=== PATIENT | female | born 1935 | race Caucasian/White ===

== ENCOUNTER 2016-03-28 15:24 | Inpatient (IN) | payer OTHER ==
[~2016-03-28] VITALS: Ht 172.7 cm; Wt 97.6 kg
[~2016-03-28 15:24] MED LIST: ADVIN25/60 INH; AMLO-114 PO; ASPI81TA28 PO; BENZ100C7 PO; DTRSR4 PO; DXY100 PO; FERR1TAB13 PO; FOLI800T PO; HYDR-4715 PO; INSDGI SQ; INSU100I2 SQ; IPRA1AER2 INH; LEVO175T3 PO; LSX40 PO; MAGN400T6 PO; METO50TA16 PO; MULT1CAP16 PO; NTRGSL/4 UT; OXGN; POLY335019 PO; PRLSR20 PO; QUET1TAB32 PO; SENN-61 PO; SIMV20TA2 PO; TEMA15CA4 PO; TIOTCAP INH; WARF5TAB90 PO
[2016-03-28] MEDS ORDERED: WARF2.5T8 PO (15:49)
[2016-03-28] MEDS ORDERED: LEVO-17 PO (15:49)
[2016-03-28] MEDS ORDERED: WARF5TAB7 PO (15:49)
[2016-03-28] MEDS ORDERED: OXYC-106 PO (15:49)
[2016-03-28] MEDS ORDERED: GLC/500 PO (15:49)
[2016-03-28] MEDS ORDERED: GLIM4TAB2 PO (15:49)
[2016-03-28] MEDS ORDERED: SUCR1TAB29 PO (15:49)
[2016-03-28] MEDS ORDERED: FURO-85 PO (15:49)
[2016-03-28] MEDS ORDERED: CLX20 PO (15:49)
[2016-03-28] MEDS ORDERED: [UNRECOGNIZED DRUG - CODE] (15:49)
[2016-03-28] MEDS ORDERED: METOPROLOL TARTRATE 50 MG TAB PO STA (16:10)
[2016-03-28 16:25] LABS: BASO % 0.4 %; BASO ABS # 0.03 K/uL (0-0.2); COMPLETE YES; EOS % 0.6 %; HEMATOCRIT 33.9 % (37-47); IG% 0.4 %; LYMPH % 11.4 %; LYMPH ABS # 0.88 K/uL (1.2-3.4); MEAN CELL VOLUME 87.1 fL (80-100); MEAN PLATELET VOLUME 10.6 fL (7.4-10.4); MONO % 10.4 %; NEUT % 76.8 %; PLATELET COUNT 242 K/uL (130-400); RED BLOOD COUNT 3.89 M/uL (4.2-5.4)
--- NOTE | 2016-03-28 16:32 | DIAGNOSTIC IMAGING REPORT ---
SINGLE VIEW CHEST CLINICAL HISTORY: Generalized abdominal pain. FINDINGS: An AP, portable, upright chest radiograph is compared to study dated 12/21/2015. The examination is degraded by portable technique and patient rotation. The patient is status post midline sternotomy and cardiac valve surgery. The heart is enlarged and there is atherosclerotic calcification of the thoracic aorta. The pulmonary vasculature is congested. No large pleural effusion is identified. There is bibasilar atelectasis. No pneumothorax is seen. The skeletal structures are osteopenic. The bony thorax is grossly intact. IMPRESSION: Cardiomegaly with mild pulmonary vascular congestion. Electronically signed by: John Paul Peres M.D. 03/28/2016 4:30 PM Dictated Date/Time: 03/28/2016 4:29 PM
[2016-03-28 16:34] LABS: BUN/CREATININE RATIO 25.5 (10-20); CALCIUM 8.6 mg/dl (8.5-10.1); CREATININE 2.1 mg/dl (0.60-1.20); POTASSIUM 5.1 mmol/L (3.5-5.1)
[2016-03-28 16:55] LABS: ALB/GLOB RATIO 0.9 (0.9-2)
[2016-03-28 17:01] LABS: URINE APPEARANCE CLEAR (CLEAR); URINE BILIRUBIN NEG (NEG); URINE COLOR YELLOW; URINE NITRITE NEG (NEG); URINE SPECIFIC GRAVITY 1.018 (1.000-1.030); UROBILINOGEN NEG (NEG); ZZURINE CULT IF INDIC CATH YES
[2016-03-28 17:08] LABS: MANUAL MICROSCOPIC REQUIRED? NO; REVIEW REQ? NO
[2016-03-28 17:12] LABS: INR 1.4 (0.9-1.1); PROTHROMBIN TIME (PATIENT) 15.6 SECONDS (9.0-12.0)
[2016-03-28] MEDS ORDERED: LABETALOL HCL IV 5 MG/ML 20ML IV STA (17:16)
--- NOTE | 2016-03-28 17:25 | DIAGNOSTIC IMAGING REPORT ---
ABDOMEN AND PELVIS CT WITHOUT CONTRAST CT DOSE: 1288.69 mGy.cm HISTORY: Generalized abdominal pain. TECHNIQUE: Multiaxial CT images of the abdomen and pelvis were performed without contrast. COMPARISON STUDY: Renal ultrasound 10/30/2015. FINDINGS: The heart is enlarged. There are poststernotomy changes. Small to moderate right pleural effusion with a small amount of compressive atelectasis within the right lower lobe. No pneumoperitoneum. No pneumatosis. Moderate to severe body wall edema. There are few punctate calcified granulomas within the liver and spleen. The unenhanced adrenal glands and pancreas are unremarkable. Mild perinephric edema. There are few punctate bilateral renal calculi. No hydronephrosis. Gallbladder wall thickening/edema remains unchanged. No retroperitoneal lymphadenopathy. Small amount of ascites. The bladder is not well-distended which may account for the apparent bladder wall thickening. There is gas within the uterine cavity and vagina. No CT evidence for a fistula. Suboptimal evaluation for bowel pathology due to the lack of intravenous and oral contrast. Multiple colonic diverticula. No definite bowel wall thickening or obstruction. A small portion appendix may be identified on image 275. This appears to be normal in caliber. IMPRESSION: 1. No definite bowel wall thickening or obstruction. 2. Small to moderate right pleural effusion. 3. Moderate to severe body wall edema with a small amount of ascites. 4. Gallbladder wall thickening/edema, unchanged. This is likely due to the patient's edematous state. 5. Gas within the uterine cavity and vagina. However, no CT evidence for a fistula. 6. Bilateral nephrolithiasis. No hydronephrosis. Electronically signed by: Manav Alvarez M.D. 03/28/2016 5:23 PM Dictated Date/Time: 03/28/2016 5:14 PM
--- NOTE | 2016-03-28 18:29 | EMERGENCY ROOM VISIT NOTE ---
History Report prepared by Erica: Mesha Oliva Under the Supervision of: Dr. John Paul Han M.D. First contact with patient: 16:05 Chief Complaint: SHORTNESS OF BREATH Stated Complaint: SOB Nursing Triage Summary: Pt reports feeling sick for 3 weeks. Daughter called EMS for increasing SOB. Pt has been weak, poor appetite, and SOB. History of COPD and on 3L O2 at home. Pt also has ulcer on left lower leg History of Present Illness The patient is an 80 year old female arriving by ambulance who presents to the Emergency Room with complaints of gradually worsening shortness of breath over the past 6 weeks. Currently, she is feeling generally unwell, and she rates her discomfort as a 5/10. She was given a DuoNeb as well as an albuterol neb en route to the ED as EMS reported wheezing upon their arrival. The patient states that her abdomen has appeared to have become distended and her legs have become more swollen, despite decreased PO intake secondary to loss of appetite. Her family also notes that she has ulcers on her legs that have become more red, and have been seeping. They were also concerned that she may have a urinary infection secondary to dysuria with a foul odor, as well as an abnormal rash around the area of her groin. Patient was prescribed Levaquin for a possible UTI by her PCP, but she has not yet started that medication. The patient states that she has felt chilled, but she denies having fevers, cough, chest pain, nausea, vomiting, or diarrhea. She takes Coumadin regularly for her history of atrial fibrillation. Source of History: patient, family Onset: over the past 6 weeks Position: chest Symptom Intensity: 5/10 Quality: other (shortness of breath) Timing: worsening Associated Symptoms: + abdominal pain (distended), + chills, + rash (groin) , + urinary symptoms, No chest pain, No diarrhea, No fevers, No nausea, No vomiting Note: Patient has ulcers on her legs with increased redness and seeping. Review of Systems See HPI for pertinent positives & negatives. A total of 10 systems reviewed and were otherwise negative. Past Medical & Surgical Medical Problems: (1) Atrial fibrillation (2) CAD (coronary artery disease) (3) Cellulitis of left lower extremity (4) CHF (congestive heart failure) (5) COPD (chronic obstructive pulmonary disease) (6) Depression (7) DM type 2 (diabetes mellitus, type 2) (8) GI bleed (9) HTN (hypertension) (10) Hypothyroidism (11) NSTEMI, initial episode of care Surgical Problems: (1) H/O aortic valve replacement (2) Hx of CABG (3) S/P tonsillectomy Family History Heart disease Stroke Social History Smoking Status: Former Smoker Drug Use: none Marital Status: single Housing Status: lives alone Occupation Status: disabled Current/Historical Medications Scheduled Aspirin (Aspirin Ec), 81 MG PO DAILY Citalopram (Citalopram Hydrobromide), 20 MG PO DAILY Ferrous Sulfate (Kp Ferrous Sulfate), 325 MG PO TIDM Folic Acid (Folic Acid), 1 TAB PO DAILY Furosemide (Lasix), 20 MG PO DAILY Glimepiride (Glimepiride), 4 MG PO QAM Levofloxacin (Levaquin), 250 MG PO DAILY Levothyroxine Sodium (Levothyroxine Sodium), 1 TAB PO DAILY Magnesium Oxide (Mag-Ox), 400 MG PO BID Metformin Hcl (Glucophage), 1,000 MG PO BID Metoprolol Tartrate (Lopressor) (Lopressor), 25 MG PO BID Multiple Vitamins W/ Minerals (Multi Complete), 1 CAP PO DAILY Omeprazole (Prilosec), 20 MG PO DAILY Oxygen (Oxygen), 3 LITER NA CONTINOUS Quetiapine Fumarate (Seroquel), 50 MG PO HS Senna (Senokot), 8.6 MG PO BID Sucralfate (Carafate), 1 GM PO ACHS Tolterodine Tartrate (Detrol LA), 4 MG PO DAILY Warfarin Sod (Jantoven), 2.5 MG PO 2XWK Warfarin Sod (Jantoven), 5 MG PO 5XWK Scheduled PRN Ipratropium-Albuterol (Combivent Respimat), 1 PUFFS INH QID PRN for Wheezing Oxycodone/Acetaminophen 10MG/325MG (Percocet 10MG/325MG), 1 TAB PO Q6 PRN for Pain Miscellaneous Medications Nitroglycerin (Nitroglycerin Lingual), 400 MCG Allergies Coded Allergies: Morphine (Verified Adverse Reaction, Unknown, HALLUCINATIONS, 03/28/16) Physical Exam Vital Signs Date Time Temp Pulse Resp B/P Pulse Ox O2 Delivery O2 Flow Rate FiO2 03/28/16 17:14 90 20 159/115 98 Nasal Cannula 3.0 03/28/16 15:43 96 03/28/16 15:38 100 Nasal Cannula 3.0 03/28/16 15:30 Nasal Cannula 3.0 03/28/16 15:30 36.6 96 20 175/102 100 Nasal Cannula 3.0 Physical Exam GENERAL: Patient is in no acute distress. HEENT: No acute trauma, normocephalic atraumatic, mucous membranes dry, no nasal congestion, no scleral icterus. NECK: No stridor, no adenopathy, no meningismus, trachea is midline. LUNGS: Clear to auscultation bilaterally, no wheeze, no rhonchi, breath sounds equal. HEART: Mildly tachycardic and irregular. No murmur. ABDOMEN: Soft, nontender, bowel sounds positive, no hernias, no peritonitis. Yeast like rash present in the groin. EXTREMITIES: Moderate pedal edema with some superficial ulcers, more so on the left leg. Mild surrounding erythema. NEUROLOGIC: Oriented x 3, no acute motor or sensory deficits, no focal weakness. SKIN: No rash, no jaundice, no diaphoresis. Medical Decision & Procedures ER Provider Diagnostic Interpretation: X-ray results as stated below per interpretation by me and the radiologist: CT results as stated below per my review and radiologist interpretation: SINGLE VIEW CHEST CLINICAL HISTORY: Generalized abdominal pain. FINDINGS: An AP, portable, upright chest radiograph is compared to study dated 12/21/2015. The examination is degraded by portable technique and patient rotation. The patient is status post midline sternotomy and cardiac valve surgery. The heart is enlarged and there is atherosclerotic calcification of the thoracic aorta. The pulmonary vasculature is congested. No large pleural effusion is identified. There is bibasilar atelectasis. No pneumothorax is seen. The skeletal structures are osteopenic. The bony thorax is grossly intact. IMPRESSION: Cardiomegaly with mild pulmonary vascular congestion. Electronically signed by: John Paul Peres M.D. 03/28/2016 4:30 PM Dictated Date/Time: 03/28/2016 4:29 PM ABDOMEN AND PELVIS CT WITHOUT CONTRAST CT DOSE: 1288.69 mGy.cm HISTORY: Generalized abdominal pain. TECHNIQUE: Multiaxial CT images of the abdomen and pelvis were performed without contrast. COMPARISON STUDY: Renal ultrasound 10/30/2015. FINDINGS: The heart is enlarged. There are poststernotomy changes. Small to moderate right pleural effusion with a small amount of compressive atelectasis within the right lower lobe. No pneumoperitoneum. No pneumatosis. Moderate to severe body wall edema. There are few punctate calcified granulomas within the liver and spleen. The unenhanced adrenal glands and pancreas are unremarkable. Mild perinephric edema. There are few punctate bilateral renal calculi. No hydronephrosis. Gallbladder wall thickening/edema remains unchanged. No retroperitoneal lymphadenopathy. Small amount of ascites. The bladder is not well-distended which may account for the apparent bladder wall thickening. There is gas within the uterine cavity and vagina. No CT evidence for a fistula. Suboptimal evaluation for bowel pathology due to the lack of intravenous and oral contrast. Multiple colonic diverticula. No definite bowel wall thickening or obstruction. A small portion appendix may be identified on image 275. This appears to be normal in caliber. IMPRESSION: 1. No definite bowel wall thickening or obstruction. 2. Small to moderate right pleural effusion. 3. Moderate to severe body wall edema with a small amount of ascites. 4. Gallbladder wall thickening/edema, unchanged. This is likely due to the patient's edematous state. 5. Gas within the uterine cavity and vagina. However, no CT evidence for a fistula. 6. Bilateral nephrolithiasis. No hydronephrosis. Electronically signed by: Manav Alvarez M.D. 03/28/2016 5:23 PM Dictated Date/Time: 03/28/2016 5:14 PM Laboratory Results Test 03/28/16 15:16 03/28/16 16:40 Total Bilirubin 0.9 mg/dl (0.2-1) Aspartate Amino Transf (AST/SGOT) 71 U/L (15-37) Alanine Aminotransferase (ALT/SGPT) 58 U/L (12-78) Alkaline Phosphatase 68 U/L (45-117) Total Protein 6.7 gm/dl (6.4-8.2) Albumin 3.1 gm/dl (3.4-5.0) Globulin 3.6 gm/dl (2.5-4.0) Albumin/Globulin Ratio 0.9 (0.9-2) Lipase 211 U/L (73-393) Urine Color YELLOW Urine Appearance CLEAR (CLEAR) Urine pH 6.0 (4.5-7.5) Urine Specific Pilger 1.018 (1.000-1.030) Urine Protein 2+ (NEG) Urine Glucose (UA) NEG (NEG) Urine Ketones NEG (NEG) Urine Occult Blood TRACE (NEG) Urine Nitrite NEG (NEG) Urine Bilirubin NEG (NEG) Urine Urobilinogen NEG (NEG) Urine Leukocyte Esterase SMALL (NEG) Urine WBC (Auto) 10-30 /hpf (0-5) Urine RBC (Auto) 0-4 /hpf (0-4) Urine Hyaline Casts (Auto) 1-5 /lpf (0-5) Urine Epithelial Cells (Auto) 10-20 /lpf (0-5) Urine Bacteria (Auto) NEG (NEG) Laboratory results reviewed by me. Medications Administered Medications (Trade) Dose Ordered Sig/Keny Route Start Time Stop Time Status Last Admin Dose Admin Metoprolol Tartrate (Lopressor Tab) 25 mg NOW STAT PO 03/28/16 16:10 03/28/16 16:15 DC 03/28/16 16:22 25 MG Labetalol HCl (Normodyne IV) 20 mg NOW STAT IV 03/28/16 17:16 03/28/16 17:17 DC 03/28/16 17:19 20 MG ECG Indication: SOB/dyspnea Rate (beats per minute): 104 Rhythm: atrial fibrillation Findings: RBBB (incomplete), no acute ischemic change, other (Non-specific T wave change) ED Course 1605: The patient was evaluated in room C1. A complete history and physical exam was performed. 1610: Lopressor tab 25 mg PO was ordered. 1716: Labetalol HCl 20 mg IV was ordered. 1750: upon reevaluation, the patient appeared to be resting more comfortably. I updated her and her family on the results of her radiology reports and lab tests. The hospitalist will be contacted. 1800: After discussion with Dr. Pulido, the patient will continue to be evaluated by the [facility] [place] hospitalist for further management. The patient and her family verbalized their understanding and agreement with this treatment plan. Medical Decision The patient is an 80 year old female who presents to the ED with complaints of gradually worsening shortness of breath over the past 6 weeks. Differential diagnoses considered include exacerbation of COPD, pneumonia, CHF, bronchitis, anemia, UTI, sepsis, bowel obstruction, and cellulitis. There is no leukocytosis. The patient is anemic but this appears baseline looking back at previous testing. There is evidence for some renal insufficiency, this is about baseline for the patient. No acute electrolyte abnormality requiring correction. Lactic acid level is slightly elevated, this could be consistent with infection or dehydration. There was no hepatitis or pancreatitis. Urinalysis does not show infection or significant hematuria. Abdominal and pelvis CT shows no bowel obstruction, no acute surgical process by CT scan. EKG shows A. fib, no acute ischemia. Cardiac enzyme testing does show an elevation to the troponin, this is consistent with cardiac injury/ strain. Chest x-ray shows no pneumonia or CHF, there is no free air. INR is subtherapeutic for someone using Coumadin. Blood cultures are pending. The patient received IV saline, her lungs sounded fairly clear after receiving the nebulizers prior to arrival, no additional bronchodilator medication was given in the ER. The patient was given her normal dose of a.m. oral metoprolol. As her blood pressure was still high, she was given a dose of IV labetalol. The patient presents with worsening shortness of breath for weeks. She seems somewhat dehydrated by exam and history. I don't find evidence for pneumonia. She complained of lower abdominal pain, no peritonitis by exam, no acute surgical process by CT scan. Urine does not show infection. She did not appear to have any abdominal wall cellulitis, a groin yeast infection was seen. She does have some pedal edema with some slight erythema, I do not think she has an active cellulitis. With the elevated troponin, a cardiac cause for her presentation was considered. Admission/observation is warranted. I spoke to the patient and case management. The on-call hospitalist was consulted. Consults Time Called: 1750 Consulting Physician: Dr. Pulido - [facility] [place] Returned Call: 1800 Discussed the patient's case. She will continue to be evaluated by the [facility] [place] hospitalist for further management. Impression Primary Impression: Shortness of breath Additional Impression: Elevated troponin Scribe Attestation The scribe's documentation has been prepared under my direction and personally reviewed by me in its entirety. I confirm that the note above accurately reflects all work, treatment, procedures, and medical decision making performed by me. Departure Information Dispostion Being Evaluated By Hospitalist ([facility] [place]) Referrals Yasemin Sanabria M.D. (PCP) Problem Qualifiers
[2016-03-28] MEDS ORDERED: ZOLPIDEM TARTRATE 5 MG TAB PO PRN (18:30)
[2016-03-28] MEDS ORDERED: ACETAMINOPHEN 325 MG TAB PO PRN ×2 (18:30→18:45)
[2016-03-28] MEDS ORDERED: NITROGLYCERIN 0.4 MG SL PER TAB CHARGE SL PRN (18:30)
[2016-03-28] MEDS ORDERED: IPRATROPIUM BROMIDE/ALBUTEROL respimat INH INH PRN (18:30)
[2016-03-28] MEDS ORDERED: DEXTROSE 50% 50 ML SYR IV PRN (18:45)
[2016-03-28] MEDS ORDERED: GLUCAGON FOR INJ 1 MG VIAL SQ PRN (18:45)
[2016-03-28] MEDS ORDERED: GLUCOSE 40% GEL 15 GM TUBE PO PRN (18:45)
[2016-03-28] MEDS ORDERED: METOPROLOL TARTRATE 1 MG/ML VIAL IV PRN (18:45)
[2016-03-28] MEDS ORDERED: GLUCOSE 10 TABS/TUBE PO PRN (18:45)
[2016-03-28] MEDS ORDERED: LEVALBUTEROL/IPRATROPIUM NEB INH PRN (18:45)
[2016-03-28] MEDS ORDERED: ONDANSETRON INJ 2 MG/ML 2 ML VIAL IV PRN (18:45)
[2016-03-28] MEDS ORDERED: VANCOMYCIN INJ 2,100 MG in SODIUM CHLORIDE 0.9% 500ML 500 ML IV ONE (19:00)
[2016-03-28] MEDS ORDERED: VANCOMYCIN CONSULT ACTIVE PRN (19:00)
[2016-03-28] MEDS ORDERED: PIPERACILL/TAZOBAC CONSULT ACTIVE PRN (19:00)
[2016-03-28 19:56] LABS: CKMB/CK RATIO 5.8 (0-3.0)
--- NOTE | 2016-03-28 20:38 | Pharmacy Progress Note ---
Pharmacy Antibiotic Consult Date of Service: Mar 28, 2016. Pharmacy Dosing Scope Pharmacy is consulted to initiate vancomycin IV dosing therapy, order appropriate labs and adjust drug dose/frequency. Subjective The patient is a 80 year old female admitted on 03/28/2016 with cellulitis Objective Height (Feet): 5 Height (Inches): 8.00 Weight (Kilograms): 105.000 Lab Results (24hrs): Laboratory Tests Test 03/28/16 15:16 BUN/Creatinine Ratio 25.5 Blood Urea Nitrogen 54 mg/dl Creatinine 2.10 mg/dl White Blood Count 7.70 K/uL Red Blood Count 3.89 M/uL Hemoglobin 10.5 g/dL Hematocrit 33.9 % Mean Corpuscular Volume 87.1 fL Mean Corpuscular Hemoglobin 27.0 pg Mean Corpuscular Hemoglobin Concent 31.0 g/dl Platelet Count 242 K/uL Mean Platelet Volume 10.6 fL Neutrophils (%) (Auto) 76.8 % Lymphocytes (%) (Auto) 11.4 % Monocytes (%) (Auto) 10.4 % Eosinophils (%) (Auto) 0.6 % Basophils (%) (Auto) 0.4 % Neutrophils # (Auto) 5.91 K/uL Lymphocytes # (Auto) 0.88 K/uL Monocytes # (Auto) 0.80 K/uL Eosinophils # (Auto) 0.05 K/uL Basophils # (Auto) 0.03 K/uL Assessment & Plan Loading dose: vancomycin 2100 mg (20 mg/kg) IV X 1 dose then: RANDOM LEVEL (baseline creatinine between 1.8-2.0 mg/dL and currently creatinine is at 2.1 mg/dL --> at this point it is recommended to give a 20 mg/ kg loading dose and check levels) Goal peak level estimate: between 35 - 40 mcg/mL. Goal trough level estimate: between 15 - 20 mcg/mL (unknown organism). Random level has been ordered for: . Pharmacy will continue to follow and will adjust dose/frequency as necessary. Thank you
[2016-03-28] MEDS ORDERED: METOPROLOL TARTRATE 50 MG TAB PO SCH (21:00)
[2016-03-28 21:06] VITALS: BP 136/94; PULSE 83; TEMP 36.5; BMI 34.4; BMI 35.2
--- NOTE | 2016-03-28 21:08 | History and Physical ---
History & Physical Date & Time of Service: Mar 28, 2016 at 20:41 Chief Complaint: SOB Primary Care Physician: Ezra Arevalo D.O. History of Present Illness Source: patient, family The patient is a 80-year-old female brought by ambulance emergency department with worsening shortness of breath over the past 6 weeks and in particular over the past few days. She was reported by EMS to be wheezing upon their arrival, and was given a nebulizer treatment en route. Her legs become more swollen during this past interval as well , and the family notes weeping, redness and ulcerations on her legs. Family notes that the patient's urine has become more odorous, and they're concerned about possibility of urinary tract infection. The patient reports that she does have dysuria, but notes that she has a rash in her groin area and feels that the irritation is due to skin rash. She does take Coumadin regularly for atrial fibrillation Past Medical/Surgical History Medical Problems: (1) Atrial fibrillation Status: Chronic (2) CAD (coronary artery disease) Status: Chronic (3) CHF (congestive heart failure) Status: Chronic (4) COPD (chronic obstructive pulmonary disease) Status: Chronic (5) Depression Status: Chronic (6) DM type 2 (diabetes mellitus, type 2) Status: Chronic (7) GI bleed Status: Resolved (8) HTN (hypertension) Status: Chronic (9) Hypothyroidism Status: Chronic Surgical Problems: (1) H/O aortic valve replacement Status: Chronic (2) Hx of CABG Status: Chronic (3) S/P tonsillectomy Status: Chronic Family History Heart disease Stroke Social History Smoking Status: Former Smoker Smokeless Tobacco Use: No Alcohol Use: none Drug Use: none Marital Status: single Housing status: lives with family Occupational Status: disabled Multi-Drug Resistant Organisms History of MDRO: No Allergies Coded Allergies: Morphine (Verified Adverse Reaction, Unknown, HALLUCINATIONS, 03/28/16) Home Medications Scheduled Aspirin (Aspirin Ec), 81 MG PO DAILY Citalopram (Citalopram Hydrobromide), 20 MG PO DAILY Ferrous Sulfate (Kp Ferrous Sulfate), 325 MG PO TIDM Folic Acid (Folic Acid), 1 TAB PO DAILY Furosemide (Lasix), 20 MG PO DAILY Glimepiride (Glimepiride), 4 MG PO QAM Levofloxacin (Levaquin), 250 MG PO DAILY Levothyroxine Sodium (Levothyroxine Sodium), 1 TAB PO DAILY Magnesium Oxide (Mag-Ox), 400 MG PO BID Metformin Hcl (Glucophage), 1,000 MG PO BID Metoprolol Tartrate (Lopressor) (Lopressor), 25 MG PO BID Multiple Vitamins W/ Minerals (Multi Complete), 1 CAP PO DAILY Omeprazole (Prilosec), 20 MG PO DAILY Oxygen (Oxygen), 3 LITER NA CONTINOUS Quetiapine Fumarate (Seroquel), 50 MG PO HS Senna (Senokot), 8.6 MG PO BID Sucralfate (Carafate), 1 GM PO ACHS Tolterodine Tartrate (Detrol LA), 4 MG PO DAILY Warfarin Sod (Jantoven), 2.5 MG PO 2XWK Warfarin Sod (Jantoven), 5 MG PO 5XWK Scheduled PRN Ipratropium-Albuterol (Combivent Respimat), 1 PUFFS INH QID PRN for Wheezing Oxycodone/Acetaminophen 10MG/325MG (Percocet 10MG/325MG), 1 TAB PO Q6 PRN for Pain Miscellaneous Medications Nitroglycerin (Nitroglycerin Lingual), 400 MCG Review of Systems The patient denies vision change, hearing change, sore throat, fevers, chills, sweats, nausea, vomiting, abdominal pain, pelvic pain, blood in urine or stool, urinary frequency or urgency, headache, memory loss, abnormal bruising or bleeding, imbalance, focal weakness, numbness or tingling in arms or legs, night sweats, or allergy symptoms. The review of systems is otherwise negative other than for that already noted above, and at least 10 systems have been reviewed. Physical Exam Vital Signs Date Time Temp Pulse Resp B/P Pulse Ox O2 Delivery O2 Flow Rate FiO2 03/28/16 19:39 78 20 95 Nasal Cannula 3.0 03/28/16 17:14 90 20 159/115 98 Nasal Cannula 3.0 03/28/16 15:43 96 03/28/16 15:38 100 Nasal Cannula 3.0 03/28/16 15:30 Nasal Cannula 3.0 03/28/16 15:30 36.6 96 20 175/102 100 Nasal Cannula 3.0 The patient is awake, well-developed and adequately nourished, alert and oriented 3, normocephalic and atraumatic, lying in bed and in no acute distress. HEENT--PERRL, EOMI, mucous membranes moist, and oropharynx normal. Neck--supple, no JVD or bruits, thyroid normal, trachea midline, no adenopathy. Heart--normal S1 and S2, no extra beats, no murmurs, rubs or gallops. Lungs--crackles at bases to one third up bilaterally, no respiratory distress, no accessory muscle use. Abdomen--normal bowel sounds and soft, nontender and nondistended, no hernias or masses, no organomegaly. Extremities--no cyanosis, clubbing. There is bilaterally 1-2+ pitting Edema. There are good distal pulses b/l. Dermatologic--bilateral lower extremities with edema and small vacuoles. Left lower extremity with round surface abrasion about 3 cm in diameter with erythema and induration extending and all directions. Neurologic--cranial nerves II through XII grossly intact, motor and sensory examination normal. Psychiatric--normal affect. Diagnostics Laboratory Results Results Past 24 Hours Test 03/28/16 15:16 03/28/16 16:40 03/28/16 16:50 03/28/16 19:20 Range/Units White Blood Count 7.70 4.8-10.8 K/uL Red Blood Count 3.89 4.2-5.4 M/uL Hemoglobin 10.5 12.0-16.0 g/dL Hematocrit 33.9 37-47 % Mean Corpuscular Volume 87.1 80-100 fL Mean Corpuscular Hemoglobin 27.0 25-34 pg Mean Corpuscular Hemoglobin Concent 31.0 32-36 g/dl Platelet Count 242 130-400 K/uL Mean Platelet Volume 10.6 7.4-10.4 fL Neutrophils (%) (Auto) 76.8 % Lymphocytes (%) (Auto) 11.4 % Monocytes (%) (Auto) 10.4 % Eosinophils (%) (Auto) 0.6 % Basophils (%) (Auto) 0.4 % Neutrophils # (Auto) 5.91 1.4-6.5 K/uL Lymphocytes # (Auto) 0.88 1.2-3.4 K/uL Monocytes # (Auto) 0.80 0.11-0.59 K/uL Eosinophils # (Auto) 0.05 0-0.5 K/uL Basophils # (Auto) 0.03 0-0.2 K/uL RDW Standard Deviation 58.5 36.4-46.3 fL RDW Coefficient of Variation 18.5 11.5-14.5 % Immature Granulocyte % (Auto) 0.4 % Immature Granulocyte # (Auto) 0.03 0.00-0.02 K/uL Sodium Level 141 136-145 mmol/L Potassium Level 5.1 3.5-5.1 mmol/L Chloride Level 104 98-107 mmol/L Carbon Dioxide Level 24 21-32 mmol/L Anion Gap 13.0 3-11 mmol/L Blood Urea Nitrogen 54 7-18 mg/dl Creatinine 2.10 0.60-1.20 mg/dl Est Creatinine Clear Calc Drug Dose 27.1 ml/min Estimated GFR () 25.1 Estimated GFR (Non- 21.7 BUN/Creatinine Ratio 25.5 10-20 Random Glucose 94 70-99 mg/dl Calcium Level 8.6 8.5-10.1 mg/dl Total Bilirubin 0.9 0.2-1 mg/dl Aspartate Amino Transf (AST/SGOT) 71 15-37 U/L Alanine Aminotransferase (ALT/SGPT) 58 12-78 U/L Alkaline Phosphatase 68 45-117 U/L Troponin I 3.040 3.130 0-0.045 ng/ml Total Protein 6.7 6.4-8.2 gm/dl Albumin 3.1 3.4-5.0 gm/dl Globulin 3.6 2.5-4.0 gm/dl Albumin/Globulin Ratio 0.9 0.9-2 Lipase 211 73-393 U/L Urine Color YELLOW Urine Appearance CLEAR CLEAR Urine pH 6.0 4.5-7.5 Urine Specific [place] 1.018 1.000-1.030 Urine Protein 2+ NEG Urine Glucose (UA) NEG NEG Urine Ketones NEG NEG Urine Occult Blood TRACE NEG Urine Nitrite NEG NEG Urine Bilirubin NEG NEG Urine Urobilinogen NEG NEG Urine Leukocyte Esterase SMALL NEG Urine WBC (Auto) 10-30 0-5 /hpf Urine RBC (Auto) 0-4 0-4 /hpf Urine Hyaline Casts (Auto) 1-5 0-5 /lpf Urine Epithelial Cells (Auto) 10-20 0-5 /lpf Urine Bacteria (Auto) NEG NEG Prothrombin Time 15.6 9.0-12.0 SECONDS Prothromb Time International Ratio 1.4 0.9-1.1 Activated Partial Thromboplast Time 24.9 21.0-31.0 SECONDS Partial Thromboplastin Ratio 1.0 Lactic Acid Level 2.2 1.7 0.4-2.0 mmol/L Total Creatine Kinase 118 26-192 U/L Creatine Kinase MB 6.9 0.5-3.6 ng/ml Creatine Kinase MB Ratio 5.8 0-3.0 Microbiology Results 03/28/16 Blood Culture, Received Pending 03/28/16 Blood Culture, Received Pending 03/28/16 Urine Culture, Received Pending Diagnostic Radiology Patient Name: COLLIN AREVALO Unit Number: [id number] Dictated: 03/28/161628 Transcribed: 03/28/161628 EV Printed Date/Time: [~ rep prt dt]/[~ rep prt tm] [~ rep ct labl] - [~ rep ct ivnm] [facility] [place] [place] [address] Dictated: 03/28/161628 Transcribed: 03/28/161628 EV Printed Date/Time: [~ rep prt dt]/[~ rep prt tm] [~ rep ct labl] - [~ rep ct ivnm] [~ rep ct add3]] SINGLE VIEW CHEST CLINICAL HISTORY: Generalized abdominal pain. FINDINGS: An AP, portable, upright chest radiograph is compared to study dated 12/21/2015. The examination is degraded by portable technique and patient rotation. The patient is status post midline sternotomy and cardiac valve surgery. The heart is enlarged and there is atherosclerotic calcification of the thoracic aorta. The pulmonary vasculature is congested. No large pleural effusion is identified. There is bibasilar atelectasis. No pneumothorax is seen. The skeletal structures are osteopenic. The bony thorax is grossly intact. IMPRESSION: Cardiomegaly with mild pulmonary vascular congestion. Electronically signed by: John Paul Peres M.D. 03/28/2016 4:30 PM Dictated Date/Time: 03/28/2016 4:29 PM The status of this report is Signed. Draft = Not yet reviewed or approved by Radiologist. Signed = Reviewed and approved by Radiologist. <AttendingPhy></AttendingPhy> <FamilyPhy>Ezra Arevalo D.O.</FamilyPhy> < PrimaryPhy>Ezra Arevalo D.O.</PrimaryPhy> <UnitNumber>[id number]</ UnitNumber> <VisitNumber>[id number]</VisitNumber> <PatientName>COLLIN AREVALO</PatientName> <DateOfBirth>1935</DateOfBirth> <Location>[facility]</ Location> <ServiceDate>03/28/16</ServiceDate> <MNE>ESINDI</MNE> <OrderingPhy> John Paul Han M.D.</OrderingPhy> <OrderingPhyMNE>f rep ord dr thomas</ OrderingPhyMNE> <DictatingPhyMNE>f rep dict dr thomas</DictatingPhyMNE> <CCListMNE> f rep ct mne</CCListMNE> <AdmittingPhyMNE>f pt admit dr thomas</AdmittingPhyMNE> < AttendingPhyMNE>f pt attend dr thomas</AttendingPhyMNE> <ConsultingPhyMNE>f pt consult dr thomas</ConsultingPhyMNE> <FamilyPhyMNE>f pt fam dr thomas</FamilyPhyMNE> <OtherPhyMNE>f pt other dr thomas</OtherPhyMNE> < PrimaryPhyMNE>f pt prim care dr thomas</PrimaryPhyMNE> <ReferringPhyMNE>f pt referring dr thomas</ReferringPhyMNE> Patient Name: COLLIN AREVALO Unit Number: [id number] Dictated: 03/28/161713 Transcribed: 03/28/161713 PA Printed Date/Time: [~ rep prt dt]/[~ rep prt tm] [~ rep ct labl] - [~ rep ct ivnm] [facility] [place] [place] [address] Dictated: 03/28/161713 Transcribed: 03/28/161713 PAJ Printed Date/Time: [~ rep prt dt]/[~ rep prt tm] [~ rep ct labl] - [~ rep ct ivnm] [~ rep ct add3]] ABDOMEN AND PELVIS CT WITHOUT CONTRAST CT DOSE: 1288.69 mGy.cm HISTORY: Generalized abdominal pain. TECHNIQUE: Multiaxial CT images of the abdomen and pelvis were performed without contrast. COMPARISON STUDY: Renal ultrasound 10/30/2015. FINDINGS: The heart is enlarged. There are poststernotomy changes. Small to moderate right pleural effusion with a small amount of compressive atelectasis within the right lower lobe. No pneumoperitoneum. No pneumatosis. Moderate to severe body wall edema. There are few punctate calcified granulomas within the liver and spleen. The unenhanced adrenal glands and pancreas are unremarkable. Mild perinephric edema. There are few punctate bilateral renal calculi. No hydronephrosis. Gallbladder wall thickening/edema remains unchanged. No retroperitoneal lymphadenopathy. Small amount of ascites. The bladder is not well-distended which may account for the apparent bladder wall thickening. There is gas within the uterine cavity and vagina. No CT evidence for a fistula. Suboptimal evaluation for bowel pathology due to the lack of intravenous and oral contrast. Multiple colonic diverticula. No definite bowel wall thickening or obstruction. A small portion appendix may be identified on image 275. This appears to be normal in caliber. IMPRESSION: 1. No definite bowel wall thickening or obstruction. 2. Small to moderate right pleural effusion. 3. Moderate to severe body wall edema with a small amount of ascites. 4. Gallbladder wall thickening/edema, unchanged. This is likely due to the patient's edematous state. 5. Gas within the uterine cavity and vagina. However, no CT evidence for a fistula. 6. Bilateral nephrolithiasis. No hydronephrosis. Electronically signed by: Manav Alvarez M.D. 03/28/2016 5:23 PM Dictated Date/Time: 03/28/2016 5:14 PM The status of this report is Signed. Draft = Not yet reviewed or approved by Radiologist. Signed = Reviewed and approved by Radiologist. <AttendingPhy></AttendingPhy> <FamilyPhy>Ezra Arevalo D.OHola</FamilyPhy> < PrimaryPhy>Ezra Arevalo D.O.</PrimaryPhy> <UnitNumber>[id number]</ UnitNumber> <VisitNumber>[id number]</VisitNumber> <PatientName>COLLIN AREVALO</PatientName> <DateOfBirth>1935</DateOfBirth> <Location>[facility]</ Location> <ServiceDate>03/28/16</ServiceDate> <MNE>ESINDI</MNE> <OrderingPhy> John Paul Han M.D.</OrderingPhy> <OrderingPhyMNE>f rep ord dr thomas</ OrderingPhyMNE> <DictatingPhyMNE>f rep dict dr thomas</DictatingPhyMNE> <CCListMNE> f rep ct martha</CCListMNE> <AdmittingPhyMNE>f pt admit dr thomas</AdmittingPhyMNE> < AttendingPhyMNE>f pt attend dr thomas</AttendingPhyMNE> <ConsultingPhyMNE>f pt consult dr thomas</ConsultingPhyMNE> <FamilyPhyMNE>f pt fam dr thomas</FamilyPhyMNE> <OtherPhyMNE>f pt other dr thomas</OtherPhyMNE> < PrimaryPhyMNE>f pt prim care dr thomas</PrimaryPhyMNE> <ReferringPhyMNE>f pt referring dr thomas</ReferringPhyMNE> EKG EKG shows age fibrillation with RVR at a rate of 104 bpm, with incomplete right bundle branch block, and no acute ST-T changes. Impression Assessment and Plan NSTEMI, with elevated troponin of 3.04/CAD/atrial fibrillation/hypertension/CHF/ status post CABG--the patient will be admitted to the telemetry unit, for serial cardiac enzymes, cardiac rhythm monitoring, and a 2-D echocardiogram with Dopplers. Continue aspirin 81 mg by mouth daily furosemide 20 mg by mouth daily mag oxide 400 mg by mouth twice a day, metoprolol tartrate 25 mg by mouth twice a day, and we'll increase warfarin to 4 mg by mouth daily. We'll follow serial CBC with differential, basic metabolic panel, magnesium and PT/INR. We' ll consult cardiology. Diabetes mellitus --continue glimepiride 4 mg by mouth every morning, and hold metformin 1000 mg by mouth twice a day. Place on Accu-Cheks before meals and at bedtime with NovoLog coverage. Hypothyroidism--continue levothyroxine sodium at 175 g by mouth daily. GERD--change omeprazole 20 mg by mouth daily to pantoprazole 40 mg by mouth daily, and continue Carafate 1 g by mouth before meals and at bedtime. Anxiety/agitation--continue citalopram 20 mg by mouth daily and Seroquel 50 mg by mouth at bedtime. Bladder spasm--continue Detrol LA 4 mg by mouth daily. Level of Care Telemetry Advanced Directives Existing Advance Directive: No Existing Living Will: No Existing Power of Rat Exterminator: No Resuscitation Status FULL RESUSCITATION VTE Prophylaxis VTE Risk Assessment Done? Y/N: Yes Risk Level: Moderate Given or contraindicated: Warfarin (Coumadin)
[2016-03-28] MEDS ORDERED: WARFARIN SOD 4 MG TAB PO ONE (21:30)
[2016-03-28] MEDS ORDERED: PIPERACILL/TAZOBAC IV 4.5 GM in DEXTROSE 5% 100ML IV ONE (21:45)
[2016-03-28] MEDS: SUCRALFATE 1 GM TAB PO SCH (21:57)
[2016-03-28] MEDS: MAGNESIUM OXIDE 400 MG TAB PO SCH (21:57)
[2016-03-28] MEDS: SENNA 8.6 MG TAB PO SCH (21:57)
[2016-03-28] MEDS: METOPROLOL TARTRATE 50 MG TAB PO SCH (21:58)
[2016-03-28] MEDS: INSULIN ASPART 100 UNITS/ML 3 ML PEN SC SCH (21:59)
[2016-03-28] MEDS: QUETIAPINE FUMARATE 25 MG TAB PO SCH (21:59)
[2016-03-28] MEDS ORDERED: PIPERACILL/TAZOBAC IV 3.375 GM in DEXTROSE 5% 100ML 100 ML IV SCH (22:00)
[2016-03-28] MEDS ORDERED: ALBUMIN 25% 50 ML with FUROSEMIDE INJ 40 MG IV ONE ×2 (22:00)
[2016-03-29] VITALS (12 sets, daily range): BP systolic 112–149; BP diastolic 71–91; PULSE 56–79; TEMP 36.3–36.5; O2SAT 93–100; Ht 172.7 cm; Wt 97.6 kg
[2016-03-29] MEDS: PIPERACILL/TAZOBAC IV 4.5 GM in DEXTROSE 5% 100ML IV SCH ×3 (03:02→20:21)
[2016-03-29] MEDS: OXYCODONE/ACETAMINOPHEN 10/325MG TAB PO PRN ×2 (03:03→18:09)
[2016-03-29 03:36] LABS: CKMB/CK RATIO 5.9 (0-3.0)
[2016-03-29] MEDS: LEVOTHYROXINE 175 MCG TAB PO SCH (05:23)
[2016-03-29] MEDS ORDERED: GLIMEPIRIDE 2 MG TAB PO SCH (07:30)
[2016-03-29 07:32] LABS: BASO % 0.2 %; BASO ABS # 0.01 K/uL (0-0.2); EOS % 3.2 %; HEMATOCRIT 28.4 % (37-47); LYMPH % 14.3 %; MEAN CELL VOLUME 89.3 fL (80-100); MEAN CORPUSCULAR HGB CONC 30.3 g/dl (32-36); MEAN PLATELET VOLUME 9.8 fL (7.4-10.4); MONO % 12.7 %; NEUT % 69.6 %; PLATELET COUNT 168 K/uL (130-400); RED BLOOD COUNT 3.18 M/uL (4.2-5.4); WHITE BLOOD COUNT 5.58 K/uL (4.8-10.8)
[2016-03-29] MEDS: SUCRALFATE 1 GM TAB PO SCH ×4 (07:37→20:32)
[2016-03-29] MEDS: FERROUS SULFATE 325 MG TAB PO SCH ×3 (07:38→18:05)
[2016-03-29] MEDS: LACTOBACILLUS ACIDOPHILUS (FLORANEX) TAB PO SCH ×3 (07:38→18:05)
[2016-03-29 07:41] LABS: INR 1.3 (0.9-1.1); PROTHROMBIN TIME (PATIENT) 14.6 SECONDS (9.0-12.0)
--- NOTE | 2016-03-29 08:06 | Clinical Documentation Query ---
Dr. YA JONES, [facility]. : CLINICAL DOCUMENTATION QUERIES QUERY 1 OF 4 Patient is an 80 year old female admitted with NSTEMI. H&P notes history of CHF, not otherwise specified. Echocardiogram from 12/15/15 demonstrated moderately reduced left ventricular systolic function, with an estimated LVEF of 35-40%. There was moderate global hypokinesis of the left ventricle. She is being monitored on telemetry, and maintained on oral Lasix and Lopressor. In your clinical opinion is this patient being managed for: ( x ) Chronic systolic congestive heart failure ( ) Other explanation of clinical findings (Please Explain) ( ) Unable to determine (Please Define) ( ) Need to Discuss ( ) Not Agree The medical record reflects the following clinical findings, treatment, and risk factors. Clinical Indicators: As above Treatment: She is being monitored on telemetry, and maintained on oral Lasix and Lopressor. Risk Factors: CAD, NSTEMI, DM, HTN QUERY 2 OF 4 Provider documentation notes that patient utilizes supplemental oxygen continuously via nasal cannula. Historical EMR documentation includes a diagnosis of chronic hypoxic respiratory failure. Consider documentation as below as clinically appropriate. Thank you. In your clinical opinion is this patient being managed for: ( x ) Chronic hypoxic respiratory failure ( ) Other explanation of clinical findings (Please Explain) ( ) Unable to determine (Please Define) ( ) Need to Discuss ( ) Not Agree The medical record reflects the following clinical findings, treatment, and risk factors. Clinical Indicators: As above Treatment: Ongoing oxygen supplementation Risk Factors: COPD, smoking history QUERY 3 OF 4 Admission BUN, creatinine, and estimated GFR were 54 mg/dl, 2.10 mg/dl, and 22 ml/min. Estimated GFR range from 02/12/15 to present of 15 to 30 ml/min. Please clarify as clinically appropriate. Thank you. In your clinical opinion is this patient being managed for: ( x ) Chronic kidney disease, stage 4 ( ) Other explanation of clinical findings (Please Explain) ( ) Unable to determine (Please Define) ( ) Need to Discuss ( ) Not Agree The medical record reflects the following clinical findings, treatment, and risk factors. Clinical Indicators: As above Treatment: Serial chemistries, avoidance of nephrotoxins. Risk Factors: Age, afib, CAD, CHF, DM, HTN, medications, smoking history QUERY 4 OF 4 H&P documentation includes: "Her legs become more swollen during this past interval as well , and the family notes weeping, redness and ulcerations on her legs". WOCN consulted and patient is being treated with IV Zosyn and Lasix with albumin. No associated clinical diagnosis was suggested as the reason for these measures. Please clarify and document as clinically appropriate. Thank you. In your clinical opinion is this patient being managed for: ( x ) Cellulitis of left lower limb ( ) Other explanation of clinical findings (Please Explain) ( ) Unable to determine (Please Define) ( ) Need to Discuss ( ) Not Agree The medical record reflects the following clinical findings, treatment, and risk factors. Clinical Indicators: As above Treatment: WOCN consulted and patient is being treated with IV Zosyn and Lasix with albumin. Risk Factors: Age, CHF, DM Please clarify and document your clinical opinion in the progress notes and discharge summary. Terms such as "probable", "suspected", "likely", "questionable", "possible", or "still to be ruled out" are acceptable. IF IN AGREEMENT, YOU MUST DOCUMENT ABOVE DIAGNOSTIC STATEMENT IN DAILY PROGRESS NOTES AND DISCHARGE SUMMARY. This document is not part of the patient's record. Thank You, Drew Arevalo, RN [phone]
[2016-03-29] MEDS: INSULIN ASPART 100 UNITS/ML 3 ML PEN SC SCH ×4 (08:07→20:11)
[2016-03-29 08:18] LABS: BUN/CREATININE RATIO 28.5 (10-20); CALCIUM 8.2 mg/dl (8.5-10.1); CREATININE 1.9 mg/dl (0.60-1.20); MAGNESIUM 2.6 mg/dl (1.8-2.4); POTASSIUM 4.3 mmol/L (3.5-5.1)
[2016-03-29 08:30] LABS: ANISOCYTOSIS PRESENT; COMPLETE YES
[2016-03-29] MEDS: METOPROLOL TARTRATE 50 MG TAB PO SCH ×2 (09:00→20:33)
[2016-03-29] MEDS: PANTOprazole SOD 40 MG TAB PO SCH (09:36)
[2016-03-29] MEDS: SENNA 8.6 MG TAB PO SCH ×2 (09:36→20:32)
[2016-03-29] MEDS: MAGNESIUM OXIDE 400 MG TAB PO SCH ×2 (09:37→20:33)
[2016-03-29] MEDS: CEROVITE ADV FORMULA TAB PO SCH (09:37)
[2016-03-29] MEDS: TOLTERODINE TARTRATE LA 4 MG CAPCR PO SCH (09:37)
[2016-03-29] MEDS: FoLIC ACID TAB 400 MCG TAB PO SCH (09:37)
[2016-03-29] MEDS: ASPIRIN 81 MG ECTAB PO SCH (09:37)
[2016-03-29] MEDS: CITALOPRAM 20 MG TAB PO SCH (09:37)
[2016-03-29] MEDS: ALBUMIN 25% 50 ML with FUROSEMIDE INJ 40 MG IV SCH ×4 (09:53→22:20)
[2016-03-29 11:37] LABS: CKMB/CK RATIO 5.4 (0-3.0)
[2016-03-29 12:00] LABS: ARTERIAL BLD GAS O2 SATURATION 98.4 % (90-95); ARTERIAL BLOOD GAS BASE EXCESS 0.7 mEq/L (-9-1.8); ARTERIAL BLOOD GAS HCO3 27 mmol/L (19-24); ARTERIAL BLOOD GAS PO2 132 mm/Hg (80-95); ARTERIAL BLOOD GAS pH 7.33 (7.35-7.45)
[2016-03-29 12:01] LABS: ALLEN TEST POS (POS); O2 ADMINISTRATION 3L
[2016-03-29] MEDS: VANCOMYCIN INJ 1,600 MG in SODIUM CHLORIDE 0.9% 500ML 500 ML IV SCH (13:26)
[2016-03-29] MEDS ORDERED: WARFARIN SOD 4 MG TAB PO SCH (16:00)
--- NOTE | 2016-03-29 16:07 | CARDIOLOGY CONSULTATION ---
DATE OF CONSULTATION: 03/29/2016 REFERRING PHYSICIAN: Bossman Pulido MD ATTENDING PHYSICIAN: Bossman Pulido MD PRIMARY PHYSICIAN: Ezra Arevalo MD CONSULTATION: Tawanda Santoro MD History is obtained minimally from the patient. She provides few answers to my questions. She was also very somnolent. She does arouse to being shaken and verbal stimuli. She states she is very sleepy. She states she did not sleep last night. She does answer correctly to place and name and year. The history is also obtained from available records on the [facility] chart. HISTORY OF PRESENT ILLNESS: This is an 80-year-old white female. History of CABG surgery and bioprosthetic aortic valve replacement surgery. She states it was performed at [facility]. She did not name the year that was performed. Also, a history of coronary artery stents. History of chronic heart failure. Most recent echocardiogram showed normal LV systolic function and grade 3 diastolic dysfunction. Thus, the heart failure would be a chronic diastolic heart failure. She also has a history of chronic respiratory insufficiency and COPD. She is on supplemental nasal cannula oxygen chronically. She is on 3 liters per minute nasal cannula oxygen. History of admissions to [facility] for acute on chronic respiratory failure. Respiratory acidosis has been noted. Admissions for CABG exacerbations on 08/17/2015, 10/28/2015, and 12/15/2015. Also, admission for respiratory insufficiency in February 2015. Discharge diagnosis was also COPD exacerbation. The patient has a history of chronic atrial fibrillation. Treated with anticoagulation. In the past, anticoagulation was held because of anemia. She also has a history of type 2 diabetes mellitus and chronic kidney disease. History of worsening of renal function, on aggressive diuretic regimen. The patient presented to the Emergency Department last evening by ambulance. Her daughter called emergency medical services because of worsening dyspnea on exertion, weakness, and decreased appetite. The patient reported a 6-week history of worsening dyspnea. Emergency medical services documented wheezing on her exam at the patient's home. She was given DuoNeb and albuterol nebulizer treatments. In addition to the above complaints, the patient also had complained of worsening peripheral edema as well as leg discomfort for the past few weeks. The patient denies to me that she has any shortness of breath today. She denies to me any chest pain or other anginal type pains. No complaints of lightheadedness or syncope. No complaints of palpitations. She denies any GI or urinary complaints. She denies any bleeding complaints. She denies any cerebrovascular complaints. In addition to the increased swelling of her legs, it had been noted by her family that she had increased erythema as well as ulcerations of her legs over the past few weeks. PAST MEDICAL HISTORY: 1. Status post CABG surgery, status post coronary artery stents, status post bioprosthetic aortic valve replacement. Details unknown to me at this time. This is based on available records. 2. Chronic atrial fibrillation since at least 2008. 3. History of GI bleeding. 4. Chronic diastolic heart failure. 5. Chronic anemia. 6. Hyperthyroidism. 7. Hypertension. 8. Type 2 diabetes mellitus, insulin dependent. 9. Dyslipidemia. 10. Severe COPD. 11. Chronic kidney disease. PAST SURGICAL HISTORY: As above. FAMILY HISTORY: Apparently, there is a family history of heart disease. Details unavailable. SOCIAL HISTORY: The patient lives with one of her daughters. Former cigarette smoker. She is a . REVIEW OF SYSTEMS: As above. No other review of systems obtainable from the patient. CURRENT MEDICATIONS: Warfarin 4 mg daily, vancomycin 1600 mg IV daily, furosemide 40 mg IV b.i.d., aspirin 81 mg daily, citalopram 20 mg daily, Detrol-LA 4 mg daily, multivitamin 1 daily, folic acid 800 mcg daily, pantoprazole 40 mg daily, lactobacillus acidophilus 4 tablets t.i.d., ferrous sulfate 325 mg t.i.d., glimepiride 4 mg daily, levothyroxine 175 mcg daily, piperacillin/tazobactam 4.5 grams IV q. 8 hours, magnesium oxide 400 mg b.i.d., Seroquel 50 mg at bedtime, senna 8.6 mg b.i.d., sucralfate 1 gram a.c. and at bedtime, NovoLog sliding scale insulin, metoprolol tartrate 50 mg b.i.d., and several p.r.n. medications. The patient received intravenous labetalol last evening for hypertension. Her blood pressure on arrival into the Emergence Department last evening was 175/102. In the Emergency Department, blood pressure later was recorded at 159/115. Pulse rate on admission was 96 beats per minute. Oral temperature was 36.6. PHYSICAL EXAMINATION: GENERAL: The patient is lying in her bed. She is somnolent. She is arousable. She quickly falls back asleep. She denies any significant complaints. VITAL SIGNS: Most recent vital signs with oral temperature 36.3, pulse 75, blood pressure 122/77, and pulse oximetry on 3 liters per minute nasal cannula oxygen 100%. HEAD: Normal. FACE: Ecchymoses present. NECK: No jugular venous distension. Carotids 2/2 bilaterally. Normal upstroke. No bruits heard. MOUTH: Dry mucous membranes. LUNGS: Decreased breath sounds at bases. Bibasilar rales. HEART: PMI not palpable. No lifts or heaves. Distant heart sounds. Irregularly irregular. No murmur, S3, or rub heard. ABDOMEN: Obese. Soft. Nontender. No palpable mass or organomegaly. No bruits. Normal bowel sounds. EXTREMITIES: 2+ pretibial edema bilaterally. Saphenous vein harvest scar in left leg. Erythema and medial ulceration, left lower leg. Increased warmth. Mild anterior pretibial erythema on the right. PULSES: Radial pulses palpable. Dorsalis pedis and posterior tibial pulses not palpable. NEUROLOGIC: The patient is somnolent. She is arousable. She is oriented to year, place (with prompting), and name. DATA: An abdominal CT scan was performed last evening because of complaints of abdominal discomfort. No bowel wall thickening or obstruction. Ypnqy-[id number] right pleural effusion. Ifbqnupq-eo-gashps body wall edema with small amount of ascites. Gallbladder wall thickening and edema. Bilateral nephrolithiasis. No hydronephrosis. Chest x-ray reviewed by me. Increased heart size. Pulmonary vascular congestion. Sternotomy wires. Small bilateral pleural effusions. Bibasilar atelectasis. Electrocardiogram in the ED and reviewed by me showed atrial fibrillation with ventricular rate at 104 beats per minute. Incomplete right bundle-branch block. Poor R-wave progression, nonspecific ST abnormalities. Compared to 12/17/2015 electrocardiogram, right bundle-branch block now present. Poor R-wave progression in V1-V3 present. This could reflect change in lead placement. Repeat electrocardiogram this morning and reviewed by me with normal R-wave progression at V1-V3, likely reflecting proper lead placement. Atrial fibrillation at a rate of 65 beats per minute. Nonspecific ST and T wave abnormalities. Incomplete right bundle-branch block. LABORATORY DATA: Labs this morning with sodium 143, potassium 4.3, chloride 107, carbon dioxide 26, BUN 54, creatinine 1.90, and random glucose 140. Magnesium 2.6. CK totals have been 118, 93, and 79. CK-MB 6.9, 5.5, and 4.3. CK-MB ratios 5.8, 5.9, and 5.4. Troponin I's have been 3.040, 3.130, 2.680, and 1.970. Albumin last evening 3.1. AST 71, ALT 58, and total bilirubin 0.9. BUN and creatinine last evening were 54 and 2.10. Urinalysis last evening showed leukocyte esterase, white blood cells, no bacteria, and specific gravity 1.018. CBC today with WBC of 5.58, hemoglobin 8.6, hematocrit 28.4, and platelet count 168. Her hemoglobin level on December 24 was 8.8. Her creatinine on December 24 was 1.80. Arterial blood gas performed today with pH 7.33, pCO2 of 52, pO2 of 132, and oxygen saturation 98.4%. This was on 3 liters per minute nasal cannula oxygen. ASSESSMENT: 1. Coronary artery disease. History of coronary artery stents and coronary artery bypass grafting surgery. Details are unavailable to me at this time. No anginal type symptoms. No diagnostic ischemic ST or T-wave abnormalities on electrocardiogram. 2. Elevated troponin I. Suspect secondary to demand ischemia. She had an elevated blood pressure and elevated ventricular rate on arrival to the Emergency Department last evening. 3. I do not suspect an acute coronary syndrome secondary to an acute intracoronary process, such as an ulcerated plaque. 4. Chronic atrial fibrillation. Ventricular response is elevated last evening. Controlled today. 5. History of chronic diastolic heart failure. Echocardiogram on 12/15/2015 revealed moderate global hypokinesis of the left ventricle. LV ejection fraction interpreted to be 35%-40% by the search engine optimization consultant at the time. Bioprosthetic aortic valve. No significant aortic regurgitation. No aortic stenosis. Kzgkbill-ek-wcywkp mitral regurgitation. Mild tricuspid regurgitation. There is not felt to be any pulmonary hypertension. Grade 3 (restrictive pattern) diastolic dysfunction consistent with markedly increased left atrial pressure. 6. Cellulitis of both lower legs. Left worse than right. 7. Decreased mental status. This may be secondary to chronic CO2 retention. Also, may be secondary to sleep deprivation. The patient did have a metabolic acidosis with elevated pCO2 on blood gas today. 8. History of hypertension. Most recent blood pressures are good. She was hypertensive on arrival last evening. 9. Generalized fluid overload noted on abdominal and pelvic CT scan performed last evening. She has significant peripheral edema. 10. Chronic kidney disease. RECOMMENDATIONS: 1. Continue metoprolol. 2. Consider placing the patient on intravenous heparin . Hold warfarin in the event that she requires any invasive procedures. Also, her INR is subtherapeutic today at 1.3. 3. The patient does not appear to be having acute coronary syndrome. There is no indication for an urgent or emergent cardiac catheterization. In general, would not perform a cardiac catheterization procedure in her unless she had evidence of life threatening myocardial ischemia or injury. She would be at increased risk for an invasive cardiac procedure. Increased risk of contrast dye nephropathy. Increased pulmonary risk secondary to her chronic pulmonary disease and chronic respiratory insufficiency. Also, she has evidence of infection. I would not want to deploy a stent in the event that she had any systemic infectious process ongoing. Blood cultures are pending at this time. 4. Watch for over diuresis. Monitor renal function closely. 5. Repeat echocardiogram. Reassess right heart function and pressures. Reassess left ventricular function. Assess central venous pressure by exam of the inferior vena cava. 6. Monitor hemoglobin. Her hemoglobin decreased from admission to today. No symptoms of bleeding. She does have a history of GI bleeding. Addendum: As her hemoglobin decreased today compared to yesterday, would not place on intravenous heparin at this time. If her hemoglobin is stable on repeat exam, could then start intravenous heparin. If she is having any GI bleeding at this time, heparin could exacerbate the bleeding. She did have complaints of abdominal discomfort last evening. Would check stools for occult blood. Thus, at this time, will stop warfarin. Recommend holding off on starting intravenous heparin until active GI bleeding can be relatively excluded. Also, would want to document that her hemoglobin is stable. Thank you for asking us to see this patient in cardiology consultation. I will be away until 04/05/2016. Please contact one of my [facility] colleagues in the interim for any questions or problems. CAMPBELL
--- NOTE | 2016-03-29 19:02 | Progress Note ---
Subjective Date of Service: Mar 29, 2016. Subjective Pt evaluation today including: conversation w/ patient, physical exam, chart review, lab review, review of studies Problem List Medical Problems: (1) CHF (congestive heart failure) Status: Acute (2) COPD exacerbation Status: Acute (3) COPD exacerbation Status: Acute (4) Elevated troponin Status: Acute (5) Elevated troponin Status: Acute (6) Elevated troponin Status: Acute (7) Shortness of breath Status: Acute (8) Shortness of breath Status: Acute Review of Systems Constitutional: No chills, No fever Eyes: No worsening of vision ENT: No hearing loss Respiratory: + shortness of breath, No cough Cardiac: No chest pain, No orthopnea Abdomen: No nausea, No pain, No vomiting Musculoskeletal: + calf pain Female : No dysuria Neurologic: No memory loss, No paralysis, No weakness Psychiatric: No depression symptoms Heme: No abnormal bleeding/bruising Endo: No fatigue Skin: No rash Medications Current Inpatient Medications Medications (Trade) Dose Ordered Sig/Keny Route Start Time Stop Time Status Last Admin Dose Admin Lactobacillus Acidophilus (Floranex Tab) 4 tab TIDM PO 03/29/16 07:30 04/28/16 07:59 03/29/16 18:05 4 TAB Acetaminophen (Tylenol Tab) 650 mg Q4H PRN PO 03/28/16 18:30 04/27/16 18:29 Zolpidem Tartrate (Ambien Tab) 5 mg HSZ PRN PO 03/28/16 18:30 04/27/16 18:29 Nitroglycerin (Nitrostat Tab) 0.4 mg UD PRN SL 03/28/16 18:30 04/27/16 18:29 Aspirin (Ecotrin Tab) 81 mg DAILY PO 03/29/16 09:00 04/28/16 08:59 03/29/16 09:37 81 MG Citalopram Hydrobromide (celeXA TAB) 20 mg DAILY PO 03/29/16 09:00 04/28/16 08:59 03/29/16 09:37 20 MG Albuterol/ Ipratropium (Combivent Respimat Inh) 1 puffs QID PRN INH 03/28/16 18:30 04/27/16 18:29 Levothyroxine Sodium (Synthroid Tab) 175 mcg DAILYBB PO 03/29/16 06:00 04/28/16 06:59 03/29/16 05:23 175 MCG Magnesium Oxide (Mag-Ox Tab) 400 mg BID PO 03/28/16 21:00 04/27/16 20:59 03/29/16 09:37 400 MG Oxycodone/ Acetaminophen (Percocet 10-325MG Tab) 1 tab Q6 PRN PO 03/28/16 18:30 04/11/16 18:29 03/29/16 18:09 1 TAB Quetiapine Fumarate (seroQUEL TAB) 50 mg HS PO 03/28/16 21:00 04/27/16 20:59 03/28/16 21:59 50 MG Senna (Senokot Tab) 8.6 mg BID PO 03/28/16 21:00 04/27/16 20:59 03/29/16 09:36 8.6 MG Sucralfate (Carafate Tab) 1 gm ACHS PO 03/28/16 21:00 04/27/16 20:59 03/29/16 18:04 1 GM Tolterodine Tartrate (Detrol LA Cap) 4 mg DAILY PO 03/29/16 09:00 04/28/16 08:59 03/29/16 09:37 4 MG Multivitamins/ Minerals (Multivitamin W/ Minerals Tab) 1 tab DAILY PO 03/29/16 09:00 04/28/16 08:59 03/29/16 09:37 1 TAB Ferrous Sulfate (Feosol Tab) 325 mg TIDM PO 03/29/16 07:30 04/28/16 07:59 03/29/16 18:05 325 MG Folic Acid (Folvite Tab) 800 mcg QAM PO 03/29/16 09:00 04/28/16 08:59 03/29/16 09:37 800 MCG Glimepiride (Amaryl Tab) 4 mg QDB PO 03/29/16 07:30 04/28/16 07:59 03/29/16 07:39 4 MG Pantoprazole Sodium 40 mg 40 mg QAM PO 03/29/16 09:00 04/28/16 08:59 03/29/16 09:36 40 MG Furosemide/ Albumin Human (Lasix Inj/ Albumin 25%) 54 ml @ 54 mls/hr Q12H IV 03/29/16 10:00 04/28/16 09:59 03/29/16 09:53 54 MLS/HR Ondansetron HCl (Zofran Inj) 4 mg Q6H PRN IV 03/28/16 18:45 04/27/16 18:44 Insulin Aspart (novoLOG ASPART) SLIDING SCALE If C... ACHS SC 03/28/16 21:00 04/27/16 20:59 03/29/16 08:07 3 UNITS Glucose (Glucose 40% Gel) UD PRN PO 03/28/16 18:45 04/27/16 18:44 03/28/16 22:13 15 GM Glucose (Glucose Chew Tab) 1 tabs UD PRN PO 03/28/16 18:45 04/27/16 18:44 Dextrose (Dextrose 50% 50ML Syringe) 50 ml UD PRN IV 03/28/16 18:45 04/27/16 18:44 Glucagon (Glucagon Inj) 1 mg UD PRN SQ 03/28/16 18:45 04/27/16 18:44 Metoprolol Tartrate (Lopressor Tab) 50 mg BID PO 03/28/16 21:00 04/27/16 20:59 03/28/16 21:58 50 MG Metoprolol Tartrate (Lopressor Iv) 5 mg Q4 PRN IV 03/28/16 18:45 04/27/16 18:44 Ipratropium Buckner (Atrovent 0.02% 0.5MG/2.5ML Neb) 0.5 mg Q2H PRN INH 03/28/16 19:00 04/27/16 18:59 Levalbuterol (Xopenex 1.25MG/ 0.5ML Neb) 1.25 mg Q2H PRN INH 03/28/16 19:00 04/27/16 18:59 Vancomycin HCl (Consult) 1 ea UD PRN N/A 03/28/16 19:00 04/27/16 18:59 Piperacillin Sod/ Tazobactam Sod 1 ea 1 ea UD PRN N/A 03/28/16 19:00 04/27/16 18:59 Piperacillin Sod/ Tazobactam Sod 4.5 gm/Dextrose 120 ml @ 30 mls/hr Q8H IV 03/29/16 04:00 04/08/16 03:59 03/29/16 12:37 30 MLS/HR Vancomycin HCl/ Sodium Chloride (Vancomycin Inj/ Nss 500ml) 532 ml @ 200 mls/hr DAILY@1200 IV 03/29/16 12:00 04/08/16 11:59 03/29/16 13:26 200 MLS/HR Objective Vital Signs Date Time Temp Pulse Resp B/P Pulse Ox O2 Delivery O2 Flow Rate FiO2 03/29/16 16:06 36.3 68 16 149/91 98 Nasal Cannula 3.0 03/29/16 16:00 Nasal Cannula 3.0 03/29/16 12:00 100 Nasal Cannula 3.0 03/29/16 11:32 36.3 75 20 122/77 100 3.0 03/29/16 10:20 60 131/78 03/29/16 10:17 56 126/73 03/29/16 09:38 58 03/29/16 08:00 96 Nasal Cannula 3.0 03/29/16 07:28 36.4 66 20 112/77 93 Room Air 03/29/16 04:00 36.5 78 18 118/76 95 Nasal Cannula 3.0 03/29/16 04:00 Nasal Cannula 3.0 03/29/16 00:01 95 Nasal Cannula 3.0 03/29/16 00:00 36.5 79 20 116/71 95 Nasal Cannula 3.0 03/28/16 21:06 36.5 83 20 136/94 Nasal Cannula 3.0 03/28/16 20:50 82 20 158/102 95 Nasal Cannula 3.0 03/28/16 19:39 78 20 95 Nasal Cannula 3.0 Physical Exam General Appearance: no apparent distress Eyes: normal inspection, PERRL ENT: normal ENT inspection, hearing grossly normal Neck: supple Respiratory/Chest: chest non-tender, lungs clear, normal breath sounds, no respiratory distress, no accessory muscle use Cardiovascular: regular rate, rhythm, no edema, no gallop, no JVD, no murmur Abdomen: normal bowel sounds, non tender, soft, no organomegaly Extremities: + inflammation (10X15 CM ulcer in left lower ext) Neurologic/Psychiatric: director product development II-XII nml as tested, no motor/sensory deficits, alert, normal mood/affect, oriented x 3 Skin: normal color, no rash Laboratory Results Last 24 Hours Test 03/28/16 19:20 03/28/16 21:47 03/28/16 22:10 03/28/16 22:30 Lactic Acid Level 1.7 mmol/L Total Creatine Kinase 118 U/L Creatine Kinase MB 6.9 ng/ml Creatine Kinase MB Ratio 5.8 Troponin I 3.130 ng/ml Bedside Glucose 49 mg/dl 65 mg/dl 82 mg/dl Test 03/29/16 01:43 03/29/16 02:50 03/29/16 06:53 03/29/16 07:00 Bedside Glucose 179 mg/dl 156 mg/dl Total Creatine Kinase 93 U/L Creatine Kinase MB 5.5 ng/ml Creatine Kinase MB Ratio 5.9 Troponin I 2.680 ng/ml White Blood Count 5.58 K/uL Red Blood Count 3.18 M/uL Hemoglobin 8.6 g/dL Hematocrit 28.4 % Mean Corpuscular Volume 89.3 fL Mean Corpuscular Hemoglobin 27.0 pg Mean Corpuscular Hemoglobin Concent 30.3 g/dl Platelet Count 168 K/uL Mean Platelet Volume 9.8 fL Neutrophils (%) (Auto) 69.6 % Lymphocytes (%) (Auto) 14.3 % Monocytes (%) (Auto) 12.7 % Eosinophils (%) (Auto) 3.2 % Basophils (%) (Auto) 0.2 % Neutrophils # (Auto) 3.88 K/uL Lymphocytes # (Auto) 0.80 K/uL Monocytes # (Auto) 0.71 K/uL Eosinophils # (Auto) 0.18 K/uL Basophils # (Auto) 0.01 K/uL RDW Standard Deviation 59.3 fL RDW Coefficient of Variation 18.6 % Immature Granulocyte % (Auto) 0.0 % Immature Granulocyte # (Auto) 0.00 K/uL Anisocytosis PRESENT Prothrombin Time 14.6 SECONDS Prothromb Time International Ratio 1.3 Activated Partial Thromboplast Time 26.4 SECONDS Partial Thromboplastin Ratio 1.0 Sodium Level 143 mmol/L Potassium Level 4.3 mmol/L Chloride Level 107 mmol/L Carbon Dioxide Level 26 mmol/L Anion Gap 10.0 mmol/L Blood Urea Nitrogen 54 mg/dl Creatinine 1.90 mg/dl Est Creatinine Clear Calc Drug Dose 29.7 ml/min Estimated GFR () 28.4 Estimated GFR (Non- 24.5 BUN/Creatinine Ratio 28.5 Random Glucose 140 mg/dl Calcium Level 8.2 mg/dl Magnesium Level 2.6 mg/dl Random Vancomycin Level 17.6 mcg/ml Test 03/29/16 09:35 03/29/16 10:50 03/29/16 11:02 03/29/16 11:50 Bedside Glucose 148 mg/dl 127 mg/dl Total Creatine Kinase 79 U/L Creatine Kinase MB 4.3 ng/ml Creatine Kinase MB Ratio 5.4 Troponin I 1.970 ng/ml Arterial Blood pH 7.33 Arterial Blood Partial Pressure CO2 52 mmHg Arterial Blood Partial Pressure O2 132 mm/Hg Arterial Blood HCO3 27 mmol/L Arterial Blood Oxygen Saturation 98.4 % Arterial Blood Base Excess 0.7 mEq/L Arterial Blood Gas Delivery 3L Timbo Test POS Assessment and Plan The patient is a 80-year-old female brought by ambulance emergency department with worsening shortness of breath and redness and ulcerations on her legs. Family notes that the also has the possibility of urinary tract infection. Assessment/plan: Elevated troponin of 3.04/CAD/status post CABG--the patient will be admitted to the telemetry unit, for serial cardiac enzymes 2-D echocardiogram. Continue aspirin / furosemide / metoprolol tartrate 25 mg by mouth twice a day will start heparin drip consult cardiology. appreciated, demand ischemia Acute on chronic systolic CHF, switch lasix to IV 20mg BID chronic respiratory failure Left lower Ext cellulitis/ulcer wound care consult wound Cx continue vanco/zosyn Atrial fibrillation / hypertension start heparin/continue metoprolol CKD stage 4, currently creatinine is at base line Diabetes mellitus --hold 4 mg by mouth every morning, and hold metformin 1000 mg by mouth twice a day. Place on Accu-Cheks before meals and at bedtime with NovoLog coverage. check [id number] Hypothyroidism--continue levothyroxine sodium at 175 g by mouth daily. Check TSH GERD--change omeprazole 20 mg by mouth daily to pantoprazole 40 mg by mouth daily, and continue Carafate 1 g by mouth before meals and at bedtime. Anxiety/agitation--continue citalopram 20 mg by mouth daily and Seroquel 50 mg by mouth at bedtime. Bladder spasm--continue Detrol LA 4 mg by mouth daily. Gallbladder wall thickening/edema, unchanged. This is likely due to the patient's edematous state. Gas within the uterine cavity and vagina. However, no CT evidence for a fistula. will continue to monitor with serial abdominal exam Bilateral nephrolithiasis. No hydronephrosis
--- NOTE | 2016-03-29 19:46 | ECHOCARDIOGRAM REPORT ---
*NOTICE TO RECEIVING REPUBLICAN AGENCY This information is strictly Confidential and protected under [place] law. [place] law prohibits you from making any further disclosure of this information unless further disclosure is expressly permitted by the written consent of the person to whom it pertains or is authorized by law. A general authorization for the release of medical or other information is not sufficient for this purpose. Hospital accepts no responsibility if the information is made available to any other person, INCLUDING THE PATIENT. Interpretation Summary * Name: COLLIN AREVALO Study Date: 03/29/2016 03:43 PM BP: 122/77 mmHg * Patient Location: [facility] HR: 75 * : 1935 (M/d/yyyy) Gender: Female Height: 68 in * Age: 80 yrs Ethnicity: [place] Weight: 228 lb * Performed By: Alexia Monroe RDCS * * Reason For Study: ISCHEMIC CARDIOMYOPATHY * BSA: 2.2 m2 * History: ISCHEMIC CARDIOMYOPATHY * Moderate left and mild right ventricular systolic dysfunction. * Mild concentric left ventricular hypertrophy. * Moderate biatrial dilatation. * Properly functioning bioprosthetic aortic valve. * Mild pulmonic regurgitation. * Moderate to severe mitral regurgitation. * Miold to moderate tricuspid reguurgitation. * Mildly elevated estimated right ventricular systolic pressure. * Elevated central venous pressure. * On visual comparison with echo of 12/15/2015 there is no significant change in the LV systolic function and wall motion. Procedure Details * A complete two-dimensional transthoracic echocardiogram was performed (2D, M-mode, Doppler and color flow Doppler). Left Ventricle * The left ventricle is normal in size. * There is mild concentric left ventricular hypertrophy. * Ejection Fraction = 35-40%. * Left ventricular systolic function is moderately reduced. * There is moderate global hypokinesis of the left ventricle. Right Ventricle * The right ventricle is mildly dilated. * The right ventricular systolic function is mild to moderately reduced. Atria * The left atrium is moderately dilated. * The right atrium is moderately dilated. Mitral Valve * The mitral valve leaflets appear thickened, but open well. * There is moderate to severe mitral annular calcification. * There is no mitral valve stenosis. * There is moderate to severe mitral regurgitation. Tricuspid Valve * The tricuspid valve is not well visualized, but is grossly normal. * There is mild to moderate tricuspid regurgitation. * Right ventricular systolic pressure is elevated at 30-40mmHg. Aortic Valve * The aortic valve opens well. * No aortic regurgitation is present. * There is a bioprosthetic aortic valve. * The gradient is normal for this prosthetic aortic valve. Pulmonic Valve * The pulmonic valve is not well seen, but is grossly normal. * Mild pulmonic valvular regurgitation. Great Vessels * The aortic root is normal size. Pericardium/Pleural * There is no pericardial effusion. Great Vessels * The inferior vena cava is mildly dilated. MMode 2D Measurements and Calculations IVSd 1.4 cm IVSs 1.6 cm LVIDd 3.8 cm LVIDs 3.2 cm LVPWd 1.4 cm LVPWs 1.4 cm IVS/LVPW 1.0 FS 15.7 % EDV(Teich) 62.6 ml ESV(Teich) 41.5 ml EF(Teich) 33.7 % EDV(cubed) 55.6 ml ESV(cubed) 33.4 ml EF(cubed) 40.0 % % IVS thick 12.5 % % LVPW thick -0.34 % LV mass(C)d 189.3 grams LV mass(C)dI 87.6 grams/m\S\2 LV mass(C)s 164.6 grams LV mass(C)sI 76.2 grams/m\S\2 SV(Teich) 21.1 ml SI(Teich) 9.8 ml/m\S\2 SV(cubed) 22.3 ml SI(cubed) 10.3 ml/m\S\2 Ao root diam 3.0 cm Ao root area 7.1 cm\S\2 LA dimension 4.6 cm LA/Ao 1.5 LVAd ap4 35.0 cm\S\2 LVLd ap4 8.9 cm EDV(MOD-sp4) 114.2 ml EDV(sp4-el) 116.7 ml LVAs ap4 25.9 cm\S\2 LVLs ap4 7.8 cm ESV(MOD-sp4) 69.0 ml ESV(sp4-el) 72.7 ml EF(MOD-sp4) 39.6 % EF(sp4-el) 37.7 % LVAd ap2 41.2 cm\S\2 LVLd ap2 9.7 cm EDV(MOD-sp2) 143.8 ml EDV(sp2-el) 149.1 ml LVAs ap2 30.1 cm\S\2 LVLs ap2 8.5 cm ESV(MOD-sp2) 89.1 ml ESV(sp2-el) 90.6 ml EF(MOD-sp2) 38.0 % EF(sp2-el) 39.3 % LVLd %diff 8.0 % EDV(MOD-bp) 133.7 ml LVLs %diff 8.0 % ESV(MOD-bp) 81.5 ml EF(MOD-bp) 39.1 % SV(MOD-sp4) 45.2 ml SI(MOD-sp4) 20.9 ml/m\S\2 SV(MOD-sp2) 54.7 ml SI(MOD-sp2) 25.3 ml/m\S\2 SV(MOD-bp) 52.2 ml SI(MOD-bp) 24.2 ml/m\S\2 SV(sp4-el) 44.0 ml SI(sp4-el) 20.4 ml/m\S\2 SV(sp2-el) 58.6 ml SI(sp2-el) 27.1 ml/m\S\2 Doppler Measurements and Calculations MV E max estrellita 137.6 cm/sec MV dec time 0.27 sec Ao V2 max 198.0 cm/sec Ao max PG 15.7 mmHg Ao max PG (full) 13.6 mmHg LV V1 max PG 2.1 mmHg LV V1 max 72.8 cm/sec MR max estrellita 513.3 cm/sec MR max PG 105.4 mmHg TR max estrellita 248.2 cm/sec
[2016-03-29] MEDS: HEPARIN 25,000 UNIT/500ML D5W 500 ML IV PRN (20:27)
[2016-03-29] MEDS: QUETIAPINE FUMARATE 25 MG TAB PO SCH (20:33)
[2016-03-30] VITALS (7 sets, daily range): BP systolic 109–139; BP diastolic 73–86; PULSE 59–99; TEMP 36.3–36.8; O2SAT 91–100
[2016-03-30] MEDS: PIPERACILL/TAZOBAC IV 4.5 GM in DEXTROSE 5% 100ML IV SCH (04:07)
[2016-03-30] MEDS: SUCRALFATE 1 GM TAB PO SCH ×4 (05:53→20:28)
[2016-03-30] MEDS: LEVOTHYROXINE 175 MCG TAB PO SCH (05:53)
[2016-03-30] MEDS: INSULIN ASPART 100 UNITS/ML 3 ML PEN SC SCH ×4 (07:00→20:25)
[2016-03-30 07:41] LABS: BASO % 0.3 %; BASO ABS # 0.02 K/uL (0-0.2); COMPLETE YES; EOS % 5.5 %; HEMATOCRIT 29.9 % (37-47); IG% 0.2 %; LYMPH % 17.8 %; LYMPH ABS # 1.13 K/uL (1.2-3.4); MEAN CELL VOLUME 89.5 fL (80-100); MEAN CORPUSCULAR HEMOGLOBIN 26.9 pg (25-34); MEAN CORPUSCULAR HGB CONC 30.1 g/dl (32-36); MEAN PLATELET VOLUME 9.8 fL (7.4-10.4); MONO % 10.2 %; PLATELET COUNT 156 K/uL (130-400); RED BLOOD COUNT 3.34 M/uL (4.2-5.4); WHITE BLOOD COUNT 6.36 K/uL (4.8-10.8)
[2016-03-30] MEDS: LACTOBACILLUS ACIDOPHILUS (FLORANEX) TAB PO SCH ×3 (07:54→16:56)
[2016-03-30] MEDS: CITALOPRAM 20 MG TAB PO SCH (07:55)
[2016-03-30] MEDS: FERROUS SULFATE 325 MG TAB PO SCH ×3 (07:55→16:55)
[2016-03-30] MEDS: ASPIRIN 81 MG ECTAB PO SCH (07:55)
[2016-03-30] MEDS: CEROVITE ADV FORMULA TAB PO SCH (07:55)
[2016-03-30] MEDS: PANTOprazole SOD 40 MG TAB PO SCH (07:56)
[2016-03-30] MEDS: TOLTERODINE TARTRATE LA 4 MG CAPCR PO SCH (07:57)
[2016-03-30] MEDS: FoLIC ACID TAB 400 MCG TAB PO SCH (07:57)
[2016-03-30] MEDS: MAGNESIUM OXIDE 400 MG TAB PO SCH ×2 (07:57→20:28)
[2016-03-30] MEDS: SENNA 8.6 MG TAB PO SCH ×2 (07:58→20:26)
[2016-03-30] MEDS: METOPROLOL TARTRATE 50 MG TAB PO SCH ×2 (07:58→20:27)
[2016-03-30 08:00] LABS: INR 1.3 (0.9-1.1); PARTIAL THROMBOPLASTIN RATIO 4.2; PROTHROMBIN TIME (PATIENT) 14.5 SECONDS (9.0-12.0)
[2016-03-30 08:25] LABS: BUN/CREATININE RATIO 22.3 (10-20); CALCIUM 8.1 mg/dl (8.5-10.1); MAGNESIUM 2.3 mg/dl (1.8-2.4); POTASSIUM 3.9 mmol/L (3.5-5.1)
[2016-03-30 08:34] LABS: CHOLESTEROL/HDL RATIO 4.1; PHOSPHORUS 3.3 mg/dl (2.5-4.9); THYROID STIMULATING HORMONE 68.2 uIu/ml (0.300-4.500)
[2016-03-30 08:57] LABS: ESTIMATED AVERAGE GLUCOSE 126 mg/dl; HA1C FLAG Normal (Normal)
[2016-03-30] MEDS: HEPARIN 25,000 UNIT/500ML D5W 500 ML IV PRN (09:23)
[2016-03-30] MEDS: ALBUMIN 25% 50 ML with FUROSEMIDE INJ 40 MG IV SCH ×4 (10:04→21:35)
[2016-03-30] MEDS: VANCOMYCIN INJ 1,600 MG in SODIUM CHLORIDE 0.9% 500ML 500 ML IV SCH (11:43)
--- NOTE | 2016-03-30 13:54 | Cardiology Follow-Up ---
Subjective Subjective Date of Service: Mar 30, 2016. Pt evaluation today including: conversation w/ patient, conversation w/ family , physical exam, chart review, lab review, conversation w/ [employer] consultant Additional Details: "i've felt better" No chest pain overnight. Breathing slightly improved. Negative almost 2 Kg from yesterday Echo Reviewed: Not significantly changed from prior - EF 35-40%, mod to severe MR, mild RV dysfunction with elevated CVP. No events on telemetry Problem List Medical Problems: (1) CHF (congestive heart failure) Status: Acute (2) COPD exacerbation Status: Acute (3) COPD exacerbation Status: Acute (4) Elevated troponin Status: Acute (5) Elevated troponin Status: Acute (6) Elevated troponin Status: Acute (7) Shortness of breath Status: Acute (8) Shortness of breath Status: Acute Review of Systems Constitutional: No chills, No fever Eyes: No worsening of vision ENT: No hearing loss Respiratory: + shortness of breath, No cough Cardiac: No chest pain, No orthopnea Abdomen: No nausea, No pain, No vomiting Musculoskeletal: + calf pain Female : No dysuria Neurologic: No memory loss, No paralysis, No weakness Psychiatric: No depression symptoms Heme: No abnormal bleeding/bruising Endo: No fatigue Skin: No rash Objective Vital Signs Last Vital Signs Documentation Date Time Temp Pulse Resp B/P Pulse Ox O2 Delivery O2 Flow Rate FiO2 03/30/16 12:00 Nasal Cannula 3.0 03/30/16 11:55 36.8 83 18 133/80 91 Physical Exam: General Appearance: no apparent distress ENT: hearing grossly normal Neck: supple Respiratory/Chest: chest non-tender, lungs clear, + decreased breath sounds, + pertinent finding (coarse breath sounds bilaterally) Cardiovascular: + irregularly irregular, + pertinent finding (JVD difficult to asses. 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 Elevated troponin -- peaked, LV function unchanged, thought secondary to demand ischemia 2. H/o CAD with prior stents -- chest pain free 3. Acute on chronic combined systolic/diastolic heart failure -- well perfused, improving congestion with diuresis 4. Chronic atrial fibrillation - well rate controlled, on heparin drip 5. Chronic kidney disease -- stable SCr 6. Cellulits - on broad spectrum antibiotics. Low suspicion troponin elevation due to true ACS. Remains chest pain free, hemodynamically stable with unchanged LV function - No plans for cardiac catheterization or intervention. Continue ASA. Can resume coumadin - Agree with continued IV diuresis today - Continue beta-madelaine Will continue to follow. Contact with questions. Medications: Current Inpatient Medications Medications (Trade) Dose Ordered Sig/[place] Route Start Time Stop Time Status Last Admin Dose Admin Lactobacillus Acidophilus (Floranex Tab) 4 tab TIDM PO 03/29/16 07:30 04/28/16 07:59 03/30/16 10:03 4 TAB Acetaminophen (Tylenol Tab) 650 mg Q4H PRN PO 03/28/16 18:30 04/27/16 18:29 Zolpidem Tartrate (Ambien Tab) 5 mg HSZ PRN PO 03/28/16 18:30 04/27/16 18:29 Nitroglycerin (Nitrostat Tab) 0.4 mg UD PRN SL 03/28/16 18:30 04/27/16 18:29 Aspirin (Ecotrin Tab) 81 mg DAILY PO 03/29/16 09:00 04/28/16 08:59 03/30/16 07:55 81 MG Citalopram Hydrobromide (celeXA TAB) 20 mg DAILY PO 03/29/16 09:00 04/28/16 08:59 03/30/16 07:55 20 MG Albuterol/ Ipratropium (Combivent Respimat Inh) 1 puffs QID PRN INH 03/28/16 18:30 04/27/16 18:29 Levothyroxine Sodium (Synthroid Tab) 175 mcg DAILYBB PO 03/29/16 06:00 04/28/16 06:59 03/30/16 05:53 175 MCG Magnesium Oxide (Mag-Ox Tab) 400 mg BID PO 03/28/16 21:00 04/27/16 20:59 03/30/16 07:57 400 MG Oxycodone/ Acetaminophen (Percocet 10-325MG Tab) 1 tab Q6 PRN PO 03/28/16 18:30 04/11/16 18:29 03/29/16 18:09 1 TAB Quetiapine Fumarate (seroQUEL TAB) 50 mg HS PO 03/28/16 21:00 04/27/16 20:59 03/29/16 20:33 50 MG Senna (Senokot Tab) 8.6 mg BID PO 03/28/16 21:00 04/27/16 20:59 03/30/16 07:58 8.6 MG Sucralfate (Carafate Tab) 1 gm ACHS PO 03/28/16 21:00 04/27/16 20:59 03/30/16 10:03 1 GM Tolterodine Tartrate (Detrol LA Cap) 4 mg DAILY PO 03/29/16 09:00 04/28/16 08:59 03/30/16 07:57 4 MG Multivitamins/ Minerals (Multivitamin W/ Minerals Tab) 1 tab DAILY PO 03/29/16 09:00 04/28/16 08:59 03/30/16 07:55 1 TAB Ferrous Sulfate (Feosol Tab) 325 mg TIDM PO 03/29/16 07:30 04/28/16 07:59 03/30/16 10:03 325 MG Folic Acid (Folvite Tab) 800 mcg QAM PO 03/29/16 09:00 04/28/16 08:59 03/30/16 07:57 800 MCG Pantoprazole Sodium 40 mg 40 mg QAM PO 03/29/16 09:00 04/28/16 08:59 03/30/16 07:56 40 MG Furosemide/ Albumin Human (Lasix Inj/ Albumin 25%) 54 ml @ 54 mls/hr Q12H IV 03/29/16 10:00 04/28/16 09:59 03/30/16 10:04 54 MLS/HR Ondansetron HCl (Zofran Inj) 4 mg Q6H PRN IV 03/28/16 18:45 04/27/16 18:44 Insulin Aspart (novoLOG ASPART) SLIDING SCALE If C... ACHS SC 03/28/16 21:00 04/27/16 20:59 03/30/16 12:10 4 UNITS Glucose (Glucose 40% Gel) UD PRN PO 03/28/16 18:45 04/27/16 18:44 03/28/16 22:13 15 GM Glucose (Glucose Chew Tab) 1 tabs UD PRN PO 03/28/16 18:45 04/27/16 18:44 03/30/16 06:20 1 TABS Dextrose (Dextrose 50% 50ML Syringe) 50 ml UD PRN IV 03/28/16 18:45 04/27/16 18:44 Glucagon (Glucagon Inj) 1 mg UD PRN SQ 03/28/16 18:45 04/27/16 18:44 Metoprolol Tartrate (Lopressor Tab) 50 mg BID PO 03/28/16 21:00 04/27/16 20:59 03/30/16 07:58 50 MG Metoprolol Tartrate (Lopressor Iv) 5 mg Q4 PRN IV 03/28/16 18:45 04/27/16 18:44 Ipratropium [place] (Atrovent 0.02% 0.5MG/2.5ML Neb) 0.5 mg Q2H PRN INH 03/28/16 19:00 04/27/16 18:59 Levalbuterol (Xopenex 1.25MG/ 0.5ML Neb) 1.25 mg Q2H PRN INH 03/28/16 19:00 04/27/16 18:59 Vancomycin HCl 1 ea 1 ea UD PRN N/A 03/28/16 19:00 04/27/16 18:59 Vancomycin HCl 1600 mg/Sodium Chloride 532 ml @ 200 mls/hr DAILY@1200 IV 03/29/16 12:00 04/08/16 11:59 03/30/16 11:43 200 MLS/HR Heparin Sodium/ Dextrose 500 ml @ 26 mls/hr [id number] PRN IV 03/29/16 19:45 04/28/16 19:44 03/30/16 09:23 29 MLS/HR Ceftriaxone Sodium/Dextrose (Rocephin Inj/D5 50ml) 70 ml @ 140 mls/hr Q24H IV 03/30/16 14:00 04/08/16 03:59 Lab Results: 03/30/16 07:23 Red Blood Count 3.34, Mean Corpuscular Volume 89.5, Mean Corpuscular Hemoglobin 26.9, Mean Corpuscular Hemoglobin Concent 30.1, Mean Platelet Volume 9.8, Neutrophils (%) (Auto) 66.0, Lymphocytes (%) (Auto) 17.8, Monocytes (%) (Auto) 10.2, Eosinophils (%) (Auto) 5.5, Basophils (%) (Auto) 0.3, Neutrophils # (Auto ) 4.20, Lymphocytes # (Auto) 1.13, Monocytes # (Auto) 0.65, Eosinophils # (Auto ) 0.35, Basophils # (Auto) 0.02 03/30/16 07:23 Test 03/30/16 07:23 03/30/16 11:20 White Blood Count 6.36 K/uL (4.8-10.8) Red Blood Count 3.34 M/uL (4.2-5.4) Hemoglobin 9.0 g/dL (12.0-16.0) Hematocrit 29.9 % (37-47) Mean Corpuscular Volume 89.5 fL (80-100) Mean Corpuscular Hemoglobin 26.9 pg (25-34) Mean Corpuscular Hemoglobin Concent 30.1 g/dl (32-36) Platelet Count 156 K/uL (130-400) Mean Platelet Volume 9.8 fL (7.4-10.4) Neutrophils (%) (Auto) 66.0 % Lymphocytes (%) (Auto) 17.8 % Monocytes (%) (Auto) 10.2 % Eosinophils (%) (Auto) 5.5 % Basophils (%) (Auto) 0.3 % Neutrophils # (Auto) 4.20 K/uL (1.4-6.5) Lymphocytes # (Auto) 1.13 K/uL (1.2-3.4) Monocytes # (Auto) 0.65 K/uL (0.11-0.59) Eosinophils # (Auto) 0.35 K/uL (0-0.5) Basophils # (Auto) 0.02 K/uL (0-0.2) RDW Standard Deviation 59.2 fL (36.4-46.3) RDW Coefficient of Variation 18.5 % (11.5-14.5) Immature Granulocyte % (Auto) 0.2 % Immature Granulocyte # (Auto) 0.01 K/uL (0.00-0.02) Prothrombin Time 14.5 SECONDS (9.0-12.0) Prothromb Time International Ratio 1.3 (0.9-1.1) Activated Partial Thromboplast Time 108.5 SECONDS (21.0-31.0) Partial Thromboplastin Ratio 4.2 Anion Gap 11.0 mmol/L (3-11) Est Creatinine Clear Calc Drug Dose 28.0 ml/min Estimated GFR () 26.7 Estimated GFR (Non- 23.0 BUN/Creatinine Ratio 22.3 (10-20) Estimated Average Glucose 126 mg/dl Hemoglobin A1c 6.0 % (4.5-5.6) Calcium Level 8.1 mg/dl (8.5-10.1) Phosphorus Level 3.3 mg/dl (2.5-4.9) Magnesium Level 2.3 mg/dl (1.8-2.4) Total Bilirubin 0.6 mg/dl (0.2-1) Aspartate Amino Transf (AST/SGOT) 37 U/L (15-37) Alanine Aminotransferase (ALT/SGPT) 48 U/L (12-78) Alkaline Phosphatase 49 U/L (45-117) Total Protein 5.7 gm/dl (6.4-8.2) Albumin 2.8 gm/dl (3.4-5.0) Globulin 2.9 gm/dl (2.5-4.0) Albumin/Globulin Ratio 1.0 (0.9-2) Triglycerides Level 75 mg/dl (0-150) Cholesterol Level 116 mg/dl (0-200) HDL Cholesterol 28 mg/dl LDL Cholesterol, Calculated 73 mg/dl VLDL Cholesterol, Calculated 15 mg/dl Cholesterol/HDL Ratio 4.1 Thyroid Stimulating Hormone (TSH) 68.200 uIu/ml (0.300-4.500) Bedside Glucose 156 mg/dl (70-90)
[2016-03-30] MEDS: CEFTRIAXONE SOD INJ 2000 MG in DEXTROSE 5% 50ML IV SCH (14:27)
--- NOTE | 2016-03-30 16:12 | Progress Note ---
Subjective Date of Service: Mar 30, 2016. Subjective Pt evaluation today including: conversation w/ patient, physical exam, chart review, lab review, review of studies Problem List Medical Problems: (1) CHF (congestive heart failure) Status: Acute (2) COPD exacerbation Status: Acute (3) COPD exacerbation Status: Acute (4) Elevated troponin Status: Acute (5) Elevated troponin Status: Acute (6) Elevated troponin Status: Acute (7) Shortness of breath Status: Acute (8) Shortness of breath Status: Acute Review of Systems Constitutional: No chills, No fever Eyes: No worsening of vision ENT: No hearing loss Respiratory: + shortness of breath, No cough, No wheezing Cardiac: No PND, No chest pain, No orthopnea Abdomen: No diarrhea, No nausea, No pain, No vomiting Musculoskeletal: No joint pain Female : No dysuria, No hematuria Neurologic: No memory loss, No numbness/tingling, No paralysis, No weakness Psychiatric: No depression symptoms Heme: No abnormal bleeding/bruising Endo: + fatigue Skin: No rash Medications Current Inpatient Medications Medications (Trade) Dose Ordered Sig/[place] Route Start Time Stop Time Status Last Admin Dose Admin Lactobacillus Acidophilus (Floranex Tab) 4 tab TIDM PO 03/29/16 07:30 04/28/16 07:59 03/30/16 10:03 4 TAB Acetaminophen (Tylenol Tab) 650 mg Q4H PRN PO 03/28/16 18:30 04/27/16 18:29 Zolpidem Tartrate (Ambien Tab) 5 mg HSZ PRN PO 03/28/16 18:30 04/27/16 18:29 Nitroglycerin (Nitrostat Tab) 0.4 mg UD PRN SL 03/28/16 18:30 04/27/16 18:29 Aspirin (Ecotrin Tab) 81 mg DAILY PO 03/29/16 09:00 04/28/16 08:59 03/30/16 07:55 81 MG Citalopram Hydrobromide (celeXA TAB) 20 mg DAILY PO 03/29/16 09:00 04/28/16 08:59 03/30/16 07:55 20 MG Albuterol/ Ipratropium (Combivent Respimat Inh) 1 puffs QID PRN INH 03/28/16 18:30 04/27/16 18:29 Levothyroxine Sodium (Synthroid Tab) 175 mcg DAILYBB PO 03/29/16 06:00 04/28/16 06:59 03/30/16 05:53 175 MCG Magnesium Oxide (Mag-Ox Tab) 400 mg BID PO 03/28/16 21:00 04/27/16 20:59 03/30/16 07:57 400 MG Oxycodone/ Acetaminophen (Percocet 10-325MG Tab) 1 tab Q6 PRN PO 03/28/16 18:30 04/11/16 18:29 03/29/16 18:09 1 TAB Quetiapine Fumarate (seroQUEL TAB) 50 mg HS PO 03/28/16 21:00 04/27/16 20:59 03/29/16 20:33 50 MG Senna (Senokot Tab) 8.6 mg BID PO 03/28/16 21:00 04/27/16 20:59 03/30/16 07:58 8.6 MG Sucralfate (Carafate Tab) 1 gm ACHS PO 03/28/16 21:00 04/27/16 20:59 03/30/16 10:03 1 GM Tolterodine Tartrate (Detrol LA Cap) 4 mg DAILY PO 03/29/16 09:00 04/28/16 08:59 03/30/16 07:57 4 MG Multivitamins/ Minerals (Multivitamin W/ Minerals Tab) 1 tab DAILY PO 03/29/16 09:00 04/28/16 08:59 03/30/16 07:55 1 TAB Ferrous Sulfate (Feosol Tab) 325 mg TIDM PO 03/29/16 07:30 04/28/16 07:59 03/30/16 10:03 325 MG Folic Acid (Folvite Tab) 800 mcg QAM PO 03/29/16 09:00 04/28/16 08:59 03/30/16 07:57 800 MCG Pantoprazole Sodium 40 mg 40 mg QAM PO 03/29/16 09:00 04/28/16 08:59 03/30/16 07:56 40 MG Furosemide/ Albumin Human (Lasix Inj/ Albumin 25%) 54 ml @ 54 mls/hr Q12H IV 03/29/16 10:00 04/28/16 09:59 03/30/16 10:04 54 MLS/HR Ondansetron HCl (Zofran Inj) 4 mg Q6H PRN IV 03/28/16 18:45 04/27/16 18:44 Insulin Aspart (novoLOG ASPART) SLIDING SCALE If C... ACHS SC 03/28/16 21:00 04/27/16 20:59 03/30/16 12:10 4 UNITS Glucose (Glucose 40% Gel) UD PRN PO 03/28/16 18:45 04/27/16 18:44 03/28/16 22:13 15 GM Glucose (Glucose Chew Tab) 1 tabs UD PRN PO 03/28/16 18:45 04/27/16 18:44 03/30/16 06:20 1 TABS Dextrose (Dextrose 50% 50ML Syringe) 50 ml UD PRN IV 03/28/16 18:45 04/27/16 18:44 Glucagon (Glucagon Inj) 1 mg UD PRN SQ 03/28/16 18:45 04/27/16 18:44 Metoprolol Tartrate (Lopressor Tab) 50 mg BID PO 03/28/16 21:00 04/27/16 20:59 03/30/16 07:58 50 MG Metoprolol Tartrate (Lopressor Iv) 5 mg Q4 PRN IV 03/28/16 18:45 04/27/16 18:44 Ipratropium [place] (Atrovent 0.02% 0.5MG/2.5ML Neb) 0.5 mg Q2H PRN INH 03/28/16 19:00 04/27/16 18:59 Levalbuterol (Xopenex 1.25MG/ 0.5ML Neb) 1.25 mg Q2H PRN INH 03/28/16 19:00 04/27/16 18:59 Vancomycin HCl 1 ea 1 ea UD PRN N/A 03/28/16 19:00 04/27/16 18:59 Vancomycin HCl 1600 mg/Sodium Chloride 532 ml @ 200 mls/hr DAILY@1200 IV 03/29/16 12:00 04/08/16 11:59 03/30/16 11:43 200 MLS/HR Heparin Sodium/ Dextrose 500 ml @ 26 mls/hr [id number] PRN IV 03/29/16 19:45 04/28/16 19:44 1/18/17 09:23 29 MLS/HR Ceftriaxone Sodium/Dextrose (Rocephin Inj/D5 50ml) 70 ml @ 140 mls/hr Q24H IV 03/30/16 14:00 04/08/16 03:59 03/30/16 14:27 140 MLS/HR Objective Vital Signs Date Time Temp Pulse Resp B/P Pulse Ox O2 Delivery O2 Flow Rate FiO2 03/30/16 15:31 36.6 65 16 136/83 100 Nasal Cannula 3.0 03/30/16 12:00 Nasal Cannula 3.0 03/30/16 11:55 36.8 83 18 133/80 91 3.0 03/30/16 08:00 Nasal Cannula 3.0 03/30/16 07:57 36.7 67 18 109/76 91 Room Air 03/30/16 04:02 Nasal Cannula 3.0 03/30/16 03:58 36.6 62 18 112/73 96 Nasal Cannula 3.0 03/30/16 00:00 36.3 59 20 114/75 98 Nasal Cannula 3.0 03/30/16 00:00 Nasal Cannula 3.0 03/29/16 20:52 36.3 68 18 142/80 100 Nasal Cannula 3.0 03/29/16 20:00 Nasal Cannula 3.0 Physical Exam General Appearance: no apparent distress Eyes: normal inspection, PERRL, EOMI ENT: normal ENT inspection, hearing grossly normal Neck: supple Respiratory/Chest: chest non-tender, no respiratory distress, no accessory muscle use, + decreased breath sounds, + rales Cardiovascular: regular rate, rhythm, no edema, no gallop, no JVD, no murmur Abdomen: normal bowel sounds, non tender, soft, no organomegaly, no pulsatile mass Extremities: normal range of motion, non-tender, normal inspection, no pedal edema, + inflammation 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, no motor/sensory deficits, alert, normal mood/affect, oriented x 3 Skin: normal color, warm/dry, no rash Laboratory Results Last 24 Hours Test 03/30/16 06:11 03/30/16 06:39 03/30/16 07:23 03/30/16 11:20 Bedside Glucose 66 mg/dl 71 mg/dl 156 mg/dl White Blood Count 6.36 K/uL Red Blood Count 3.34 M/uL Hemoglobin 9.0 g/dL Hematocrit 29.9 % Mean Corpuscular Volume 89.5 fL Mean Corpuscular Hemoglobin 26.9 pg Mean Corpuscular Hemoglobin Concent 30.1 g/dl Platelet Count 156 K/uL Mean Platelet Volume 9.8 fL Neutrophils (%) (Auto) 66.0 % Lymphocytes (%) (Auto) 17.8 % Monocytes (%) (Auto) 10.2 % Eosinophils (%) (Auto) 5.5 % Basophils (%) (Auto) 0.3 % Neutrophils # (Auto) 4.20 K/uL Lymphocytes # (Auto) 1.13 K/uL Monocytes # (Auto) 0.65 K/uL Eosinophils # (Auto) 0.35 K/uL Basophils # (Auto) 0.02 K/uL RDW Standard Deviation 59.2 fL RDW Coefficient of Variation 18.5 % Immature Granulocyte % (Auto) 0.2 % Immature Granulocyte # (Auto) 0.01 K/uL Prothrombin Time 14.5 SECONDS Prothromb Time International Ratio 1.3 Activated Partial Thromboplast Time 108.5 SECONDS Partial Thromboplastin Ratio 4.2 Sodium Level 144 mmol/L Potassium Level 3.9 mmol/L Chloride Level 105 mmol/L Carbon Dioxide Level 28 mmol/L Anion Gap 11.0 mmol/L Blood Urea Nitrogen 45 mg/dl Creatinine 2.00 mg/dl Est Creatinine Clear Calc Drug Dose 28.0 ml/min Estimated GFR () 26.7 Estimated GFR (Non- 23.0 BUN/Creatinine Ratio 22.3 Random Glucose 89 mg/dl Estimated Average Glucose 126 mg/dl Hemoglobin A1c 6.0 % Calcium Level 8.1 mg/dl Phosphorus Level 3.3 mg/dl Magnesium Level 2.3 mg/dl Total Bilirubin 0.6 mg/dl Aspartate Amino Transf (AST/SGOT) 37 U/L Alanine Aminotransferase (ALT/SGPT) 48 U/L Alkaline Phosphatase 49 U/L Total Protein 5.7 gm/dl Albumin 2.8 gm/dl Globulin 2.9 gm/dl Albumin/Globulin Ratio 1.0 Triglycerides Level 75 mg/dl Cholesterol Level 116 mg/dl HDL Cholesterol 28 mg/dl LDL Cholesterol, Calculated 73 mg/dl VLDL Cholesterol, Calculated 15 mg/dl Cholesterol/HDL Ratio 4.1 Thyroid Stimulating Hormone (TSH) 68.200 uIu/ml Assessment and Plan The patient is a 80-year-old female brought by ambulance emergency department with worsening shortness of breath and redness and ulcerations on her legs. Family notes that the also has the possibility of urinary tract infection. Assessment/plan: Elevated troponin of 3.04/CAD/status post CABG--the patient will be admitted to the telemetry unit, for serial cardiac enzymes 2-D echocardiogram. results: * Moderate left and mild right ventricular systolic dysfunction. EF 40% * Mild concentric left ventricular hypertrophy. * Moderate biatrial dilatation. * Properly functioning bioprosthetic aortic valve. * Mild pulmonic regurgitation. * Moderate to severe mitral regurgitation. * [place] to moderate tricuspid reguurgitation. * Mildly elevated estimated right ventricular systolic pressure. * Elevated central venous pressure. * On visual comparison with echo of 12/15/2015 there is no significant change in the LV systolic function and wall motion. Continue aspirin / furosemide 40mg IV BID / metoprolol tartrate 25 mg by mouth twice a day will start heparin drip consult cardiology. appreciated, demand ischemia monitor renal function Acute on chronic systolic CHF, switch lasix to IV 20mg BID chronic respiratory failure Left lower Ext cellulitis/ulcer wound care consult wound Cx, growing GPC continue vanco switch zosyn to Ceftriaxone UTI present on admission growing GPC Atrial fibrillation / hypertension continue heparin/continue metoprolol CKD stage 4, currently creatinine is at base line Diabetes mellitus --hold 4 mg by mouth every morning, and hold metformin 1000 mg by mouth twice a day. Place on Accu-Cheks before meals and at bedtime with NovoLog coverage. check [id number] Hypothyroidism--continue levothyroxine sodium at 175 g by mouth daily. Check TSH GERD--change omeprazole 20 mg by mouth daily to pantoprazole 40 mg by mouth daily, and continue Carafate 1 g by mouth before meals and at bedtime. Anxiety/agitation--continue citalopram 20 mg by mouth daily and Seroquel 50 mg by mouth at bedtime. Bladder spasm--continue Detrol LA 4 mg by mouth daily. Gallbladder wall thickening/edema, unchanged. This is likely due to the patient's edematous state. Gas within the uterine cavity and vagina. However, no CT evidence for a fistula. will continue to monitor with serial abdominal exam Bilateral nephrolithiasis. No hydronephrosis
[2016-03-30 17:28] LABS: PARTIAL THROMBOPLASTIN RATIO 2.8
[2016-03-30] MEDS: QUETIAPINE FUMARATE 25 MG TAB PO SCH (20:26)
[2016-03-31] VITALS (11 sets, daily range): BP systolic 120–150; BP diastolic 69–93; PULSE 64–84; TEMP 36.4–37; O2SAT 92–100
[2016-03-31 01:10] LABS: PARTIAL THROMBOPLASTIN RATIO 3.2
[2016-03-31] MEDS: HEPARIN 25,000 UNIT/500ML D5W 500 ML IV PRN ×2 (02:15→15:13)
[2016-03-31] MEDS: LEVOTHYROXINE 175 MCG TAB PO SCH (05:39)
[2016-03-31 07:53] LABS: BASO % 0.5 %; BASO ABS # 0.03 K/uL (0-0.2); COMPLETE YES; EOS % 3.4 %; HEMATOCRIT 29.9 % (37-47); IG% 0.2 %; LYMPH % 16.9 %; LYMPH ABS # 1.04 K/uL (1.2-3.4); MEAN CELL VOLUME 87.7 fL (80-100); MEAN CORPUSCULAR HGB CONC 30.8 g/dl (32-36); MEAN PLATELET VOLUME 10.3 fL (7.4-10.4); MONO % 11.7 %; NEUT % 67.3 %; PLATELET COUNT 167 K/uL (130-400); RED BLOOD COUNT 3.41 M/uL (4.2-5.4); WHITE BLOOD COUNT 6.15 K/uL (4.8-10.8)
[2016-03-31] MEDS: FoLIC ACID TAB 400 MCG TAB PO SCH (08:00)
[2016-03-31] MEDS: PANTOprazole SOD 40 MG TAB PO SCH (08:00)
[2016-03-31] MEDS: MAGNESIUM OXIDE 400 MG TAB PO SCH ×2 (08:01→20:31)
[2016-03-31] MEDS: CITALOPRAM 20 MG TAB PO SCH (08:01)
[2016-03-31] MEDS: ASPIRIN 81 MG ECTAB PO SCH (08:01)
[2016-03-31] MEDS: SENNA 8.6 MG TAB PO SCH ×2 (08:01→20:30)
[2016-03-31] MEDS: SUCRALFATE 1 GM TAB PO SCH ×4 (08:01→20:29)
[2016-03-31] MEDS: TOLTERODINE TARTRATE LA 4 MG CAPCR PO SCH (08:01)
[2016-03-31] MEDS: METOPROLOL TARTRATE 50 MG TAB PO SCH ×2 (08:02→20:32)
[2016-03-31] MEDS: LACTOBACILLUS ACIDOPHILUS (FLORANEX) TAB PO SCH ×3 (08:02→16:31)
[2016-03-31] MEDS: FERROUS SULFATE 325 MG TAB PO SCH ×3 (08:02→16:32)
[2016-03-31] MEDS: CEROVITE ADV FORMULA TAB PO SCH (08:03)
[2016-03-31 08:04] LABS: INR 1.2 (0.9-1.1); PARTIAL THROMBOPLASTIN RATIO 2.5; PROTHROMBIN TIME (PATIENT) 13.1 SECONDS (9.0-12.0)
[2016-03-31] MEDS: INSULIN ASPART 100 UNITS/ML 3 ML PEN SC SCH ×4 (08:11→20:35)
[2016-03-31 08:18] LABS: BUN/CREATININE RATIO 19.6 (10-20); CALCIUM 8.5 mg/dl (8.5-10.1); CREATININE 1.9 mg/dl (0.60-1.20); POTASSIUM 3.4 mmol/L (3.5-5.1)
[2016-03-31] MEDS: ALBUMIN 25% 50 ML with FUROSEMIDE INJ 40 MG IV SCH ×4 (10:14→22:59)
[2016-03-31] MEDS ORDERED: VANCOMYCIN TROUGH ONE (11:30)
--- NOTE | 2016-03-31 14:20 | Pharmacy Progress Note ---
Pharmacy Antibiotic Prog Note Date of Service: Mar 31, 2016. Subjective: The patient is currently receiving Vancomycin 1600mg IV q24h. The patient is currently on day #4 of IV therapy. Objective: Height (Feet): 5 Height (Inches): 8.00 Weight (Kilograms): 102.400 Levels: Item Value Date Time Random Vancomycin Level 17.6 mcg/ml 03/29/16 0700 Vancomycin Level Trough 23.2 mcg/ml 03/31/16 1157 Lab Results (24hrs): Laboratory Tests Test 03/31/16 06:50 BUN/Creatinine Ratio 19.6 Blood Urea Nitrogen 37 mg/dl Creatinine 1.90 mg/dl White Blood Count 6.15 K/uL Red Blood Count 3.41 M/uL Hemoglobin 9.2 g/dL Hematocrit 29.9 % Mean Corpuscular Volume 87.7 fL Mean Corpuscular Hemoglobin 27.0 pg Mean Corpuscular Hemoglobin Concent 30.8 g/dl Platelet Count 167 K/uL Mean Platelet Volume 10.3 fL Neutrophils (%) (Auto) 67.3 % Lymphocytes (%) (Auto) 16.9 % Monocytes (%) (Auto) 11.7 % Eosinophils (%) (Auto) 3.4 % Basophils (%) (Auto) 0.5 % Neutrophils # (Auto) 4.14 K/uL Lymphocytes # (Auto) 1.04 K/uL Monocytes # (Auto) 0.72 K/uL Eosinophils # (Auto) 0.21 K/uL Basophils # (Auto) 0.03 K/uL Micro Results: Item Value Date Time Urine Culture - Preliminary Resulted 03/28/16 1640 Urine,Catheterized Gram Positive Cocci Blood Culture - Preliminary Resulted 03/28/16 1645 Blood NO GROWTH TO DATE. Blood Culture - Preliminary Resulted 03/28/16 1650 Blood NO GROWTH TO DATE. Gram Stain - Final Complete 03/29/16 1340 Skin Leg Lower Left RUN DATE: 03/31/16 [facility] LAB PAGE 1 RUN TIME: 1001 Specimen Inquiry PATIENT: COLLIN AREVALO LOC: [facility] U # : [id number] AGE/SX: 80/F ROOM: 42 REG : 03/28/[address]: Maia Martinez : 1935 BED: 2 DIS : STATUS: ADM IN TLOC: SPEC #: [id number] ALEXIS: 03/29/16 STATUS: COMP REQ #: [id number] RECD: 03/29/[address]: Maia Martinez MD SOURCE: SKIN ENTR: 03/29/16 [facility] DR: Ezra Arevalo D.Stephanie SPDESC: LEG Bossman Diop M.D., Alexander W., MD ORDERED: PHILL CRUZ/CARMEL COMMENTS: Has Specimen Been Obtained/Collected? Y Procedure Result Verified Site GRAM STAIN Final 03/30/16-813 RESULT MANY WBCs SEEN FEW EPITHELIAL CELLS MANY GRAM POSITIVE COCCI SURFACE WOUND CULTURE Final 03/31/16-100 Organism 1 STAPHYLOCOCCUS AUREUS QUANITY MANY SENS SENSITIVITY TO FOLLOW 1. STAPHYLOCOCCUS AUREUS Target Route Dose RX AB Cost M.I.C. IQ ------ ----- ------ -- ------ -------- - ------ TRIMET/SULFA S <=0.5/ 9.5 * OXACILLIN S 0.5 VANCOMYCIN S 2 ERYTHROMYCIN S <=0.5 TETRACYCLINE S <=4 CLINDAMYCIN S <=0.5 DAPTOMYCIN S <=0.5 S = SENSITIVE I = INTERMEDIATE R = RESISTANT Recent Pertinent Medications: Item Value Date Time Vancomycin HCl 542 ml @ 205 mls/hr 03/28/16 1900 2100 mg/Sodium NOW ONCE/IV 03/28/162008 Chloride Vancomycin HCl 532 ml @ 200 mls/hr 03/29/16 1200 1600 mg/Sodium DAILY@1200/IV 03/30/16 1143 Chloride Vancomycin HCl 528 ml @ 200 mls/hr 03/31/16 1600 1400 mg/Sodium DAILY@1600/IV Chloride Item Value Date Time Piperacillin Sod/ 120 ml @ 200 mls/hr 03/28/16 2145 Tazobactam Sod NOW ONCE/IV 03/28/16 2213 4.5 gm/Dextrose Piperacillin Sod/ 120 ml @ 30 mls/hr 03/29/16 0400 Tazobactam Sod Q8H/IV 03/30/16 0407 4.5 gm/Dextrose Item Value Date Time Ceftriaxone 70 ml @ 140 mls/hr 03/30/16 1400 Sodium 2000 mg/ Q24H/IV 03/30/16 1427 Dextrose Assessment & Plan: Vancomycin * 80 yo female admitted with sob, gpc in urine & staph aureus in leg ulcerations * goal trough level: ~15mcg/mL * trough drawn: 23.2mcg/mL --> Supratherapeutic * change to: Vancomycin 1400mg IV q24h (~13.5mg/kg) * trough level ordered for: 04/03/16 1600 Pharmacy will continue to follow and will adjust dose/frequency as necessary. Thank you
[2016-03-31] MEDS: CEFTRIAXONE SOD INJ 2000 MG in DEXTROSE 5% 50ML IV SCH (14:44)
[2016-03-31] MEDS ORDERED: VANCOMYCIN INJ 1,400 MG in SODIUM CHLORIDE 0.9% 500ML 500 ML IV SCH (16:00)
--- NOTE | 2016-03-31 17:31 | Cardiology Follow-Up ---
Subjective Subjective Date of Service: Mar 31, 2016. Pt evaluation today including: conversation w/ patient, physical exam, chart review, lab review, review of studies, review of inpatient medication list Additional Details: No chest pain overnight. Shortness of breath minimally improved. Still fatigued Pain in lower extremities Problem List Medical Problems: (1) CHF (congestive heart failure) Status: Acute (2) COPD exacerbation Status: Acute (3) COPD exacerbation Status: Acute (4) Elevated troponin Status: Acute (5) Elevated troponin Status: Acute (6) Elevated troponin Status: Acute (7) Shortness of breath Status: Acute (8) Shortness of breath Status: Acute Review of Systems Constitutional: No chills, No fever Eyes: No worsening of vision ENT: No hearing loss Respiratory: + shortness of breath, No cough, No wheezing Cardiac: No PND, No chest pain, No orthopnea Abdomen: No diarrhea, No nausea, No pain, No vomiting Musculoskeletal: No joint pain Female : No dysuria, No hematuria Neurologic: No memory loss, No numbness/tingling, No paralysis, No weakness Psychiatric: No depression symptoms Heme: No abnormal bleeding/bruising Endo: + fatigue Skin: No rash Objective Vital Signs Last Vital Signs Documentation Date Time Temp Pulse Resp B/P Pulse Ox O2 Delivery O2 Flow Rate FiO2 03/31/16 15:42 37.0 69 18 150/93 94 03/31/16 12:00 Nasal Cannula 3.0 Physical Exam: General Appearance: no apparent distress ENT: hearing grossly normal Neck: supple Respiratory/Chest: chest non-tender, no respiratory distress, no accessory muscle use, + decreased breath sounds, + rales (few crackles at bases bilaterally) Cardiovascular: regular rate, rhythm, no gallop, no JVD, no murmur, + pertinent finding (1+ LE edema. LE warm. Dressing over LE wound) Abdomen: normal bowel sounds, non tender, soft Extremities: + inflammation, + swelling Neurologic/Psychiatric: alert, normal mood/affect Skin: normal color, warm/dry Lymphatic: no adenopathy Assessment and Plan 1. Elevated troponin -- peaked, LV function unchanged, thought secondary to demand ischemia 2. H/o CAD with prior stents -- chest pain free 3. Acute on chronic combined systolic/diastolic heart failure -- well perfused, mild residual congestion 4. Chronic atrial fibrillation - well rate controlled, on heparin drip 5. Chronic kidney disease -- stable SCr 6. Cellulits/UTI - on broad spectrum antibiotics. Well perfused, mild persistent congestion - Agree with continued BID IV diuresis - Continue metoprolol/ASA/heparin drip. Coumadin can be restarted when medically appropriate. Will continue to follow. Contact with questions. Medications: Current Inpatient Medications Medications (Trade) Dose Ordered Sig/[place] Route Start Time Stop Time Status Last Admin Dose Admin Lactobacillus Acidophilus (Floranex Tab) 4 tab TIDM PO 03/29/16 07:30 04/28/16 07:59 03/31/16 11:52 4 TAB Acetaminophen (Tylenol Tab) 650 mg Q4H PRN PO 03/28/16 18:30 04/27/16 18:29 Zolpidem Tartrate (Ambien Tab) 5 mg HSZ PRN PO 03/28/16 18:30 04/27/16 18:29 Nitroglycerin (Nitrostat Tab) 0.4 mg UD PRN SL 03/28/16 18:30 04/27/16 18:29 Aspirin (Ecotrin Tab) 81 mg DAILY PO 03/29/16 09:00 04/28/16 08:59 03/31/16 08:01 81 MG Citalopram Hydrobromide (celeXA TAB) 20 mg DAILY PO 03/29/16 09:00 04/28/16 08:59 03/31/16 08:01 20 MG Albuterol/ Ipratropium (Combivent Respimat Inh) 1 puffs QID PRN INH 03/28/16 18:30 04/27/16 18:29 Levothyroxine Sodium (Synthroid Tab) 175 mcg DAILYBB PO 03/29/16 06:00 04/28/16 06:59 03/31/16 05:39 175 MCG Magnesium Oxide (Mag-Ox Tab) 400 mg BID PO 03/28/16 21:00 04/27/16 20:59 03/31/16 08:01 400 MG Oxycodone/ Acetaminophen (Percocet 10-325MG Tab) 1 tab Q6 PRN PO 03/28/16 18:30 04/11/16 18:29 03/29/16 18:09 1 TAB Quetiapine Fumarate (seroQUEL TAB) 50 mg HS PO 03/28/16 21:00 04/27/16 20:59 03/30/16 20:26 50 MG Senna (Senokot Tab) 8.6 mg BID PO 03/28/16 21:00 04/27/16 20:59 03/31/16 08:01 8.6 MG Sucralfate (Carafate Tab) 1 gm ACHS PO 03/28/16 21:00 04/27/16 20:59 03/31/16 10:14 1 GM Tolterodine Tartrate (Detrol LA Cap) 4 mg DAILY PO 03/29/16 09:00 04/28/16 08:59 03/31/16 08:01 4 MG Multivitamins/ Minerals (Multivitamin W/ Minerals Tab) 1 tab DAILY PO 03/29/16 09:00 04/28/16 08:59 03/31/16 08:03 1 TAB Ferrous Sulfate (Feosol Tab) 325 mg TIDM PO 03/29/16 07:30 04/28/16 07:59 03/31/16 11:52 325 MG Folic Acid (Folvite Tab) 800 mcg QAM PO 03/29/16 09:00 04/28/16 08:59 03/31/16 08:00 800 MCG Pantoprazole Sodium 40 mg 40 mg QAM PO 03/29/16 09:00 04/28/16 08:59 03/31/16 08:00 40 MG Furosemide/ Albumin Human (Lasix Inj/ Albumin 25%) 54 ml @ 54 mls/hr Q12H IV 03/29/16 10:00 04/28/16 09:59 03/31/16 10:14 54 MLS/HR Ondansetron HCl (Zofran Inj) 4 mg Q6H PRN IV 03/28/16 18:45 04/27/16 18:44 Insulin Aspart (novoLOG ASPART) SLIDING SCALE If C... ACHS SC 03/28/16 21:00 04/27/16 20:59 03/31/16 11:56 5 UNITS Glucose (Glucose 40% Gel) UD PRN PO 03/28/16 18:45 04/27/16 18:44 03/28/16 22:13 15 GM Glucose (Glucose Chew Tab) 1 tabs UD PRN PO 03/28/16 18:45 04/27/16 18:44 03/30/16 06:20 1 TABS Dextrose (Dextrose 50% 50ML Syringe) 50 ml UD PRN IV 03/28/16 18:45 04/27/16 18:44 Glucagon (Glucagon Inj) 1 mg UD PRN SQ 03/28/16 18:45 04/27/16 18:44 Metoprolol Tartrate (Lopressor Tab) 50 mg BID PO 03/28/16 21:00 04/27/16 20:59 03/31/16 08:02 50 MG Metoprolol Tartrate (Lopressor Iv) 5 mg Q4 PRN IV 03/28/16 18:45 04/27/16 18:44 Ipratropium [place] (Atrovent 0.02% 0.5MG/2.5ML Neb) 0.5 mg Q2H PRN INH 03/28/16 19:00 04/27/16 18:59 Levalbuterol (Xopenex 1.25MG/ 0.5ML Neb) 1.25 mg Q2H PRN INH 03/28/16 19:00 04/27/16 18:59 Vancomycin HCl 1 ea 1 ea UD PRN N/A 03/28/16 19:00 04/27/16 18:59 Heparin Sodium/ Dextrose 500 ml @ 21 mls/hr [id number] PRN IV 03/29/16 19:45 04/28/16 19:44 03/31/16 15:13 21 MLS/HR Ceftriaxone Sodium 2000 mg/ Dextrose 70 ml @ 140 mls/hr Q24H IV 03/30/16 14:00 04/08/16 03:59 03/31/16 14:44 140 MLS/HR Vancomycin HCl/ Sodium Chloride (Vancomycin Inj/ Nss 500ml) 528 ml @ 200 mls/hr DAILY@1600 IV 03/31/16 16:00 04/08/16 15:59 Lab Results: 03/31/16 06:50 Red Blood Count 3.41, Mean Corpuscular Volume 87.7, Mean Corpuscular Hemoglobin 27.0, Mean Corpuscular Hemoglobin Concent 30.8, Mean Platelet Volume 10.3, Neutrophils (%) (Auto) 67.3, Lymphocytes (%) (Auto) 16.9, Monocytes (%) (Auto) 11.7, Eosinophils (%) (Auto) 3.4, Basophils (%) (Auto) 0.5, Neutrophils # (Auto ) 4.14, Lymphocytes # (Auto) 1.04, Monocytes # (Auto) 0.72, Eosinophils # (Auto ) 0.21, Basophils # (Auto) 0.03 03/31/16 06:50 Test 03/31/16 06:50 03/31/16 11:57 03/31/16 16:18 White Blood Count 6.15 K/uL (4.8-10.8) Red Blood Count 3.41 M/uL (4.2-5.4) Hemoglobin 9.2 g/dL (12.0-16.0) Hematocrit 29.9 % (37-47) Mean Corpuscular Volume 87.7 fL (80-100) Mean Corpuscular Hemoglobin 27.0 pg (25-34) Mean Corpuscular Hemoglobin Concent 30.8 g/dl (32-36) Platelet Count 167 K/uL (130-400) Mean Platelet Volume 10.3 fL (7.4-10.4) Neutrophils (%) (Auto) 67.3 % Lymphocytes (%) (Auto) 16.9 % Monocytes (%) (Auto) 11.7 % Eosinophils (%) (Auto) 3.4 % Basophils (%) (Auto) 0.5 % Neutrophils # (Auto) 4.14 K/uL (1.4-6.5) Lymphocytes # (Auto) 1.04 K/uL (1.2-3.4) Monocytes # (Auto) 0.72 K/uL (0.11-0.59) Eosinophils # (Auto) 0.21 K/uL (0-0.5) Basophils # (Auto) 0.03 K/uL (0-0.2) RDW Standard Deviation 59.3 fL (36.4-46.3) RDW Coefficient of Variation 18.7 % (11.5-14.5) Immature Granulocyte % (Auto) 0.2 % Immature Granulocyte # (Auto) 0.01 K/uL (0.00-0.02) Prothrombin Time 13.1 SECONDS (9.0-12.0) Prothromb Time International Ratio 1.2 (0.9-1.1) Activated Partial Thromboplast Time 65.7 SECONDS (21.0-31.0) Partial Thromboplastin Ratio 2.5 Anion Gap 8.0 mmol/L (3-11) Est Creatinine Clear Calc Drug Dose 29.6 ml/min Estimated GFR () 28.4 Estimated GFR (Non- 24.5 BUN/Creatinine Ratio 19.6 (10-20) Calcium Level 8.5 mg/dl (8.5-10.1) Magnesium Level 2.0 mg/dl (1.8-2.4) Vancomycin Level Trough 23.2 mcg/ml (SEE COMMENT) Bedside Glucose 115 mg/dl (70-90)
--- NOTE | 2016-03-31 18:06 | Progress Note ---
Subjective Date of Service: Mar 31, 2016. Subjective Pt evaluation today including: conversation w/ patient, physical exam, chart review, lab review, review of studies Problem List Medical Problems: (1) CHF (congestive heart failure) Status: Acute (2) COPD exacerbation Status: Acute (3) COPD exacerbation Status: Acute (4) Elevated troponin Status: Acute (5) Elevated troponin Status: Acute (6) Elevated troponin Status: Acute (7) Shortness of breath Status: Acute (8) Shortness of breath Status: Acute Review of Systems Constitutional: No chills, No fatigue, No fever, No problem reported, No see HPI, No sweats, No weakness, No weight loss Eyes: No diplopia, No discharge, No eye pain, No problem reported, No redness, No see HPI, No worsening of vision ENT: No dental problems, No hearing loss, No nasal symptoms, No problem reported, No see HPI, No sore throat, No tinnitus, No trouble swallowing, No unusual epistaxis Respiratory: No cough, No dyspnea at rest, No dyspnea on exertion, No hemoptysis, No problem reported, No see HPI, No shortness of breath, No sputum, No wheezing Cardiac: No PND, No chest pain, No claudication, No edema, No orthopnea, No palpitations, No problem reported, No see HPI Abdomen: No GI bleeding, No constipation, No diarrhea, No nausea, No pain, No problem reported, No see HPI, No vomiting Musculoskeletal: + joint pain, + muscle pain Female : + incontinence, No abnormal vaginal bleeding, No dysuria, No hematuria, No problem reported, No see HPI, No urinary frequency, No vaginal discharge Neurologic: No balance problems, No memory loss, No numbness/tingling, No paralysis, No problem reported, No see HPI, No vertigo, No weakness Psychiatric: No anhedonism, No anxiety, No depression symptoms, No insomnia, No problem reported, No see HPI, No substance abuse Endo: + fatigue, No excessive thirst, No excessive urination, No problem reported, No see HPI Skin: No bleeding, No color change, No itch, No new/changing skin lesions, No problem reported, No rash, No see HPI Medications Current Inpatient Medications Medications (Trade) Dose Ordered Sig/[place] Route Start Time Stop Time Status Last Admin Dose Admin Lactobacillus Acidophilus (Floranex Tab) 4 tab TIDM PO 03/29/16 07:30 04/28/16 07:59 03/31/16 11:52 4 TAB Acetaminophen (Tylenol Tab) 650 mg Q4H PRN PO 03/28/16 18:30 04/27/16 18:29 Zolpidem Tartrate (Ambien Tab) 5 mg HSZ PRN PO 03/28/16 18:30 04/27/16 18:29 Nitroglycerin (Nitrostat Tab) 0.4 mg UD PRN SL 03/28/16 18:30 04/27/16 18:29 Aspirin (Ecotrin Tab) 81 mg DAILY PO 03/29/16 09:00 04/28/16 08:59 03/31/16 08:01 81 MG Citalopram Hydrobromide (celeXA TAB) 20 mg DAILY PO 03/29/16 09:00 04/28/16 08:59 03/31/16 08:01 20 MG Albuterol/ Ipratropium (Combivent Respimat Inh) 1 puffs QID PRN INH 03/28/16 18:30 04/27/16 18:29 Levothyroxine Sodium (Synthroid Tab) 175 mcg DAILYBB PO 03/29/16 06:00 04/28/16 06:59 03/31/16 05:39 175 MCG Magnesium Oxide (Mag-Ox Tab) 400 mg BID PO 03/28/16 21:00 04/27/16 20:59 03/31/16 08:01 400 MG Oxycodone/ Acetaminophen (Percocet 10-325MG Tab) 1 tab Q6 PRN PO 03/28/16 18:30 04/11/16 18:29 03/29/16 18:09 1 TAB Quetiapine Fumarate (seroQUEL TAB) 50 mg HS PO 03/28/16 21:00 04/27/16 20:59 03/30/16 20:26 50 MG Senna (Senokot Tab) 8.6 mg BID PO 03/28/16 21:00 04/27/16 20:59 03/31/16 08:01 8.6 MG Sucralfate (Carafate Tab) 1 gm ACHS PO 03/28/16 21:00 04/27/16 20:59 03/31/16 10:14 1 GM Tolterodine Tartrate (Detrol LA Cap) 4 mg DAILY PO 03/29/16 09:00 04/28/16 08:59 03/31/16 08:01 4 MG Multivitamins/ Minerals (Multivitamin W/ Minerals Tab) 1 tab DAILY PO 03/29/16 09:00 04/28/16 08:59 03/31/16 08:03 1 TAB Ferrous Sulfate (Feosol Tab) 325 mg TIDM PO 03/29/16 07:30 04/28/16 07:59 03/31/16 11:52 325 MG Folic Acid (Folvite Tab) 800 mcg QAM PO 03/29/16 09:00 04/28/16 08:59 03/31/16 08:00 800 MCG Pantoprazole Sodium 40 mg 40 mg QAM PO 03/29/16 09:00 04/28/16 08:59 03/31/16 08:00 40 MG Furosemide/ Albumin Human (Lasix Inj/ Albumin 25%) 54 ml @ 54 mls/hr Q12H IV 03/29/16 10:00 04/28/16 09:59 03/31/16 10:14 54 MLS/HR Ondansetron HCl (Zofran Inj) 4 mg Q6H PRN IV 03/28/16 18:45 04/27/16 18:44 Insulin Aspart (novoLOG ASPART) SLIDING SCALE If C... ACHS SC 03/28/16 21:00 04/27/16 20:59 03/31/16 11:56 5 UNITS Glucose (Glucose 40% Gel) UD PRN PO 03/28/16 18:45 04/27/16 18:44 03/28/16 22:13 15 GM Glucose (Glucose Chew Tab) 1 tabs UD PRN PO 03/28/16 18:45 04/27/16 18:44 03/30/16 06:20 1 TABS Dextrose (Dextrose 50% 50ML Syringe) 50 ml UD PRN IV 03/28/16 18:45 04/27/16 18:44 Glucagon (Glucagon Inj) 1 mg UD PRN SQ 03/28/16 18:45 04/27/16 18:44 Metoprolol Tartrate (Lopressor Tab) 50 mg BID PO 03/28/16 21:00 04/27/16 20:59 03/31/16 08:02 50 MG Metoprolol Tartrate (Lopressor Iv) 5 mg Q4 PRN IV 03/28/16 18:45 04/27/16 18:44 Ipratropium [place] (Atrovent 0.02% 0.5MG/2.5ML Neb) 0.5 mg Q2H PRN INH 03/28/16 19:00 04/27/16 18:59 Levalbuterol (Xopenex 1.25MG/ 0.5ML Neb) 1.25 mg Q2H PRN INH 03/28/16 19:00 04/27/16 18:59 Vancomycin HCl 1 ea 1 ea UD PRN N/A 03/28/16 19:00 04/27/16 18:59 Heparin Sodium/ Dextrose 500 ml @ 21 mls/hr [id number] PRN IV 03/29/16 19:45 04/28/16 19:44 03/31/16 15:13 21 MLS/HR Ceftriaxone Sodium 2000 mg/ Dextrose 70 ml @ 140 mls/hr Q24H IV 03/30/16 14:00 04/08/16 03:59 03/31/16 14:44 140 MLS/HR Vancomycin HCl/ Sodium Chloride (Vancomycin Inj/ Nss 500ml) 528 ml @ 200 mls/hr DAILY@1600 IV 03/31/16 16:00 04/08/16 15:59 Objective Vital Signs Date Time Temp Pulse Resp B/P Pulse Ox O2 Delivery O2 Flow Rate FiO2 03/31/16 16:00 Nasal Cannula 3.0 03/31/16 15:42 37.0 69 18 150/93 94 03/31/16 12:00 92 Nasal Cannula 3.0 03/31/16 10:42 36.9 84 18 141/87 99 4.0 03/31/16 08:00 92 Nasal Cannula 3.0 03/31/16 07:47 36.4 79 24 129/75 100 Nasal Cannula 3.5 03/31/16 04:00 92 Nasal Cannula 3.0 03/31/16 03:27 36.5 76 18 120/69 98 Nasal Cannula 3.0 03/31/16 00:00 36.6 80 22 140/89 96 Nasal Cannula 3.0 03/30/16 23:59 92 Nasal Cannula 3.0 03/30/16 20:00 36.8 99 20 139/86 92 Nasal Cannula 3.0 03/30/16 20:00 92 Nasal Cannula 3.0 Physical Exam General Appearance: no apparent distress Eyes: normal inspection, PERRL, EOMI ENT: normal ENT inspection, hearing grossly normal Neck: supple, no adenopathy, thyroid normal Respiratory/Chest: chest non-tender, lungs clear, normal breath sounds, no respiratory distress, no accessory muscle use Cardiovascular: regular rate, rhythm, no edema, no gallop, no JVD, no murmur Abdomen: normal bowel sounds, non tender, soft, no organomegaly, no pulsatile mass Extremities: normal range of motion, non-tender, normal inspection, no pedal edema Neurologic/Psychiatric: online merchandising manager II-XII nml as tested, no motor/sensory deficits, alert, normal mood/affect, oriented x 3 Skin: normal color, + pertinent finding (left chin of tibia ulcer 4X 5 CM) Laboratory Results Last 24 Hours Test 03/30/16 20:12 03/31/16 00:33 03/31/16 06:15 03/31/16 06:50 Bedside Glucose 94 mg/dl 78 mg/dl Activated Partial Thromboplast Time 81.9 SECONDS 65.7 SECONDS Partial Thromboplastin Ratio 3.2 2.5 White Blood Count 6.15 K/uL Red Blood Count 3.41 M/uL Hemoglobin 9.2 g/dL Hematocrit 29.9 % Mean Corpuscular Volume 87.7 fL Mean Corpuscular Hemoglobin 27.0 pg Mean Corpuscular Hemoglobin Concent 30.8 g/dl Platelet Count 167 K/uL Mean Platelet Volume 10.3 fL Neutrophils (%) (Auto) 67.3 % Lymphocytes (%) (Auto) 16.9 % Monocytes (%) (Auto) 11.7 % Eosinophils (%) (Auto) 3.4 % Basophils (%) (Auto) 0.5 % Neutrophils # (Auto) 4.14 K/uL Lymphocytes # (Auto) 1.04 K/uL Monocytes # (Auto) 0.72 K/uL Eosinophils # (Auto) 0.21 K/uL Basophils # (Auto) 0.03 K/uL RDW Standard Deviation 59.3 fL RDW Coefficient of Variation 18.7 % Immature Granulocyte % (Auto) 0.2 % Immature Granulocyte # (Auto) 0.01 K/uL Prothrombin Time 13.1 SECONDS Prothromb Time International Ratio 1.2 Sodium Level 138 mmol/L Potassium Level 3.4 mmol/L Chloride Level 100 mmol/L Carbon Dioxide Level 30 mmol/L Anion Gap 8.0 mmol/L Blood Urea Nitrogen 37 mg/dl Creatinine 1.90 mg/dl Est Creatinine Clear Calc Drug Dose 29.6 ml/min Estimated GFR () 28.4 Estimated GFR (Non- 24.5 BUN/Creatinine Ratio 19.6 Random Glucose 75 mg/dl Calcium Level 8.5 mg/dl Magnesium Level 2.0 mg/dl Test 03/31/16 11:21 03/31/16 11:57 03/31/16 16:18 Bedside Glucose 117 mg/dl 115 mg/dl Vancomycin Level Trough 23.2 mcg/ml Assessment and Plan The patient is a 80-year-old female brought by ambulance emergency department with worsening shortness of breath and redness and ulcerations on her legs. Family notes that the also has the possibility of urinary tract infection. Assessment/plan: Elevated troponin of 3.04/CAD/status post CABG--the patient will be admitted to the telemetry unit, for serial cardiac enzymes 2-D echocardiogram. results: * Moderate left and mild right ventricular systolic dysfunction. EF 40% * Mild concentric left ventricular hypertrophy. * Moderate biatrial dilatation. * Properly functioning bioprosthetic aortic valve. * Mild pulmonic regurgitation. * Moderate to severe mitral regurgitation. * Miold to moderate tricuspid reguurgitation. * Mildly elevated estimated right ventricular systolic pressure. * Elevated central venous pressure. * On visual comparison with echo of 12/15/2015 there is no significant change in the LV systolic function and wall motion. Continue aspirin / furosemide 20mg IV BID / metoprolol tartrate 25 mg by mouth twice a day will start heparin drip consult cardiology. appreciated, demand ischemia monitor renal function Acute on chronic systolic CHF, switch lasix to IV 20mg BID chronic respiratory failure stable Left lower Ext cellulitis/ulcer wound care consult wound Cx, growing Staph MSSA switch Abx to Nafcillin UTI present on admission growing Enterococcus S: Ampicillin Atrial fibrillation / hypertension continue heparin/continue metoprolol CKD stage 4, currently creatinine is at base line Diabetes mellitus --hold 4 mg by mouth every morning, and hold metformin 1000 mg by mouth twice a day. Place on Accu-Cheks before meals and at bedtime with NovoLog coverage. check [id number] Hypothyroidism--continue levothyroxine sodium at 175 g by mouth daily. Check TSH GERD--change omeprazole 20 mg by mouth daily to pantoprazole 40 mg by mouth daily, and continue Carafate 1 g by mouth before meals and at bedtime. Anxiety/agitation--continue citalopram 20 mg by mouth daily and Seroquel 50 mg by mouth at bedtime. Bladder spasm--continue Detrol LA 4 mg by mouth daily. Gallbladder wall thickening/edema, unchanged. This is likely due to the patient's edematous state. Gas within the uterine cavity and vagina. However, no CT evidence for a fistula. will continue to monitor with serial abdominal exam Bilateral nephrolithiasis. No hydronephrosis
[2016-03-31] MEDS: NAFCILLIN SOD IV 2 GM in DEXTROSE 5% ADD-VANTAGE 100ML 100 ML IV SCH (19:13)
[2016-03-31] MEDS: FUROSEMIDE INJ 20 MG in SYRINGE 0 ML IV SCH (20:29)
[2016-03-31] MEDS: QUETIAPINE FUMARATE 25 MG TAB PO SCH (20:31)
[2016-04-01] VITALS (7 sets, daily range): BP systolic 139–158; BP diastolic 81–98; PULSE 65–96; TEMP 36.3–37.1; O2SAT 97–100
[2016-04-01] MEDS: NAFCILLIN SOD IV 2 GM in DEXTROSE 5% ADD-VANTAGE 100ML 100 ML IV SCH ×4 (01:35→17:26)
[2016-04-01] MEDS: LEVOTHYROXINE 175 MCG TAB PO SCH (05:54)
[2016-04-01] MEDS: SUCRALFATE 1 GM TAB PO SCH ×4 (06:31→20:20)
[2016-04-01 07:43] LABS: HEMATOCRIT 29.4 % (37-47); MEAN CELL VOLUME 88.8 fL (80-100); MEAN CORPUSCULAR HEMOGLOBIN 26.9 pg (25-34); MEAN CORPUSCULAR HGB CONC 30.3 g/dl (32-36); MEAN PLATELET VOLUME 9.9 fL (7.4-10.4); PLATELET COUNT 158 K/uL (130-400); RED BLOOD COUNT 3.31 M/uL (4.2-5.4); WHITE BLOOD COUNT 5.19 K/uL (4.8-10.8)
[2016-04-01] MEDS: LACTOBACILLUS ACIDOPHILUS (FLORANEX) TAB PO SCH ×3 (07:47→16:34)
[2016-04-01] MEDS: FERROUS SULFATE 325 MG TAB PO SCH ×3 (07:47→16:34)
[2016-04-01] MEDS: PANTOprazole SOD 40 MG TAB PO SCH (07:48)
[2016-04-01] MEDS: FUROSEMIDE INJ 20 MG in SYRINGE 0 ML IV SCH ×2 (07:48→16:35)
[2016-04-01] MEDS: METOPROLOL TARTRATE 50 MG TAB PO SCH ×2 (07:48→20:22)
[2016-04-01] MEDS: TOLTERODINE TARTRATE LA 4 MG CAPCR PO SCH (07:48)
[2016-04-01] MEDS: MAGNESIUM OXIDE 400 MG TAB PO SCH ×2 (07:48→20:21)
[2016-04-01] MEDS: CITALOPRAM 20 MG TAB PO SCH (07:48)
[2016-04-01] MEDS: ASPIRIN 81 MG ECTAB PO SCH (07:48)
[2016-04-01] MEDS: CEROVITE ADV FORMULA TAB PO SCH (07:48)
[2016-04-01] MEDS: FoLIC ACID TAB 400 MCG TAB PO SCH (07:48)
[2016-04-01] MEDS: SENNA 8.6 MG TAB PO SCH ×2 (07:49→20:22)
[2016-04-01 07:58] LABS: INR 1.2 (0.9-1.1); PARTIAL THROMBOPLASTIN RATIO 2.5; PROTHROMBIN TIME (PATIENT) 12.5 SECONDS (9.0-12.0)
[2016-04-01] MEDS: INSULIN ASPART 100 UNITS/ML 3 ML PEN SC SCH ×4 (07:58→20:33)
[2016-04-01 08:13] LABS: BUN/CREATININE RATIO 21.6 (10-20); CREATININE 1.8 mg/dl (0.60-1.20); POTASSIUM 3.6 mmol/L (3.5-5.1)
[2016-04-01 08:14] LABS: CALCIUM 8.6 mg/dl (8.5-10.1)
--- NOTE | 2016-04-01 09:26 | Cardiology Follow-Up ---
Subjective Subjective Date of Service: Apr 01, 2016. Additional Details: Concerned about mild cough. No chest pain, palpitations. Shortness of breath improving. No other new complaints. Tele reviewed - persistent afib, well rate controlled Problem List Medical Problems: (1) CHF (congestive heart failure) Status: Acute (2) COPD exacerbation Status: Acute (3) COPD exacerbation Status: Acute (4) Elevated troponin Status: Acute (5) Elevated troponin Status: Acute (6) Elevated troponin Status: Acute (7) Shortness of breath Status: Acute (8) Shortness of breath Status: Acute Review of Systems Constitutional: No chills, No fever Eyes: No worsening of vision ENT: No hearing loss Respiratory: + cough, + sputum Cardiac: + edema, No chest pain Abdomen: No pain Female : + incontinence Heme: No abnormal bleeding/bruising Endo: + fatigue Skin: + rash Objective Vital Signs Last Vital Signs Documentation Date Time Temp Pulse Resp B/P Pulse Ox O2 Delivery O2 Flow Rate FiO2 04/01/16 07:36 36.3 96 18 158/98 98 Nasal Cannula 3.0 Physical Exam: General Appearance: no apparent distress ENT: hearing grossly normal Respiratory/Chest: no respiratory distress, + rales (few scant crackles at base ), + wheezing (few upper respiratory tract wheezes) Cardiovascular: no JVD, + irregularly irregular, + pertinent finding (trace-1+ LE (L>R) edema improving) Abdomen: non tender, soft Extremities: normal inspection, no pedal edema Neurologic/Psychiatric: alert, normal mood/affect Skin: normal color, + pertinent finding (left chin of tibia ulcer dressing in place, no surrounding erythema/induration) Lymphatic: no adenopathy Assessment and Plan 1. Elevated troponin -- peaked, LV function unchanged, thought secondary to demand ischemia 2. H/o CAD with prior stents -- chest pain free 3. Acute on chronic combined systolic/diastolic heart failure -- well perfused, diuresing well, renal function stable. 4. Chronic atrial fibrillation - well rate controlled, on heparin drip 5. Chronic kidney disease -- stable SCr 6. Cellulits/UTI - on appropriate antibiotics. Diuresing well on diuretics --> appears to be reaching euvolemia. - Consider transitioning to PO diuretics today - Continue metoprolol/ASA/heparin drip. Coumadin can be restarted when medically appropriate. Will plan to see again on monday if still here. Contact cardiology if questions over-weekend. Medications: Current Inpatient Medications Medications (Trade) Dose Ordered Sig/[place] Route Start Time Stop Time Status Last Admin Dose Admin Lactobacillus Acidophilus (Floranex Tab) 4 tab TIDM PO 03/29/16 07:30 04/28/16 07:59 04/01/16 07:47 4 TAB Acetaminophen (Tylenol Tab) 650 mg Q4H PRN PO 03/28/16 18:30 04/27/16 18:29 Zolpidem Tartrate (Ambien Tab) 5 mg HSZ PRN PO 03/28/16 18:30 04/27/16 18:29 Nitroglycerin (Nitrostat Tab) 0.4 mg UD PRN SL 03/28/16 18:30 04/27/16 18:29 Aspirin (Ecotrin Tab) 81 mg DAILY PO 03/29/16 09:00 04/28/16 08:59 04/01/16 07:48 81 MG Citalopram Hydrobromide (celeXA TAB) 20 mg DAILY PO 03/29/16 09:00 04/28/16 08:59 04/01/16 07:48 20 MG Albuterol/ Ipratropium (Combivent Respimat Inh) 1 puffs QID PRN INH 03/28/16 18:30 04/27/16 18:29 Levothyroxine Sodium (Synthroid Tab) 175 mcg DAILYBB PO 03/29/16 06:00 04/28/16 06:59 04/01/16 05:54 175 MCG Magnesium Oxide (Mag-Ox Tab) 400 mg BID PO 03/28/16 21:00 04/27/16 20:59 04/01/16 07:48 400 MG Oxycodone/ Acetaminophen (Percocet 10-325MG Tab) 1 tab Q6 PRN PO 03/28/16 18:30 04/11/16 18:29 03/29/16 18:09 1 TAB Quetiapine Fumarate (seroQUEL TAB) 50 mg HS PO 03/28/16 21:00 04/27/16 20:59 03/31/16 20:31 50 MG Senna (Senokot Tab) 8.6 mg BID PO 03/28/16 21:00 04/27/16 20:59 04/01/16 07:49 8.6 MG Sucralfate (Carafate Tab) 1 gm ACHS PO 03/28/16 21:00 04/27/16 20:59 04/01/16 06:31 1 GM Tolterodine Tartrate (Detrol LA Cap) 4 mg DAILY PO 03/29/16 09:00 04/28/16 08:59 04/01/16 07:48 4 MG Multivitamins/ Minerals (Multivitamin W/ Minerals Tab) 1 tab DAILY PO 03/29/16 09:00 04/28/16 08:59 04/01/16 07:48 1 TAB Ferrous Sulfate (Feosol Tab) 325 mg TIDM PO 03/29/16 07:30 04/28/16 07:59 04/01/16 07:47 325 MG Folic Acid (Folvite Tab) 800 mcg QAM PO 03/29/16 09:00 04/28/16 08:59 04/01/16 07:48 800 MCG Pantoprazole Sodium 40 mg 40 mg QAM PO 03/29/16 09:00 04/28/16 08:59 04/01/16 07:48 40 MG Furosemide/ Albumin Human (Lasix Inj/ Albumin 25%) 54 ml @ 54 mls/hr Q12H IV 03/29/16 10:00 04/28/16 09:59 03/31/16 22:59 54 MLS/HR Ondansetron HCl (Zofran Inj) 4 mg Q6H PRN IV 03/28/16 18:45 04/27/16 18:44 Insulin Aspart (novoLOG ASPART) SLIDING SCALE If C... ACHS SC 03/28/16 21:00 04/27/16 20:59 04/01/16 07:58 6 UNITS Glucose (Glucose 40% Gel) UD PRN PO 03/28/16 18:45 04/27/16 18:44 03/28/16 22:13 15 GM Glucose (Glucose Chew Tab) 1 tabs UD PRN PO 03/28/16 18:45 04/27/16 18:44 03/30/16 06:20 1 TABS Dextrose (Dextrose 50% 50ML Syringe) 50 ml UD PRN IV 03/28/16 18:45 04/27/16 18:44 Glucagon (Glucagon Inj) 1 mg UD PRN SQ 03/28/16 18:45 04/27/16 18:44 Metoprolol Tartrate (Lopressor Tab) 50 mg BID PO 03/28/16 21:00 04/27/16 20:59 04/01/16 07:48 50 MG Metoprolol Tartrate (Lopressor Iv) 5 mg Q4 PRN IV 03/28/16 18:45 04/27/16 18:44 Ipratropium [place] (Atrovent 0.02% 0.5MG/2.5ML Neb) 0.5 mg Q2H PRN INH 03/28/16 19:00 04/27/16 18:59 Levalbuterol 1.25 mg 1.25 mg Q2H PRN INH 03/28/16 19:00 04/27/16 18:59 Heparin Sodium/ Dextrose 500 ml @ 21 mls/hr [id number] PRN IV 03/29/16 19:45 04/28/16 19:44 03/31/16 15:13 21 MLS/HR Furosemide 20 mg/ Syringe 2 ml @ 4 mls/min BID17 IV 03/31/16 21:00 04/30/16 20:59 04/01/16 07:48 4 MLS/MIN Nafcillin Sodium/ Dextrose (Unipen Iv/ Dextrose Add-[place] 100ML) 100 ml @ 100 mls/hr Q6H IV 03/31/16 18:00 04/10/16 17:59 04/01/16 05:54 100 MLS/HR Lab Results: 04/01/16 06:58 04/01/16 06:58 Test 03/31/16 11:57 04/01/16 06:51 04/01/16 06:58 Vancomycin Level Trough 23.2 mcg/ml (SEE COMMENT) Bedside Glucose 115 mg/dl (70-90) Red Blood Count 3.31 M/uL (4.2-5.4) Mean Corpuscular Volume 88.8 fL (80-100) Mean Corpuscular Hemoglobin 26.9 pg (25-34) Mean Corpuscular Hemoglobin Concent 30.3 g/dl (32-36) RDW Standard Deviation 59.9 fL (36.4-46.3) RDW Coefficient of Variation 18.7 % (11.5-14.5) Mean Platelet Volume 9.9 fL (7.4-10.4) Prothrombin Time 12.5 SECONDS (9.0-12.0) Prothromb Time International Ratio 1.2 (0.9-1.1) Activated Partial Thromboplast Time 64.9 SECONDS (21.0-31.0) Partial Thromboplastin Ratio 2.5 Anion Gap 9.0 mmol/L (3-11) Est Creatinine Clear Calc Drug Dose 30.9 ml/min Estimated GFR () 30.3 Estimated GFR (Non- 26.1 BUN/Creatinine Ratio 21.6 (10-20) Calcium Level 8.6 mg/dl (8.5-10.1)
[2016-04-01] MEDS: ALBUMIN 25% 50 ML with FUROSEMIDE INJ 40 MG IV SCH ×2 (10:37)
[2016-04-01] MEDS ORDERED: SODIUM CHLORIDE 0.65% NA SOLN 45 ML (OCEAN) ONE (11:01)
--- NOTE | 2016-04-01 18:51 | Progress Note ---
Subjective Date of Service: Apr 01, 2016. Subjective Pt evaluation today including: conversation w/ patient, physical exam, chart review, lab review Problem List Medical Problems: (1) CHF (congestive heart failure) Status: Acute (2) COPD exacerbation Status: Acute (3) COPD exacerbation Status: Acute (4) Elevated troponin Status: Acute (5) Elevated troponin Status: Acute (6) Elevated troponin Status: Acute (7) Shortness of breath Status: Acute (8) Shortness of breath Status: Acute Review of Systems Constitutional: No chills, No fatigue, No fever, No problem reported, No see HPI, No sweats, No weakness, No weight loss Eyes: No diplopia, No discharge, No eye pain, No problem reported, No redness, No see HPI, No worsening of vision ENT: No dental problems, No hearing loss, No nasal symptoms, No problem reported, No see HPI, No sore throat, No tinnitus, No trouble swallowing, No unusual epistaxis Respiratory: No cough, No dyspnea at rest, No dyspnea on exertion, No hemoptysis, No problem reported, No see HPI, No shortness of breath, No sputum, No wheezing Cardiac: No PND, No chest pain, No claudication, No edema, No orthopnea, No palpitations, No problem reported, No see HPI Abdomen: No GI bleeding, No constipation, No diarrhea, No nausea, No pain, No problem reported, No see HPI, No vomiting Musculoskeletal: + joint pain Female : No abnormal vaginal bleeding, No dysuria, No hematuria, No incontinence, No problem reported, No see HPI, No urinary frequency, No vaginal discharge Neurologic: No balance problems, No memory loss, No numbness/tingling, No paralysis, No problem reported, No see HPI, No vertigo, No weakness Psychiatric: No anhedonism, No anxiety, No depression symptoms, No insomnia, No problem reported, No see HPI, No substance abuse Endo: + fatigue Skin: No bleeding, No color change, No itch, No new/changing skin lesions, No problem reported, No rash, No see HPI Medications Current Inpatient Medications Medications (Trade) Dose Ordered Sig/[place] Route Start Time Stop Time Status Last Admin Dose Admin Lactobacillus Acidophilus (Floranex Tab) 4 tab TIDM PO 03/29/16 07:30 04/28/16 07:59 04/01/16 16:34 4 TAB Acetaminophen (Tylenol Tab) 650 mg Q4H PRN PO 03/28/16 18:30 04/27/16 18:29 Zolpidem Tartrate (Ambien Tab) 5 mg HSZ PRN PO 03/28/16 18:30 04/27/16 18:29 Nitroglycerin (Nitrostat Tab) 0.4 mg UD PRN SL 03/28/16 18:30 04/27/16 18:29 Aspirin (Ecotrin Tab) 81 mg DAILY PO 03/29/16 09:00 04/28/16 08:59 04/01/16 07:48 81 MG Citalopram Hydrobromide (celeXA TAB) 20 mg DAILY PO 03/29/16 09:00 04/28/16 08:59 04/01/16 07:48 20 MG Albuterol/ Ipratropium (Combivent Respimat Inh) 1 puffs QID PRN INH 03/28/16 18:30 04/27/16 18:29 Levothyroxine Sodium (Synthroid Tab) 175 mcg DAILYBB PO 03/29/16 06:00 04/28/16 06:59 04/01/16 05:54 175 MCG Magnesium Oxide (Mag-Ox Tab) 400 mg BID PO 03/28/16 21:00 04/27/16 20:59 04/01/16 07:48 400 MG Oxycodone/ Acetaminophen (Percocet 10-325MG Tab) 1 tab Q6 PRN PO 03/28/16 18:30 04/11/16 18:29 03/29/16 18:09 1 TAB Quetiapine Fumarate (seroQUEL TAB) 50 mg HS PO 03/28/16 21:00 04/27/16 20:59 03/31/16 20:31 50 MG Senna (Senokot Tab) 8.6 mg BID PO 03/28/16 21:00 04/27/16 20:59 04/01/16 07:49 8.6 MG Sucralfate (Carafate Tab) 1 gm ACHS PO 03/28/16 21:00 04/27/16 20:59 04/01/16 16:36 1 GM Tolterodine Tartrate (Detrol LA Cap) 4 mg DAILY PO 03/29/16 09:00 04/28/16 08:59 04/01/16 07:48 4 MG Multivitamins/ Minerals (Multivitamin W/ Minerals Tab) 1 tab DAILY PO 03/29/16 09:00 04/28/16 08:59 04/01/16 07:48 1 TAB Ferrous Sulfate (Feosol Tab) 325 mg TIDM PO 03/29/16 07:30 04/28/16 07:59 04/01/16 16:34 325 MG Folic Acid (Folvite Tab) 800 mcg QAM PO 03/29/16 09:00 04/28/16 08:59 04/01/16 07:48 800 MCG Pantoprazole Sodium 40 mg 40 mg QAM PO 03/29/16 09:00 04/28/16 08:59 04/01/16 07:48 40 MG Furosemide/ Albumin Human (Lasix Inj/ Albumin 25%) 54 ml @ 54 mls/hr Q12H IV 03/29/16 10:00 04/28/16 09:59 04/01/16 10:37 54 MLS/HR Ondansetron HCl (Zofran Inj) 4 mg Q6H PRN IV 03/28/16 18:45 04/27/16 18:44 Insulin Aspart (novoLOG ASPART) SLIDING SCALE If C... ACHS SC 03/28/16 21:00 04/27/16 20:59 04/01/16 17:27 6 UNITS Glucose (Glucose 40% Gel) UD PRN PO 03/28/16 18:45 04/27/16 18:44 03/28/16 22:13 15 GM Glucose (Glucose Chew Tab) 1 tabs UD PRN PO 03/28/16 18:45 04/27/16 18:44 03/30/16 06:20 1 TABS Dextrose (Dextrose 50% 50ML Syringe) 50 ml UD PRN IV 03/28/16 18:45 04/27/16 18:44 Glucagon (Glucagon Inj) 1 mg UD PRN SQ 03/28/16 18:45 04/27/16 18:44 Metoprolol Tartrate (Lopressor Tab) 50 mg BID PO 03/28/16 21:00 04/27/16 20:59 04/01/16 07:48 50 MG Metoprolol Tartrate (Lopressor Iv) 5 mg Q4 PRN IV 03/28/16 18:45 04/27/16 18:44 Ipratropium [place] (Atrovent 0.02% 0.5MG/2.5ML Neb) 0.5 mg Q2H PRN INH 03/28/16 19:00 04/27/16 18:59 Levalbuterol 1.25 mg 1.25 mg Q2H PRN INH 03/28/16 19:00 04/27/16 18:59 Heparin Sodium/ Dextrose 500 ml @ 21 mls/hr [id number] PRN IV 03/29/16 19:45 04/28/16 19:44 03/31/16 15:13 21 MLS/HR Furosemide 20 mg/ Syringe 2 ml @ 4 mls/min BID17 IV 03/31/16 21:00 04/30/16 20:59 04/01/16 16:35 4 MLS/MIN Nafcillin Sodium/ Dextrose (Unipen Iv/ Dextrose Add-[place] 100ML) 100 ml @ 100 mls/hr Q6H IV 03/31/16 18:00 04/10/16 17:59 04/01/16 17:26 100 MLS/HR Objective Vital Signs Date Time Temp Pulse Resp B/P Pulse Ox O2 Delivery O2 Flow Rate FiO2 04/01/16 15:35 36.4 73 20 139/89 100 Nasal Cannula 3.0 04/01/16 12:00 Nasal Cannula 3.0 04/01/16 11:04 36.7 65 18 145/84 100 Nasal Cannula 3.0 04/01/16 08:00 Nasal Cannula 3.0 04/01/16 07:36 36.3 96 18 158/98 98 Nasal Cannula 3.0 04/01/16 04:00 100 Nasal Cannula 3.0 04/01/16 03:55 36.7 74 20 146/81 97 Nasal Cannula 3.0 03/31/16 23:59 Nasal Cannula 3.0 03/31/16 23:57 36.8 78 18 147/91 100 Nasal Cannula 3.0 03/31/16 20:00 100 Nasal Cannula 3.0 03/31/16 19:50 36.5 64 18 146/87 100 Physical Exam General Appearance: no apparent distress, + obese Eyes: normal inspection, PERRL, EOMI ENT: normal ENT inspection, hearing grossly normal Neck: supple Respiratory/Chest: chest non-tender, lungs clear, normal breath sounds, no respiratory distress, no accessory muscle use Cardiovascular: regular rate, rhythm, no edema, no gallop, no JVD, no murmur Abdomen: non tender, soft, no organomegaly, no pulsatile mass Extremities: normal range of motion, non-tender, normal inspection, + pertinent finding (left lower Ext wound wrapped) 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, no motor/sensory deficits, alert, normal mood/affect, oriented x 3 Skin: normal color, warm/dry, no rash Laboratory Results Last 24 Hours Test 03/31/16 20:33 04/01/16 06:51 04/01/16 06:58 04/01/16 11:45 Bedside Glucose 200 mg/dl 115 mg/dl 166 mg/dl White Blood Count 5.19 K/uL Red Blood Count 3.31 M/uL Hemoglobin 8.9 g/dL Hematocrit 29.4 % Mean Corpuscular Volume 88.8 fL Mean Corpuscular Hemoglobin 26.9 pg Mean Corpuscular Hemoglobin Concent 30.3 g/dl RDW Standard Deviation 59.9 fL RDW Coefficient of Variation 18.7 % Platelet Count 158 K/uL Mean Platelet Volume 9.9 fL Prothrombin Time 12.5 SECONDS Prothromb Time International Ratio 1.2 Activated Partial Thromboplast Time 64.9 SECONDS Partial Thromboplastin Ratio 2.5 Sodium Level 139 mmol/L Potassium Level 3.6 mmol/L Chloride Level 99 mmol/L Carbon Dioxide Level 31 mmol/L Anion Gap 9.0 mmol/L Blood Urea Nitrogen 39 mg/dl Creatinine 1.80 mg/dl Est Creatinine Clear Calc Drug Dose 30.9 ml/min Estimated GFR () 30.3 Estimated GFR (Non- 26.1 BUN/Creatinine Ratio 21.6 Random Glucose 102 mg/dl Calcium Level 8.6 mg/dl Test 04/01/16 16:11 Bedside Glucose 134 mg/dl Assessment and Plan The patient is a 80-year-old female brought by ambulance emergency department with worsening shortness of breath and redness and ulcerations on her legs. Family notes that the also has the possibility of urinary tract infection. Assessment/plan: Elevated troponin of 3.04/CAD/status post CABG--the patient will be admitted to the telemetry unit, for serial cardiac enzymes 2-D echocardiogram. results: * Moderate left and mild right ventricular systolic dysfunction. EF 40% * Mild concentric left ventricular hypertrophy. * Moderate biatrial dilatation. * Properly functioning bioprosthetic aortic valve. * Mild pulmonic regurgitation. * Moderate to severe mitral regurgitation. * Mild to moderate tricuspid reguurgitation. * Mildly elevated estimated right ventricular systolic pressure. * Elevated central venous pressure. * On visual comparison with echo of 12/15/2015 there is no significant change in the LV systolic function and wall motion. Continue aspirin / furosemide 20mg IV BID / metoprolol tartrate 25 mg by mouth twice a day heparin drip for Afib, with her moderate to severe MR, I wonder if I stil can use Eliquis consult cardiology. appreciated, demand ischemia monitor renal function Acute on chronic systolic CHF, switch lasix to IV 20mg BID, will give an extra dose now, (I/O -8850) chronic respiratory failure stable Left lower Ext cellulitis/ulcer wound care consult wound Cx, growing Staph MSSA switch Abx to Nafcillin UTI present on admission growing Enterococcus S: Ampicillin Atrial fibrillation / hypertension continue heparin/continue metoprolol CKD stage 4, currently creatinine is at base line Diabetes mellitus --hold 4 mg by mouth every morning, and hold metformin 1000 mg by mouth twice a day. Place on Accu-Cheks before meals and at bedtime with NovoLog coverage. check [id number] Hypothyroidism--continue levothyroxine sodium at 175 g by mouth daily. Check TSH GERD--change omeprazole 20 mg by mouth daily to pantoprazole 40 mg by mouth daily, and continue Carafate 1 g by mouth before meals and at bedtime. Anxiety/agitation--continue citalopram 20 mg by mouth daily and Seroquel 50 mg by mouth at bedtime. Bladder spasm--continue Detrol LA 4 mg by mouth daily. Gallbladder wall thickening/edema, unchanged. This is likely due to the patient's edematous state. Gas within the uterine cavity and vagina. However, no CT evidence for a fistula. will continue to monitor with serial abdominal exam Bilateral nephrolithiasis. No hydronephrosis initiate PT/OT
[2016-04-01] MEDS ORDERED: FUROSEMIDE INJ 20 MG in SYRINGE 0 ML IV ONE (19:15)
[2016-04-01 19:25] LABS: BASO % 0.3 %; BASO ABS # 0.02 K/uL (0-0.2); COMPLETE YES; EOS % 2.8 %; HEMATOCRIT 30.4 % (37-47); IG% 0.3 %; LYMPH % 14.2 %; LYMPH ABS # 0.85 K/uL (1.2-3.4); MEAN CELL VOLUME 88.9 fL (80-100); MEAN CORPUSCULAR HEMOGLOBIN 27.2 pg (25-34); MEAN CORPUSCULAR HGB CONC 30.6 g/dl (32-36); MEAN PLATELET VOLUME 10.1 fL (7.4-10.4); MONO % 8.7 %; NEUT % 73.7 %; PLATELET COUNT 157 K/uL (130-400); RED BLOOD COUNT 3.42 M/uL (4.2-5.4); WHITE BLOOD COUNT 5.97 K/uL (4.8-10.8)
[2016-04-01] MEDS: QUETIAPINE FUMARATE 25 MG TAB PO SCH (20:21)
[2016-04-02] VITALS (9 sets, daily range): BP systolic 127–165; BP diastolic 69–105; PULSE 56–84; TEMP 35.5–36.9; O2SAT 93–99
[2016-04-02] MEDS: ALBUMIN 25% 50 ML with FUROSEMIDE INJ 40 MG IV SCH ×6 (01:45→12:04)
[2016-04-02] MEDS: NAFCILLIN SOD IV 2 GM in DEXTROSE 5% ADD-VANTAGE 100ML 100 ML IV SCH ×4 (02:03→17:18)
[2016-04-02] MEDS: OXYCODONE/ACETAMINOPHEN 10/325MG TAB PO PRN (02:57)
[2016-04-02] MEDS: LEVOTHYROXINE 175 MCG TAB PO SCH (06:38)
[2016-04-02 06:53] LABS: INR 1.2 (0.9-1.1); PARTIAL THROMBOPLASTIN RATIO 2.2; PROTHROMBIN TIME (PATIENT) 12.7 SECONDS (9.0-12.0)
[2016-04-02 07:08] LABS: BUN/CREATININE RATIO 21.7 (10-20); CALCIUM 8.6 mg/dl (8.5-10.1); CREATININE 1.7 mg/dl (0.60-1.20); POTASSIUM 3.7 mmol/L (3.5-5.1)
[2016-04-02] MEDS: TOLTERODINE TARTRATE LA 4 MG CAPCR PO SCH (07:43)
[2016-04-02] MEDS: PANTOprazole SOD 40 MG TAB PO SCH (07:44)
[2016-04-02] MEDS: FoLIC ACID TAB 400 MCG TAB PO SCH (07:44)
[2016-04-02] MEDS: ASPIRIN 81 MG ECTAB PO SCH (07:44)
[2016-04-02] MEDS: FERROUS SULFATE 325 MG TAB PO SCH ×3 (07:44→16:21)
[2016-04-02] MEDS: CEROVITE ADV FORMULA TAB PO SCH (07:44)
[2016-04-02] MEDS: METOPROLOL TARTRATE 50 MG TAB PO SCH ×2 (07:44→21:14)
[2016-04-02] MEDS: CITALOPRAM 20 MG TAB PO SCH (07:44)
[2016-04-02] MEDS: MAGNESIUM OXIDE 400 MG TAB PO SCH ×2 (07:45→21:13)
[2016-04-02] MEDS: SENNA 8.6 MG TAB PO SCH ×2 (07:45→21:13)
[2016-04-02] MEDS: SUCRALFATE 1 GM TAB PO SCH ×4 (07:46→21:13)
[2016-04-02] MEDS: LACTOBACILLUS ACIDOPHILUS (FLORANEX) TAB PO SCH ×3 (07:46→16:21)
[2016-04-02] MEDS: INSULIN ASPART 100 UNITS/ML 3 ML PEN SC SCH ×4 (07:52→21:00)
[2016-04-02] MEDS: FUROSEMIDE INJ 20 MG in SYRINGE 0 ML IV SCH ×2 (10:31→16:21)
[2016-04-02] MEDS: IPRATROPIUM BROMIDE NEB SOLN 0.02% 2.5 ML VIAL INH PRN (14:55)
[2016-04-02] MEDS: LEVALBUTEROL 1.25MG/0.5ML NEB INH PRN (14:55)
[2016-04-02] MEDS: HEPARIN 25,000 UNIT/500ML D5W 500 ML IV PRN (16:23)
[2016-04-02] MEDS ORDERED: VALSARTAN/HCTZ 80/12.5 MG TAB PO STA (16:51)
--- NOTE | 2016-04-02 16:56 | Progress Note ---
Subjective Date of Service: Apr 02, 2016. Subjective Pt evaluation today including: conversation w/ patient, physical exam, chart review, lab review, conversation w/ sap pp consultant (ok to start eliquis for Afib as per Dr. Degroot) Problem List Medical Problems: (1) CHF (congestive heart failure) Status: Acute (2) COPD exacerbation Status: Acute (3) COPD exacerbation Status: Acute (4) Elevated troponin Status: Acute (5) Elevated troponin Status: Acute (6) Elevated troponin Status: Acute (7) Shortness of breath Status: Acute (8) Shortness of breath Status: Acute Review of Systems Constitutional: No chills, No fatigue, No fever, No problem reported, No see HPI, No sweats, No weakness, No weight loss Eyes: No diplopia, No discharge, No eye pain, No problem reported, No redness, No see HPI, No worsening of vision ENT: No dental problems, No hearing loss, No nasal symptoms, No problem reported, No see HPI, No sore throat, No tinnitus, No trouble swallowing, No unusual epistaxis Respiratory: + shortness of breath, No cough, No dyspnea at rest, No dyspnea on exertion, No hemoptysis, No problem reported, No see HPI, No sputum, No wheezing Cardiac: No PND, No chest pain, No claudication, No edema, No orthopnea, No palpitations, No problem reported, No see HPI Abdomen: No GI bleeding, No constipation, No diarrhea, No nausea, No pain, No problem reported, No see HPI, No vomiting Musculoskeletal: No calf pain, No joint pain, No muscle pain, No problem reported, No see HPI, No swelling Female : No abnormal vaginal bleeding, No dysuria, No hematuria, No incontinence, No problem reported, No see HPI, No urinary frequency, No vaginal discharge Neurologic: No balance problems, No memory loss, No numbness/tingling, No paralysis, No problem reported, No see HPI, No vertigo, No weakness Psychiatric: No anhedonism, No anxiety, No depression symptoms, No insomnia, No problem reported, No see HPI, No substance abuse Heme: No abnormal bleeding/bruising, No clotting problems, No night sweats, No problem reported, No see HPI, No swollen lymph nodes Endo: + fatigue Medications Current Inpatient Medications Medications (Trade) Dose Ordered Sig/[place] Route Start Time Stop Time Status Last Admin Dose Admin Lactobacillus Acidophilus (Floranex Tab) 4 tab TIDM PO 03/29/16 07:30 04/28/16 07:59 04/02/16 16:21 4 TAB Acetaminophen (Tylenol Tab) 650 mg Q4H PRN PO 03/28/16 18:30 04/27/16 18:29 Zolpidem Tartrate (Ambien Tab) 5 mg HSZ PRN PO 03/28/16 18:30 04/27/16 18:29 Nitroglycerin (Nitrostat Tab) 0.4 mg UD PRN SL 03/28/16 18:30 04/27/16 18:29 Aspirin (Ecotrin Tab) 81 mg DAILY PO 03/29/16 09:00 04/28/16 08:59 04/02/16 07:44 81 MG Citalopram Hydrobromide (celeXA TAB) 20 mg DAILY PO 03/29/16 09:00 04/28/16 08:59 04/02/16 07:44 20 MG Albuterol/ Ipratropium (Combivent Respimat Inh) 1 puffs QID PRN INH 03/28/16 18:30 04/27/16 18:29 Levothyroxine Sodium (Synthroid Tab) 175 mcg DAILYBB PO 03/29/16 06:00 04/28/16 06:59 04/02/16 06:38 175 MCG Magnesium Oxide (Mag-Ox Tab) 400 mg BID PO 03/28/16 21:00 04/27/16 20:59 04/02/16 07:45 400 MG Oxycodone/ Acetaminophen (Percocet 10-325MG Tab) 1 tab Q6 PRN PO 03/28/16 18:30 04/11/16 18:29 04/02/16 02:57 1 TAB Quetiapine Fumarate (seroQUEL TAB) 50 mg HS PO 03/28/16 21:00 04/27/16 20:59 04/01/16 20:21 50 MG Senna (Senokot Tab) 8.6 mg BID PO 03/28/16 21:00 04/27/16 20:59 04/02/16 07:45 8.6 MG Sucralfate (Carafate Tab) 1 gm ACHS PO 03/28/16 21:00 04/27/16 20:59 04/02/16 16:20 1 GM Tolterodine Tartrate (Detrol LA Cap) 4 mg DAILY PO 03/29/16 09:00 04/28/16 08:59 04/02/16 07:43 4 MG Multivitamins/ Minerals (Multivitamin W/ Minerals Tab) 1 tab DAILY PO 03/29/16 09:00 04/28/16 08:59 04/02/16 07:44 1 TAB Ferrous Sulfate (Feosol Tab) 325 mg TIDM PO 03/29/16 07:30 04/28/16 07:59 04/02/16 16:21 325 MG Folic Acid (Folvite Tab) 800 mcg QAM PO 03/29/16 09:00 04/28/16 08:59 04/02/16 07:44 800 MCG Pantoprazole Sodium 40 mg 40 mg QAM PO 03/29/16 09:00 04/28/16 08:59 04/02/16 07:44 40 MG Furosemide/ Albumin Human (Lasix Inj/ Albumin 25%) 54 ml @ 54 mls/hr Q12H IV 03/29/16 10:00 04/28/16 09:59 04/02/16 12:04 54 MLS/HR Ondansetron HCl (Zofran Inj) 4 mg Q6H PRN IV 03/28/16 18:45 04/27/16 18:44 Insulin Aspart (novoLOG ASPART) SLIDING SCALE If C... ACHS SC 03/28/16 21:00 04/27/16 20:59 04/02/16 12:22 4 UNITS Glucose (Glucose 40% Gel) UD PRN PO 03/28/16 18:45 04/27/16 18:44 03/28/16 22:13 15 GM Glucose (Glucose Chew Tab) 1 tabs UD PRN PO 03/28/16 18:45 04/27/16 18:44 03/30/16 06:20 1 TABS Dextrose (Dextrose 50% 50ML Syringe) 50 ml UD PRN IV 03/28/16 18:45 04/27/16 18:44 Glucagon (Glucagon Inj) 1 mg UD PRN SQ 03/28/16 18:45 04/27/16 18:44 Metoprolol Tartrate (Lopressor Tab) 50 mg BID PO 03/28/16 21:00 04/27/16 20:59 04/02/16 07:44 50 MG Ipratropium [place] (Atrovent 0.02% 0.5MG/2.5ML Neb) 0.5 mg Q2H PRN INH 03/28/16 19:00 04/27/16 18:59 04/02/16 14:55 0.5 MG Levalbuterol 1.25 mg 1.25 mg Q2H PRN INH 03/28/16 19:00 04/27/16 18:59 04/02/16 14:55 1.25 MG Furosemide 20 mg/ Syringe 2 ml @ 4 mls/min BID17 IV 03/31/16 21:00 04/30/16 20:59 04/02/16 16:21 4 MLS/MIN Nafcillin Sodium/ Dextrose (Unipen Iv/ Dextrose Add-[place] 100ML) 100 ml @ 100 mls/hr Q6H IV 03/31/16 18:00 04/10/16 17:59 04/02/16 12:22 100 MLS/HR Objective Vital Signs Date Time Temp Pulse Resp B/P Pulse Ox O2 Delivery O2 Flow Rate FiO2 04/02/16 15:45 36.9 80 16 151/91 95 Nasal Cannula 2.0 04/02/16 14:55 68 22 93 Nasal Cannula 3.0 04/02/16 12:28 36.5 67 20 154/87 99 04/02/16 11:56 36.4 79 16 127/69 97 3.0 04/02/16 07:29 36.9 84 18 147/89 98 04/02/16 04:19 35.5 82 18 155/105 97 155/105 04/02/16 04:00 Nasal Cannula 3.0 04/02/16 00:36 36.4 79 18 155/100 95 3.0 140/89 04/02/16 00:00 Nasal Cannula 3.0 04/01/16 20:00 Nasal Cannula 3.0 04/01/16 19:31 37.1 82 18 149/83 99 Nasal Cannula 2.0 Physical Exam General Appearance: no apparent distress, + obese Eyes: normal inspection, PERRL, EOMI ENT: normal ENT inspection, hearing grossly normal, TMs normal Neck: supple Respiratory/Chest: chest non-tender, lungs clear, normal breath sounds, no respiratory distress Cardiovascular: regular rate, rhythm, no edema, no gallop, no JVD, no murmur Abdomen: normal bowel sounds, non tender, soft, no organomegaly Extremities: normal range of motion, non-tender, no pedal edema Neurologic/Psychiatric: dispute resolution analyst II-XII nml as tested, no motor/sensory deficits, alert, normal mood/affect Skin: normal color, warm/dry, + pertinent finding (left lower Ext has a wound 5X10 CM in the chin of fibula) Laboratory Results Last 24 Hours Test 04/01/16 19:14 04/01/16 20:25 04/02/16 06:06 04/02/16 06:52 White Blood Count 5.97 K/uL Red Blood Count 3.42 M/uL Hemoglobin 9.3 g/dL Hematocrit 30.4 % Mean Corpuscular Volume 88.9 fL Mean Corpuscular Hemoglobin 27.2 pg Mean Corpuscular Hemoglobin Concent 30.6 g/dl Platelet Count 157 K/uL Mean Platelet Volume 10.1 fL Neutrophils (%) (Auto) 73.7 % Lymphocytes (%) (Auto) 14.2 % Monocytes (%) (Auto) 8.7 % Eosinophils (%) (Auto) 2.8 % Basophils (%) (Auto) 0.3 % Neutrophils # (Auto) 4.39 K/uL Lymphocytes # (Auto) 0.85 K/uL Monocytes # (Auto) 0.52 K/uL Eosinophils # (Auto) 0.17 K/uL Basophils # (Auto) 0.02 K/uL RDW Standard Deviation 60.0 fL RDW Coefficient of Variation 18.5 % Immature Granulocyte % (Auto) 0.3 % Immature Granulocyte # (Auto) 0.02 K/uL Bedside Glucose 140 mg/dl 144 mg/dl Prothrombin Time 12.7 SECONDS Prothromb Time International Ratio 1.2 Activated Partial Thromboplast Time 57.2 SECONDS Partial Thromboplastin Ratio 2.2 Sodium Level 138 mmol/L Potassium Level 3.7 mmol/L Chloride Level 94 mmol/L Carbon Dioxide Level 35 mmol/L Anion Gap 9.0 mmol/L Blood Urea Nitrogen 37 mg/dl Creatinine 1.70 mg/dl Est Creatinine Clear Calc Drug Dose 32.2 ml/min Estimated GFR () 32.4 Estimated GFR (Non- 28.0 BUN/Creatinine Ratio 21.7 Random Glucose 140 mg/dl Calcium Level 8.6 mg/dl Test 04/02/16 11:16 04/02/16 15:59 Bedside Glucose 159 mg/dl 186 mg/dl Assessment and Plan The patient is a 80-year-old female brought by ambulance emergency department with worsening shortness of breath and redness and ulcerations on her legs. Family notes that the also has the possibility of urinary tract infection. Assessment/plan: Elevated troponin of 3.04/CAD/status post CABG--the patient will be admitted to the telemetry unit, for serial cardiac enzymes 2-D echocardiogram. results: * Moderate left and mild right ventricular systolic dysfunction. EF 40% * Mild concentric left ventricular hypertrophy. * Moderate biatrial dilatation. * Properly functioning bioprosthetic aortic valve. * Mild pulmonic regurgitation. * Moderate to severe mitral regurgitation. * Mild to moderate tricuspid reguurgitation. * Mildly elevated estimated right ventricular systolic pressure. * Elevated central venous pressure. * On visual comparison with echo of 12/15/2015 there is no significant change in the LV systolic function and wall motion. Continue aspirin / furosemide 20mg IV BID / metoprolol tartrate 25 mg by mouth twice a day heparin drip for Afib, with her moderate to severe MR, I wonder if I stil can use Eliquis consult cardiology. appreciated, demand ischemia monitor renal function Acute on chronic systolic CHF, switch lasix to IV 20mg BID, can be switched upon discharge to 40mg po BID chronic respiratory failure stable Left lower Ext cellulitis/ulcer wound care consult wound Cx, growing Staph MSSA switch Abx to Nafcillin, can be switched on discharge to amoxacillin UTI present on admission growing Enterococcus S: Ampicillin Atrial fibrillation / hypertension DC heparin/continue metoprolol start eliquis, renally adjusted CKD stage 4, currently creatinine is at base line Diabetes mellitus --hold 4 mg by mouth every morning, and hold metformin 1000 mg by mouth twice a day. Place on Accu-Cheks before meals and at bedtime with NovoLog coverage. check hgbA1C Hypothyroidism--continue levothyroxine sodium at 175 g by mouth daily. Check TSH GERD--change omeprazole 20 mg by mouth daily to pantoprazole 40 mg by mouth daily, and continue Carafate 1 g by mouth before meals and at bedtime. Anxiety/agitation--continue citalopram 20 mg by mouth daily and Seroquel 50 mg by mouth at bedtime. Bladder spasm--continue Detrol LA 4 mg by mouth daily. Gallbladder wall thickening/edema, unchanged. This is likely due to the patient's edematous state. Gas within the uterine cavity and vagina. However, no CT evidence for a fistula. will continue to monitor with serial abdominal exam Bilateral nephrolithiasis. No hydronephrosis initiate PT/OT, recommended SNF
[2016-04-02] MEDS ORDERED: NURSING VERBAL MED ORDER ONE (17:00)
[2016-04-02] MEDS ORDERED: HYDROCHLOROTHIAZIDE 25 MG TAB PO ONE (17:30)
[2016-04-02] MEDS ORDERED: VALSARTAN 80 MG TAB PO ONE (17:30)
[2016-04-02] MEDS: QUETIAPINE FUMARATE 25 MG TAB PO SCH (21:13)
[2016-04-02] MEDS: FUROSEMIDE INJ 40 MG in SYRINGE 0 ML IV SCH (21:14)
[2016-04-02] MEDS: APIXABAN 2.5 MG TAB PO SCH (21:14)
[2016-04-03 04:18] VITALS: BP 149/91; PULSE 79; TEMP 36.4; O2SAT 100
[2016-04-03] MEDS: NAFCILLIN SOD IV 2 GM in DEXTROSE 5% ADD-VANTAGE 100ML 100 ML IV SCH ×2 (05:32→12:00)
[2016-04-03] MEDS: LEVOTHYROXINE 175 MCG TAB PO SCH (05:33)
[2016-04-03] MEDS: LEVALBUTEROL 1.25MG/0.5ML NEB INH PRN (06:13)
[2016-04-03] MEDS: IPRATROPIUM BROMIDE NEB SOLN 0.02% 2.5 ML VIAL INH PRN (06:13)
[2016-04-03 06:14] VITALS: PULSE 79; O2SAT 93
[2016-04-03 06:33] LABS: BASO % 0.5 %; BASO ABS # 0.03 K/uL (0-0.2); COMPLETE YES; EOS % 4.3 %; HEMATOCRIT 30.2 % (37-47); IG% 0.2 %; LYMPH ABS # 1.06 K/uL (1.2-3.4); MEAN CORPUSCULAR HEMOGLOBIN 26.5 pg (25-34); MEAN CORPUSCULAR HGB CONC 30.5 g/dl (32-36); MEAN PLATELET VOLUME 9.9 fL (7.4-10.4); MONO % 12.5 %; NEUT % 65.5 %; PLATELET COUNT 166 K/uL (130-400); RED BLOOD COUNT 3.47 M/uL (4.2-5.4); WHITE BLOOD COUNT 6.23 K/uL (4.8-10.8)
[2016-04-03 06:50] LABS: INR 1.2 (0.9-1.1); PARTIAL THROMBOPLASTIN RATIO 1.1; PROTHROMBIN TIME (PATIENT) 12.6 SECONDS (9.0-12.0)
[2016-04-03 07:05] LABS: BUN/CREATININE RATIO 24.8 (10-20); CALCIUM 8.9 mg/dl (8.5-10.1); CREATININE 1.6 mg/dl (0.60-1.20); MAGNESIUM 2.2 mg/dl (1.8-2.4); POTASSIUM 3.4 mmol/L (3.5-5.1)
[2016-04-03 08:04] VITALS: BP 148/78; PULSE 87; TEMP 36.3; O2SAT 94
[2016-04-03] MEDS ORDERED: HYDROCHLOROTHIAZIDE 25 MG TAB PO SCH (09:00)
[2016-04-03] MEDS ORDERED: VALSARTAN 80 MG TAB PO SCH (09:00)
[2016-04-03] MEDS: FUROSEMIDE INJ 40 MG in SYRINGE 0 ML IV SCH (09:21)
[2016-04-03] MEDS: TOLTERODINE TARTRATE LA 4 MG CAPCR PO SCH (09:21)
[2016-04-03] MEDS: FoLIC ACID TAB 400 MCG TAB PO SCH (09:21)
[2016-04-03] MEDS: METOPROLOL TARTRATE 50 MG TAB PO SCH (09:22)
[2016-04-03] MEDS: PANTOprazole SOD 40 MG TAB PO SCH (09:22)
[2016-04-03] MEDS: SUCRALFATE 1 GM TAB PO SCH ×2 (09:22→12:54)
[2016-04-03] MEDS: SENNA 8.6 MG TAB PO SCH (09:23)
[2016-04-03] MEDS: MAGNESIUM OXIDE 400 MG TAB PO SCH (09:23)
[2016-04-03] MEDS: CEROVITE ADV FORMULA TAB PO SCH (09:23)
[2016-04-03] MEDS: APIXABAN 2.5 MG TAB PO SCH (09:23)
[2016-04-03] MEDS: LACTOBACILLUS ACIDOPHILUS (FLORANEX) TAB PO SCH ×2 (09:25→12:54)
[2016-04-03] MEDS: CITALOPRAM 20 MG TAB PO SCH (09:25)
[2016-04-03] MEDS: ASPIRIN 81 MG ECTAB PO SCH (09:25)
[2016-04-03] MEDS: FERROUS SULFATE 325 MG TAB PO SCH ×2 (09:25→12:54)
[2016-04-03] MEDS: INSULIN ASPART 100 UNITS/ML 3 ML PEN SC SCH ×2 (09:27→12:58)
[2016-04-03] MEDS ORDERED: DVN80125 PO (11:23)
[2016-04-03] MEDS ORDERED: AMOX500T PO (11:23)
[2016-04-03] MEDS ORDERED: METO50TA17 PO (11:23)
[2016-04-03] MEDS ORDERED: GLIP10TA9 PO (11:23)
[2016-04-03] MEDS ORDERED: ELQ25 PO (11:23)
[2016-04-03] MEDS ORDERED: LCTX PO (11:23)
[2016-04-03] MEDS ORDERED: OXYC-106 PO (11:23)
[2016-04-03] MEDS ORDERED: VALS160T58 PO (11:23)
[2016-04-03] MEDS ORDERED: DEXT40GE2 PO (11:23)
[2016-04-03] MEDS ORDERED: DEXT4CHW64 PO (11:23)
[2016-04-03] MEDS ORDERED: FURO40TA3 PO (11:23)
--- NOTE | 2016-04-03 11:24 | Discharge Instructions ---
Discharge Instructions Admission Admission Date: Mar 28, 2016 at 18:22 Admission Diagnosis: Cellulitis Of Left Lower Extremity. Discharge Care Plan - Problem: Medical Problems: (1) Elevated troponin (2) Shortness of breath Care Plan - Goal(s): Decrease discomfort Care Plan - Instructions: Recommended Home Diet: 1800 Sami Wt Reduction, AHA Phase I (2gmNa/LoCho) VTE Core Measure Inpt VTE Proph given/why not?: Warfarin (Coumadin) Laboratory Results Test Results: Hemoglobin A1c Test 03/30/16 07:23 Range/Units Estimated Average Glucose 126 mg/dl Hemoglobin A1c 6.0 H 4.5-5.6 % Lipid Panel Test 03/30/16 07:23 Range/Units Triglycerides Level 75 0-150 mg/dl Cholesterol Level 116 0-200 mg/dl HDL Cholesterol 28 mg/dl Cholesterol/HDL Ratio 4.1 LDL Cholesterol, Calculated 73 mg/dl Praful [place] Recommendations: Call your doctor if: * Temperature above 101 degrees * Pain not relieved by pain medicine ordered * There is increased drainage or redness from any incision * You have any unanswered questions or concerns. Your Doctors Instructions noted above were prepared by provider Maia Vora.
--- NOTE | 2016-04-03 11:42 | Discharge Summary ---
Discharge Summary Admission Date: Mar 28, 2016 at 18:22 Discharge Date: Apr 03, 2016 Discharge Disposition: Rehab Problems/Secondary Diagnoses: Elevated troponin of 3.04/CAD/status post CABG Acute on chronic systolic CHF, switch lasix to IV 20mg BID, can be switched upon discharge to 40mg po BID chronic respiratory failure stable Left lower Ext cellulitis/ulcer UTI present on admission Atrial fibrillation / hypertension CKD stage 4, currently creatinine is at base line Diabetes mellitus Hypothyroidism GERD Anxiety/agitation Bladder spasm Gallbladder wall thickening/edema, unchanged. Gas within the uterine cavity and vagina. However, no CT evidence for a fistula. will continue to monitor with serial abdominal exam Bilateral nephrolithiasis. No hydronephrosis Medication Reconciliation New Medications: Amoxicillin & Pot Clavulanate (Augmentin 500MG) 1 Tab Tab 1 TAB PO BID for 7 Days, #14 TAB Furosemide (Lasix) 40 Mg Tab 1 TAB PO BID for 30 Days, #60 TAB 3 Refills Glipizide (Glucotrol) 10 Mg Tab 1 TAB PO 15 minutes before br for 30 Days, #30 TAB 1 Refill Valsartan/Hctz (Diovan Hct) 1 Tab Tab 1 TAB PO DAILY for 30 Days, #30 TAB 5 Refills Valsartan/Hctz (Diovan Hct 160MG/12.5MG) 1 Tab Tab 1 TAB PO DAILY for 30 Days, #30 TAB 5 Refills Apixaban (Eliquis) 2.5 Mg Tab 2.5 MG PO BID for 30 Days, #60 TAB 1 Refill Dextrose (Diabetic Use) (Glutose 15) 40 % Gel 0 GM PO UD PRN for HYPOGLYCEMIA PROTOCOL for 30 Days, #3 Glucose-Vitamin C (Dex4) 1 Chw Chw 1 TABS PO UD PRN for HYPOGLYCEMIA PROTOCOL for 30 Days, #30 Lactobacillus Acidophilus (Floranex) 1 Tab Tab 4 TAB PO TIDM for 14 Days, #180 TAB Metoprolol Tartrate (Metoprolol Tartrate) 50 Mg Tab 50 MG PO BID for 30 Days, #60 TAB 1 Refill Continued Medications: Aspirin (Aspirin Ec) 81 Mg Tab 81 MG PO DAILY Citalopram (Citalopram Hydrobromide) 20 Mg Tab 20 MG PO DAILY Ferrous Sulfate (Kp Ferrous Sulfate) 325 Mg Tab 325 MG PO TIDM, 3 Refills Folic Acid (Folic Acid) 800 Mcg Tab 1 TAB PO DAILY Ipratropium-Albuterol (Combivent Respimat) 1 Aer Aer 1 PUFFS INH QID PRN for Wheezing, INH Levothyroxine Sodium (Levothyroxine Sodium) 175 Mcg Tab 1 TAB PO DAILY for 30 Days, #30 TAB 5 Refills Magnesium Oxide (Mag-Ox) 400 Mg Tab 400 MG PO BID, TAB Multiple Vitamins W/ Minerals (Multi Complete) 1 Cap Cap 1 CAP PO DAILY Omeprazole (Prilosec) 20 Mg Capcr 20 MG PO DAILY, CAP Oxycodone/Acetaminophen 10MG/325MG (Percocet 10MG/325MG) Tab 1 TAB PO Q6 PRN for Pain for 30 Days, #12 TAB (This prescription has been renewed) Oxygen (Oxygen) Gas 3 LITER NA CONTINOUS Quetiapine Fumarate (Seroquel) 50 Mg Tab 50 MG PO HS, TAB Senna (Senokot) 8.6 Mg Tab 8.6 MG PO BID Sucralfate (Carafate) 1 Gm Tab 1 GM PO ACHS, TAB Tolterodine Tartrate (Detrol LA) 4 Mg Capcr 4 MG PO DAILY, 1 Refill Discontinued Medications: Furosemide (Lasix) 20 Mg Tab 20 MG PO DAILY, TAB Glimepiride (Glimepiride) 4 Mg Tab 4 MG PO QAM for 90 Days, #90 TAB 3 Refills Levofloxacin (Levaquin) 250 Mg Tab 250 MG PO DAILY for 10 Days, #10 TAB Metformin Hcl (Glucophage) 500 Mg Tab 1000 MG PO BID, TAB Metoprolol Tartrate (Lopressor) (Lopressor) 50 Mg Tab 25 MG PO BID, TAB Nitroglycerin (Nitroglycerin Lingual) 400 Mcg/[place] Aer 400 MCG Warfarin Sod ([place]antoven) 2.5 Mg Tab 2.5 MG PO 2XWK, TAB takes on monday and Warfarin Sod (Jantoven) 5 Mg Tab 5 MG PO 5XWK, TAB takes on monday, monday, monday, monday and monday Referrals At Discharge Follow up Referrals: Cda Teacher Referral - Within 1-2 Weeks with Miki Masterson D.O. Discharge Exam Review of Systems: Constitutional: No chills, No fatigue, No fever, No problem reported, No sweats, No weakness, No weight loss Eyes: No diplopia, No discharge, No eye pain, No problem reported, No redness, No worsening of vision ENT: No dental problems, No hearing loss, No nasal symptoms, No problem reported, No sore throat, No tinnitus, No trouble swallowing, No unusual epistaxis Respiratory: No cough, No dyspnea at rest, No dyspnea on exertion, No hemoptysis, No problem reported, No shortness of breath, No sputum, No wheezing Cardiovascular: No PND, No chest pain, No claudication, No edema, No orthopnea, No palpitations, No problem reported Abdomen: No GI bleeding, No constipation, No diarrhea, No nausea, No pain, No problem reported, No vomiting Musculoskeletal: No calf pain, No joint pain, No muscle pain, No problem reported, No swelling Genitourinary - Female: No dysmenorrhea, No dysuria, No hematuria, No menorrhagia, No metrorrhagia, No , No problem reported, No rash, No urinary frequency, No urinary incontinence, No urinary retention, No urinary urgency, No vaginal bleeding, No vaginal discharge, No vaginal itching, No vulvodynia Neurologic: No balance problems, No memory loss, No numbness/tingling, No paralysis, No problem reported, No vertigo, No weakness Psychiatric: No anhedonism, No anxiety, No depression symptoms, No insomnia , No problem reported, No substance abuse Endocrine: No excessive thirst, No excessive urination, No fatigue, No problem reported Hematologic / Lymphatic: No abnormal bleeding/bruising, No clotting problems , No night sweats, No problem reported, No swollen lymph nodes Integumentary: No bleeding, No color change, No itch, No new/changing skin lesions, No problem reported, No rash Physical Exam: General Appearance: no apparent distress Eyes: normal inspection, PERRL, EOMI ENT: normal ENT inspection, hearing grossly normal Neck: supple Respiratory/Chest: chest non-tender, lungs clear, normal breath sounds, no respiratory distress, no accessory muscle use Cardiovascular: regular rate, rhythm, no edema, no gallop, no JVD, no murmur Abdomen / GI: normal bowel sounds, non tender, soft Extremities: normal inspection, no calf tenderness Neurologic/Psychiatric: pattern storage clerk II-XII nml as tested, no motor/sensory deficits , alert, normal mood/affect, normal reflexes, oriented x 3 Skin: normal color, warm/dry, no rash Hospital Course The patient is a 80-year-old female brought by ambulance emergency department with worsening shortness of breath and redness and ulcerations on her legs. Family notes that the also has the possibility of urinary tract infection. she was admitted to telemetry and found to have following problems Acute on chronic systolic CHF with Elevated troponin of 3.04/CAD/status post CABG obtained serial cardiac enzymes, consult cardiology. appreciated, appeared to be demand ischemia 2-D echocardiogram. results: * Moderate left and mild right ventricular systolic dysfunction. EF 40% * Mild concentric left ventricular hypertrophy. * Moderate biatrial dilatation. * Properly functioning bioprosthetic aortic valve. * Mild pulmonic regurgitation. * Moderate to severe mitral regurgitation. * Mild to moderate tricuspid reguurgitation. * Mildly elevated estimated right ventricular systolic pressure. * Elevated central venous pressure. * On visual comparison with echo of 12/15/2015 there is no significant change in the LV systolic function and wall motion. Continue aspirin / furosemide 60mg IV BID / plus albumen/ metoprolol tartrate 25 mg by mouth twice a day upon discharge lasix was switched to 40mg po BID, also HCTZ/Losartan 160mg were added to her regimen, she will see Dr. Masterson as an out patient for labs check heparin drip started for Afib, switched to eliquis upon discharge Eliquis chronic respiratory failure was stable, continued her on her 3 L of O2 also found to have Left lower Ext cellulitis/ulcer wound care consult obtained wound Cx, growing Staph MSSA switch Abx to Nafcillin, switched on discharge to Augmentin UTI present on admission growing Enterococcus S: Ampicillin, continue on Augmentin upon discharge also given lactinex for DVT prophylaxis Atrial fibrillation / hypertension DC heparin/continue metoprolol started eliquis, renally adjusted CKD stage 4, currently creatinine is at base line Diabetes mellitus -- stopped her glimepiride 4 mg by mouth every morning, and hold metformin 1000 mg by mouth twice a day (due to elevated renal function). started her on glipizide 10mg po daily hgbA1C was only 6 needs more frequent blood sugar check as her regimen was changed Hypothyroidism--continue levothyroxine sodium at 175 g by mouth daily. TSH GERD--changed omeprazole 20 mg by mouth daily to pantoprazole 40 mg by mouth daily, and continue Carafate 1 g by mouth before meals and at bedtime. Anxiety/agitation--continued citalopram 20 mg by mouth daily and Seroquel 50 mg by mouth at bedtime. Bladder spasm--continued Detrol LA 4 mg by mouth daily. Gallbladder wall thickening/edema, unchanged. This is likely due to the patient's edematous state. Gas within the uterine cavity and vagina. However, no CT evidence for a fistula. will continue to monitor with serial abdominal exam Bilateral nephrolithiasis. No hydronephrosis initiate PT/OT, recommended SNF, she was found to be stable for discharge today Total Time Spent: Greater than 30 minutes This includes examination of the patient, discharge planning, medication reconciliation, and communication with other providers. Discharge Instructions Please refer to the electronic Patient Visit Report (Discharge Instructions) for additional information. Follow-Up needs wound care consult JORGE CELLULITIS. FOUND LARGE ULCERATION WITH NON-VIABLE SKIN COVERING WOUND BED , EASILY REMOVED WITH SALINE WIPE. COVERED WITH AQUACEL AG AND OPTIFOAM. TO BE CHANGED QOD AND PRN needs labs check in 2 weeks , BMP Additional Copies To Miki Masterson D.O.
[2016-04-03 11:49] VITALS: BP 138/84; PULSE 78; TEMP 36.8; O2SAT 95
[2016-04-03 13:00] VITALS: BP 138/84; PULSE 78; TEMP 36.8; O2SAT 95
[2016-04-03] MEDS ORDERED: VANCOMYCIN TROUGH SCH (15:30)
[2016-04-22] MEDS ORDERED: PRD20 PO ×2 (10:38→14:20)
== END 2016-04-03 15:48 | DRG 280 ==
LOC: ENRESERVDT → ENRESERVTM → EDBD 15:24 → C.EDC 15:27 → C.2T 18:22
PROVIDERS: ADMIT Hospitalist; ATTEND Internal Medicine
DX: I21.4 Non-ST elevation (NSTEMI) myocardial infarction (principal); I50.43 Acute on chronic combined systolic (congestive) and diastolic (congestive) heart failure; E87.2 Acidosis; J96.11 Chronic respiratory failure with hypoxia; L03.115 Cellulitis of right lower limb; L03.116 Cellulitis of left lower limb; N18.4 Chronic kidney disease, stage 4 (severe); N39.0 Urinary tract infection, site not specified; R18.8 Other ascites; D64.9 Anemia, unspecified; I24.8 Other forms of acute ischemic heart disease; E03.9 Hypothyroidism, unspecified; E11.9 Type 2 diabetes mellitus without complications; E78.5 Hyperlipidemia, unspecified; F41.9 Anxiety disorder, unspecified; I12.9 Hypertensive chronic kidney disease with stage 1 through stage 4 chronic kidney disease, or unspecified chronic kidney disease; I25.10 Atherosclerotic heart disease of native coronary artery without angina pectoris; I48.2 Chronic atrial fibrillation; J44.9 Chronic obstructive pulmonary disease, unspecified; K21.9 Gastro-esophageal reflux disease without esophagitis; K57.30 Diverticulosis of large intestine without perforation or abscess without bleeding; N20.0 Calculus of kidney; Z79.01 Long term (current) use of anticoagulants; Z87.891 Personal history of nicotine dependence; Z95.1 Presence of aortocoronary bypass graft

== ENCOUNTER 2016-04-16 16:24 | Inpatient (IN) | payer OTHER ==
[~2016-04-16] VITALS: Ht 172.7 cm; Wt 90.2 kg
[~2016-04-16 16:24] MED LIST changes: -ADVIN25/60 INH; -AMLO-114 PO; -BENZ100C7 PO; +CLX20 PO; +DEXT40GE2 PO; +DEXT4CHW64 PO; +DVN80125 PO; -DXY100 PO; +ELQ25 PO; +FURO40TA3 PO; +GLIP10TA9 PO; -HYDR-4715 PO; -INSDGI SQ; -INSU100I2 SQ; +LCTX PO; -LSX40 PO; -METO50TA16 PO; +METO50TA17 PO; -NTRGSL/4 UT; +OXYC-106 PO; -POLY335019 PO; -SIMV20TA2 PO; +SUCR1TAB29 PO; -TEMA15CA4 PO; -TIOTCAP INH; +VALS160T58 PO; -WARF5TAB90 PO
--- NOTE | 2016-04-16 16:49 | EMERGENCY ROOM VISIT NOTE ---
History Report prepared by Erica: Eleazar Leigh Under the Supervision of: Dr. Josse Ferguson D.O. First contact with patient: 16:31 Stated Complaint: COUGH, SOB, LOW SUGAR History of Present Illness The patient is an 80 year old female from [facility] who presents to the Emergency Room with complaints of recurrent hypoxia all day. The patient had several episodes of hypoglycemia today, which was corrected with apple juice. She has had a cough and shortness of breath, as per records from [facility]. The patient complains of shortness of breath and leg pain. She denies chest pain. The patient had a DuoNeb treatment in the ambulance en route to the ED. The patient has not been eating or drinking well. She was started on Augmentin today. There is a pending chest X-ray report. Source of History: patient, transfer records, EMS Onset: all day Position: other (respiratory) Quality: other (hypoxic) Timing: other (recurrent) Associated Symptoms: + SOB, + cough, No chest pain Review of Systems See HPI for pertinent positives & negatives. A total of 10 systems reviewed and were otherwise negative. Past Medical & Surgical Medical Problems: (1) BARBARA (acute kidney injury) (2) Atrial fibrillation (3) CAD (coronary artery disease) (4) Cellulitis of left lower extremity (5) CHF (congestive heart failure) (6) ckd (7) CKD (chronic kidney disease) stage 3, GFR 30-59 ml/min (8) COPD (chronic obstructive pulmonary disease) (9) Depression (10) DM type 2 (diabetes mellitus, type 2) (11) GI bleed (12) HTN (hypertension) (13) Hypothyroidism (14) NSTEMI, initial episode of care Surgical Problems: (1) H/O aortic valve replacement (2) Hx of CABG (3) S/P tonsillectomy Family History Heart disease Stroke Social History Smoking Status: Former Smoker Drug Use: none Marital Status: single Housing Status: lives alone Occupation Status: disabled Current/Historical Medications Scheduled Amoxicillin & Pot Clavulanate (Augmentin 875-125 mg), 1 TAB PO BID Apixaban (Eliquis), 2.5 MG PO BID Aspirin (Aspirin Ec), 81 MG PO DAILY Citalopram (Citalopram Hydrobromide), 20 MG PO DAILY Docusate Sodium (Docusate Sodium), 100 MG PO BID Ferrous Gluconate (Ferrous Gluconate), 324 MG PO TIDM Folic Acid (Folic Acid), 1 TAB PO DAILY Furosemide (Lasix), 40 MG PO DAILY Glipizide (Glucotrol), 2 TAB PO QAM Hydrochlorothiazide (Hydrochlorothiazide), 12.5 MG PO QAM Ipratropium-Albuterol (Duoneb), 1 TREATMENT INH Q4H Levothyroxine Sodium (Levothyroxine Sodium), 1 TAB PO DAILY Losartan Potassium (Cozaar), 100 MG PO DAILY Magnesium Oxide (Mag-Ox), 400 MG PO BID Metoprolol Tartrate (Metoprolol Tartrate), 50 MG PO BID Pantoprazole (Protonix), 40 MG PO DAILY Polyethylene Glycol 3350 (Miralax), 17 GM PO DAILY Quetiapine Fumarate (Seroquel), 50 MG PO HS Senna (Senokot), 8.6 MG PO NOON Scheduled PRN Insulin Aspart (Novolog Flexpen), 1 DOSE SQ TIDM PRN for SLIDING SCALE Oxycodone/Acetaminophen 5MG/325MG (Percocet 5MG/325MG), 1 TABLET PO Q6H PRN for Pain Allergies Coded Allergies: Morphine (Verified Adverse Reaction, Unknown, HALLUCINATIONS, 04/16/16) Physical Exam Vital Signs Date Time Temp Pulse Resp B/P Pulse Ox O2 Delivery O2 Flow Rate FiO2 04/16/16 20:00 106 96 50 04/16/16 18:41 102 28 119/93 98 Nasal Cannula 2.0 04/16/16 17:02 93 Nasal Cannula 4.0 04/16/16 16:58 37.1 94 23 157/106 87 Room Air 04/16/16 16:43 91 Physical Exam GENERAL: Patient goes between episodes of listlessness and anxiety. EYES: The conjunctivae are clear. The pupils are round and reactive. EARS, NOSE, MOUTH AND THROAT: The nose is without any evidence of any deformity. Mucous membranes are dry tongue is midline NECK: The neck is nontender and supple. RESPIRATORY: Lung sounds are diminished throughout, scattered rhonchi with wheezing in both upper lung kim. Significant conversational dyspnea noted. CARDIOVASCULAR: Tachycardic with a regular rhythm and no definite murmurs. GASTROINTESTINAL: The abdomen is soft. Bowel sounds are present in all quadrants. Abdomen is nontender PELVIS: The Pelvis is stable. No tenderness to palpation is noted. MUSCULOSKELETAL/EXTREMITIES: There is no evidence of gross deformity full range of motion is noted in the hips and shoulders SKIN: There is no obvious evidence of any rash. There are no petechiae, pallor or cyanosis noted. Pedal edema bilaterally. NEUROLOGIC: Patient is oriented to person and place but not time. Medical Decision & Procedures ER Provider Diagnostic Interpretation: X-ray results as stated below per interpretation by me and the radiologist. CHEST ONE VIEW PORTABLE CLINICAL HISTORY: Sepsis dyspnea COMPARISON STUDY: 03/28/2016 FINDINGS: Mild congestive failure. Mild cardiomegaly. Prior median sternotomy. IMPRESSION: Mild congestive heart failure Electronically signed by: Lito Fajardo M.D. 04/16/2016 4:54 PM Dictated Date/Time: 04/16/2016 4:54 PM Laboratory Results 04/16/16 17:31 Red Blood Count 3.11, Mean Corpuscular Volume 88.7, Mean Corpuscular Hemoglobin 27.3, Mean Corpuscular Hemoglobin Concent 30.8, Mean Platelet Volume 10.1, Neutrophils (%) (Auto) 74.4, Lymphocytes (%) (Auto) 13.4, Monocytes (%) (Auto) 10.2, Eosinophils (%) (Auto) 0.9, Basophils (%) (Auto) 0.9, Neutrophils # (Auto ) 3.99, Lymphocytes # (Auto) 0.72, Monocytes # (Auto) 0.55, Eosinophils # (Auto ) 0.05, Basophils # (Auto) 0.05 04/16/16 17:31 Test 04/16/16 17:31 04/16/16 17:53 04/16/16 17:55 White Blood Count 5.37 K/uL (4.8-10.8) Red Blood Count 3.11 M/uL (4.2-5.4) Hemoglobin 8.5 g/dL (12.0-16.0) Hematocrit 27.6 % (37-47) Mean Corpuscular Volume 88.7 fL (80-100) Mean Corpuscular Hemoglobin 27.3 pg (25-34) Mean Corpuscular Hemoglobin Concent 30.8 g/dl (32-36) Platelet Count 286 K/uL (130-400) Mean Platelet Volume 10.1 fL (7.4-10.4) Neutrophils (%) (Auto) 74.4 % Lymphocytes (%) (Auto) 13.4 % Monocytes (%) (Auto) 10.2 % Eosinophils (%) (Auto) 0.9 % Basophils (%) (Auto) 0.9 % Neutrophils # (Auto) 3.99 K/uL (1.4-6.5) Lymphocytes # (Auto) 0.72 K/uL (1.2-3.4) Monocytes # (Auto) 0.55 K/uL (0.11-0.59) Eosinophils # (Auto) 0.05 K/uL (0-0.5) Basophils # (Auto) 0.05 K/uL (0-0.2) RDW Standard Deviation 59.4 fL (36.4-46.3) RDW Coefficient of Variation 18.6 % (11.5-14.5) Immature Granulocyte % (Auto) 0.2 % Immature Granulocyte # (Auto) 0.01 K/uL (0.00-0.02) Polychromasia 1+ Ovalocytes 1+ Erythrocyte Sedimentation Rate 35 mm/hr (0-21) Prothrombin Time 17.9 SECONDS (9.0-12.0) Prothromb Time International Ratio 1.6 (0.9-1.1) Activated Partial Thromboplast Time 27.5 SECONDS (21.0-31.0) Partial Thromboplastin Ratio 1.1 Venous Blood pH 7.39 (7.36-7.41) Venous Blood Partial Pressure CO2 56 mmHg (38.0-50.0) Venous Blood Partial Pressure O2 24 mmHg Venous Blood HCO3 33 mmol/L Venous Blood Oxygen Saturation < 60.0 % Venous Blood Base Excess 7.3 mmol/L Anion Gap 12.0 mmol/L (3-11) Est Creatinine Clear Calc Drug Dose 22.5 ml/min Estimated GFR () 21.4 Estimated GFR (Non- 18.4 BUN/Creatinine Ratio 29.2 (10-20) Calcium Level 8.5 mg/dl (8.5-10.1) Phosphorus Level 4.7 mg/dl (2.5-4.9) Magnesium Level 2.7 mg/dl (1.8-2.4) Total Bilirubin 1.3 mg/dl (0.2-1) Aspartate Amino Transf (AST/SGOT) 20 U/L (15-37) Alanine Aminotransferase (ALT/SGPT) 19 U/L (12-78) Alkaline Phosphatase 66 U/L (45-117) Ammonia 22.0 umol/L (11-32) Total Creatine Kinase 35 U/L (26-192) Creatine Kinase MB 0.9 ng/ml (0.5-3.6) Creatine Kinase MB Ratio 2.6 (0-3.0) Troponin I 0.465 ng/ml (0-0.045) C-Reactive Protein 8.21 mg/dl (0-0.29) Pro-B-Type Natriuretic Peptide > 92233 pg/ml (0-1800) Total Protein 7.3 gm/dl (6.4-8.2) Albumin 3.1 gm/dl (3.4-5.0) Globulin 4.2 gm/dl (2.5-4.0) Albumin/Globulin Ratio 0.7 (0.9-2) Lipase 130 U/L (73-393) Bedside Lactic Acid Venous 3.19 mmol/L (0.90-1.70) Urine Color YELLOW Urine Appearance CLEAR (CLEAR) Urine pH 8.0 (4.5-7.5) Urine Specific Reading 1.009 (1.000-1.030) Urine Protein 2+ (NEG) Urine Glucose (UA) NEG (NEG) Urine Ketones NEG (NEG) Urine Occult Blood NEG (NEG) Urine Nitrite NEG (NEG) Urine Bilirubin NEG (NEG) Urine Urobilinogen NEG (NEG) Urine Leukocyte Esterase NEG (NEG) Urine WBC (Auto) 0 /hpf (0-5) Urine RBC (Auto) 0-4 /hpf (0-4) Urine Hyaline Casts (Auto) 1-5 /lpf (0-5) Urine Epithelial Cells (Auto) 5-10 /lpf (0-5) Urine Bacteria (Auto) NEG (NEG) Laboratory results per my review. Medications Administered Medications (Trade) Dose Ordered Sig/Keny Route Start Time Stop Time Status Last Admin Dose Admin Levofloxacin 750 mg 750 mg NOW STAT IV 04/16/16 18:30 04/16/16 18:31 DC 04/16/16 18:39 750 MG Sodium Chloride (Nss 1000ml) 1,000 ml @ 999 mls/hr Q1H1M STAT IV 04/16/16 18:30 04/16/16 19:30 DC 04/16/16 18:39 999 MLS/HR Lorazepam (Ativan Inj) 0.5 mg NOW STAT IV 04/16/16 19:48 04/16/16 19:49 DC 04/16/16 19:48 0.5 MG ECG Indication: SOB/dyspnea Rate (beats per minute): 108 Rhythm: atrial fibrillation Findings: other (no PVC, no acute ST segment changes) Comparison ECG Date: 2016 Change: no significant change ED Course 163: The patient was evaluated in room A4b. A complete history and physical examination were performed. 1829: NSS 1,000 ml @ 999 mls/hr IV, Levofloxacin 750 mg IV. 1939: [facility] The patient will be evaluated. 1947: Ativan 0.5 mg IV. Medical Decision Etiologies such as infections, reactive airway disease, pneumonia, pneumothorax , COPD, CHF, cardiac ischemia, pulmonary embolism, musculoskeletal, gastrointestinal, as well as others were entertained. Nursing notes reviewed. Prehospital documentation was reviewed. The patient's senior care documentation was also reviewed. The patient is an 80-year-old female who sent to the emergency department for possible pneumonia. The patient was noted to have a fever last evening. She had a chest x-ray today but the report was still pending. She was started on an antibiotic by the senior care physician. She started having worsening alteration in her mental status and was found have hypoglycemia. She was sent to the emergency department for an evaluation. The patient was found to be in significant respiratory distress. She was treated with IV antibiotics. She was also given IV fluids because her creatinine was elevated compared to baseline and so was her pointing care lactic acid. She may also have some degree of pulmonary edema as well with an abnormal troponin and an elevated BNP. The patient was also placed on BiPAP. The patient had a repeat x-ray which showed possibility of increased interstitial fullness. I discussed the patient's laboratory and radiographic studies with the on-call [facility] group. They've agreed to evaluate the patient in the emergency department for further management and disposition. Consults Time Called: 1929 Consulting Physician: [facility] Returned Call: 1939 1939: Discussed the case with Dr. Johnson [place] Hospitalist. The patient will be evaluated. Impression Primary Impression: Respiratory failure Additional Impressions: Hypoxia PNA (pneumonia) BARBARA (acute kidney injury) Pulmonary edema Elevated troponin Critical Care I have personally spent greater than 45 minutes of critical care time in the direct management of this patient. This includes bedside care, interpretation of diagnostic studies, and testing, discussion with consultants, patient, and family members, and other required patient management activities. This 45 minutes is in excess of all separately billable procedures. Scribe Attestation The scribe's documentation has been prepared under my direction and personally reviewed by me in its entirety. I confirm that the note above accurately reflects all work, treatment, procedures, and medical decision making performed by me. Departure Information Dispostion Being Evaluated By Hospitalist Referrals Ezra Arevalo D.O. (PCP) Problem Qualifiers
--- NOTE | 2016-04-16 16:56 | DIAGNOSTIC IMAGING REPORT ---
CHEST ONE VIEW PORTABLE CLINICAL HISTORY: Sepsis dyspnea COMPARISON STUDY: 03/28/2016 FINDINGS: Mild congestive failure. Mild cardiomegaly. Prior median sternotomy. IMPRESSION: Mild congestive heart failure Electronically signed by: Lito Fajardo M.D. 04/16/2016 4:54 PM Dictated Date/Time: 04/16/2016 4:54 PM
[2016-04-16] MEDS ORDERED: LOSA1TAB38 PO (18:00)
[2016-04-16] MEDS ORDERED: GLIP5TAB3 PO (18:00)
[2016-04-16] MEDS ORDERED: CLC100 PO (18:00)
[2016-04-16] MEDS ORDERED: IPRASOL4 INH (18:00)
[2016-04-16] MEDS ORDERED: NVLGI/PEN SQ (18:00)
[2016-04-16] MEDS ORDERED: FRRG PO (18:00)
[2016-04-16] MEDS ORDERED: PANT40TA PO (18:00)
[2016-04-16] MEDS ORDERED: POLY335019 PO (18:00)
[2016-04-16] MEDS ORDERED: HYDR25TA5 PO (18:00)
[2016-04-16] MEDS ORDERED: FRS/40 PO (18:00)
[2016-04-16] MEDS ORDERED: AMOX875T PO (18:00)
[2016-04-16] MEDS ORDERED: OXYC-57 PO (18:00)
[2016-04-16 18:02] LABS: VEN BLOOD GAS BASE EXCESS 7.3 mmol/L; VENOUS BLOOD GAS PCO2 56 mmHg (38.0-50.0); VENOUS BLOOD GAS PO2 24 mmHg
[2016-04-16 18:03] LABS: BASO % 0.9 %; BASO ABS # 0.05 K/uL (0-0.2); EOS % 0.9 %; HEMATOCRIT 27.6 % (37-47); IG% 0.2 %; LYMPH % 13.4 %; LYMPH ABS # 0.72 K/uL (1.2-3.4); MEAN CELL VOLUME 88.7 fL (80-100); MEAN CORPUSCULAR HEMOGLOBIN 27.3 pg (25-34); MEAN CORPUSCULAR HGB CONC 30.8 g/dl (32-36); MEAN PLATELET VOLUME 10.1 fL (7.4-10.4); MONO % 10.2 %; NEUT % 74.4 %; PLATELET COUNT 286 K/uL (130-400); RED BLOOD COUNT 3.11 M/uL (4.2-5.4); WHITE BLOOD COUNT 5.37 K/uL (4.8-10.8)
[2016-04-16 18:05] LABS: URINE APPEARANCE CLEAR (CLEAR); URINE BILIRUBIN NEG (NEG); URINE COLOR YELLOW; URINE NITRITE NEG (NEG); URINE SPECIFIC GRAVITY 1.009 (1.000-1.030); UROBILINOGEN NEG (NEG); ZZURINE CULT IF INDIC CATH NO
[2016-04-16 18:05] LABS: VEN BLD GAS O2 SATURATION < 60.0 %
[2016-04-16 18:10] LABS: MANUAL MICROSCOPIC REQUIRED? NO; REVIEW REQ? NO
[2016-04-16 18:11] LABS: SULFASALICYLIC ACID POS (NEG)
[2016-04-16 18:18] LABS: INR 1.6 (0.9-1.1); PARTIAL THROMBOPLASTIN RATIO 1.1; PROTHROMBIN TIME (PATIENT) 17.9 SECONDS (9.0-12.0)
[2016-04-16 18:23] LABS: ALT/SGPT 19 U/L (12-78); BLOOD UREA NITROGEN 70 mg/dl (7-18); BUN/CREATININE RATIO 29.2 (10-20); C-REACTIVE PROTEIN 8.21 mg/dl (0-0.29); CALCIUM 8.5 mg/dl (8.5-10.1); CARBON DIOXIDE 29 mmol/L (21-32); CHLORIDE 94 mmol/L (98-107); GLUCOSE 195 mg/dl (70-99); MAGNESIUM 2.7 mg/dl (1.8-2.4); POTASSIUM 4.2 mmol/L (3.5-5.1); SODIUM 135 mmol/L (136-145)
[2016-04-16 18:25] LABS: COMPLETE YES; OVALOCYTES 1+; POLYCHROMASIA 1+
[2016-04-16] MEDS ORDERED: LEVAQUIN 750MG / 150ML D5W IV STA (18:30)
[2016-04-16] MEDS ORDERED: SODIUM CHLORIDE 0.9% 1000ML 1,000 ML IV STA (18:30)
[2016-04-16 18:31] LABS: ALB/GLOB RATIO 0.7 (0.9-2); ALKALINE PHOSPHATASE 66 U/L (45-117); AST/SGOT 20 U/L (15-37); CKMB/CK RATIO 2.6 (0-3.0); PHOSPHORUS 4.7 mg/dl (2.5-4.9)
[2016-04-16] MEDS ORDERED: LORAZEPAM 2 MG/ML 1 ML VIAL IV STA (19:48)
[2016-04-16 20:00] VITALS: PULSE 106; O2SAT 96
--- NOTE | 2016-04-16 20:05 | DIAGNOSTIC IMAGING REPORT ---
CHEST ONE VIEW PORTABLE CLINICAL HISTORY: SOB dyspnea COMPARISON STUDY: 04/16/2016 FINDINGS: Mild cardia megaly. Prior median sternotomy. Developing interstitial edema. Diaphragms smooth. IMPRESSION: Developing interstitial edema Electronically signed by: Lito Fajardo M.D. 04/16/2016 8:03 PM Dictated Date/Time: 04/16/2016 8:03 PM
--- NOTE | 2016-04-16 20:08 | History and Physical ---
History & Physical Date & Time of Service: Apr 16, 2016 at 19:55 Chief Complaint: Cough, Sob, Low Sugar Primary Care Physician: Santiago Wall History of Present Illness Source: patient, hospital records, EMS 80 y/o F with a complex medical history including CHF, COPD, AF, CAD. Recent admission 03/29 for UTI, cellulitis, hypoxia and elevated troponins 2/2 demand ischemia. Pt presents with persistent SOB and was hypoxic on arrival to the ER. At rest and with supplemental 02 she is able to maintain an adequate 02 sat however she desaturates when she becomes agitated. She had a reported fever of 100.1 at her NH. There were no reports of CP, productive cough, N/V, diarrhea or dysuria. Initially she was unable to contribute to the HPI and was continuously yelling for help. She improved markedly with Bipap however and was able to converse at the time of admission. She denies CP or a productive cough - denies N/V/D, dysuria. She was not aware she had had a fever. She is completing a course of Augmentin currently. Initial labs are notable for ARF and an elevated troponin. Initial CXR is consistent with vascular congestion - no distinct infiltrate is seen. Her UA is negative. Recent wound cultures obtained form a LLE ulcer were + for MSSA Recent urine culture grew Enterococcus sensitive to Ampicillin Past Medical/Surgical History Medical Problems: (1) Atrial fibrillation Status: Chronic (2) CAD (coronary artery disease) Status: Chronic (3) CHF (congestive heart failure) - recent echo with EF 40% and diastolic dysfunction Status: Chronic (4) COPD (chronic obstructive pulmonary disease) Status: Chronic (5) Depression Status: Chronic (6) DM type 2 (diabetes mellitus, type 2) Status: Chronic (7) GI bleed Status: Resolved (8) HTN (hypertension) Status: Chronic (9) Hypothyroidism Status: Chronic Surgical Problems: (1) H/O aortic valve replacement Status: Chronic (2) Hx of CABG Status: Chronic (3) S/P tonsillectomy Status: Chronic Family History Heart disease Stroke Social History Smoking Status: Never Smoker Drug Use: none Marital Status: single Housing status: snf Occupational Status: disabled Multi-Drug Resistant Organisms History of MDRO: No Allergies Coded Allergies: Morphine (Verified Adverse Reaction, Unknown, HALLUCINATIONS, 2/4/17) Home Medications Scheduled Amoxicillin & Pot Clavulanate (Augmentin 875-125 mg), 1 TAB PO BID Apixaban (Eliquis), 2.5 MG PO BID Aspirin (Aspirin Ec), 81 MG PO DAILY Citalopram (Citalopram Hydrobromide), 20 MG PO DAILY Docusate Sodium (Docusate Sodium), 100 MG PO BID Ferrous Gluconate (Ferrous Gluconate), 324 MG PO TIDM Folic Acid (Folic Acid), 1 TAB PO DAILY Furosemide (Lasix), 40 MG PO DAILY Glipizide (Glucotrol), 2 TAB PO QAM Hydrochlorothiazide (Hydrochlorothiazide), 12.5 MG PO QAM Ipratropium-Albuterol (Duoneb), 1 TREATMENT INH Q4H Levothyroxine Sodium (Levothyroxine Sodium), 1 TAB PO DAILY Losartan Potassium (Cozaar), 100 MG PO DAILY Magnesium Oxide (Mag-Ox), 400 MG PO BID Metoprolol Tartrate (Metoprolol Tartrate), 50 MG PO BID Pantoprazole (Protonix), 40 MG PO DAILY Polyethylene Glycol 3350 (Miralax), 17 GM PO DAILY Quetiapine Fumarate (Seroquel), 50 MG PO HS Senna (Senokot), 8.6 MG PO NOON Scheduled PRN Insulin Aspart (Novolog Flexpen), 1 DOSE SQ TIDM PRN for SLIDING SCALE Oxycodone/Acetaminophen 5MG/325MG (Percocet 5MG/325MG), 1 TABLET PO Q6H PRN for Pain Review of Systems Constitutional: + fever, No chills, No sweats Eyes: No eye pain, No worsening of vision ENT: No hearing loss, No nasal symptoms, No unusual epistaxis Respiratory: + dyspnea at rest, + dyspnea on exertion, + shortness of breath, + wheezing, No cough, No sputum Cardiovascular: No PND, No chest pain, No orthopnea Abdomen: No nausea, No pain, No vomiting Musculoskeletal: No joint pain, No muscle pain Genitourinary - Female: No dysuria, No urinary frequency, No urinary urgency Neurologic: No memory loss, No paralysis Psychiatric: No depression symptoms Endocrine: + fatigue Hematologic / Lymphatic: No abnormal bleeding/bruising Integumentary: + problem reported (Ulcer on LLE), No rash Allergic / Immunologic: No environmental allergies Physical Exam Vital Signs Date Time Temp Pulse Resp B/P Pulse Ox O2 Delivery O2 Flow Rate FiO2 04/16/16 18:41 102 28 119/93 98 Nasal Cannula 2.0 04/16/16 17:02 93 Nasal Cannula 4.0 04/16/16 16:58 37.1 94 23 157/106 87 Room Air 04/16/16 16:43 91 General Appearance: + pertinent finding (Obese elderly female - initially distressed - improved after Bipap placed) Head: normocephalic, atraumatic Eyes: normal inspection, PERRL ENT: normal ENT inspection, hearing grossly normal, pharynx normal Neck: supple, + pertinent finding (Exam limited due to habitus) Respiratory/Chest: chest non-tender, + pertinent finding (Wheezing without crackles in all lung kim) Cardiovascular: + irregularly irregular Abdomen/GI: normal bowel sounds, non tender, soft Back: normal inspection, no CVA tenderness Extremities/Musculoskelatal: normal inspection, no calf tenderness, normal range of motion, + pedal edema Neurologic/Psych: double end tenoner setter II-XII nml as tested, no motor/sensory deficits, + pertinent finding (Oriented x 2 - cooperative - no focal defecits appreciated) Skin: normal color, warm/dry, no rash Diagnostics Laboratory Results Results Past 24 Hours Test 04/16/16 17:31 04/16/16 17:53 04/16/16 17:55 Range/Units White Blood Count 5.37 4.8-10.8 K/uL Red Blood Count 3.11 4.2-5.4 M/uL Hemoglobin 8.5 12.0-16.0 g/dL Hematocrit 27.6 37-47 % Mean Corpuscular Volume 88.7 80-100 fL Mean Corpuscular Hemoglobin 27.3 25-34 pg Mean Corpuscular Hemoglobin Concent 30.8 32-36 g/dl Platelet Count 286 130-400 K/uL Mean Platelet Volume 10.1 7.4-10.4 fL Neutrophils (%) (Auto) 74.4 % Lymphocytes (%) (Auto) 13.4 % Monocytes (%) (Auto) 10.2 % Eosinophils (%) (Auto) 0.9 % Basophils (%) (Auto) 0.9 % Neutrophils # (Auto) 3.99 1.4-6.5 K/uL Lymphocytes # (Auto) 0.72 1.2-3.4 K/uL Monocytes # (Auto) 0.55 0.11-0.59 K/uL Eosinophils # (Auto) 0.05 0-0.5 K/uL Basophils # (Auto) 0.05 0-0.2 K/uL RDW Standard Deviation 59.4 36.4-46.3 fL RDW Coefficient of Variation 18.6 11.5-14.5 % Immature Granulocyte % (Auto) 0.2 % Immature Granulocyte # (Auto) 0.01 0.00-0.02 K/uL Polychromasia 1+ Ovalocytes 1+ Erythrocyte Sedimentation Rate 35 0-21 mm/hr Prothrombin Time 17.9 9.0-12.0 SECONDS Prothromb Time International Ratio 1.6 0.9-1.1 Activated Partial Thromboplast Time 27.5 21.0-31.0 SECONDS Partial Thromboplastin Ratio 1.1 Venous Blood pH 7.39 7.36-7.41 Venous Blood Partial Pressure CO2 56 38.0-50.0 mmHg Venous Blood Partial Pressure O2 24 mmHg Venous Blood HCO3 33 mmol/L Venous Blood Oxygen Saturation < 60.0 % Venous Blood Base Excess 7.3 mmol/L Sodium Level 135 136-145 mmol/L Potassium Level 4.2 3.5-5.1 mmol/L Chloride Level 94 98-107 mmol/L Carbon Dioxide Level 29 21-32 mmol/L Anion Gap 12.0 3-11 mmol/L Blood Urea Nitrogen 70 7-18 mg/dl Creatinine 2.40 0.60-1.20 mg/dl Est Creatinine Clear Calc Drug Dose 22.5 ml/min Estimated GFR () 21.4 Estimated GFR (Non- 18.4 BUN/Creatinine Ratio 29.2 10-20 Random Glucose 195 70-99 mg/dl Calcium Level 8.5 8.5-10.1 mg/dl Phosphorus Level 4.7 2.5-4.9 mg/dl Magnesium Level 2.7 1.8-2.4 mg/dl Total Bilirubin 1.3 0.2-1 mg/dl Aspartate Amino Transf (AST/SGOT) 20 15-37 U/L Alanine Aminotransferase (ALT/SGPT) 19 12-78 U/L Alkaline Phosphatase 66 45-117 U/L Ammonia 22.0 11-32 umol/L Total Creatine Kinase 35 26-192 U/L Creatine Kinase MB 0.9 0.5-3.6 ng/ml Creatine Kinase MB Ratio 2.6 0-3.0 Troponin I 0.465 0-0.045 ng/ml C-Reactive Protein 8.21 0-0.29 mg/dl Pro-B-Type Natriuretic Peptide > 05598 0-1800 pg/ml Total Protein 7.3 6.4-8.2 gm/dl Albumin 3.1 3.4-5.0 gm/dl Globulin 4.2 2.5-4.0 gm/dl Albumin/Globulin Ratio 0.7 0.9-2 Lipase 130 73-393 U/L Bedside Lactic Acid Venous 3.19 0.90-1.70 mmol/L Urine Color YELLOW Urine Appearance CLEAR CLEAR Urine pH 8.0 4.5-7.5 Urine Specific [place] 1.009 1.000-1.030 Urine Protein 2+ NEG Urine Glucose (UA) NEG NEG Urine Ketones NEG NEG Urine Occult Blood NEG NEG Urine Nitrite NEG NEG Urine Bilirubin NEG NEG Urine Urobilinogen NEG NEG Urine Leukocyte Esterase NEG NEG Urine WBC (Auto) 0 0-5 /hpf Urine RBC (Auto) 0-4 0-4 /hpf Urine Hyaline Casts (Auto) 1-5 0-5 /lpf Urine Epithelial Cells (Auto) 5-10 0-5 /lpf Urine Bacteria (Auto) NEG NEG Microbiology Results 04/16/16 Blood Culture, Received Pending 04/16/16 Blood Culture, Received Pending Diagnostic Radiology CXR: CHF EKG AF - RVR - no significant morphological change is noted - she may have a rate related RBBB Impression Assessment and Plan 80 y/o F with a complex medical history including CHF, COPD, AF, CAD. Recent admission 03/29 for UTI, cellulitis, hypoxia and elevated troponins 2/2 demand ischemia. Pt presents with persistent SOB and was hypoxic on arrival to the ER. At rest and with supplemental 02 she is able to maintain an adequate sat however she desaturates when she becomes agitated. She had a reported fever of 100.1 at her NH. There were no reports of CP, productive cough, N/V, diarrhea or dysuria. Initially she was unable to contribute to the HPI and was continuously yelling for help. She improved markedly with Bipap however and was able to converse at the time of admission. She denies CP or a productive cough - denies N/V/D, dysuria. She was not aware she had had a fever. Initial labs are notable for ARF and an elevated troponin. Initial CXR is consistent with vascular congestion - no distinct infiltrate is seen. Her UA is negative. 1) Hypoxia - may be multifactorial due to CHF and COPD as she is exhibiting wheezing and a CXR shows vascular congestion. A fever was reported at her NH although we do not have evidence of respiratory infection as a contributing factor. Her BP is normal and her renal function is acutely impaired and we are unable to assess her volume clinically do to her weight. Currently the pt is comfortable on Bipap and will be treated for a COPD exacerbation. We will send her for a noncontrast CT to assist in management and evaluate for occult infection. She will be monitored on telemetry and Lasix can be provided as needed. 2) ARF - again her volume status is unclear so that this may be due to either CHF or dehydration. A CT is pending to help direct management. She was initially provided with IVF on arrival to the ER which did not seem to worsen her hypoxia. We will hold further fluids or Lasix pending additional test results. 3) Elevated troponin, CAD - Pt had similarly elevated troponins during a recent admission which was deemed due to demand ischemia. She does not have significant EKG changes to indicate that this is an acute NSTEMI. She is fully anticoagulated with Eliquis and receives ASA and a B madelaine. She is presumably statin-intolerant although this should be confirmed with her primary MD. We will monitor on telemetry and trend her troponins. Consider an echo to evaluate for WMAs if there is an upward trend. She has not c/o any CP. We will apply Nitrodur if her pressure tolerates. 4) AF - Initial tachycardia may be compensatory - rate is normalizing - cont B madelaine, Eliquis 5) Regarding her fever - we have not confirmed a temp in house - her UA is negative and a CXR does not show PNM - blood cultures were obtained, CT chest is pending and she will continue her current course of Augmentin pending further results. 6) DM - placed on SS 7) Hypothyroid - cont Synthroid Full code - Apixaban Total time for this admit including chart review, review of labs, meds, EKG, CXR - discussion with ER MD and pt - 48 min Level of Care Telemetry Resuscitation Status FULL RESUSCITATION VTE Prophylaxis Risk Level: Moderate Given or contraindicated: Other Anticoagulation
[2016-04-16] MEDS ORDERED: MAGNESIUM HYDROXIDE SUSP 30 ML UDC PO PRN (21:15)
[2016-04-16] MEDS ORDERED: ACETAMINOPHEN 325 MG TAB PO PRN (21:15)
[2016-04-16] MEDS ORDERED: ONDANSETRON INJ 2 MG/ML 2 ML VIAL IV PRN (21:15)
[2016-04-16] MEDS ORDERED: MoRPHine SULFATE 2 MG/ML CARP IV PRN (21:15)
[2016-04-16] MEDS ORDERED: ALBUTEROL 0.083% NEBU SOLN 3 ML VIAL INH PRN (21:45)
--- NOTE | 2016-04-16 22:10 | DIAGNOSTIC IMAGING REPORT ---
CHEST CT WITHOUT CONTRAST CT DOSE: 1129.10 mGy.cm HISTORY: Chest pain dyspnea TECHNIQUE: Multiaxial CT images of the chest were performed without contrast. COMPARISON: 02/10/2015 FINDINGS: Moderate cardiomegaly. Prior median sternotomy. Small right effusion. Interstitial changes throughout both hemithoraces suggesting component of interstitial edema. There are no focal infiltrative or focal consolidative changes. Atelectatic change thoracic aorta. Several benign-appearing calcified nodes of the mediastinal and hilar regions. These appears to be secondary to chronic granulomatous change. Calcification the coronary arterial vasculature is present. IMPRESSION: 1. Moderate cardiomegaly status post median sternotomy. 2. Interstitial prominence throughout both hemithoraces most likely consistent with a component of interstitial edematous change, less likely interstitial infiltrative change. 3. Interval small right effusion. 4. Incidental note is made of mild left renal perinephric infiltrative change with mild wall thickening of the visualized components of the colon. Electronically signed by: Lito Fajardo M.D. 04/16/2016 10:09 PM Dictated Date/Time: 04/16/2016 10:05 PM
[2016-04-16 22:15] VITALS: BP 132/107; PULSE 96; TEMP 36.9; O2SAT 96; Ht 172.7 cm; Wt 90.2 kg
[2016-04-16 22:43] LABS: INFLUENZA A PCR Neg for Influ A (NEG); INFLUENZA B PCR Neg for Influ B (NEG)
[2016-04-16 22:55] VITALS: PULSE 89; O2SAT 100
[2016-04-16 23:08] VITALS: BP 152/94; PULSE 117
[2016-04-16] MEDS: METHYLPREDNISOLONE IV 40 MG in SYRINGE 0 ML IV SCH (23:09)
[2016-04-16] MEDS ORDERED: DEXTROSE 50% 50 ML SYR IV PRN (23:15)
[2016-04-16] MEDS ORDERED: GLUCAGON FOR INJ 1 MG VIAL SQ PRN (23:15)
[2016-04-16] MEDS ORDERED: GLUCOSE 10 TABS/TUBE PO PRN (23:15)
[2016-04-16] MEDS ORDERED: GLUCOSE 40% GEL 15 GM TUBE PO PRN (23:15)
[2016-04-16] MEDS ORDERED: NITROGLYCERIN 0.4 MG/HR PATCH TD ONE (23:30)
[2016-04-16 23:33] VITALS: BP 152/114; PULSE 106; TEMP 37.3; O2SAT 94
[2016-04-17] VITALS (13 sets, daily range): BP systolic 130–158; BP diastolic 81–139; PULSE 68–117; TEMP 36.6–37.2; O2SAT 94–100
[2016-04-17] MEDS: ALBUT/IPRATROP 3MG/0.5MG NEB 3 ML VIAL INH SCH ×4 (02:00→18:38)
[2016-04-17] MEDS: LEVOTHYROXINE 175 MCG TAB PO SCH ×2 (05:35→06:00)
[2016-04-17] MEDS: METHYLPREDNISOLONE IV 40 MG in SYRINGE 0 ML IV SCH ×3 (05:35→21:25)
[2016-04-17 05:54] LABS: HEMATOCRIT 31.7 % (37-47); MEAN CELL VOLUME 89.3 fL (80-100); MEAN CORPUSCULAR HEMOGLOBIN 26.8 pg (25-34); MEAN PLATELET VOLUME 10.3 fL (7.4-10.4); PLATELET COUNT 307 K/uL (130-400); RED BLOOD COUNT 3.55 M/uL (4.2-5.4); WHITE BLOOD COUNT 5.27 K/uL (4.8-10.8)
[2016-04-17] MEDS ORDERED: NURSING VERBAL MED ORDER ONE (06:00)
[2016-04-17] MEDS ORDERED: FUROSEMIDE 40 MG/4 ML VIAL IV STA ×2 (06:02→11:36)
[2016-04-17 06:29] LABS: BUN/CREATININE RATIO 28.2 (10-20); CREATININE 2.5 mg/dl (0.60-1.20); MAGNESIUM 2.9 mg/dl (1.8-2.4); POTASSIUM 4.5 mmol/L (3.5-5.1)
[2016-04-17] MEDS: INSULIN ASPART 100 UNITS/ML 3 ML PEN SC SCH ×5 (07:00→21:28)
[2016-04-17] MEDS ORDERED: FUROSEMIDE 40 MG TAB PO SCH (09:00)
[2016-04-17] MEDS: CITALOPRAM 20 MG TAB PO SCH (09:11)
[2016-04-17] MEDS: METOPROLOL TARTRATE 50 MG TAB PO SCH ×2 (09:11→21:25)
[2016-04-17] MEDS: FoLIC ACID TAB 400 MCG TAB PO SCH (09:11)
[2016-04-17] MEDS: APIXABAN 2.5 MG TAB PO SCH ×2 (09:12→21:25)
[2016-04-17] MEDS: MAGNESIUM OXIDE 400 MG TAB PO SCH ×2 (09:12→21:00)
[2016-04-17] MEDS: SENNA 8.6 MG TAB PO SCH (09:12)
[2016-04-17] MEDS: AMOXICILLIN/CLAVULANATE TAB 500 MG TAB PO SCH ×2 (09:12→17:53)
[2016-04-17] MEDS: PANTOprazole SOD 40 MG TAB PO SCH (09:12)
[2016-04-17] MEDS: POLYETHYLENE (MIRALAX) 17 GM PACK PO SCH (09:13)
[2016-04-17] MEDS: ASPIRIN 81 MG ECTAB PO SCH (09:13)
[2016-04-17] MEDS: HYDROCHLOROTHIAZIDE 25 MG TAB PO SCH (09:13)
[2016-04-17] MEDS: DOCUSATE SODIUM 100 MG CAP PO SCH ×2 (09:13→21:25)
[2016-04-17] MEDS ORDERED: HydrALAZINE HCL 20 MG/ML VIAL IV. PRN (11:45)
--- NOTE | 2016-04-17 12:03 | Hospitalist Progress Note ---
Hospitalist Progress Note Date of Service Apr 17, 2016. Subjective Pt evaluation today including: conversation w/ patient, physical exam, chart review, lab review, review of studies, review of inpatient medication list Patient had conitued SOB States she is SOB however improved from hospital admission Denies chest pain Constitutional: No fever, No weakness, No weight loss Eyes: No worsening of vision ENT: No hearing loss, No sore throat Respiratory: + cough, + dyspnea on exertion, + shortness of breath Cardiovascular: No chest pain, No claudication Abdomen: No pain, No vomiting Musculoskeletal: No joint pain Female : No dysuria Neurologic: No memory loss Psychiatric: No depression symptoms Medications Current Inpatient Medications Medications (Trade) Dose Ordered Sig/[place] Route Start Time Stop Time Status Last Admin Dose Admin Apixaban (Eliquis Tab) 2.5 mg BID PO 04/17/16 09:00 05/17/16 08:59 04/17/16 09:12 2.5 MG Aspirin (Ecotrin Tab) 81 mg DAILY PO 04/17/16 09:00 05/17/16 08:59 04/17/16 09:13 81 MG Citalopram Hydrobromide (celeXA TAB) 20 mg DAILY PO 04/17/16 09:00 05/17/16 08:59 04/17/16 09:11 20 MG Docusate Sodium (coLACE CAP) 100 mg BID PO 04/17/16 09:00 05/17/16 08:59 04/17/16 09:13 100 MG Furosemide (Lasix Tab) 40 mg DAILY PO 04/17/16 09:00 05/17/16 08:59 04/17/16 09:12 40 MG Hydrochlorothiazide (Hydrochlorothiazide Tab) 12.5 mg QAM PO 04/17/16 09:00 05/17/16 08:59 04/17/16 09:13 12.5 MG Levothyroxine Sodium (Synthroid Tab) 175 mcg DAILYBB PO 04/17/16 06:00 05/17/16 05:59 Magnesium Oxide (Mag-Ox Tab) 400 mg BID PO 04/17/16 09:00 05/17/16 08:59 04/17/16 09:12 400 MG Metoprolol Tartrate (Lopressor Tab) 50 mg BID PO 04/17/16 09:00 05/17/16 08:59 04/17/16 09:11 50 MG Oxycodone/ Acetaminophen (Percocet 5-325mg Tab) 1 tab Q6H PRN PO 04/16/16 21:15 04/30/16 21:14 Pantoprazole Sodium (Protonix Tab) 40 mg DAILY PO 04/17/16 09:00 05/17/16 08:59 04/17/16 09:12 40 MG Quetiapine Fumarate (seroQUEL TAB) 50 mg HS PO 04/17/16 21:00 05/17/16 20:59 Senna (Senokot Tab) 8.6 mg DAILY PO 04/17/16 09:00 05/17/16 08:59 04/17/16 09:12 8.6 MG Folic Acid (Folvite Tab) 800 mcg DAILY PO 04/17/16 09:00 05/17/16 08:59 04/17/16 09:11 800 MCG Polyethylene (Miralax Powder Packet) 17 gm DAILY PO 04/17/16 09:00 05/17/16 08:59 04/17/16 09:13 17 GM Amoxicillin/ Clavulanate Potassium (Augmentin Tab) 500 mg BIDM PO 04/17/16 07:30 04/27/16 07:59 04/17/16 09:12 500 MG Insulin Aspart (novoLOG ASPART) SLIDING SCALE G... ACHS SC 04/17/16 00:00 05/17/16 00:00 Acetaminophen (Tylenol Tab) 650 mg Q4H PRN PO 04/16/16 21:15 05/16/16 21:14 Magnesium Hydroxide (Milk Of Magnesia Susp) 30 ml Q12H PRN PO 04/16/16 21:15 05/16/16 21:14 Ondansetron HCl (Zofran Inj) 4 mg Q6H PRN IV 04/16/16 21:15 05/16/16 21:14 Morphine Sulfate (MoRPHine SULFATE INJ) 2 mg Q30M PRN IV 04/16/16 21:15 04/30/16 21:14 04/16/16 23:10 2 MG Albuterol/ Ipratropium (Duoneb) 3 ml Q6R INH 04/17/16 03:00 05/17/16 02:59 04/17/16 07:03 3 ML Albuterol Sulfate 2.5 mg 2.5 mg Q4H PRN INH 04/16/16 21:45 05/16/16 21:44 Methylprednisolone Sodium Succinate/ Syringe (Solu-Medrol IV/ Syringe) 0.64 ml @ 1.5 mls/min Q6H IV 04/16/16 23:00 05/16/16 22:59 04/17/16 05:35 1.5 MLS/MIN Glucose (Glucose 40% Gel) 15-30 GRAMS 15 GRAMS... UD PRN PO 04/16/16 23:15 05/16/16 23:14 Glucose (Glucose Chew Tab) 4-8 Tablets 4 Tabl... UD PRN PO 04/16/16 23:15 05/16/16 23:14 Dextrose (Dextrose 50% 50ML Syringe) 25-50ML OF 50% DW IV FOR... UD PRN IV 04/16/16 23:15 05/16/16 23:14 Glucagon (Glucagon Inj) 1 mg UD PRN SQ 04/16/16 23:15 05/16/16 23:14 Miscellaneous (Remove Nitro-Dur Patch) 1 ea TODAY@1100 N/A 04/17/16 11:00 05/17/16 10:59 Objective Vital Signs Date Time Temp Pulse Resp B/P Pulse Ox O2 Delivery O2 Flow Rate FiO2 04/17/16 07:53 36.6 117 28 143/113 98 3.0 04/17/16 07:03 97 24 98 Nasal Cannula 2.0 04/17/16 04:00 98 Nasal Cannula 2.0 04/17/16 03:56 36.8 105 24 157/91 98 Nasal Cannula 2.0 04/17/16 02:01 102 20 100 Nasal Cannula 3.0 04/17/16 00:06 99 30 158/139 96 BiPAP 30 04/16/16 23:33 37.3 106 20 152/114 94 BiPAP 04/16/16 23:08 117 152/94 04/16/16 22:55 89 100 30 04/16/16 22:15 36.9 96 28 132/107 96 BiPAP 30 04/16/16 20:59 103 04/16/16 20:46 108 20 141/107 97 BiPAP 04/16/16 20:00 106 96 50 04/16/16 18:41 102 28 119/93 98 Nasal Cannula 2.0 04/16/16 17:02 93 Nasal Cannula 4.0 04/16/16 16:58 37.1 94 23 157/106 87 Room Air 04/16/16 16:43 91 Physical Exam General Appearance: WD/WN, no apparent distress Eyes: normal inspection ENT: normal ENT inspection Neck: supple Respiratory/Chest: chest non-tender, + crackles, + rhonchi Cardiovascular: regular rate, rhythm, no edema Abdomen: normal bowel sounds, non tender Extremities: normal range of motion, non-tender, normal inspection Neurologic/Psychiatric: cutter machine II-XII nml as tested, no motor/sensory deficits, alert, oriented x 3 Laboratory Results Last 24 Hours Test 04/16/16 17:31 04/16/16 17:53 04/16/16 17:55 04/16/16 20:52 White Blood Count 5.37 K/uL Red Blood Count 3.11 M/uL Hemoglobin 8.5 g/dL Hematocrit 27.6 % Mean Corpuscular Volume 88.7 fL Mean Corpuscular Hemoglobin 27.3 pg Mean Corpuscular Hemoglobin Concent 30.8 g/dl Platelet Count 286 K/uL Mean Platelet Volume 10.1 fL Neutrophils (%) (Auto) 74.4 % Lymphocytes (%) (Auto) 13.4 % Monocytes (%) (Auto) 10.2 % Eosinophils (%) (Auto) 0.9 % Basophils (%) (Auto) 0.9 % Neutrophils # (Auto) 3.99 K/uL Lymphocytes # (Auto) 0.72 K/uL Monocytes # (Auto) 0.55 K/uL Eosinophils # (Auto) 0.05 K/uL Basophils # (Auto) 0.05 K/uL RDW Standard Deviation 59.4 fL RDW Coefficient of Variation 18.6 % Immature Granulocyte % (Auto) 0.2 % Immature Granulocyte # (Auto) 0.01 K/uL Polychromasia 1+ Ovalocytes 1+ Erythrocyte Sedimentation Rate 35 mm/hr Prothrombin Time 17.9 SECONDS Prothromb Time International Ratio 1.6 Activated Partial Thromboplast Time 27.5 SECONDS Partial Thromboplastin Ratio 1.1 Venous Blood pH 7.39 Venous Blood Partial Pressure CO2 56 mmHg Venous Blood Partial Pressure O2 24 mmHg Venous Blood HCO3 33 mmol/L Venous Blood Oxygen Saturation < 60.0 % Venous Blood Base Excess 7.3 mmol/L Sodium Level 135 mmol/L Potassium Level 4.2 mmol/L Chloride Level 94 mmol/L Carbon Dioxide Level 29 mmol/L Anion Gap 12.0 mmol/L Blood Urea Nitrogen 70 mg/dl Creatinine 2.40 mg/dl Est Creatinine Clear Calc Drug Dose 22.5 ml/min Estimated GFR () 21.4 Estimated GFR (Non- 18.4 BUN/Creatinine Ratio 29.2 Random Glucose 195 mg/dl Calcium Level 8.5 mg/dl Phosphorus Level 4.7 mg/dl Magnesium Level 2.7 mg/dl Total Bilirubin 1.3 mg/dl Aspartate Amino Transf (AST/SGOT) 20 U/L Alanine Aminotransferase (ALT/SGPT) 19 U/L Alkaline Phosphatase 66 U/L Ammonia 22.0 umol/L Total Creatine Kinase 35 U/L Creatine Kinase MB 0.9 ng/ml Creatine Kinase MB Ratio 2.6 Troponin I 0.465 ng/ml C-Reactive Protein 8.21 mg/dl Pro-B-Type Natriuretic Peptide > 85162 pg/ml Total Protein 7.3 gm/dl Albumin 3.1 gm/dl Globulin 4.2 gm/dl Albumin/Globulin Ratio 0.7 Lipase 130 U/L Bedside Lactic Acid Venous 3.19 mmol/L Urine Color YELLOW Urine Appearance CLEAR Urine pH 8.0 Urine Specific [place] 1.009 Urine Protein 2+ Urine Glucose (UA) NEG Urine Ketones NEG Urine Occult Blood NEG Urine Nitrite NEG Urine Bilirubin NEG Urine Urobilinogen NEG Urine Leukocyte Esterase NEG Urine WBC (Auto) 0 /hpf Urine RBC (Auto) 0-4 /hpf Urine Hyaline Casts (Auto) 1-5 /lpf Urine Epithelial Cells (Auto) 5-10 /lpf Urine Bacteria (Auto) NEG Influenza Type A (RT-PCR) Neg for Influ A Influenza Type B (RT-PCR) Neg for Influ B Test 04/16/16 22:45 04/17/16 00:01 04/17/16 05:10 04/17/16 06:40 Troponin I 0.561 ng/ml 0.543 ng/ml Bedside Glucose 145 mg/dl 125 mg/dl White Blood Count 5.27 K/uL Red Blood Count 3.55 M/uL Hemoglobin 9.5 g/dL Hematocrit 31.7 % Mean Corpuscular Volume 89.3 fL Mean Corpuscular Hemoglobin 26.8 pg Mean Corpuscular Hemoglobin Concent 30.0 g/dl RDW Standard Deviation 60.1 fL RDW Coefficient of Variation 18.5 % Platelet Count 307 K/uL Mean Platelet Volume 10.3 fL Sodium Level 136 mmol/L Potassium Level 4.5 mmol/L Chloride Level 94 mmol/L Carbon Dioxide Level 29 mmol/L Anion Gap 13.0 mmol/L Blood Urea Nitrogen 71 mg/dl Creatinine 2.50 mg/dl Est Creatinine Clear Calc Drug Dose 22.2 ml/min Estimated GFR () 20.4 Estimated GFR (Non- 17.6 BUN/Creatinine Ratio 28.2 Random Glucose 112 mg/dl Calcium Level 9.0 mg/dl Magnesium Level 2.9 mg/dl Test 04/17/16 11:00 Bedside Glucose 185 mg/dl Assessment and Plan 80 y/o F with a complex medical history including CHF, COPD, AF, CAD. Recent admission 03/29 for UTI, cellulitis, hypoxia and elevated troponins 2/2 demand ischemia. presents with persistent SOB and was hypoxic on arrival to the ER. She improved markedly with Bipap however and was able to converse at the time of admission. She denies CP or a productive cough - denies N/V/D, dysuria. She was not aware she had had a fever. Initial labs are notable for ARF and an elevated troponin. Initial CXR is consistent with vascular congestion consistent with CHF Hypoxic Respiratory Failure - suspect 2/2 to volume overload vs COPD exacerbation - bipap prn - appreciate pulmonary input - CT thorax reviewed Acute Diastolic CHF - give dose of IV lasix now - hold po lasix COPD - continue nebulizer - con IV steroids q6 hours - appreciate pulmonary input HTN - poorly controlled - contin HCTZ - add hydralazine IV prn BARBARA on CKD - baseline 1.6-2.0 - suspect pre-renal from volume overload - diuresis with IV - check BMP in am Chronically Elevated troponin with hx of CAD - cont ASA, B madelaine -presumably statin-intolerant although this should be confirmed with her primary MD. Atrial Fibrillation -cont metoprolol and eliquis DM - SSI - accuchecks Hypothyroid - cont Synthroid PPx- eliquis Full Code
[2016-04-17] MEDS ORDERED: FUROSEMIDE INJ 40 MG in SYRINGE 0 ML IV ONE (12:30)
[2016-04-17 13:12] LABS: ARTERIAL BLD GAS O2 SATURATION 91.4 % (90-95); ARTERIAL BLOOD GAS BASE EXCESS 5.7 mEq/L (-9-1.8); ARTERIAL BLOOD GAS HCO3 31 mmol/L (19-24); ARTERIAL BLOOD GAS PO2 71 mm/Hg (80-95); ARTERIAL BLOOD GAS pH 7.44 (7.35-7.45)
[2016-04-17 13:13] LABS: ALLEN TEST POS (POS); O2 ADMINISTRATION 3L
--- NOTE | 2016-04-17 14:09 | Pulmonary Consultation ---
History General Date of Service: Apr 17, 2016. Stated Complaint: Copd Exacerbation, Hypoxia HPI The patient is a 80 year old female who presents to [facility] with complaints of Copd Exacerbation, Hypoxia. The patient's primary care provider is Santiago Wall. 80 y/o female with PmHx: CHF (EF=30%),COPD (FEV1: unknown), AF, CAD admitted for through the ED for SOB with hypoxemia. She was recently admitted from 03/28 - for acute on chronic systolic HF, left lower extremity cellulitis (MSSA) , urinary tract infection, atrial fibrillation and CKD stage IV. Patient now shes been continued shortness of breath with dyspnea on minimal exertion over the last 2-3 weeks. She denies: Chest pain, pleurisy, productive cough, fever or chills. Troponin-I: 0.543 BUN/Cr: 71/2.50 Blood gases: VB.04/16/16: 7.39/56--conversion to ABG7.43/46 AB.04/17/16 7.44/46/71/31 (3Lnc) A-a gradient: 57 2.1 7.33/52/132/27 (3Lnc) 3.10 7.34/44/84/24 unknown O2 4.10 7.26/52/79/23 3Lnc Cardiac Echo (03/29/16) LV: EF=35-40%, global hypokinesis RV: Systolic function moderately reduced LA: Moderately dilated RA: Moderately dilated MR: sever mitral regurgitation TV: mild-moderate regurgitation [id number] CXR 04/16/16-1654 Left elevated hemidiaphragm, bilateral cephalization fluid in the minor fissure and parabronchial cuffing CT Thorax 04/16/[address] angiogram 02/10/2015 Lingula 14mm nodule Vascular congestion with crazy paving suggesting volume overload Right-sided pleural effusion possibly loculated with associated atelectasis Historian: patient, EMS Review of Systems Constitutional: reports: malaise, weakness Eyes: reports: no symptoms ENT: reports: no symptoms Cardiovascular: reports: chest tightness Respiratory: reports: SALAZAR, orthopnea, shortness of breath Gastrointestinal: reports: no symptoms Genitourinary - Female: reports: no symptoms Musculoskeletal: reports: no symptoms Integumentary: reports: no symptoms Neurologic: reports: no symptoms Psychiatric: reports: no symptoms Endocrine: no symptoms Hematologic / Lymphatic: no symptoms Allergic / Immunologic: no symptoms Past Medical History Past Medical History: (1) Atrial fibrillation (2) CAD (3) CHF (4) COPD (chronic obstructive pulmonary disease) (5) Depression (6) DM type 2 (diabetes mellitus, type 2) (7) GI bleed (8) HTN (hypertension) (9) Hypothyroidism (10) Gout (11) GERD (12) Bladder spasm Past Surgical History: (1) Aortic valve replacement (2) CABG (3) tonsillectomy (4) PTCA-stent (5) Colonoscopy (6) EGD Family History Heart disease Stroke Social History Hx Tobacco Use In Past Year?: No Smoking Status: Former Smoker Marital status: single Housing status: long term Occupational Status: disabled History of MDRO History of MDRO: No Allergies Coded Allergies: Morphine (Verified Adverse Reaction, Unknown, HALLUCINATIONS, 04/16/16) Current Medications Reported Home Medications Medications Dose Route/Sig Max Daily Dose Days Date Category Dose Instructions Percocet 5MG/325MG (Oxycodone/Acetaminophen) Tab 1 Tablet PO Q6H PRN 04/16/16 Reported PAIN Augmentin 875-125 mg (Amoxicillin & Pot Clavulanate) 1 Tab Tab 1 Tab PO BID 8 04/16/16 Reported Miralax (Polyethylene Glycol 3350) 1 Pow Pow 17 Gm PO DAILY 04/16/16 Reported Protonix (Pantoprazole Sodium) 40 Mg Tab 40 Mg PO DAILY 04/16/16 Reported Cozaar (Losartan Potassium) 100 Mg Tab 100 Mg PO DAILY 04/16/16 Reported TAKE ALONG WITH THE HCTZ TO EQUAL LOSARTAN/HCTZ WHICH IS AN AUTOSUB FOR DIOVAN. Duoneb (Ipratropium-Albuterol) 3 Ml Nebu 1 Treatment INH Q4H 04/16/16 Reported Novolog Flexpen (Insulin Aspart) 100 Units/Ml Inj 1 Dose SQ TIDM PRN 04/16/16 Reported Hydrochlorothiazide 25 Mg Tab 12.5 Mg PO QAM 04/16/16 Reported Glucotrol (Glipizide) 5 Mg Tab 2 Tab PO QAM 04/16/16 Reported Lasix (Furosemide) 40 Mg Tab 40 Mg PO DAILY 04/16/16 Reported Ferrous Gluconate 324 Mg Tab 324 Mg PO TIDM 04/16/16 Reported Docusate Sodium 100 Mg Cap 100 Mg PO BID 04/16/16 Reported Metoprolol Tartrate 50 Mg Tab 50 Mg PO BID 30 04/03/16 Rx Eliquis (Apixaban) 2.5 Mg Tab 2.5 Mg PO BID 30 04/03/16 Rx Citalopram Hydrobromide (Citalopram) 20 Mg Tab 20 Mg PO DAILY 03/28/16 Reported Seroquel (Quetiapine Fumarate) 50 Mg Tab 50 Mg PO HS 12/15/15 Reported Senokot (Senna) 8.6 Mg Tab 8.6 Mg PO NOON 11/24/15 Reported Mag-Ox (Magnesium Oxide) 400 Mg Tab 400 Mg PO BID 11/24/15 Reported Levothyroxine Sodium 175 Mcg Tab 1 Tab PO DAILY 30 11/24/15 Reported Folic Acid 800 Mcg Tab 1 Tab PO DAILY 11/24/15 Reported Aspirin Ec (Aspirin) 81 Mg Tab 81 Mg PO DAILY 11/24/15 Reported Physical Physical Exam Vital Signs: Date Time Temp Pulse Resp B/P Pulse Ox O2 Delivery O2 Flow Rate FiO2 04/17/16 13:49 140/94 04/17/16 11:39 36.6 97 24 153/116 100 3.0 155/114 04/17/16 07:53 36.6 117 28 143/113 98 3.0 04/17/16 07:03 97 24 98 Nasal Cannula 2.0 04/17/16 04:00 98 Nasal Cannula 2.0 04/17/16 03:56 36.8 105 24 157/91 98 Nasal Cannula 2.0 04/17/16 02:01 102 20 100 Nasal Cannula 3.0 04/17/16 00:06 99 30 158/139 96 BiPAP 30 04/16/16 23:33 37.3 106 20 152/114 94 BiPAP 04/16/16 23:08 117 152/94 04/16/16 22:55 89 100 30 04/16/16 22:15 36.9 96 28 132/107 96 BiPAP 30 04/16/16 20:59 103 04/16/16 20:46 108 20 141/107 97 BiPAP 04/16/16 20:00 106 96 50 04/16/16 18:41 102 28 119/93 98 Nasal Cannula 2.0 04/16/16 17:02 93 Nasal Cannula 4.0 04/16/16 16:58 37.1 94 23 157/106 87 Room Air 04/16/16 16:43 91 General Appearance: moderate distress Head: NORMOCEPHALIC, ATRAUMATIC Eyes: PERRLA, NO DISCHARGE, EOMI, SCLERAE NORMAL ENT: NORMAL EAR EXAM, NORMAL NASAL EXAM, NORMAL MOUTH EXAM, NORMAL THROAT EXAM , NORMAL DENTAL EXAM Neck: NORMAL RANGE OF MOTION, TRACHEA MIDLINE, NO STRIDOR Respiratory: other (crackles bilaterally greatest at the bases) Cardiovasular: REGULAR RATE/RHYTHM, JVD Abdomen: NON TENDER, NORMAL BOWEL SOUNDS, NO REBOUND, NO MASSES, NO GUARDING Genitourinary - Female: EXTERNAL GENITALIA NORMAL Back: NORMAL INSPECTION, NO MIDLINE TENDERNESS, NO CVA TENDERNESS, NO PARAVERTEBRAL TTP Upper Extremities: NO EDEMA, NO DEFORMITY, NORMAL ROM Lower Extremities: NO EDEMA, NO DEFORMITY, NORMAL ROM, other (should note dependent pitting edema around the rectal region) Pulses: carotid (R) (2+), carotid (L) (2+), dorsalis pedis (R) (1+), dorsalis pedis (L) (1+) Neuro: ALERT, ORIENTED x 3, NORMAL MOTOR EXAM, NORMAL SENSATION Reflexes: biceps (R) (2+), bicpes (L) (2+), patellar (L) Babinski Testing: right (downgoing), left (downgoing) Psychiatric: NORMAL AFFECT, NO SUICIDAL IDEATION Diagnostics Labs Results Past 24 Hours Test 04/16/16 17:31 04/16/16 17:53 04/16/16 17:55 04/16/16 20:52 Range/Units White Blood Count 5.37 4.8-10.8 K/uL Red Blood Count 3.11 4.2-5.4 M/uL Hemoglobin 8.5 12.0-16.0 g/dL Hematocrit 27.6 37-47 % Mean Corpuscular Volume 88.7 80-100 fL Mean Corpuscular Hemoglobin 27.3 25-34 pg Mean Corpuscular Hemoglobin Concent 30.8 32-36 g/dl Platelet Count 286 130-400 K/uL Mean Platelet Volume 10.1 7.4-10.4 fL Neutrophils (%) (Auto) 74.4 % Lymphocytes (%) (Auto) 13.4 % Monocytes (%) (Auto) 10.2 % Eosinophils (%) (Auto) 0.9 % Basophils (%) (Auto) 0.9 % Neutrophils # (Auto) 3.99 1.4-6.5 K/uL Lymphocytes # (Auto) 0.72 1.2-3.4 K/uL Monocytes # (Auto) 0.55 0.11-0.59 K/uL Eosinophils # (Auto) 0.05 0-0.5 K/uL Basophils # (Auto) 0.05 0-0.2 K/uL RDW Standard Deviation 59.4 36.4-46.3 fL RDW Coefficient of Variation 18.6 11.5-14.5 % Immature Granulocyte % (Auto) 0.2 % Immature Granulocyte # (Auto) 0.01 0.00-0.02 K/uL Polychromasia 1+ Ovalocytes 1+ Erythrocyte Sedimentation Rate 35 0-21 mm/hr Prothrombin Time 17.9 9.0-12.0 SECONDS Prothromb Time International Ratio 1.6 0.9-1.1 Activated Partial Thromboplast Time 27.5 21.0-31.0 SECONDS Partial Thromboplastin Ratio 1.1 Venous Blood pH 7.39 7.36-7.41 Venous Blood Partial Pressure CO2 56 38.0-50.0 mmHg Venous Blood Partial Pressure O2 24 mmHg Venous Blood HCO3 33 mmol/L Venous Blood Oxygen Saturation < 60.0 % Venous Blood Base Excess 7.3 mmol/L Sodium Level 135 136-145 mmol/L Potassium Level 4.2 3.5-5.1 mmol/L Chloride Level 94 98-107 mmol/L Carbon Dioxide Level 29 21-32 mmol/L Anion Gap 12.0 3-11 mmol/L Blood Urea Nitrogen 70 7-18 mg/dl Creatinine 2.40 0.60-1.20 mg/dl Est Creatinine Clear Calc Drug Dose 22.5 ml/min Estimated GFR () 21.4 Estimated GFR (Non- 18.4 BUN/Creatinine Ratio 29.2 10-20 Random Glucose 195 70-99 mg/dl Calcium Level 8.5 8.5-10.1 mg/dl Phosphorus Level 4.7 2.5-4.9 mg/dl Magnesium Level 2.7 1.8-2.4 mg/dl Total Bilirubin 1.3 0.2-1 mg/dl Aspartate Amino Transf (AST/SGOT) 20 15-37 U/L Alanine Aminotransferase (ALT/SGPT) 19 12-78 U/L Alkaline Phosphatase 66 45-117 U/L Ammonia 22.0 11-32 umol/L Total Creatine Kinase 35 26-192 U/L Creatine Kinase MB 0.9 0.5-3.6 ng/ml Creatine Kinase MB Ratio 2.6 0-3.0 Troponin I 0.465 0-0.045 ng/ml C-Reactive Protein 8.21 0-0.29 mg/dl Pro-B-Type Natriuretic Peptide > 43988 0-1800 pg/ml Total Protein 7.3 6.4-8.2 gm/dl Albumin 3.1 3.4-5.0 gm/dl Globulin 4.2 2.5-4.0 gm/dl Albumin/Globulin Ratio 0.7 0.9-2 Lipase 130 73-393 U/L Bedside Lactic Acid Venous 3.19 0.90-1.70 mmol/L Urine Color YELLOW Urine Appearance CLEAR CLEAR Urine pH 8.0 4.5-7.5 Urine Specific [place] 1.009 1.000-1.030 Urine Protein 2+ NEG Urine Glucose (UA) NEG NEG Urine Ketones NEG NEG Urine Occult Blood NEG NEG Urine Nitrite NEG NEG Urine Bilirubin NEG NEG Urine Urobilinogen NEG NEG Urine Leukocyte Esterase NEG NEG Urine WBC (Auto) 0 0-5 /hpf Urine RBC (Auto) 0-4 0-4 /hpf Urine Hyaline Casts (Auto) 1-5 0-5 /lpf Urine Epithelial Cells (Auto) 5-10 0-5 /lpf Urine Bacteria (Auto) NEG NEG Influenza Type A (RT-PCR) Neg for Influ A NEG Influenza Type B (RT-PCR) Neg for Influ B NEG Test 04/16/16 22:45 04/17/16 00:01 04/17/16 05:10 04/17/16 06:40 Range/Units Troponin I 0.561 0.543 0-0.045 ng/ml Bedside Glucose 145 125 70-90 mg/dl White Blood Count 5.27 4.8-10.8 K/uL Red Blood Count 3.55 4.2-5.4 M/uL Hemoglobin 9.5 12.0-16.0 g/dL Hematocrit 31.7 37-47 % Mean Corpuscular Volume 89.3 80-100 fL Mean Corpuscular Hemoglobin 26.8 25-34 pg Mean Corpuscular Hemoglobin Concent 30.0 32-36 g/dl RDW Standard Deviation 60.1 36.4-46.3 fL RDW Coefficient of Variation 18.5 11.5-14.5 % Platelet Count 307 130-400 K/uL Mean Platelet Volume 10.3 7.4-10.4 fL Sodium Level 136 136-145 mmol/L Potassium Level 4.5 3.5-5.1 mmol/L Chloride Level 94 98-107 mmol/L Carbon Dioxide Level 29 21-32 mmol/L Anion Gap 13.0 3-11 mmol/L Blood Urea Nitrogen 71 7-18 mg/dl Creatinine 2.50 0.60-1.20 mg/dl Est Creatinine Clear Calc Drug Dose 22.2 ml/min Estimated GFR () 20.4 Estimated GFR (Non- 17.6 BUN/Creatinine Ratio 28.2 10-20 Random Glucose 112 70-99 mg/dl Calcium Level 9.0 8.5-10.1 mg/dl Magnesium Level 2.9 1.8-2.4 mg/dl Test 04/17/16 11:00 04/17/16 13:02 Range/Units Bedside Glucose 185 70-90 mg/dl Arterial Blood pH 7.44 7.35-7.45 Arterial Blood Partial Pressure CO2 46 35-46 mmHg Arterial Blood Partial Pressure O2 71 80-95 mm/Hg Arterial Blood HCO3 31 19-24 mmol/L Arterial Blood Oxygen Saturation 91.4 90-95 % Arterial Blood Base Excess 5.7 -9-1.8 mEq/L Arterial Blood Gas Delivery 3L Timbo Test POS POS Microbiology Results 04/16/16 Blood Culture, Received Pending 04/16/16 Blood Culture, Received Pending 04/17/16 MRSA DNA Surveillance Screen - Final, Complete Specimen Negative for MRSA by DNA Probe Diagnostic Radiology CXR 04/16/16-1654 Left elevated hemidiaphragm, bilateral cephalization fluid in the minor fissure and parabronchial cuffing CT Thorax 04/16/[address] angiogram 02/10/2015 Lingula 14mm nodule Vascular congestion with crazy paving suggesting volume overload Right-sided pleural effusion possibly loculated with associated atelectasis EKG EKG to 06/30/16: Atrial fibrillation with RVR rate of 108, incomplete right bundle branch block Impression Assessment and Plan 80-year-old female here for acute on chronic respiratory insufficiency: Hypoxia: Hypoxia secondary to heart failure at this time. Ultrasound evaluation of the thorax shows bilateral pleural effusions left greater than right with B- lines throughout the hemithoraces even at the apices highly suggestive of pulmonary fluid. At this time the patient will be a difficult diuresis as she has severe kidney dysfunction but diuresis would be the most appropriate action at this time. Probably be very beneficial to start BiPAP for afterload reduction but the patient has notable fear of the CPAP/BiPAP device and we'll not initiate, refuses at this time. We can start the patient on high flow oxygen system is not optimal as we do not understand patient's underlying COPD which could increase the VQ mismatching will continue to have to monitor. I will also decrease the steroid dose as the higher doses will most likely initiate volume retention exacerbate current condition. Would be beneficial to obtain the patient's previous pulmonary function test for evaluation.
[2016-04-17] MEDS: QUETIAPINE FUMARATE 25 MG TAB PO SCH (21:25)
[2016-04-18] VITALS (14 sets, daily range): BP systolic 97–145; BP diastolic 52–88; PULSE 61–84; TEMP 35.9–36.8; O2SAT 93–97
[2016-04-18] MEDS: ALBUT/IPRATROP 3MG/0.5MG NEB 3 ML VIAL INH SCH ×4 (02:11→19:53)
[2016-04-18] MEDS: LEVOTHYROXINE 175 MCG TAB PO SCH (05:41)
[2016-04-18] MEDS: INSULIN ASPART 100 UNITS/ML 3 ML PEN SC SCH ×4 (07:00→20:42)
[2016-04-18] MEDS: METHYLPREDNISOLONE IV 40 MG in SYRINGE 0 ML IV SCH (07:37)
[2016-04-18] MEDS: FoLIC ACID TAB 400 MCG TAB PO SCH (07:38)
[2016-04-18] MEDS: ASPIRIN 81 MG ECTAB PO SCH (07:38)
[2016-04-18] MEDS: SENNA 8.6 MG TAB PO SCH (07:38)
[2016-04-18] MEDS: HYDROCHLOROTHIAZIDE 25 MG TAB PO SCH (07:38)
[2016-04-18] MEDS: DOCUSATE SODIUM 100 MG CAP PO SCH ×2 (07:38→20:37)
[2016-04-18] MEDS: CITALOPRAM 20 MG TAB PO SCH (07:38)
[2016-04-18] MEDS: AMOXICILLIN/CLAVULANATE TAB 500 MG TAB PO SCH ×2 (07:39→16:44)
[2016-04-18] MEDS: MAGNESIUM OXIDE 400 MG TAB PO SCH ×2 (07:39→20:39)
[2016-04-18] MEDS: METOPROLOL TARTRATE 50 MG TAB PO SCH ×2 (07:40→20:39)
[2016-04-18] MEDS: APIXABAN 2.5 MG TAB PO SCH ×2 (07:40→20:38)
[2016-04-18] MEDS: POLYETHYLENE (MIRALAX) 17 GM PACK PO SCH (07:40)
[2016-04-18] MEDS: PANTOprazole SOD 40 MG TAB PO SCH (07:40)
[2016-04-18] MEDS: GUAIFENESIN 600 MG TABCR PO SCH ×2 (08:16→20:39)
[2016-04-18] MEDS: BENZONATATE 100MG CAP PO SCH ×3 (08:16→20:41)
--- NOTE | 2016-04-18 09:05 | PROGRESS NOTE ---
DATE: 04/18/2016 The patient is comfortable this morning. She denies any shortness of breath or chest pain. Has been sleeping most of the shift according to the nurses' notes. She does state that she is hungry again this morning. Rhythm has been stable with atrial fibrillation. She is arousable, but drifts off to sleep rather readily. PHYSICAL EXAMINATION: VITAL SIGNS: Stable. Blood pressure 127/79, oxygen saturation 95% on 2 liters. I\T\O is 1500 mL out. Weight 102.4 kilograms, that is up from 100.1 kilograms on the 4th. HEENT: Eye exam is unremarkable. Nose exam normal. Posterior pharynx normal. There is no evidence of thrush. There is no neck vein distention or HJR. HEART: Irregular rhythm. Grade 2/6 systolic murmur heard at the apex radiating into the left axilla. LUNGS: Reveal decreased breath sounds bilaterally, otherwise are clear. ABDOMEN: Soft, nontender. EXTREMITIES: She has no cyanosis, clubbing or edema. CT scan shows a small right pleural effusion with interstitial edema perinephric infiltrate of the left kidney and mild wall thickening of the components of the colon. LABORATORY DATA: White count yesterday was 5.27, hematocrit 31.7%, platelet count 307,000. Blood gas yesterday revealed pH 7.44, pCO2 of 46, pO2 of 71 on 3 liters. Saturation looks good. PRP is unremarkable with a CO2 of 29, BUN 71, creatinine 2.5. Urinalysis revealed no significant inflammatory cells. Influenza A and B PCR negative. Blood cultures are negative. IMPRESSION: 1. Chronic obstructive lung disease exacerbation. 2. Chronic atrial fibrillation with mitral regurgitation. 3. Cardiomyopathy. 4. Congestive heart failure. 5. Chronic kidney disease stage IV. RECOMMENDATIONS: 1. At this point, I continue with the present medications. I think the methylprednisolone could be decreased to 20 mg IV q. 8 hours and eventually she can be transferred over to prednisone with a taper over about a week to 10 days. 2. Increase activity. Attempt to get the patient out of bed as much as possible. 3. Continue on the DuoNeb 4 times a day and then q. 4 hours p.r.n. 4. At this point, I discontinued the morphine, may be causing some of her drowsiness today. If she would not improve, I suggest checking a blood gas to ensure she has not developed significant hypercapnia. I think the Seroquel probably could be decreased slightly as well. Overall, she is stable from pulmonary standpoint.
--- NOTE | 2016-04-18 09:58 | Clinical Documentation Query ---
CLINICAL DOCUMENTATION QUERY Dr. MURRAY, In your clinical opinion is this patient being managed for: (X ) Metabolic encephalopathy ( ) Other explanation of clinical findings (Please Explain) ( ) Unable to determine (Please Define) ( ) Need to Discuss ( ) Not Agree The medical record reflects the following clinical findings, treatment, and risk factors. Clinical Indicators: 80 yo female presented with hypoxia and hypoglycemic episodes at [facility]. O2 sat 87% on RA, Cr 2.4 up from baseline of 1.6-2.0, BNP > 04011. Pt arrived listless to ER and not fully oriented at time of admission to tele unit. Pt's orientation status has returned to her baseline of A/O x 4. Treatment:O2 support/BIPAP, IV solumedrol, IV lasix, tele monitoring, pulmonary consult, hypoglycemia was treated at rehab center. Risk Factors: acute CHF, acute respiratory failure, acute renal failure Please clarify and document your clinical opinion in the progress notes and discharge summary. Terms such as "probable", "suspected", "likely", "questionable", "possible", or "still to be ruled out" are acceptable. IF IN AGREEMENT, YOU MUST DOCUMENT ABOVE DIAGNOSTIC STATEMENT IN DAILY PROGRESS NOTES AND DISCHARGE SUMMARY. This document is not part of the patient's record. Thank You, Linette Degroot, PETER [phone]
--- NOTE | 2016-04-18 10:50 | Progress Note ---
Subjective Date of Service: Apr 18, 2016. Subjective Pt evaluation today including: conversation w/ patient, physical exam, chart review, lab review, review of studies, review of inpatient medication list Problem List Medical Problems: (1) CHF (congestive heart failure) Status: Acute (2) COPD exacerbation Status: Acute (3) COPD exacerbation Status: Acute (4) Elevated troponin Status: Acute (5) Elevated troponin Status: Acute (6) Elevated troponin Status: Acute (7) Elevated troponin Status: Acute (8) Hypoxia Status: Acute (9) PNA (pneumonia) Status: Acute (10) Pulmonary edema Status: Acute (11) Respiratory failure Status: Acute (12) Shortness of breath Status: Acute (13) Shortness of breath Status: Acute Review of Systems Constitutional: No chills, No fever Respiratory: + cough, + shortness of breath, + wheezing, No dyspnea on exertion , No sputum Cardiac: No chest pain, No orthopnea Abdomen: No constipation, No diarrhea, No nausea, No pain, No vomiting Musculoskeletal: No joint pain, No muscle pain Female : No dysuria, No urinary frequency Objective Vital Signs Date Time Temp Pulse Resp B/P Pulse Ox O2 Delivery O2 Flow Rate FiO2 04/18/16 08:00 36.6 75 20 125/63 94 Nasal Cannula 2.0 04/18/16 08:00 93 Nasal Cannula 2.0 04/18/16 07:02 61 16 93 Nasal Cannula 2.0 04/18/16 04:00 95 Nasal Cannula 2.0 04/18/16 04:00 36.4 65 18 127/79 95 Nasal Cannula 2.0 04/18/16 02:11 62 16 95 Nasal Cannula 2.0 04/18/16 01:19 36.6 63 124/66 96 Nasal Cannula 2.0 04/18/16 00:00 35.9 63 18 97/52 96 Nasal Cannula 2.0 04/18/16 00:00 96 Nasal Cannula 2.0 04/17/16 20:00 94 Nasal Cannula 3.0 04/17/16 19:48 37.2 71 20 130/81 94 Nasal Cannula 3.0 04/17/16 18:38 68 14 94 Nasal Cannula 3.0 04/17/16 16:00 Nasal Cannula 2.0 04/17/16 15:22 36.9 89 20 150/97 94 Nasal Cannula 3.0 04/17/16 14:05 83 20 96 Nasal Cannula 3.0 04/17/16 13:49 140/94 04/17/16 12:00 Nasal Cannula 2.0 04/17/16 11:39 36.6 97 24 153/116 100 3.0 155/114 Physical Exam General Appearance: WD/WN, + mild distress Neck: supple, no adenopathy Respiratory/Chest: + decreased breath sounds, + wheezing Cardiovascular: no gallop, no JVD Abdomen: non tender, soft Neurologic/Psychiatric: alert, oriented x 3 Laboratory Results Last 24 Hours Test 04/17/16 11:00 04/17/16 13:02 04/17/16 16:25 04/17/16 21:02 Bedside Glucose 185 mg/dl 180 mg/dl 167 mg/dl Arterial Blood pH 7.44 Arterial Blood Partial Pressure CO2 46 mmHg Arterial Blood Partial Pressure O2 71 mm/Hg Arterial Blood HCO3 31 mmol/L Arterial Blood Oxygen Saturation 91.4 % Arterial Blood Base Excess 5.7 mEq/L Arterial Blood Gas Delivery 3L Timbo Test POS Test 04/18/16 06:36 Bedside Glucose 168 mg/dl Assessment and Plan 80 y/o F with a complex medical history including CHF, COPD, AF, CAD. Recent admission 03/29 for UTI, cellulitis, hypoxia and elevated troponins 2/2 demand ischemia. presents with persistent SOB and was hypoxic on arrival to the ER. She improved markedly with BiPaP however and was able to converse at the time of admission. She denies CP or a productive cough - denies N/V/D, dysuria. She was not aware she had had a fever. Initial labs are notable for ARF and an elevated troponin. Initial CXR is consistent with vascular congestion consistent with CHF Acute on chronic hypoxic Respiratory Failure - suspect 2/2 to volume overload vs COPD exacerbation - bipap prn - appreciate pulmonary input, cont to wean steroids - CT thorax reviewed - Cont mucinex and tessalon perles for cough Acute Diastolic CHF - given 1 dose of IV lasix - hold po lasix COPD - continue nebulizer - con IV steroids q8 hours - appreciate pulmonary input HTN - poorly controlled - contin HCTZ - add hydralazine IV prn BARBARA on CKD - baseline 1.6-2.0 - suspect pre-renal from volume overload - diuresis with IV - check BMP in am Chronically Elevated troponin with hx of CAD - cont ASA, B madelaine -presumably statin-intolerant although this should be confirmed with her primary MD. Atrial Fibrillation -cont metoprolol and eliquis DM - SSI - accuchecks Hypothyroid - cont Synthroid PPx- eliquis Full Code
[2016-04-18] MEDS: METHYLPREDNISOLONE IV 20 MG in SYRINGE 0 ML IV SCH ×2 (12:43→20:37)
[2016-04-18] MEDS: OXYCODONE/ACETAMINOPHEN 5-325 TAB PO PRN (12:45)
[2016-04-18] MEDS: QUETIAPINE FUMARATE 25 MG TAB PO SCH (20:40)
[2016-04-19] VITALS (15 sets, daily range): BP systolic 111–136; BP diastolic 68–82; PULSE 65–83; TEMP 36.3–37; O2SAT 91–99
[2016-04-19] MEDS: ALBUT/IPRATROP 3MG/0.5MG NEB 3 ML VIAL INH SCH ×4 (01:44→20:32)
[2016-04-19] MEDS: LEVOTHYROXINE 175 MCG TAB PO SCH (05:58)
[2016-04-19] MEDS: GUAIFENESIN 600 MG TABCR PO SCH ×2 (07:38→20:33)
[2016-04-19] MEDS: METOPROLOL TARTRATE 50 MG TAB PO SCH ×2 (07:39→20:32)
[2016-04-19] MEDS: APIXABAN 2.5 MG TAB PO SCH ×2 (07:39→20:32)
[2016-04-19] MEDS: FoLIC ACID TAB 400 MCG TAB PO SCH (07:39)
[2016-04-19] MEDS: SENNA 8.6 MG TAB PO SCH (07:39)
[2016-04-19] MEDS: ASPIRIN 81 MG ECTAB PO SCH (07:39)
[2016-04-19] MEDS: MAGNESIUM OXIDE 400 MG TAB PO SCH ×2 (07:39→20:32)
[2016-04-19] MEDS: CITALOPRAM 20 MG TAB PO SCH (07:39)
[2016-04-19] MEDS: HYDROCHLOROTHIAZIDE 25 MG TAB PO SCH (07:39)
[2016-04-19] MEDS: DOCUSATE SODIUM 100 MG CAP PO SCH ×2 (07:39→20:31)
[2016-04-19] MEDS: PANTOprazole SOD 40 MG TAB PO SCH (07:40)
[2016-04-19] MEDS: BENZONATATE 100MG CAP PO SCH ×3 (07:40→20:33)
[2016-04-19] MEDS: METHYLPREDNISOLONE IV 20 MG in SYRINGE 0 ML IV SCH (07:40)
[2016-04-19] MEDS: POLYETHYLENE (MIRALAX) 17 GM PACK PO SCH (07:40)
[2016-04-19] MEDS: AMOXICILLIN/CLAVULANATE TAB 500 MG TAB PO SCH ×2 (07:40→17:51)
[2016-04-19] MEDS: INSULIN ASPART 100 UNITS/ML 3 ML PEN SC SCH ×4 (07:42→20:37)
--- NOTE | 2016-04-19 10:20 | PROGRESS NOTE ---
DATE: 04/19/2016 HISTORY OF PRESENT ILLNESS: The patient is comfortable this morning sitting up in bed. She states she feels better than she did when she was first admitted to the hospital. She denies cough or significant sputum production. She slept fairly well. Rhythm remains in atrial fibrillation. MEDICATIONS: Noted. PHYSICAL EXAMINATION: VITAL SIGNS: Blood pressure is 132/72, respiratory rate 18, oxygen saturation is 98% on 2 liters. I\T\O is 915 in and 600 out. Weight stable 102 kilograms. GENERAL: According to nurses' note, she had a fairly good night last night, resting in bed, difficulty with eating with coughing, was able to drink liquids without difficulty. Goel is in place. HEENT AND NECK: Unremarkable. No neck vein distention or HJR. No adenopathy is noted. Expansion of the thorax is good with deep inspiration. HEART: Irregular rhythm, 2/6 systolic murmur heard at the apex in the left axilla. LUNGS: Reveal decreased breath sounds bilaterally, otherwise are clear. ABDOMEN: Soft, nontender. EXTREMITIES: She has no cyanosis, clubbing or edema. LABORATORY DATA: Sugars have been in a 192 range to 249 range. Blood cultures are negative from the 4th. IMPRESSION: 1. Chronic obstructive pulmonary disease with exacerbation. 2. Congestive heart failure. 3. Chronic atrial fibrillation with severe mitral regurgitation. 4. Cardiomyopathy. RECOMMENDATIONS: 1. Continue with her present medications and follow her PRP carefully. 2. At this point, I think the methylprednisolone could be stopped. She could be placed on 20 mg of prednisone with a taper over about a week to 10 days. I would continue on her inhalers including the DuoNeb 4 times a day and q. 4 hours p.r.n. and that can be changed to Combivent Respimat 1 puff 4 times a day and she can use albuterol as needed as well. Overall, she is stable.
--- NOTE | 2016-04-19 10:50 | Pharmacy Progress Note ---
Glycemic Control: Initial Note Date of Service Apr 19, 2016. Scope Glycemic Pharmacist to provide recommendations to improve glycemic control (all ICU patients are screened for hyperglycemia and treatment recommendations are provided per protocol). Pt identified with hyperglycemia (BSG above 180) while admitted [place] [facility] Subjective The patient is a 80 year old female admitted on Apr 16, 2016 at 21:20 for acute on chronic respiratory failure likely secondary to COPD exacerbation + fluid overload. Patient's past medical history is significant for type 2 diabetes mellitus. Objective Height (Feet): 5 Height (Inches): 8.00 Weight (Kilograms): 102.000 Accuchecks BSG (last 24hrs): Test 04/18/16 11:34 04/18/16 16:08 04/18/16 20:20 04/19/16 06:39 Bedside Glucose 210 mg/dl (70-90) 192 mg/dl (70-90) 259 mg/dl (70-90) 249 mg/dl (70-90) Recent Pertinent Medications Outpatient Anti-diabetic Regimen: * Glipizide 10mg PO daily * Novolog TID w/ meals * A1c = 6% 03/30/16 The patient is currently receiving: * Basal Insulin: none * Correctional Insulin: Novolog Correction per scale ACHS Goal Range: Low 120 mg/dL - High 160 mg/dL Correction Factor: 40 mg/dL/unit * Prandial Insulin: none * Oral Agents: none currently Risk Factors for Insulin Resistance: * Steroids: Solu-Medrol 20mg IV TID * Infection: receiving Augmentin for COPD exac * Diet: ordered T2DM / AHA diet Assessment & Plan ASSESSMENT: 04/19/16 * Relatively well controlled type 2 diabetic managed with Novolog and glipizide prior to admission * Glipizide currently on hold, Novolog correction factor ordered * Pharmacy has followed this patient on prior admissions * BSGs trended into the mid-200's over the last 24 hrs, likely due to lack of basal and prandial insulin w/ continued steroid administration * Fasting BSG 249 this AM - would recommend adding Lantus insulin in BID dose to allow for easier titration as steroids tapered * Novolog CF dose should be increased and carb ratio added while on current steroid dose RECOMMEND: * Holding glipizide * Adding Lantus 10 units SQ BID * Changing correction factor 18 mg/dl/unit * Adding carb ratio 1 unit per 6 grams CHO consumed * Continuing goal range Low 120 mg/dL - High 160 mg/dL Pharmacy will continue to provide recommendations in EMR while patient admitted to 1E/2E. Physicians may request pharmacy to continue to follow patient when transferred out of the ICU and/or consult pharmacy to write glycemic control orders * Please note that the plan above was derived based on current level of insulin resistance and hospital stress. These recommendations are appropriate for inpatient admission only. Plan of care upon discharge will need to be reassessed to avoid potential outpatient hypo/hyperglycemia. Thank you.
--- NOTE | 2016-04-19 11:44 | Progress Note ---
Subjective Date of Service: Apr 19, 2016. Subjective Pt evaluation today including: conversation w/ patient, physical exam, chart review, lab review, review of studies, review of inpatient medication list Problem List Medical Problems: (1) CHF (congestive heart failure) Status: Acute (2) COPD exacerbation Status: Acute (3) COPD exacerbation Status: Acute (4) Elevated troponin Status: Acute (5) Elevated troponin Status: Acute (6) Elevated troponin Status: Acute (7) Elevated troponin Status: Acute (8) Hypoxia Status: Acute (9) PNA (pneumonia) Status: Acute (10) Pulmonary edema Status: Acute (11) Respiratory failure Status: Acute (12) Shortness of breath Status: Acute (13) Shortness of breath Status: Acute Review of Systems Constitutional: No chills, No fever Respiratory: No cough, No dyspnea on exertion, No shortness of breath, No sputum, No wheezing Cardiac: No chest pain, No orthopnea Abdomen: No constipation, No diarrhea, No nausea, No pain, No vomiting Musculoskeletal: No joint pain, No muscle pain Female : No dysuria, No urinary frequency Neurologic: No numbness/tingling, No weakness Objective Vital Signs Date Time Temp Pulse Resp B/P Pulse Ox O2 Delivery O2 Flow Rate FiO2 04/19/16 11:15 36.6 66 18 132/68 91 Nasal Cannula 2.0 04/19/16 10:17 Nasal Cannula 2.0 04/19/16 08:00 Nasal Cannula 2.0 04/19/16 07:35 36.6 70 18 132/72 98 04/19/16 07:12 67 16 98 Nasal Cannula 2.0 04/19/16 04:21 36.5 66 18 121/76 96 Nasal Cannula 2.0 04/19/16 04:00 96 Nasal Cannula 2.0 04/19/16 01:44 74 16 97 Nasal Cannula 2.0 04/19/16 00:34 36.4 65 19 125/82 99 Nasal Cannula 2.0 04/19/16 00:01 99 Nasal Cannula 2.0 04/18/16 20:04 36.6 71 20 144/88 96 2.0 04/18/16 20:00 96 Nasal Cannula 2.0 04/18/16 19:53 70 16 97 Nasal Cannula 2.0 04/18/16 16:00 93 Nasal Cannula 2.0 04/18/16 15:55 36.4 84 18 135/77 96 2.0 04/18/16 14:08 70 16 97 Nasal Cannula 2.0 04/18/16 12:12 93 Nasal Cannula 2.0 04/18/16 12:00 36.8 69 18 122/73 95 Nasal Cannula 3.0 Physical Exam General Appearance: WD/WN, no apparent distress Neck: supple, no adenopathy Respiratory/Chest: lungs clear, normal breath sounds Cardiovascular: no edema, no gallop Abdomen: non tender, soft Neurologic/Psychiatric: alert, normal mood/affect Laboratory Results Last 24 Hours Test 04/18/16 11:34 04/18/16 16:08 04/18/16 20:20 04/19/16 06:39 Bedside Glucose 210 mg/dl 192 mg/dl 259 mg/dl 249 mg/dl Test 04/19/16 11:09 Bedside Glucose 196 mg/dl Assessment and Plan 80 y/o F with a complex medical history including CHF, COPD, AF, CAD. Recent admission 03/29 for UTI, cellulitis, hypoxia and elevated troponins 2/2 demand ischemia. presents with persistent SOB and was hypoxic on arrival to the ER. She improved markedly with BiPaP however and was able to converse at the time of admission. She denies CP or a productive cough - denies N/V/D, dysuria. She was not aware she had had a fever. Initial labs are notable for ARF and an elevated troponin. Initial CXR is consistent with vascular congestion consistent with CHF Acute on chronic hypoxic Respiratory Failure - suspect 2/2 to volume overload vs COPD exacerbation - bipap prn - appreciate pulmonary input, cont to wean steroids, pred taper on discharge - CT thorax reviewed - Cont mucinex and tessalon perles for cough Metabolic encephalopathy likely secondary to hypoxia and hypoglycemic episodes, now resolved Acute Diastolic CHF - given 1 dose of IV lasix - hold po lasix COPD - continue nebulizer - con IV steroids q8 hours - appreciate pulmonary input HTN - poorly controlled - contin HCTZ - add hydralazine IV prn BARBARA on CKD - baseline 1.6-2.0 - suspect pre-renal from volume overload - diuresis with IV - check BMP in am Chronically Elevated troponin with hx of CAD - cont ASA, B madelaine -presumably statin-intolerant although this should be confirmed with her primary MD. Atrial Fibrillation -cont metoprolol and eliquis DM - SSI - accuchecks Hypothyroid - cont Synthroid PPx- eliquis Full Code Dispo: Awaiting PT/OT, likely rehab
[2016-04-19] MEDS: OXYCODONE/ACETAMINOPHEN 5-325 TAB PO PRN (20:31)
[2016-04-19] MEDS: QUETIAPINE FUMARATE 25 MG TAB PO SCH (20:35)
[2016-04-20] VITALS (15 sets, daily range): BP systolic 99–136; BP diastolic 63–85; PULSE 66–90; TEMP 36.4–37.2; O2SAT 79–100
[2016-04-20] MEDS: ALBUT/IPRATROP 3MG/0.5MG NEB 3 ML VIAL INH SCH ×4 (01:51→21:03)
[2016-04-20 06:44] LABS: CREATININE 2.2 mg/dl (0.60-1.20)
[2016-04-20] MEDS: LEVOTHYROXINE 175 MCG TAB PO SCH (06:52)
[2016-04-20] MEDS: DOCUSATE SODIUM 100 MG CAP PO SCH ×2 (08:15→20:49)
[2016-04-20] MEDS: ASPIRIN 81 MG ECTAB PO SCH (08:15)
[2016-04-20] MEDS: FoLIC ACID TAB 400 MCG TAB PO SCH (08:15)
[2016-04-20] MEDS: SENNA 8.6 MG TAB PO SCH (08:16)
[2016-04-20] MEDS: HYDROCHLOROTHIAZIDE 25 MG TAB PO SCH (08:16)
[2016-04-20] MEDS: AMOXICILLIN/CLAVULANATE TAB 500 MG TAB PO SCH ×2 (08:16→17:23)
[2016-04-20] MEDS: CITALOPRAM 20 MG TAB PO SCH (08:16)
[2016-04-20] MEDS: BENZONATATE 100MG CAP PO SCH ×3 (08:16→20:50)
[2016-04-20] MEDS: GUAIFENESIN 600 MG TABCR PO SCH ×2 (08:17→20:49)
[2016-04-20] MEDS: MAGNESIUM OXIDE 400 MG TAB PO SCH ×2 (08:17→20:51)
[2016-04-20] MEDS: PANTOprazole SOD 40 MG TAB PO SCH (08:17)
[2016-04-20] MEDS: POLYETHYLENE (MIRALAX) 17 GM PACK PO SCH (08:17)
[2016-04-20] MEDS: METOPROLOL TARTRATE 50 MG TAB PO SCH ×2 (08:17→20:51)
[2016-04-20] MEDS: APIXABAN 2.5 MG TAB PO SCH ×2 (08:20→20:50)
[2016-04-20] MEDS ORDERED: SODIUM CHLORIDE 0.65% NA SOLN 45 ML (OCEAN) ONE (08:24)
[2016-04-20] MEDS: INSULIN ASPART 100 UNITS/ML 3 ML PEN SC SCH ×4 (08:30→20:56)
[2016-04-20] MEDS ORDERED: NURSING DECISION MEDICATION ORDER SCH (08:45)
[2016-04-20] MEDS ORDERED: SODIUM CHLORIDE 0.65% NA SOLN 45 ML (OCEAN) PRN (08:45)
--- NOTE | 2016-04-20 11:44 | DIAGNOSTIC IMAGING REPORT ---
CHEST ONE VIEW PORTABLE CLINICAL HISTORY: Increased dyspnea dyspnea COMPARISON STUDY: 04/16/2016 FINDINGS: Moderately diminished pulmonary vasculature compared to the prior study. Cardiac size is also somewhat diminished. 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 Diaphragms are smooth. IMPRESSION: Improving congestive failure/pulmonary edema. Electronically signed by: Lito Fajardo M.D. 04/20/2016 11:43 AM Dictated Date/Time: 04/20/2016 11:42 AM
--- NOTE | 2016-04-20 15:39 | Progress Note ---
Subjective Date of Service: Apr 20, 2016. Subjective Pt evaluation today including: conversation w/ patient, physical exam, lab review, review of studies, review of inpatient medication list Pain: no pain PO Intake: adequate Voiding: no voiding problems patient sitting in chair, pursed lip breathing and not able to speak in full sentences reported that she wanted to go home discussed that even though she is on 3L, she does not appear to be breathing comfortably, would likely be back in hospital asked what she would do if she had to walk, said she would be really short of breath therapy said she could go home with family, but needs to be medically stable discussed keeping an additional day to see improvement in breathing Problem List Medical Problems: (1) CHF (congestive heart failure) Status: Acute (2) COPD exacerbation Status: Acute (3) COPD exacerbation Status: Acute (4) Elevated troponin Status: Acute (5) Elevated troponin Status: Acute (6) Elevated troponin Status: Acute (7) Elevated troponin Status: Acute (8) Hypoxia Status: Acute (9) PNA (pneumonia) Status: Acute (10) Pulmonary edema Status: Acute (11) Respiratory failure Status: Acute (12) Shortness of breath Status: Acute (13) Shortness of breath Status: Acute Review of Systems Constitutional: + fatigue, + weakness Respiratory: + cough, + dyspnea at rest, + dyspnea on exertion, + shortness of breath, + sputum, + wheezing All Other Systems: Reviewed and Negative Medications Current Inpatient Medications Medications (Trade) Dose Ordered Sig/Keny Route Start Time Stop Time Status Last Admin Dose Admin Apixaban (Eliquis Tab) 2.5 mg BID PO 04/17/16 09:00 05/17/16 08:59 04/20/16 08:20 2.5 MG Aspirin (Ecotrin Tab) 81 mg DAILY PO 04/17/16 09:00 05/17/16 08:59 04/20/16 08:15 81 MG Citalopram Hydrobromide (celeXA TAB) 20 mg DAILY PO 04/17/16 09:00 05/17/16 08:59 04/20/16 08:16 20 MG Docusate Sodium (coLACE CAP) 100 mg BID PO 04/17/16 09:00 05/17/16 08:59 04/20/16 08:15 100 MG Furosemide (Lasix Tab) 40 mg DAILY PO 04/17/16 09:00 3/7/17 08:59 Future Hold 04/17/16 09:12 40 MG Hydrochlorothiazide (Hydrochlorothiazide Tab) 12.5 mg QAM PO 04/17/16 09:00 05/17/16 08:59 04/20/16 08:16 12.5 MG Levothyroxine Sodium (Synthroid Tab) 175 mcg DAILYBB PO 04/17/16 06:00 05/17/16 05:59 04/20/16 06:52 175 MCG Magnesium Oxide (Mag-Ox Tab) 400 mg BID PO 04/17/16 09:00 05/17/16 08:59 04/20/16 08:17 400 MG Metoprolol Tartrate (Lopressor Tab) 50 mg BID PO 04/17/16 09:00 05/17/16 08:59 04/20/16 08:17 50 MG Oxycodone/ Acetaminophen (Percocet 5-325mg Tab) 1 tab Q6H PRN PO 04/16/16 21:15 04/30/16 21:14 04/19/16 20:31 1 TAB Pantoprazole Sodium (Protonix Tab) 40 mg DAILY PO 04/17/16 09:00 05/17/16 08:59 04/20/16 08:17 40 MG Quetiapine Fumarate (seroQUEL TAB) 50 mg HS PO 04/17/16 21:00 05/17/16 20:59 04/19/16 20:35 50 MG Senna (Senokot Tab) 8.6 mg DAILY PO 04/17/16 09:00 05/17/16 08:59 04/20/16 08:16 8.6 MG Folic Acid (Folvite Tab) 800 mcg DAILY PO 04/17/16 09:00 05/17/16 08:59 04/20/16 08:15 800 MCG Polyethylene (Miralax Powder Packet) 17 gm DAILY PO 04/17/16 09:00 05/17/16 08:59 04/20/16 08:17 17 GM Amoxicillin/ Clavulanate Potassium (Augmentin Tab) 500 mg BIDM PO 04/17/16 07:30 04/27/16 07:59 04/20/16 08:16 500 MG Insulin Aspart (novoLOG ASPART) SLIDING SCALE G... ACHS SC 04/17/16 00:00 05/17/16 00:00 04/20/16 12:34 9 UNITS Acetaminophen (Tylenol Tab) 650 mg Q4H PRN PO 04/16/16 21:15 05/16/16 21:14 Magnesium Hydroxide (Milk Of Magnesia Susp) 30 ml Q12H PRN PO 04/16/16 21:15 05/16/16 21:14 Ondansetron HCl (Zofran Inj) 4 mg Q6H PRN IV 04/16/16 21:15 05/16/16 21:14 04/17/16 11:40 4 MG Morphine Sulfate (MoRPHine SULFATE INJ) 2 mg Q30M PRN IV 04/16/16 21:15 04/30/16 21:14 04/16/16 23:10 2 MG Albuterol/ Ipratropium (Duoneb) 3 ml Q6R INH 04/17/16 03:00 05/17/16 02:59 04/20/16 14:26 3 ML Albuterol Sulfate (Ventolin 0.083% 2.5MG/3ML Neb) 2.5 mg Q4H PRN INH 04/16/16 21:45 05/16/16 21:44 Glucose (Glucose 40% Gel) 15-30 GRAMS 15 GRAMS... UD PRN PO 04/16/16 23:15 05/16/16 23:14 Glucose (Glucose Chew Tab) 4-8 Tablets 4 Tabl... UD PRN PO 04/16/16 23:15 05/16/16 23:14 Dextrose (Dextrose 50% 50ML Syringe) 25-50ML OF 50% DW IV FOR... UD PRN IV 04/16/16 23:15 05/16/16 23:14 Glucagon (Glucagon Inj) 1 mg UD PRN SQ 04/16/16 23:15 05/16/16 23:14 Hydralazine HCl (HydrALAZINE INJ) 10 mg Q4H PRN IV. 04/17/16 11:45 05/17/16 11:44 04/17/16 12:02 10 MG Benzonatate (Tessalon Perles Cap) 100 mg TID PO 04/18/16 09:00 05/18/16 08:59 04/20/16 14:25 100 MG Guaifenesin (Mucinex Contr Rel Tab) 600 mg Q12 PO 04/18/16 09:00 05/18/16 08:59 04/20/16 08:17 600 MG Sodium Chloride ([place] Nasal [place]) 1 sprays PRN PRN NA 04/20/16 08:45 05/20/16 08:44 Objective Vital Signs Date Time Temp Pulse Resp B/P Pulse Ox O2 Delivery O2 Flow Rate FiO2 04/20/16 14:28 88 16 79 Room Air 04/20/16 11:32 36.4 76 20 99/63 92 04/20/16 08:00 99 Nasal Cannula 3.0 04/20/16 07:37 36.5 73 20 131/85 100 04/20/16 07:27 66 16 99 Nasal Cannula 3.0 04/20/16 04:28 36.7 71 18 123/63 96 Nasal Cannula 2.0 04/20/16 01:52 77 16 98 Nasal Cannula 3.0 04/20/16 00:10 36.6 72 18 117/72 92 Nasal Cannula 3.0 04/20/16 00:00 91 Nasal Cannula 3.0 30 04/19/16 19:55 78 20 96 Nasal Cannula 2.0 04/19/16 19:46 37.0 77 18 136/80 91 Nasal Cannula 2.0 04/19/16 16:05 96 Nasal Cannula 2.0 04/19/16 16:04 78 95 Physical Exam General Appearance: WD/WN, + mild distress Eyes: normal inspection, EOMI, sclerae normal ENT: normal ENT inspection, hearing grossly normal, pharynx normal Neck: supple, no adenopathy, no JVD, trachea midline Respiratory/Chest: chest non-tender, no respiratory distress, + decreased breath sounds, + accessory muscle use, + wheezing, + pertinent finding (pursed lip breathing) Cardiovascular: regular rate, rhythm, no edema, no gallop, no JVD, no murmur Abdomen: normal bowel sounds, non tender, soft, no organomegaly Extremities: normal range of motion, non-tender, normal inspection, no pedal edema, no calf tenderness Neurologic/Psychiatric: studio director II-XII nml as tested, no motor/sensory deficits, alert, normal mood/affect, oriented x 3 Skin: normal color, warm/dry, no rash Lymphatic: no adenopathy Laboratory Results Last 24 Hours Test 04/19/16 16:04 04/19/16 20:22 04/20/16 05:30 04/20/16 08:23 Bedside Glucose 195 mg/dl 146 mg/dl 113 mg/dl Creatinine 2.20 mg/dl Est Creatinine Clear Calc Drug Dose 24.4 ml/min Estimated GFR () 23.8 Estimated GFR (Non- 20.5 Test 04/20/16 11:48 Bedside Glucose 126 mg/dl Assessment and Plan 80 y/o F with a complex medical history including CHF, COPD, AF, CAD. Recent admission 03/29 for UTI, cellulitis, hypoxia and elevated troponins 2/2 demand ischemia. presents with persistent SOB and was hypoxic on arrival to the ER. She improved markedly with BiPaP however and was able to converse at the time of admission. She denies CP or a productive cough - denies N/V/D, dysuria. She was not aware she had had a fever. Initial labs are notable for ARF and an elevated troponin. Initial CXR is consistent with vascular congestion consistent with CHF Acute on chronic hypoxic Respiratory Failure - suspect 2/2 to volume overload and COPD exacerbation - bipap prn, not needing today - appreciate pulmonary input, cont to wean steroids, pred taper on discharge - CT thorax reviewed - Cont mucinex and tessalon perles for cough Metabolic encephalopathy likely secondary to hypoxia and hypoglycemic episodes, now resolved Acute Diastolic CHF - given 1 dose of IV lasix on 04/17, no further diuresis - resume po lasix tomorrow AM - repeat CXR today shows resolution of pulmonary edema, no rales COPD exacerbation - continue nebulizers - Prednisone 40mg daily - augmenting BID HTN - poorly controlled - contin HCTZ - add hydralazine IV prn BARBARA on CKD - baseline 1.6-2.0 - suspect pre-renal from volume overload - diuresis with IV - Cr down to 2.2 today so acute component resolved, resume Lasix in the AM Chronically Elevated troponin with hx of CAD - cont ASA, B madelaine -presumably statin-intolerant although this should be confirmed with her primary MD. Atrial Fibrillation -cont metoprolol and eliquis DM - SSI - accuchecks Hypothyroid - cont Synthroid PPx- eliquis Full Code Dispo: therapy recommends home with family once medically stable, not stable today, will increase steroids, increase activity try to d/c home tomorrow
[2016-04-20] MEDS: OXYCODONE/ACETAMINOPHEN 5-325 TAB PO PRN (20:49)
[2016-04-20] MEDS: QUETIAPINE FUMARATE 25 MG TAB PO SCH (20:51)
[2016-04-21] VITALS (12 sets, daily range): BP systolic 133–147; BP diastolic 77–87; PULSE 65–78; TEMP 36.4–36.9; O2SAT 92–100
[2016-04-21] MEDS: ALBUT/IPRATROP 3MG/0.5MG NEB 3 ML VIAL INH SCH ×4 (01:54→20:15)
[2016-04-21] MEDS: LEVOTHYROXINE 175 MCG TAB PO SCH (05:54)
[2016-04-21] MEDS: OXYCODONE/ACETAMINOPHEN 5-325 TAB PO PRN (05:56)
[2016-04-21 06:00] LABS: BASO % 0.2 %; BASO ABS # 0.01 K/uL (0-0.2); HEMATOCRIT 27.6 % (37-47); IG% 0.4 %; LYMPH % 15.2 %; LYMPH ABS # 0.85 K/uL (1.2-3.4); MEAN CELL VOLUME 88.7 fL (80-100); MEAN CORPUSCULAR HGB CONC 30.4 g/dl (32-36); MEAN PLATELET VOLUME 9.6 fL (7.4-10.4); MONO % 10.9 %; NEUT % 73.3 %; PLATELET COUNT 184 K/uL (130-400); RED BLOOD COUNT 3.11 M/uL (4.2-5.4); WHITE BLOOD COUNT 5.61 K/uL (4.8-10.8)
[2016-04-21 06:27] LABS: COMPLETE YES
[2016-04-21 06:35] LABS: CALCIUM 8.4 mg/dl (8.5-10.1); MAGNESIUM 2.9 mg/dl (1.8-2.4); POTASSIUM 4.3 mmol/L (3.5-5.1)
[2016-04-21] MEDS: MAGNESIUM OXIDE 400 MG TAB PO SCH ×3 (08:03→20:44)
[2016-04-21] MEDS: DOCUSATE SODIUM 100 MG CAP PO SCH ×2 (08:03→20:46)
[2016-04-21] MEDS: BENZONATATE 100MG CAP PO SCH ×3 (08:03→20:45)
[2016-04-21] MEDS: CITALOPRAM 20 MG TAB PO SCH (08:03)
[2016-04-21] MEDS: PANTOprazole SOD 40 MG TAB PO SCH (08:03)
[2016-04-21] MEDS: AMOXICILLIN/CLAVULANATE TAB 500 MG TAB PO SCH ×2 (08:03→18:04)
[2016-04-21] MEDS: GUAIFENESIN 600 MG TABCR PO SCH ×2 (08:03→20:46)
[2016-04-21] MEDS: ASPIRIN 81 MG ECTAB PO SCH (08:04)
[2016-04-21] MEDS: FoLIC ACID TAB 400 MCG TAB PO SCH (08:04)
[2016-04-21] MEDS: HYDROCHLOROTHIAZIDE 25 MG TAB PO SCH (08:04)
[2016-04-21] MEDS: METOPROLOL TARTRATE 50 MG TAB PO SCH ×2 (08:04→20:46)
[2016-04-21] MEDS: POLYETHYLENE (MIRALAX) 17 GM PACK PO SCH (08:04)
[2016-04-21] MEDS: APIXABAN 2.5 MG TAB PO SCH ×2 (08:05→21:18)
[2016-04-21] MEDS: FUROSEMIDE 40 MG TAB PO SCH (08:05)
[2016-04-21] MEDS: SENNA 8.6 MG TAB PO SCH (08:06)
[2016-04-21] MEDS: INSULIN ASPART 100 UNITS/ML 3 ML PEN SC SCH ×4 (08:07→21:23)
--- NOTE | 2016-04-21 16:19 | Progress Note ---
Subjective Date of Service: Apr 21, 2016. Subjective Pt evaluation today including: conversation w/ patient, physical exam, lab review, review of studies, review of inpatient medication list Pain: no pain PO Intake: adequate Voiding: no voiding problems more confusion today, not oriented to place or time, she was oriented yesterday instructed RN to remove glynn, keep OOB in chair and ambulate, frequent orientation re-visited in afternoon, still confused breathing better, less cough, no fevers Problem List Medical Problems: (1) CHF (congestive heart failure) Status: Acute (2) COPD exacerbation Status: Acute (3) COPD exacerbation Status: Acute (4) Elevated troponin Status: Acute (5) Elevated troponin Status: Acute (6) Elevated troponin Status: Acute (7) Elevated troponin Status: Acute (8) Hypoxia Status: Acute (9) PNA (pneumonia) Status: Acute (10) Pulmonary edema Status: Acute (11) Respiratory failure Status: Acute (12) Shortness of breath Status: Acute (13) Shortness of breath Status: Acute Review of Systems Constitutional: + fatigue, + weakness Respiratory: + dyspnea on exertion Neurologic: + memory loss, + weakness All Other Systems: Reviewed and Negative Medications Current Inpatient Medications Medications (Trade) Dose Ordered Sig/Keny Route Start Time Stop Time Status Last Admin Dose Admin Apixaban (Eliquis Tab) 2.5 mg BID PO 04/17/16 09:00 05/17/16 08:59 04/21/16 08:05 2.5 MG Aspirin (Ecotrin Tab) 81 mg DAILY PO 04/17/16 09:00 05/17/16 08:59 04/21/16 08:04 81 MG Citalopram Hydrobromide (celeXA TAB) 20 mg DAILY PO 04/17/16 09:00 05/17/16 08:59 04/21/16 08:03 20 MG Docusate Sodium (coLACE CAP) 100 mg BID PO 04/17/16 09:00 05/17/16 08:59 04/21/16 08:03 100 MG Furosemide (Lasix Tab) 40 mg DAILY PO 04/17/16 09:00 05/17/16 08:59 Future Hold 04/17/16 09:12 40 MG Hydrochlorothiazide (Hydrochlorothiazide Tab) 12.5 mg QAM PO 04/17/16 09:00 05/17/16 08:59 04/21/16 08:04 12.5 MG Levothyroxine Sodium (Synthroid Tab) 175 mcg DAILYBB PO 04/17/16 06:00 05/17/16 05:59 04/21/16 05:54 175 MCG Magnesium Oxide (Mag-Ox Tab) 400 mg BID PO 04/17/16 09:00 05/17/16 08:59 04/20/16 20:51 400 MG Metoprolol Tartrate (Lopressor Tab) 50 mg BID PO 04/17/16 09:00 05/17/16 08:59 04/21/16 08:04 50 MG Oxycodone/ Acetaminophen (Percocet 5-325mg Tab) 1 tab Q6H PRN PO 04/16/16 21:15 04/30/16 21:14 04/21/16 05:56 1 TAB Pantoprazole Sodium (Protonix Tab) 40 mg DAILY PO 04/17/16 09:00 05/17/16 08:59 04/21/16 08:03 40 MG Quetiapine Fumarate (seroQUEL TAB) 50 mg HS PO 04/17/16 21:00 05/17/16 20:59 04/20/16 20:51 50 MG Senna (Senokot Tab) 8.6 mg DAILY PO 04/17/16 09:00 05/17/16 08:59 04/21/16 08:06 8.6 MG Folic Acid (Folvite Tab) 800 mcg DAILY PO 04/17/16 09:00 05/17/16 08:59 04/21/16 08:04 800 MCG Polyethylene (Miralax Powder Packet) 17 gm DAILY PO 04/17/16 09:00 05/17/16 08:59 04/21/16 08:04 17 GM Amoxicillin/ Clavulanate Potassium (Augmentin Tab) 500 mg BIDM PO 04/17/16 07:30 04/27/16 07:59 04/21/16 08:03 500 MG Insulin Aspart (novoLOG ASPART) SLIDING SCALE G... ACHS SC 04/17/16 00:00 05/17/16 00:00 04/21/16 12:00 6 UNITS Acetaminophen (Tylenol Tab) 650 mg Q4H PRN PO 04/16/16 21:15 05/16/16 21:14 Magnesium Hydroxide (Milk Of Magnesia Susp) 30 ml Q12H PRN PO 04/16/16 21:15 05/16/16 21:14 Ondansetron HCl (Zofran Inj) 4 mg Q6H PRN IV 04/16/16 21:15 05/16/16 21:14 04/17/16 11:40 4 MG Morphine Sulfate (MoRPHine SULFATE INJ) 2 mg Q30M PRN IV 04/16/16 21:15 04/30/16 21:14 04/16/16 23:10 2 MG Albuterol/ Ipratropium (Duoneb) 3 ml Q6R INH 04/17/16 03:00 05/17/16 02:59 04/21/16 14:09 3 ML Albuterol Sulfate (Ventolin 0.083% 2.5MG/3ML Neb) 2.5 mg Q4H PRN INH 04/16/16 21:45 05/16/16 21:44 Glucose (Glucose 40% Gel) 15-30 GRAMS 15 GRAMS... UD PRN PO 04/16/16 23:15 05/16/16 23:14 Glucose (Glucose Chew Tab) 4-8 Tablets 4 Tabl... UD PRN PO 04/16/16 23:15 05/16/16 23:14 Dextrose (Dextrose 50% 50ML Syringe) 25-50ML OF 50% DW IV FOR... UD PRN IV 04/16/16 23:15 05/16/16 23:14 Glucagon (Glucagon Inj) 1 mg UD PRN SQ 04/16/16 23:15 05/16/16 23:14 Hydralazine HCl (HydrALAZINE INJ) 10 mg Q4H PRN IV. 04/17/16 11:45 05/17/16 11:44 04/17/16 12:02 10 MG Benzonatate (Tessalon Perles Cap) 100 mg TID PO 04/18/16 09:00 05/18/16 08:59 04/21/16 14:52 100 MG Guaifenesin (Mucinex Contr Rel Tab) 600 mg Q12 PO 04/18/16 09:00 05/18/16 08:59 04/21/16 08:03 600 MG Sodium Chloride ([place] Nasal [place]) 1 sprays PRN PRN NA 04/20/16 08:45 05/20/16 08:44 Furosemide (Lasix Tab) 40 mg QAM PO 04/21/16 09:00 05/21/16 08:59 04/21/16 08:05 40 MG Prednisone (PredniSONE TAB) 20 mg DAILY PO 04/22/16 09:00 05/22/16 08:59 Objective Vital Signs Date Time Temp Pulse Resp B/P Pulse Ox O2 Delivery O2 Flow Rate FiO2 04/21/16 15:10 36.7 77 18 141/85 96 Nasal Cannula 3.0 04/21/16 14:09 65 18 97 Nasal Cannula 2.0 04/21/16 12:00 97 Nasal Cannula 3.0 04/21/16 11:14 36.5 73 20 140/86 97 3.0 04/21/16 08:00 100 Nasal Cannula 3.0 04/21/16 07:08 36.4 70 20 133/87 100 04/21/16 07:03 72 18 93 Nasal Cannula 2.0 04/21/16 04:19 36.5 71 18 136/77 96 Nasal Cannula 3.0 04/21/16 01:54 78 18 92 Nasal Cannula 2.0 04/21/16 00:00 Nasal Cannula 3.0 04/20/16 23:34 36.9 72 18 127/77 97 Nasal Cannula 3.0 04/20/16 20:07 37.2 90 18 130/76 96 Nasal Cannula 2.0 04/20/16 19:20 84 18 93 Nasal Cannula 3.0 Physical Exam General Appearance: WD/WN, no apparent distress Eyes: normal inspection, EOMI, sclerae normal ENT: normal ENT inspection, hearing grossly normal, pharynx normal Neck: supple, no adenopathy, no JVD, trachea midline Respiratory/Chest: chest non-tender, no respiratory distress, no accessory muscle use, + wheezing (faint, less than yesterday) Cardiovascular: regular rate, rhythm, no edema, no gallop, no JVD, no murmur Abdomen: normal bowel sounds, non tender, soft, no organomegaly Extremities: normal range of motion, non-tender, normal inspection, no pedal edema, no calf tenderness Neurologic/Psychiatric: 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 nml as tested, no motor/sensory deficits, alert, normal mood/affect, + disoriented (oriented to person only) Skin: normal color, warm/dry, no rash Laboratory Results Last 24 Hours Test 04/20/16 20:13 04/21/16 05:32 04/21/16 07:18 04/21/16 11:23 Bedside Glucose 358 mg/dl 154 mg/dl 170 mg/dl White Blood Count 5.61 K/uL Red Blood Count 3.11 M/uL Hemoglobin 8.4 g/dL Hematocrit 27.6 % Mean Corpuscular Volume 88.7 fL Mean Corpuscular Hemoglobin 27.0 pg Mean Corpuscular Hemoglobin Concent 30.4 g/dl Platelet Count 184 K/uL Mean Platelet Volume 9.6 fL Neutrophils (%) (Auto) 73.3 % Lymphocytes (%) (Auto) 15.2 % Monocytes (%) (Auto) 10.9 % Eosinophils (%) (Auto) 0.0 % Basophils (%) (Auto) 0.2 % Neutrophils # (Auto) 4.12 K/uL Lymphocytes # (Auto) 0.85 K/uL Monocytes # (Auto) 0.61 K/uL Eosinophils # (Auto) 0.00 K/uL Basophils # (Auto) 0.01 K/uL RDW Standard Deviation 59.3 fL RDW Coefficient of Variation 18.2 % Immature Granulocyte % (Auto) 0.4 % Immature Granulocyte # (Auto) 0.02 K/uL Red Blood Cell Morphology Unremarkable Sodium Level 138 mmol/L Potassium Level 4.3 mmol/L Chloride Level 98 mmol/L Carbon Dioxide Level 33 mmol/L Anion Gap 7.0 mmol/L Blood Urea Nitrogen 80 mg/dl Creatinine 2.00 mg/dl Est Creatinine Clear Calc Drug Dose 26.8 ml/min Estimated GFR () 26.7 Estimated GFR (Non- 23.0 BUN/Creatinine Ratio 40.0 Random Glucose 143 mg/dl Calcium Level 8.4 mg/dl Magnesium Level 2.9 mg/dl Assessment and Plan 80 y/o F with a complex medical history including CHF, COPD, AF, CAD. Recent admission 03/29 for UTI, cellulitis, hypoxia and elevated troponins 2/2 demand ischemia. presents with persistent SOB and was hypoxic on arrival to the ER. She improved markedly with BiPaP however and was able to converse at the time of admission. She denies CP or a productive cough - denies N/V/D, dysuria. She was not aware she had had a fever. Initial labs are notable for ARF and an elevated troponin. Initial CXR is consistent with vascular congestion consistent with CHF Acute on chronic hypoxic Respiratory Failure: resolved, back on 3L which she wears at baseline - suspect 2/2 to volume overload and COPD exacerbation - appreciate pulmonary input, cont to wean steroids, pred taper on discharge - CT thorax reviewed - Cont mucinex and tessalon perles for cough Metabolic encephalopathy likely secondary to hypoxia and hypoglycemic episodes now with further delirium, could be related to Prednisone, lowering dose today also, glynn was d/c to remove a potential tether frequent re-orientation, avoid benzos, awake and OOB during the day hopefully with resolve by tomorrow and can get home Acute Diastolic CHF - given 1 dose of IV lasix on 04/17, no further diuresis - resume po lasix today - repeat CXR today shows resolution of pulmonary edema, no rales COPD exacerbation - continue nebulizers - Prednisone 20mg daily, will taper outpatient - augmenting BID x 7 days HTN - poorly controlled - contin HCTZ - add hydralazine IV prn BARBARA on CKD, resolved - baseline 1.6-2.0 - suspect pre-renal from volume overload - Cr down to 2.0 today so acute component resolved, resume Lasix in the AM Chronically Elevated troponin with hx of CAD - cont ASA, B madelaine -presumably statin-intolerant although this should be confirmed with her primary MD. Atrial Fibrillation -cont metoprolol and eliquis DM - SSI - accuchecks Hypothyroid - cont Synthroid PPx- eliquis Full Code Dispo: therapy recommends home with family once medically stable, not stable today due to confusion try to d/c home tomorrow if confusion resolves
[2016-04-21] MEDS: QUETIAPINE FUMARATE 25 MG TAB PO SCH (20:46)
[2016-04-22 02:00] VITALS: PULSE 71; O2SAT 95
[2016-04-22] MEDS: ALBUT/IPRATROP 3MG/0.5MG NEB 3 ML VIAL INH SCH ×2 (02:00→07:02)
[2016-04-22 04:17] VITALS: BP 132/82; PULSE 67; TEMP 36.4; O2SAT 99
[2016-04-22] MEDS: LEVOTHYROXINE 175 MCG TAB PO SCH (06:26)
[2016-04-22 07:02] VITALS: PULSE 68; O2SAT 95
[2016-04-22 07:33] VITALS: BP 146/87; PULSE 66; TEMP 36.3; O2SAT 100
[2016-04-22] MEDS: BENZONATATE 100MG CAP PO SCH ×2 (07:59→13:59)
[2016-04-22] MEDS: POLYETHYLENE (MIRALAX) 17 GM PACK PO SCH (07:59)
[2016-04-22] MEDS: AMOXICILLIN/CLAVULANATE TAB 500 MG TAB PO SCH (07:59)
[2016-04-22 08:00] VITALS: O2SAT 100
[2016-04-22] MEDS: PANTOprazole SOD 40 MG TAB PO SCH (08:00)
[2016-04-22] MEDS: FUROSEMIDE 40 MG TAB PO SCH (08:00)
[2016-04-22] MEDS: HYDROCHLOROTHIAZIDE 25 MG TAB PO SCH (08:00)
[2016-04-22] MEDS: SENNA 8.6 MG TAB PO SCH (08:00)
[2016-04-22] MEDS: DOCUSATE SODIUM 100 MG CAP PO SCH (08:01)
[2016-04-22] MEDS: APIXABAN 2.5 MG TAB PO SCH (08:01)
[2016-04-22] MEDS: CITALOPRAM 20 MG TAB PO SCH (08:01)
[2016-04-22] MEDS: METOPROLOL TARTRATE 50 MG TAB PO SCH (08:01)
[2016-04-22] MEDS: ASPIRIN 81 MG ECTAB PO SCH (08:01)
[2016-04-22] MEDS: FoLIC ACID TAB 400 MCG TAB PO SCH (08:02)
[2016-04-22] MEDS: MAGNESIUM OXIDE 400 MG TAB PO SCH (08:04)
[2016-04-22] MEDS: GUAIFENESIN 600 MG TABCR PO SCH (08:04)
[2016-04-22] MEDS: INSULIN ASPART 100 UNITS/ML 3 ML PEN SC SCH ×2 (08:15→12:20)
[2016-04-22 09:00] LABS: MEAN CELL VOLUME 88.2 fL (80-100); MEAN CORPUSCULAR HEMOGLOBIN 26.8 pg (25-34); MEAN CORPUSCULAR HGB CONC 30.3 g/dl (32-36); MEAN PLATELET VOLUME 9.4 fL (7.4-10.4); PLATELET COUNT 197 K/uL (130-400)
[2016-04-22 09:26] LABS: BUN/CREATININE RATIO 37.3 (10-20); CALCIUM 8.5 mg/dl (8.5-10.1); CREATININE 1.9 mg/dl (0.60-1.20); POTASSIUM 4.3 mmol/L (3.5-5.1)
[2016-04-22] MEDS ORDERED: PRD20 PO ×2 (10:38→14:20)
--- NOTE | 2016-04-22 10:44 | Discharge Instructions ---
Discharge Instructions Admission Reason for Admission: Copd Exacerbation, Hypoxia Discharge Discharge Diagnosis / Problem: Acute on chronic diastolic heart failure, COPD exacerbation Discharge Goals Goal(s): Improve function, Improve disease control Activity Recommendations Activity Limitations: resume your previous activity Lifting Limitations: none Exercise/Sports Limitations: as tolerated Shower/Bathe: no limitations . Instructions / Follow-Up Instructions / Follow-Up Medications: - PREDNISONE: follow taper, 20mg daily x 3 days then 10mg daily x 4 days then stop - LASIX: take additional dose this afternoon at 3pm and then tomorrow take in the morning and at 3pm, starting Monday you can go back to once a day dosing You need to have a scale at home, weigh yourself every morning after you urinate and before you eat breakfast and record weight. If you notice that your weight is trending up by more than 3 pounds, you need to call your physician to discuss taking an extra Lasix. FOLLOW UP - please call for an appointment with Dr. Ezra Arevalo next week for hospital follow up Call 911 and go to the Emergency Room if: * You have tightness or pain in your chest that does not go away with rest or Nitroglycerin * You are very short of breath even with rest Call your doctor if any of the following symptoms or problems start or get worse: * Shortness of breath or difficulty breathing * Wake up at night short of breath * Chest pain * Cough * Swelling of your hands, fee, or legs * More fatigued or tired with your normal activity * Palpitations - sudden fast heart beats WEIGHT * Weigh yourself every morning after using the bathroom. * Use the same scale. * Wear the same amount of clothing. * Write your weight down on your chart. * Call your doctor if you gain more than 2-3 pounds in 1-2 days. MEDICATIONS * Use this discharge instruction sheet for instructions. * Take your medications at the time your doctor ordered. * Do not skip a dose of your medicines. * If you miss a dose of medicine, take as soon as possible, but DO NOT DOUBLE A DOSE. * Read your medicine information when you get home. * Know all of the side effects of your medicine. * Call your doctor's office if you have any side effects. * Be sure all of your doctors know what medicine and herbs you take (including cold, flu, and herbal medicine). * Pain Medicine: If you do not get relief from your pain, please call your doctor for help. Take the following with you to your follow-up doctor appointments: * Weight Chart * Medication List * List of questions Do not drink excessive alcohol, beer or wine. Current Hospital Diet Patient's current hospital diet: AHA Diet (Heart Healthy), Diabetes Type 2 Diet Discharge Diet Recommended Diet: AHA Diet (Heart Healthy), Low Sodium Diet (2gm Na), Diabetes Type 2 Diet Fluid Restriction: 1800 ml (7 cups) Pending Studies Studies pending at discharge: no Laboratory Results Last Resulted CBC 04/22/16 08:42 Last Resulted BMP 04/22/16 08:42 Hemoglobin A1c Test 03/30/16 07:23 Range/Units Estimated Average Glucose 126 mg/dl Hemoglobin A1c 6.0 H 4.5-5.6 % Lipid Panel Test 03/30/16 07:23 Range/Units Triglycerides Level 75 0-150 mg/dl Cholesterol Level 116 0-200 mg/dl HDL Cholesterol 28 mg/dl Cholesterol/HDL Ratio 4.1 LDL Cholesterol, Calculated 73 mg/dl Medical Emergencies . Who to Call and When: Medical Emergencies: If at any time you feel your situation is an emergency, please call 911 immediately. . Non-Emergent Contact Non-Emergency issues call your: Primary Care Provider Call Non-Emergent contact if: you have a fever, you have any medication questions . . "Provider Documentation" section prepared by Efraín Leija. VTE Core Measure Inpt VTE Proph given/why not?: Other Anticoagulation [place] Drug Monitoring Program Search Results: no issues identified
[2016-04-22 11:29] VITALS: BP 140/90; PULSE 75; TEMP 36.7; O2SAT 99
--- NOTE | 2016-04-22 13:43 | Discharge Summary ---
Discharge Summary Admission Date: Apr 16, 2016 at 21:20 Discharge Date: Apr 22, 2016 Discharge Disposition: Home Principal Diagnosis: Acute on chronic respiratory failure, hypoxia Problems/Secondary Diagnoses: Acute on chronic diastolic heart failure COPD exacerbation Hospital delirium Procedures: none Consultations: Pulmonary Medication Reconciliation New Medications: Prednisone (Prednisone) 20 Mg Tab 20 MG PO DAILY, #5 TAB 0 Refills Taper: starting 04/23, 20mg daily x 3 days then 10mg daily x 4 days then stop Continued Medications: Apixaban (Eliquis) 2.5 Mg Tab 2.5 MG PO BID for 30 Days, #60 TAB 1 Refill Aspirin (Aspirin Ec) 81 Mg Tab 81 MG PO DAILY Citalopram (Citalopram Hydrobromide) 20 Mg Tab 20 MG PO DAILY Docusate Sodium (Docusate Sodium) 100 Mg Cap 100 MG PO BID Ferrous Gluconate (Ferrous Gluconate) 324 Mg Tab 324 MG PO TIDM Folic Acid (Folic Acid) 800 Mcg Tab 1 TAB PO DAILY Furosemide (Lasix) 40 Mg Tab 40 MG PO DAILY, TAB Glipizide (Glucotrol) 5 Mg Tab 2 TAB PO QAM, TAB Hydrochlorothiazide (Hydrochlorothiazide) 25 Mg Tab 12.5 MG PO QAM Insulin Aspart (Novolog Flexpen) 100 Units/Ml Inj 1 DOSE SQ TIDM PRN for SLIDING SCALE Ipratropium-Albuterol (Duoneb) 3 Ml Nebu 1 TREATMENT INH Q4H, INHA Levothyroxine Sodium (Levothyroxine Sodium) 175 Mcg Tab 1 TAB PO DAILY for 30 Days, #30 TAB 5 Refills Losartan Potassium (Cozaar) 100 Mg Tab 100 MG PO DAILY, TAB TAKE ALONG WITH THE HCTZ TO EQUAL LOSARTAN/HCTZ WHICH IS AN AUTOSUB FOR DIOVAN. Magnesium Oxide (Mag-Ox) 400 Mg Tab 400 MG PO BID, TAB Metoprolol Tartrate (Metoprolol Tartrate) 50 Mg Tab 50 MG PO BID for 30 Days, #60 TAB 1 Refill Oxycodone/Acetaminophen 5MG/325MG (Percocet 5MG/325MG) Tab 1 TABLET PO Q6H PRN for Pain, TAB PAIN Pantoprazole (Protonix) 40 Mg Tab 40 MG PO DAILY, #30 TAB Polyethylene Glycol 3350 (Miralax) 1 Pow Pow 17 GM PO DAILY, GM Quetiapine Fumarate (Seroquel) 50 Mg Tab 50 MG PO HS, TAB Senna (Senokot) 8.6 Mg Tab 8.6 MG PO NOON Discontinued Medications: Amoxicillin & Pot Clavulanate (Augmentin 875-125 mg) 1 Tab Tab 1 TAB PO BID for 8 Days, #16 TAB Discharge Exam Patient feeling better this AM, certainly more alert and oriented, confusion from yesterday resolved. Patient says that her breathing is normal, feels like she always does. She walked to the bathroom and RN said she did well, very steady, no loss of balance. Patient does not leave her home, lives with her daughter who takes care of her needs. She is eating well, urinating without difficulty, moving bowels. Review of Systems: Constitutional: + fatigue, + weakness, No chills, No fever, No problem reported, No sweats, No weight loss Respiratory: + cough, + dyspnea on exertion, No dyspnea at rest, No hemoptysis, No problem reported, No shortness of breath, No sputum, No wheezing Cardiovascular: No PND, No chest pain, No claudication, No edema, No orthopnea, No palpitations, No problem reported Abdomen: No GI bleeding, No constipation, No diarrhea, No nausea, No pain, No problem reported, No vomiting Musculoskeletal: No calf pain, No joint pain, No muscle pain, No problem reported, No swelling Genitourinary - Female: No dysuria, No urinary frequency, No urinary incontinence, No urinary urgency Neurologic: + weakness, No balance problems, No memory loss, No numbness/ tingling, No paralysis, No problem reported, No vertigo Psychiatric: No anhedonism, No anxiety, No depression symptoms, No insomnia , No problem reported, No substance abuse Endocrine: No excessive thirst, No excessive urination, No fatigue, No problem reported Hematologic / Lymphatic: No abnormal bleeding/bruising, No clotting problems , No night sweats, No problem reported, No swollen lymph nodes Integumentary: No bleeding, No color change, No itch, No new/changing skin lesions, No problem reported, No rash Physical Exam: General Appearance: WD/WN, no apparent distress Eyes: normal inspection, EOMI, sclerae normal ENT: normal ENT inspection, hearing grossly normal, pharynx normal Neck: supple, no adenopathy, no JVD, trachea midline Respiratory/Chest: chest non-tender, normal breath sounds, no respiratory distress, no accessory muscle use, + wheezing (bilateral, faint, end exhalation) Cardiovascular: regular rate, rhythm, no edema, no gallop, no JVD, no murmur , normal peripheral pulses Abdomen / GI: normal bowel sounds, non tender, soft, no organomegaly Extremities: normal inspection, no calf tenderness, normal capillary refill , normal range of motion, pelvis stable, + pedal edema (bilateral, left leg more than right) Neurologic/Psychiatric: 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 Recent admission 03/29 for UTI, cellulitis, hypoxia and elevated troponins 2/2 demand ischemia. presents with persistent SOB and was hypoxic on arrival to the ER. She improved markedly with BiPaP however and was able to converse at the time of admission. She denies CP or a productive cough - denies N/V/D, dysuria. She was not aware she had had a fever. Initial labs are notable for ARF and an elevated troponin. Initial CXR is consistent with vascular congestion consistent with CHF Acute on chronic hypoxic Respiratory Failure: resolved, back on 3L which she wears at baseline - suspect 2/2 to volume overload and COPD exacerbation - appreciate pulmonary input, cont to wean steroids, pred taper on discharge - CT thorax reviewed - Cont mucinex and tessalon perles for cough Metabolic encephalopathy likely secondary to hypoxia and hypoglycemic episodes yesterday with further delirium, could be related to Prednisone, lowering dose today resolved today, oriented x 3, calm, clear thinking glynn was removed yesterday, urinating well, no incontinence Acute on chronic Diastolic CHF - given 1 dose of IV lasix on 04/17, no further diuresis - legs still with edema although lungs without rales recommend that she take extra Lasix at 3pm and then take twice tomorrow, resume once daily dose on Monday 04/24 - repeat CXR today shows resolution of pulmonary edema, no rales COPD exacerbation - continue nebulizers - Prednisone 20mg daily, will taper outpatient (20mg x 3, 10mg x 4 days) - augmenting BID x 7 days (completed, no further antibiotics on discharge) HTN - poorly controlled - contin HCTZ - add hydralazine IV prn BARBARA on CKD, resolved - baseline 1.6-2.0 - suspect pre-renal from volume overload - Cr down to 1.9 today so acute component resolved, resume all prior home meds that were held for BARBARA Chronically Elevated troponin with hx of CAD - cont ASA, B madelaine -presumably statin-intolerant although this should be confirmed with her primary MD. Atrial Fibrillation -cont metoprolol and eliquis DM - SSI - accuchecks Hypothyroid - cont Synthroid PPx- eliquis Full Code Dispo: therapy recommends home with family once medically stable d/c to home today, discussed plan with daughter Erin over the phone, all questions answered both patient and her daughter felt she was ready to go home Total Time Spent: Greater than 30 minutes This includes examination of the patient, discharge planning, medication reconciliation, and communication with other providers. Discharge Instructions Please refer to the electronic Patient Visit Report (Discharge Instructions) for additional information. Follow-Up Dr. Arevalo in one week Additional Copies To Ezra Arevalo D.O.
== END 2016-04-22 14:45 | disposition home health service (06) | DRG 291 ==
LOC: ENRESERVDT → ENRESERVTM → EDBD 16:24 → C.EDA 16:25 → C.2E 21:20 → C.MED 04-19 13:58
PROVIDERS: ADMIT Internal Medicine; ATTEND Internal Medicine
DX: I13.0 Hypertensive heart and chronic kidney disease with heart failure and stage 1 through stage 4 chronic kidney disease, or unspecified chronic kidney disease (principal); J96.21 Acute and chronic respiratory failure with hypoxia; I50.33 Acute on chronic diastolic (congestive) heart failure; G93.41 Metabolic encephalopathy; N17.9 Acute kidney failure, unspecified; N18.4 Chronic kidney disease, stage 4 (severe); N39.0 Urinary tract infection, site not specified; J44.1 Chronic obstructive pulmonary disease with (acute) exacerbation; Z87.440 Personal history of urinary (tract) infections; I42.9 Cardiomyopathy, unspecified; I48.2 Chronic atrial fibrillation; I25.10 Atherosclerotic heart disease of native coronary artery without angina pectoris; F32.9 Major depressive disorder, single episode, unspecified; E11.22 Type 2 diabetes mellitus with diabetic chronic kidney disease; Z87.19 Personal history of other diseases of the digestive system; E03.9 Hypothyroidism, unspecified; Z95.1 Presence of aortocoronary bypass graft; Z95.2 Presence of prosthetic heart valve; Z82.49 Family history of ischemic heart disease and other diseases of the circulatory system; Z82.3 Family history of stroke; Z88.5 Allergy status to narcotic agent; Z79.82 Long term (current) use of aspirin; Z79.899 Other long term (current) drug therapy; E66.9 Obesity, unspecified; Z68.30 Body mass index [BMI] 30.0-30.9, adult; K21.9 Gastro-esophageal reflux disease without esophagitis; M10.9 Gout, unspecified; Z95.5 Presence of coronary angioplasty implant and graft; Z87.891 Personal history of nicotine dependence; I34.0 Nonrheumatic mitral (valve) insufficiency; E11.649 Type 2 diabetes mellitus with hypoglycemia without coma

== ENCOUNTER 2016-05-02 13:52 | Inpatient (IN) | payer OTHER ==
[~2016-05-02] VITALS: Ht 177.8 cm; Wt 95.0 kg
[~2016-05-02 13:52] MED LIST changes: +CLC100 PO; -DEXT40GE2 PO; -DEXT4CHW64 PO; -DTRSR4 PO; -DVN80125 PO; -FERR1TAB13 PO; +FRRG PO; +FRS/40 PO; -FURO40TA3 PO; -GLIP10TA9 PO; +GLIP5TAB3 PO; +HYDR25TA5 PO; -IPRA1AER2 INH; +IPRASOL4 INH; -LCTX PO; +LOSA1TAB38 PO; -MULT1CAP16 PO; +NVLGI/PEN SQ; -OXGN; -OXYC-106 PO; +OXYC-57 PO; +PANT40TA PO; +POLY335019 PO; +PRD20 PO; -PRLSR20 PO; -SUCR1TAB29 PO; -VALS160T58 PO
[2016-05-02] MEDS ORDERED: ALBUT/IPRATROP 3MG/0.5MG NEB 3 ML VIAL ONE (13:59)
[2016-05-02] MEDS ORDERED: ALBUT/IPRATROP 3MG/0.5MG NEB 3 ML VIAL INH ONE (14:00)
--- NOTE | 2016-05-02 14:13 | EMERGENCY ROOM VISIT NOTE ---
History Report prepared by Erica: Eleazar Leigh Under the Supervision of: Dr. Josse Ferguson D.O. First contact with patient: 13:50 Chief Complaint: RESPIRATORY DISTRESS Stated Complaint: SEVERE RESPIRATORY DISTRESS History of Present Illness The patient is an 81 year old female with a history of COPD who presents to the Emergency Room with complaints of worsening shortness of breath over the past 24 -48 hours. The patient also complains of a productive cough and increased leg swelling since yesterday. She denies chest pain. The patient is on a blood thinner. She wears 3L of oxygen at home. As per EMS, the patient declined CPAP en route to the ED and would not like to be intubated. She was given one Albuterol treatment en route. The patient additionally has a history of coronary stents and atrial fibrillation. Source of History: patient, EMS Onset: 24-48 hours Position: other (respiratory) Quality: other (short of breath) Timing: worsening Associated Symptoms: + cough, No chest pain Review of Systems See HPI for pertinent positives & negatives. A total of 10 systems reviewed and were otherwise negative. Past Medical & Surgical Medical Problems: (1) Acute exacerbation of CHF (congestive heart failure) (2) BARBARA (acute kidney injury) (3) Atrial fibrillation (4) CAD (coronary artery disease) (5) Cellulitis of left lower extremity (6) CHF (congestive heart failure) (7) ckd (8) CKD (chronic kidney disease) stage 3, GFR 30-59 ml/min (9) COPD (chronic obstructive pulmonary disease) (10) COPD exacerbation (11) Depression (12) DM type 2 (diabetes mellitus, type 2) (13) GI bleed (14) HTN (hypertension) (15) Hypothyroidism (16) NSTEMI, initial episode of care Surgical Problems: (1) H/O aortic valve replacement (2) Hx of CABG (3) S/P tonsillectomy Family History Heart disease Stroke Social History Housing Status: lives with family Occupation Status: retired Current/Historical Medications Scheduled Apixaban (Eliquis), 2.5 MG PO BID Aspirin (Aspirin Ec), 81 MG PO DAILY Citalopram (Citalopram Hydrobromide), 20 MG PO DAILY Docusate Sodium (Docusate Sodium), 100 MG PO BID Ferrous Gluconate (Ferrous Gluconate), 324 MG PO TIDM Folic Acid (Folic Acid), 1 TAB PO DAILY Furosemide (Lasix), 40 MG PO DAILY Glipizide (Glucotrol), 2 TAB PO QAM Hydrochlorothiazide (Hydrochlorothiazide), 12.5 MG PO QAM Ipratropium-Albuterol (Duoneb), 1 TREATMENT INH Q4H Levothyroxine Sodium (Levothyroxine Sodium), 1 TAB PO DAILY Losartan Potassium (Cozaar), 100 MG PO DAILY Magnesium Oxide (Mag-Ox), 400 MG PO BID Metoprolol Tartrate (Lopressor) (Lopressor), 25 MG PO BID Pantoprazole (Protonix), 40 MG PO DAILY Polyethylene Glycol 3350 (Miralax), 17 GM PO DAILY Quetiapine Fumarate (Seroquel), 50 MG PO HS Senna (Senokot), 8.6 MG PO NOON Scheduled PRN Oxycodone/Acetaminophen 10MG/325MG (Percocet 10MG/325MG), 1 TAB PO Q6 PRN for Pain Allergies Coded Allergies: Morphine (Verified Adverse Reaction, Unknown, HALLUCINATIONS, 05/02/16) Physical Exam Vital Signs Date Time Temp Pulse Resp B/P Pulse Ox O2 Delivery O2 Flow Rate FiO2 05/02/16 16:40 116 96 05/02/16 16:35 122 95 05/02/16 16:30 121 96 05/02/16 16:28 148/104 05/02/16 16:25 121 96 05/02/16 16:20 117 96 05/02/16 16:15 120 96 05/02/16 16:10 129 96 05/02/16 16:05 131 96 05/02/16 16:00 121 96 05/02/16 15:58 162/129 05/02/16 15:55 122 97 05/02/16 15:50 130 94 05/02/16 15:45 127 94 05/02/16 15:40 111 95 05/02/16 15:36 151/101 05/02/16 15:35 121 95 05/02/16 15:30 124 94 05/02/16 15:28 144/98 05/02/16 15:25 144 148/115 96 05/02/16 15:20 134 163/110 96 05/02/16 15:15 137 94 2/20/17 15:10 141 96 05/02/16 15:05 143 97 05/02/16 15:00 145 97 05/02/16 14:56 114 28 94 Nasal Cannula 3.0 05/02/16 14:55 138 90 05/02/16 14:50 135 97 05/02/16 14:49 155/122 05/02/16 14:45 132 97 05/02/16 14:05 90 Nasal Cannula 3.0 05/02/16 14:05 90 Nasal Cannula 3.0 05/02/16 14:00 125 05/02/16 14:00 37.2 131 30 146/102 90 Nasal Cannula 3.0 Physical Exam GENERAL: Patient is awake, alert, very anxious appearing, appears to be having significant respiratory difficulty. EYES: The conjunctivae are clear. The pupils are round and reactive. EARS, NOSE, MOUTH AND THROAT: The nose is without any evidence of any deformity. Mucous membranes are moist tongue is midline NECK: The neck is nontender and supple. RESPIRATORY: Lungs sounds are diminished throughout, rales noted at both bases, expiratory wheezing noted in both upper lung kim, significant conversational dyspnea and respiratory distress noted, pursed lip breathing noted. CARDIOVASCULAR: Heart sounds are tachycardic and irregular, no definite murmur noted to auscultation. GASTROINTESTINAL: The abdomen is soft. Bowel sounds are present in all quadrants. Abdomen is nontender MUSCULOSKELETAL/EXTREMITIES: There is no evidence of gross deformity full range of motion is noted in the hips and shoulders SKIN: There is no obvious evidence of any rash. There are no petechiae, pallor or cyanosis noted. Pedal edema bilaterally. NEUROLOGIC: Patient is awake alert and oriented x3. Medical Decision & Procedures ER Provider Diagnostic Interpretation: X-ray results as stated below per interpretation by me and the radiologist. CHEST ONE VIEW PORTABLE CLINICAL HISTORY: Sepsis COMPARISON STUDY: 04/20/2016 FINDINGS: There are postsurgical changes of midline sternotomy, and valvular replacement.. The heart is mildly enlarged[. There is hazy increased density within the right lung. This may in part be technical. Mild pulmonary vascular congestion is suspected. There were no cystic or pleural fusions. A follow-up PA and lateral study might be considered. IMPRESSION: Technically limited study. Cardiomegaly and suspected pulmonary vascular congestion. A follow-up PA and lateral study might be considered. Electronically signed by: Stephon Samuel M.D. 05/02/2016 2:45 PM Dictated Date/Time: 05/02/2016 2:43 PM Laboratory Results 05/02/16 14:30 Red Blood Count 3.23, Mean Corpuscular Volume 85.8, Mean Corpuscular Hemoglobin 26.0, Mean Corpuscular Hemoglobin Concent 30.3, Mean Platelet Volume 10.2, Neutrophils (%) (Auto) 79.7, Lymphocytes (%) (Auto) 11.0, Monocytes (%) (Auto) 7.9, Eosinophils (%) (Auto) 0.9, Basophils (%) (Auto) 0.3, Neutrophils # (Auto) 5.16, Lymphocytes # (Auto) 0.71, Monocytes # (Auto) 0.51, Eosinophils # (Auto) 0.06, Basophils # (Auto) 0.02 05/02/16 14:30 Test 05/02/16 14:30 05/02/16 14:33 05/02/16 15:30 White Blood Count 6.47 K/uL (4.8-10.8) Red Blood Count 3.23 M/uL (4.2-5.4) Hemoglobin 8.4 g/dL (12.0-16.0) Hematocrit 27.7 % (37-47) Mean Corpuscular Volume 85.8 fL (80-100) Mean Corpuscular Hemoglobin 26.0 pg (25-34) Mean Corpuscular Hemoglobin Concent 30.3 g/dl (32-36) Platelet Count 192 K/uL (130-400) Mean Platelet Volume 10.2 fL (7.4-10.4) Neutrophils (%) (Auto) 79.7 % Lymphocytes (%) (Auto) 11.0 % Monocytes (%) (Auto) 7.9 % Eosinophils (%) (Auto) 0.9 % Basophils (%) (Auto) 0.3 % Neutrophils # (Auto) 5.16 K/uL (1.4-6.5) Lymphocytes # (Auto) 0.71 K/uL (1.2-3.4) Monocytes # (Auto) 0.51 K/uL (0.11-0.59) Eosinophils # (Auto) 0.06 K/uL (0-0.5) Basophils # (Auto) 0.02 K/uL (0-0.2) RDW Standard Deviation 53.1 fL (36.4-46.3) RDW Coefficient of Variation 16.6 % (11.5-14.5) Immature Granulocyte % (Auto) 0.2 % Immature Granulocyte # (Auto) 0.01 K/uL (0.00-0.02) Polychromasia 1+ Ovalocytes 1+ Erythrocyte Sedimentation Rate 64 mm/hr (0-21) Prothrombin Time 15.1 SECONDS (9.0-12.0) Prothromb Time International Ratio 1.4 (0.9-1.1) Activated Partial Thromboplast Time 27.5 SECONDS (21.0-31.0) Partial Thromboplastin Ratio 1.1 Venous Blood pH 7.36 (7.36-7.41) Venous Blood Partial Pressure CO2 49 mmHg (38.0-50.0) Venous Blood Partial Pressure O2 37 mmHg Venous Blood HCO3 27 mmol/L Venous Blood Oxygen Saturation 63.9 % Venous Blood Base Excess 0.9 mmol/L Anion Gap 11.0 mmol/L (3-11) Est Creatinine Clear Calc Drug Dose 30.3 ml/min Estimated GFR () 30.3 Estimated GFR (Non- 26.1 BUN/Creatinine Ratio 22.0 (10-20) Calcium Level 8.4 mg/dl (8.5-10.1) Phosphorus Level 4.0 mg/dl (2.5-4.9) Magnesium Level 2.2 mg/dl (1.8-2.4) Total Bilirubin 1.1 mg/dl (0.2-1) Aspartate Amino Transf (AST/SGOT) 24 U/L (15-37) Alanine Aminotransferase (ALT/SGPT) 35 U/L (12-78) Alkaline Phosphatase 78 U/L (45-117) Total Creatine Kinase 29 U/L (26-192) Creatine Kinase MB 1.1 ng/ml (0.5-3.6) Creatine Kinase MB Ratio 3.8 (0-3.0) Troponin I 2.680 ng/ml (0-0.045) C-Reactive Protein 14.20 mg/dl (0-0.29) Pro-B-Type Natriuretic Peptide > 92433 pg/ml (0-1800) Total Protein 7.2 gm/dl (6.4-8.2) Albumin 2.9 gm/dl (3.4-5.0) Globulin 4.3 gm/dl (2.5-4.0) Albumin/Globulin Ratio 0.7 (0.9-2) Lipase 113 U/L (73-393) Bedside Lactic Acid Venous 2.03 mmol/L (0.90-1.70) Urine Color DK YELLOW Urine Appearance CLEAR (CLEAR) Urine pH 6.5 (4.5-7.5) Urine Specific [place] 1.019 (1.000-1.030) Urine Protein 3+ (NEG) Urine Glucose (UA) NEG (NEG) Urine Ketones NEG (NEG) Urine Occult Blood NEG (NEG) Urine Nitrite NEG (NEG) Urine Bilirubin NEG (NEG) Urine Urobilinogen NEG (NEG) Urine Leukocyte Esterase SMALL (NEG) Urine WBC (Auto) 10-30 /hpf (0-5) Urine RBC (Auto) 0-4 /hpf (0-4) Urine Hyaline Casts (Auto) 5-10 /lpf (0-5) Urine Epithelial Cells (Auto) >30 /lpf (0-5) Urine Bacteria (Auto) NEG (NEG) Urine Renal Epithelial Cells 5-10 /lpf (0-5) Urine Pathogenic Casts 0-3 GRANULAR CASTS /lpf (0) Laboratory results per my review.e Medications Administered Medications (Trade) Dose Ordered Sig/Keny Route Start Time Stop Time Status Last Admin Dose Admin Albuterol/ Ipratropium (Duoneb) 12 ml ONE ONCE INH 05/02/16 14:00 05/02/16 14:02 DC 05/02/16 14:08 12 ML Diltiazem HCl (Cardizem Inj) 10 mg NOW STAT IV 05/02/16 15:08 05/02/16 15:10 DC 05/02/16 15:23 10 MG Levofloxacin (Levaquin / D5W) 750 mg NOW STAT IV 05/02/16 15:21 05/02/16 15:22 DC 05/02/16 15:31 750 MG Furosemide (Lasix Inj) 40 mg STK-MED ONCE .ROUTE 05/02/16 17:28 05/02/16 17:30 DC 05/02/16 17:28 40 MG ECG Indication: SOB/dyspnea Rate (beats per minute): 128 Rhythm: atrial fibrillation Findings: nonspecific-ST abn (diffuse), other (no PVCs) Comparison ECG Date: 04/16/16 Change: no significant change ED Course 1353: The patient was evaluated in room A1. A complete history and physical examination were performed. 1400: DuoNeb 12 ml INH. 1508: Cardizem 10 mg IV. 1521: Levofloxacin 750 mg IV. 1558: Discussed the case with Briana Lo. The patient will be evaluated. Medical Decision Prior records/ancillary studies reviewed. Triage Nursing notes reviewed. Additional history obtained from EMS. The patient's history was concerning for respiratory difficulties. Differential diagnosis: Etiologies such as infections, reactive airway disease, pneumonia, pneumothorax , COPD, CHF, cardiac ischemia, pulmonary embolism, musculoskeletal, gastrointestinal, as well as others were entertained. The patient is an 80-year-old female who has a history of end-stage COPD but also has pulmonary edema history. The patient presented to the emergency department by ambulance for shortness of breath. The patient told the prehospital personnel that she did not wish to be intubated or placed on BiPAP. She's had similar admissions in the past. I did review the patient's previous electronic medical records. She was found to be in rapid atrial fibrillation upon arrival. She was treated as COPD initially and also treated with antibiotics. She was also found have signs of pulmonary edema. She was not given Lasix because of her elevated creatinine and her elevated troponin. I was concerned this could cause further kidney injury although I do suspect she has fluid overload. The patient's oxygen level did stabilize. She was treated with Cardizem as well for rate control. I discussed the patient's laboratory and radiographic studies with the patient and her family member. I also discussed his case with the on-call briana Henderson hospitalist group. They have agreed to evaluate the patient in the emergency department for further management and disposition. Consults Time Called: [phone] Consulting Physician: Briana Lo. Returned Call: [phone]: Discussed the case with Briana Lo. The patient will be evaluated. Impression Primary Impression: Respiratory failure Additional Impressions: Hypoxia COPD exacerbation Atrial fibrillation with RVR NSTEMI (non-ST elevated myocardial infarction) Critical Care I have personally spent greater than 60 minutes of critical care time in the direct management of this patient. This includes bedside care, interpretation of diagnostic studies, and testing, discussion with consultants, patient, and family members, and other required patient management activities. This 60 minutes is in excess of all separately billable procedures. Scribe Attestation The scribe's documentation has been prepared under my direction and personally reviewed by me in its entirety. I confirm that the note above accurately reflects all work, treatment, procedures, and medical decision making performed by me. Departure Information Dispostion Being Evaluated By Hospitalist Patient Instructions Asthma - [facility], COPD - [facility], Croup - [facility], My [facility] Health Problem Qualifiers
--- NOTE | 2016-05-02 14:46 | DIAGNOSTIC IMAGING REPORT ---
CHEST ONE VIEW PORTABLE CLINICAL HISTORY: Sepsis COMPARISON STUDY: 04/20/2016 FINDINGS: There are postsurgical changes of midline sternotomy, and valvular replacement.. The heart is mildly enlarged[. There is hazy increased density within the right lung. This may in part be technical. Mild pulmonary vascular congestion is suspected. There were no cystic or pleural fusions. A follow-up PA and lateral study might be considered. IMPRESSION: Technically limited study. Cardiomegaly and suspected pulmonary vascular congestion. A follow-up PA and lateral study might be considered. Electronically signed by: Stephon Samuel M.D. 05/02/2016 2:45 PM Dictated Date/Time: 05/02/2016 2:43 PM
[2016-05-02 14:49] LABS: VEN BLD GAS O2 SATURATION 63.9 %; VEN BLOOD GAS BASE EXCESS 0.9 mmol/L
[2016-05-02 14:56] VITALS: PULSE 114; O2SAT 94
[2016-05-02 14:56] LABS: HEMATOCRIT 27.7 % (37-47); MEAN CELL VOLUME 85.8 fL (80-100); MEAN CORPUSCULAR HGB CONC 30.3 g/dl (32-36); MEAN PLATELET VOLUME 10.2 fL (7.4-10.4); PLATELET COUNT 192 K/uL (130-400); RED BLOOD COUNT 3.23 M/uL (4.2-5.4); WHITE BLOOD COUNT 6.47 K/uL (4.8-10.8)
[2016-05-02] MEDS ORDERED: DILTIAZEM HCL 5 MG/ML 5 ML VIAL IV STA (15:08)
[2016-05-02 15:09] LABS: INR 1.4 (0.9-1.1); PARTIAL THROMBOPLASTIN RATIO 1.1; PROTHROMBIN TIME (PATIENT) 15.1 SECONDS (9.0-12.0)
[2016-05-02 15:18] LABS: BASO % 0.3 %; BASO ABS # 0.02 K/uL (0-0.2); COMPLETE YES; EOS % 0.9 %; IG% 0.2 %; LYMPH ABS # 0.71 K/uL (1.2-3.4); MONO % 7.9 %; NEUT % 79.7 %; OVALOCYTES 1+; POLYCHROMASIA 1+
[2016-05-02] MEDS ORDERED: LEVAQUIN 750MG / 150ML D5W IV STA (15:21)
[2016-05-02 15:27] LABS: ALT/SGPT 35 U/L (12-78); AST/SGOT 24 U/L (15-37); BLOOD UREA NITROGEN 40 mg/dl (7-18); CALCIUM 8.4 mg/dl (8.5-10.1); CARBON DIOXIDE 25 mmol/L (21-32); CHLORIDE 99 mmol/L (98-107); GLUCOSE 136 mg/dl (70-99); MAGNESIUM 2.2 mg/dl (1.8-2.4); POTASSIUM 5.5 mmol/L (3.5-5.1); SODIUM 135 mmol/L (136-145)
[2016-05-02 15:38] LABS: ALB/GLOB RATIO 0.7 (0.9-2); ALKALINE PHOSPHATASE 78 U/L (45-117); CKMB/CK RATIO 3.8 (0-3.0)
[2016-05-02] MEDS ORDERED: OXYC-106 PO (15:45)
[2016-05-02] MEDS ORDERED: METO50TA16 PO (15:45)
[2016-05-02 16:00] LABS: URINE APPEARANCE CLEAR (CLEAR); URINE BILIRUBIN NEG (NEG); URINE COLOR DK YELLOW; URINE EPITHELIAL CELL AUTO >30 /lpf (0-5); URINE NITRITE NEG (NEG); URINE PH 6.5 (4.5-7.5); URINE SPECIFIC GRAVITY 1.019 (1.000-1.030); UROBILINOGEN NEG (NEG); ZZURINE CULT IF INDIC CATH YES
[2016-05-02 16:02] LABS: MANUAL MICROSCOPIC REQUIRED? NO; REVIEW REQ? YES
[2016-05-02 16:10] LABS: URINE PATH CASTS 0-3 GRANULAR CASTS /lpf (0)
[2016-05-02] MEDS ORDERED: FUROSEMIDE 40 MG/4 ML VIAL ONE (17:28)
[2016-05-02] MEDS ORDERED: FUROSEMIDE 40 MG/4 ML VIAL IV STA (17:36)
[2016-05-02] MEDS ORDERED: OXYCODONE/ACETAMINOPHEN 10/325MG TAB PO PRN (17:45)
[2016-05-02] MEDS ORDERED: ALUMINUM/MAGNESIUM/SIMETH (MAALOX MAX) 30 ML UDC PO PRN (17:45)
[2016-05-02] MEDS ORDERED: ACETAMINOPHEN 325 MG TAB PO PRN (17:45)
[2016-05-02] MEDS ORDERED: MAGNESIUM HYDROXIDE SUSP 30 ML UDC PO PRN (17:45)
[2016-05-02] MEDS ORDERED: NITROGLYCERIN 0.4 MG SL PER TAB CHARGE SL PRN (17:45)
[2016-05-02] MEDS ORDERED: POLYETHYLENE (MIRALAX) 17 GM PACK PO PRN (17:45)
[2016-05-02] MEDS ORDERED: ONDANSETRON INJ 2 MG/ML 2 ML VIAL IV PRN (17:45)
[2016-05-02] MEDS ORDERED: FERROUS GLUCONATE 324 MG TAB PO SCH (18:00)
--- NOTE | 2016-05-02 18:24 | History and Physical ---
History & Physical Date & Time of Service: May 02, 2016 at 17:54 Chief Complaint: Severe Respiratory Distress Primary Care Physician: No Doctor, Assigned History of Present Illness Source: patient, family (daughter is present) Attending: Dr. Olivares This is a 80-year-old female that presents with extreme shortness of breath which has developed over the last 2-3 days. The patient has ongoing congestive heart failure and has a Pro BNP of 35,000. She has had seven admissions over the last 12 months for similar complaints. The patient indicates that she also has development of a productive cough with clear sputum. She she denies fever or color changes sputum. She has no chest pain. She denies any fever, chills, rigors. She has no nausea, vomiting, diarrhea. She does indicate that her urine output has been decreased. She has no hematuria. She is chronically on Eliquis. She states that one time she was on Coumadin. She does live with her daughter at home. They recently had a hospital bed delivered and moved her bedroom and living room for convenience. The patient has a history of severe heart disease requiring bypass surgery as well as stent placement in the past. She denies current chest pain or tightness. She has limited ambulation at home but denies claudication. She does have increased edema bilateral lower extremities which while not as severe as in the past certainly is greater than baseline at this time. She does have a healing ulcer on the left heel and lower leg which she states has been nondraining. She has no recent falls or injury. She has no recent travel. She has no awareness of tachyarrhythmia or pleuritic pain and further denies hemoptysis. The patient indicates that with the shortness of breath she has had increasing frustration and is ready to focus on palliative care. In transport by EMS, she refused CPAP or BiPAP. She adamantly indicates that she does not want any form of invasive or noninvasive ventilation and her class no cardiac compressions or cardiopulmonary resuscitation. Past Medical/Surgical History Medical Problems: Acute exacerbation of CHF (congestive heart failure) BARBARA (acute kidney injury) Atrial fibrillation CAD (coronary artery disease) Cellulitis of left lower extremity CKD (chronic kidney disease) stage 3, GFR 30-59 ml/min COPD (chronic obstructive pulmonary disease) Depression DM type 2 (diabetes mellitus, type 2) GI bleed HTN (hypertension) Hypothyroidism History of NSTEMI Surgical Problems: H/O aortic valve replacement Hx of CABG History of vein harvesting of the left saphenous vein for CABG S/P tonsillectomy Family History Heart disease Stroke Social History Smoking Status: Former Smoker (remote history of smoking for about 12 years. Quit greater than 30 years ago) Smokeless Tobacco Use: No Alcohol Use: none Drug Use: none Marital Status: ( in 1984) Housing status: lives with family (lives with daughter and daughter's home) Occupational Status: retired Multi-Drug Resistant Organisms History of MDRO: No Allergies Coded Allergies: Morphine (Verified Adverse Reaction, Unknown, HALLUCINATIONS, 05/02/16) Home Medications Scheduled Apixaban (Eliquis), 2.5 MG PO BID Aspirin (Aspirin Ec), 81 MG PO DAILY Citalopram (Citalopram Hydrobromide), 20 MG PO DAILY Docusate Sodium (Docusate Sodium), 100 MG PO BID Ferrous Gluconate (Ferrous Gluconate), 324 MG PO TIDM Folic Acid (Folic Acid), 1 TAB PO DAILY Furosemide (Lasix), 40 MG PO DAILY Glipizide (Glucotrol), 2 TAB PO QAM Hydrochlorothiazide (Hydrochlorothiazide), 12.5 MG PO QAM Ipratropium-Albuterol (Duoneb), 1 TREATMENT INH Q4H Levothyroxine Sodium (Levothyroxine Sodium), 1 TAB PO DAILY Losartan Potassium (Cozaar), 100 MG PO DAILY Magnesium Oxide (Mag-Ox), 400 MG PO BID Metoprolol Tartrate (Lopressor) (Lopressor), 25 MG PO BID Pantoprazole (Protonix), 40 MG PO DAILY Polyethylene Glycol 3350 (Miralax), 17 GM PO DAILY Quetiapine Fumarate (Seroquel), 50 MG PO HS Senna (Senokot), 8.6 MG PO NOON Scheduled PRN Oxycodone/Acetaminophen 10MG/325MG (Percocet 10MG/325MG), 1 TAB PO Q6 PRN for Pain Review of Systems A total of 12 systems was reviewed and is negative other than as listed above in the HPI Physical Exam Vital Signs Date Time Temp Pulse Resp B/P Pulse Ox O2 Delivery O2 Flow Rate FiO2 05/02/16 17:39 125 26 156/124 96 Nasal Cannula 3.0 05/02/16 16:40 116 96 05/02/16 16:35 122 95 05/02/16 16:30 121 96 05/02/16 16:28 148/104 05/02/16 16:25 121 96 05/02/16 16:20 117 96 05/02/16 16:15 120 96 05/02/16 16:10 129 96 05/02/16 16:05 131 96 05/02/16 16:00 121 96 05/02/16 15:58 162/129 05/02/16 15:55 122 97 05/02/16 15:50 130 94 05/02/16 15:45 127 94 05/02/16 15:40 111 95 05/02/16 15:36 151/101 05/02/16 15:35 121 95 05/02/16 15:30 124 94 05/02/16 15:28 144/98 05/02/16 15:25 144 148/115 96 05/02/16 15:20 134 163/110 96 05/02/16 15:15 137 94 05/02/16 15:10 141 96 05/02/16 15:05 143 97 05/02/16 15:00 145 97 05/02/16 14:56 114 28 94 Nasal Cannula 3.0 05/02/16 14:55 138 90 05/02/16 14:50 135 97 05/02/16 14:49 155/122 05/02/16 14:45 132 97 05/02/16 14:05 90 Nasal Cannula 3.0 05/02/16 14:05 90 Nasal Cannula 3.0 05/02/16 14:00 125 05/02/16 14:00 37.2 131 30 146/102 90 Nasal Cannula 3.0 GENERAL : Moderate acute distress EYES: No icterus, gaze conjugate. PERRL NOSE: No evidence of epistaxis. Nasal cannula in place MOUTH: No lesions or candidiasis. Mucosa dry NECK: Supple. No stridor or appreciation of carotid bruits LUNGS: Lung sounds decreased bilaterally. Bronchospasm appreciated in the anterior upper lung kim. Bibasilar crackles HEART: Regular. Tachycardic with a rate in the one teens. No appreciation of ectopy or arrhythmia ABDOMEN: Soft, NT, ND, BS Present. No rebound tenderness EXTREMITIES: +2 bilateral LE edema, pedal pulses intact. NEURO: A&OX3. Diagnostics Laboratory Results Results Past 24 Hours Test 05/02/16 14:30 05/02/16 14:33 05/02/16 15:30 Range/Units White Blood Count 6.47 4.8-10.8 K/uL Red Blood Count 3.23 4.2-5.4 M/uL Hemoglobin 8.4 12.0-16.0 g/dL Hematocrit 27.7 37-47 % Mean Corpuscular Volume 85.8 80-100 fL Mean Corpuscular Hemoglobin 26.0 25-34 pg Mean Corpuscular Hemoglobin Concent 30.3 32-36 g/dl Platelet Count 192 130-400 K/uL Mean Platelet Volume 10.2 7.4-10.4 fL Neutrophils (%) (Auto) 79.7 % Lymphocytes (%) (Auto) 11.0 % Monocytes (%) (Auto) 7.9 % Eosinophils (%) (Auto) 0.9 % Basophils (%) (Auto) 0.3 % Neutrophils # (Auto) 5.16 1.4-6.5 K/uL Lymphocytes # (Auto) 0.71 1.2-3.4 K/uL Monocytes # (Auto) 0.51 0.11-0.59 K/uL Eosinophils # (Auto) 0.06 0-0.5 K/uL Basophils # (Auto) 0.02 0-0.2 K/uL RDW Standard Deviation 53.1 36.4-46.3 fL RDW Coefficient of Variation 16.6 11.5-14.5 % Immature Granulocyte % (Auto) 0.2 % Immature Granulocyte # (Auto) 0.01 0.00-0.02 K/uL Polychromasia 1+ Ovalocytes 1+ Erythrocyte Sedimentation Rate 64 0-21 mm/hr Prothrombin Time 15.1 9.0-12.0 SECONDS Prothromb Time International Ratio 1.4 0.9-1.1 Activated Partial Thromboplast Time 27.5 21.0-31.0 SECONDS Partial Thromboplastin Ratio 1.1 Venous Blood pH 7.36 7.36-7.41 Venous Blood Partial Pressure CO2 49 38.0-50.0 mmHg Venous Blood Partial Pressure O2 37 mmHg Venous Blood HCO3 27 mmol/L Venous Blood Oxygen Saturation 63.9 % Venous Blood Base Excess 0.9 mmol/L Sodium Level 135 136-145 mmol/L Potassium Level 5.5 3.5-5.1 mmol/L Chloride Level 99 98-107 mmol/L Carbon Dioxide Level 25 21-32 mmol/L Anion Gap 11.0 3-11 mmol/L Blood Urea Nitrogen 40 7-18 mg/dl Creatinine 1.80 0.60-1.20 mg/dl Est Creatinine Clear Calc Drug Dose 30.3 ml/min Estimated GFR () 30.3 Estimated GFR (Non- 26.1 BUN/Creatinine Ratio 22.0 10-20 Random Glucose 136 70-99 mg/dl Calcium Level 8.4 8.5-10.1 mg/dl Phosphorus Level 4.0 2.5-4.9 mg/dl Magnesium Level 2.2 1.8-2.4 mg/dl Total Bilirubin 1.1 0.2-1 mg/dl Aspartate Amino Transf (AST/SGOT) 24 15-37 U/L Alanine Aminotransferase (ALT/SGPT) 35 12-78 U/L Alkaline Phosphatase 78 45-117 U/L Total Creatine Kinase 29 26-192 U/L Creatine Kinase MB 1.1 0.5-3.6 ng/ml Creatine Kinase MB Ratio 3.8 0-3.0 Troponin I 2.680 0-0.045 ng/ml C-Reactive Protein 14.20 0-0.29 mg/dl Pro-B-Type Natriuretic Peptide > 11823 0-1800 pg/ml Total Protein 7.2 6.4-8.2 gm/dl Albumin 2.9 3.4-5.0 gm/dl Globulin 4.3 2.5-4.0 gm/dl Albumin/Globulin Ratio 0.7 0.9-2 Lipase 113 73-393 U/L Bedside Lactic Acid Venous 2.03 0.90-1.70 mmol/L Urine Color DK YELLOW Urine Appearance CLEAR CLEAR Urine pH 6.5 4.5-7.5 Urine Specific Hollins 1.019 1.000-1.030 Urine Protein 3+ NEG Urine Glucose (UA) NEG NEG Urine Ketones NEG NEG Urine Occult Blood NEG NEG Urine Nitrite NEG NEG Urine Bilirubin NEG NEG Urine Urobilinogen NEG NEG Urine Leukocyte Esterase SMALL NEG Urine WBC (Auto) 10-30 0-5 /hpf Urine RBC (Auto) 0-4 0-4 /hpf Urine Hyaline Casts (Auto) 5-10 0-5 /lpf Urine Epithelial Cells (Auto) >30 0-5 /lpf Urine Bacteria (Auto) NEG NEG Urine Renal Epithelial Cells 5-10 0-5 /lpf Urine Pathogenic Casts 0-3 GRANULAR CASTS 0 /lpf Microbiology Results 05/02/16 Blood Culture, Received Pending 05/02/16 Blood Culture, Received Pending 05/02/16 Urine Culture, Received Pending Diagnostic Radiology CHEST ONE VIEW PORTABLE CLINICAL HISTORY: Sepsis COMPARISON STUDY: 04/20/2016 FINDINGS: There are postsurgical changes of midline sternotomy, and valvular replacement.. The heart is mildly enlarged[. There is hazy increased density within the right lung. This may in part be technical. Mild pulmonary vascular congestion is suspected. There were no cystic or pleural fusions. A follow-up PA and lateral study might be considered. IMPRESSION: Technically limited study. Cardiomegaly and suspected pulmonary vascular congestion. A follow-up PA and lateral study might be considered. Electronically signed by: Stephon Samuel M.D. 05/02/2016 2:45 PM EKG EKG 05/02/16 at 1415 EKG with atrial fibrillation with rapid ventricular response with a ventricular rate of 129 QTc 486 Appears to have left axis deviation with incomplete right bundle branch block no specific ST changes Impression Assessment and Plan CHF EXACERBATION Patient with proBNP greater than 35,000 Goel catheter to gravity Give 40 mg of IV furosemide Strict I's and O's Patient with history of CHF exacerbation the past Patient refusing CPAP or BiPAP support Patient refusing cardiopulmonary resuscitation if needed Continue supplemental O2 to maintain SaO2 of 88-92% HYPERKALEMIA Potassium 5.5 Patient to receive furosemide for CHF exacerbation Check repeat labs at 8:30 tonight Follow serial labs ACUTE RESPIRATORY DISTRESS Most likely secondary to CHF exacerbation Continue to treat underlying CHF with diuretics Continue supplemental O2 via nasal cannula Patient does not desire CPAP or BiPAP support COPD history Continue bronchodilators - we'll also start methylprednisolone RENAL Chronic stage III renal disease BUN 40 Creatinine 1.8 Although patient does have a bump in her BUN and creatinine, focus will be on palliation Furosemide 40 mg IV 1 dose given for CHF exacerbation Patient does not wish to have dialysis Continue to follow expectantly ELEVATED TROPONIN History of significant CAD Doubt acute ACS - no ST changes on EKG Troponin of 2.68 most likely due to demand ischemia from CHF and rate driven with heart rate in the 130s and 140s on admission Check serial cardiac enzymes 2 more sets Repeat EKG in the morning Patient does not wish to have further cardiac catheterization Focus on palliation NUTRITION Albumin 2.9 C-reactive protein 14.2 At this point we'll continue oral nutrition with AHA/renal diet as tolerated ATRIAL FIBRILLATION Patient was in normal sinus rhythm at the time of my examination but had EKG demonstrating A. fib with RVR on admission Continue Eliquis Continue metoprolol tartrate and Cozaar as tolerated Follow on telemetry DIABETES MELLITUS Managed with glipizide at home Check a hemoglobin A1c Sliding scale insulin BSG's before meals and at bedtime HYPOTHYROIDISM Continue levothyroxine Check TSH HEME Hemoglobin 8.4 Hematocrit 27.7 No active bleeding Continue ferrous gluconate and folic acid Follow serial labs Continue pantoprazole for history of peptic ulcer disease GI History of peptic ulcer disease No abdominal pain at this time Continue pantoprazole Patient would prefer not to have KHALIF DEPRESSION/ANXIETY Treat underlying acute illness Continue Seroquel at bedtime Supportive care DVT PROPHYLAXIS Continue Eliquis SCDs/teds as tolerated Patient discussed with Dr. Olivares. Please refer to his addendum for further recommendations Thank you for including us in the care of this patient. i personally examined pt and verified all morales points arya Zendejas PAC sob - not really feeling better. wants mostly to be comfortable and left alone, but wants treated so that she doesn't feel so SOB. she discussed with Mr Zendejas in more depth than she opened up to me, but he also noted that her dtr was present when they were having that discussion - once i went to see her, dtr had gone home. vitals noted, see EMR, pleasant but appearing in moderate respiratory distress, tachycardic, lungs quiet w scattered rales CXR noted acute respiratory failure - predominantly hypoxic due to acute on chronic mixed systolic and diastolic CHF - diurese, supportive care as best as she'll allow. "borderline comfort care" (ie notes that she doesn't really want anything beyond medical care done, wants to be comfortable above all else, but wants SOB treated) elevated troponin - demand ischemia vs NQWMI -- either way relates to above. does not want invasive treatment/cath/etc ---later revisited - was worsening. d/w Dr Watson R2, and also personally called dtr - pt was worsening, and given her previously stated wishes, likely this worsening would herald a steep decline and it may be best to transition to comfort care. dtr coming back in. dr watson wanted to have discussions w dtr as he became involved in pt's care as he came on shift. i was a willing back- up should he need or the dtr request. see his notes as well Resuscitation Status DO NOT RESUSCITATE VTE Prophylaxis VTE Risk Assessment Done? Y/N: Yes Risk Level: Moderate
[2016-05-02 19:43] VITALS: BP 145/107; PULSE 137; TEMP 37.5; O2SAT 95; Ht 177.8 cm; Wt 95.0 kg
[2016-05-02] MEDS ORDERED: PHARMACY GLYCEMIC MGMT CONSULT PRN (19:43)
[2016-05-02] MEDS: ALBUT/IPRATROP 3MG/0.5MG NEB 3 ML VIAL INH SCH (20:00)
[2016-05-02] MEDS ORDERED: METHYLPREDNISOLONE IV 60 MG in SYRINGE 0 ML IV SCH (20:00)
[2016-05-02] MEDS ORDERED: LORAZEPAM 2 MG/ML 1 ML VIAL IV STA (20:06)
[2016-05-02] MEDS ORDERED: HYDROmorphone INJ 0.5 MG/0.5 ML SYR IV STA (20:10)
[2016-05-02 20:14] VITALS: BP 163/101; PULSE 130; TEMP 36.4; O2SAT 90
[2016-05-02 20:30] VITALS: PULSE 151; O2SAT 99
[2016-05-02 20:34] VITALS: PULSE 117; O2SAT 95
[2016-05-02] MEDS ORDERED: MAGNESIUM OXIDE 400 MG TAB PO SCH (21:00)
[2016-05-02] MEDS ORDERED: INSULIN ASPART 100 UNITS/ML 3 ML PEN SC SCH (21:00)
[2016-05-02] MEDS ORDERED: APIXABAN 2.5 MG TAB PO SCH (21:00)
[2016-05-02] MEDS ORDERED: QUETIAPINE FUMARATE 25 MG TAB PO SCH (21:00)
[2016-05-02] MEDS ORDERED: METOPROLOL TARTRATE 25 MG TAB PO SCH (21:00)
[2016-05-02] MEDS ORDERED: DOCUSATE SODIUM 100 MG CAP PO SCH (21:00)
[2016-05-02] MEDS ORDERED: LORAZEPAM 2 MG/ML 1 ML VIAL IV PRN (21:00)
--- NOTE | 2016-05-02 21:25 | Progress Note ---
Progress Note I was paged at approximately 19:46. Patient was noted to be severely dyspneic, and nurse was concerned about fluctuating vitals. Patient has been admitted for treatment of acute CHF exacerbation. Is getting Lasix but is refusing BiPAP. Nurse noted that BPs were ranging from 70 systolic to 160 systolic. Patient was appearing extremely dyspneic, tachycardic in the 130s, but was refusing BiPAP treatment for her acute congestive heart failure. I give the following instructions prior to my arrival: Obtain a full set of vital signs would be up to see the patient I arrived at the to the bedside to assess the patient: SUBJECTIVE: Complains of being very short of breath. Does not want BiPAP to treat acute congestive heart failure because she is claustrophobic. She denies being in any pain at this time. Cannot find a suitable position to make her comfortable. Is unable to express her goals of care at this time as she is quite short of breath. OBJECTIVE: Vital signs: BP 135/88; heart rate 146, temp 36.3, SPO2 86% on 4 L by nasal cannula Gen. inspection: Patient appears in moderate distress, unable to complete sentences, unable to sustain attention due to acute shortness of breath Respiratory: Absence of wheezing bilaterally, bibasilar crackles ASSESSMENT/PLAN: 80-year-old female with acute on chronic systolic congestive heart failure, with persistence of shortness of breath and refusing BiPAP treatment. I attempted to explain to her the need for BiPAP to maintain her respiratory status, but she is refusing. I have tried to inform her that she risks further desaturating which can lead to tissue hypoxia, and organ damage and ultimately . Unfortunately she cannot vocalize that she understands the risks associated with refusing BiPAP but this is likely because she is very short of breath at this time. I have offered her the option to continue pursuing improving her oxygenation but it would require BiPAP support. If she continued to refuse BiPAP, I would respect her wishes, and would offer her the alternative route of comfort measures. I phoned her daughter and POA, Nicole Chino and discussed the situation with her. Given that Mrs. Xavier cannot vocalize her reasons for refusing BiPAP or an understanding of the implications of refusing BiPAP, I needed to speak to her daughter in order to get a substitute decision. Mrs. Chino was able to vocalize her understanding that in the absence of BiPAP for treatment of her CHF her mother would continued to deteriorate and ultimately result in . The alternative would be to transfer her to the medical surgical unit and change her status to comfort measures only. I stated to her that we would continue to try and offer the patient BiPAP. In the meantime I encouraged Mrs. Chino to arrive at the bedside so that we could conduct a family meeting. Until she arrives, our plan for Mrs. Xavier is as follows - Patient changed from nasal cannula to simple facemask; if this fails we will move to a nonrebreather. In the meantime we will discuss with the patient starting BiPAP - DuoNeb treatment scheduled Q4H - 0.5 mg Ativan given to reduce anxiety; additional 0.5 mg can be given if patient becomes agitated again - 0.5 mg Dilaudid given to reduce air hunger (patient has morphine allergy) - Dr. Olivares has also been informed of the situation and will arrive at the bedside to assess the patient as well I will return to the bedside to speak with Mrs. chino when she arrives. -------- Return to bedside approximately 10:00. Family arrived to be with the patient. Patient is somnolent. I brought them to a separate room discuss further goals of care. Present at the family meeting includes patient's daughter/SANDRITA Chino, patient's other daughter, and patient's grandson. I discussed the situation with the family and informed them that improving the patient's respiratory status would likely require BiPAP respiratory support. She had been refusing BiPAP up until this time and if she would continue refer to refuse, her respiratory status would ultimately continued to deteriorate. I reviewed the numerous hospitalizations that the patient has had over the past 6 months, and the family attested that it has caused a markedly decline in her quality of life. She has expressed to her family in the past that she did not want BiPAP, or to be intubated and on mechanical ventilation. I've discussed with the family that even despite our best efforts to treat her acute CHF on this admission, based on recent hospitalizations, it was very likely she would return to the hospital with another exacerbation. I asked the family to weigh the benefits of providing her with BiPAP at this time, both short-term and long- term, and the expected impacted BiPAP would have on her quality of life. Family noted that BiPAP makes her extremely claustrophobic and would be distressful to her even though it may help improve her respiratory status. As such, the family chose to pursue comfort measures for the patient. Plan is as follows: - Discontinue efforts to initiate BiPAP - [facility] I will continue the palliative care consult to discuss with the family tomorrow whether there are options for comfort care at home versus in the hospital - Routine vital sign monitoring - Oxygen by nasal cannula or simple facemask, as tolerated by the patient for comfort - Dilaudid 0.5 mg IV every 30 minutes when necessary for shortness of breath symptoms - DuoNeb every 4 hours when necessary for shortness of breath - Scopolamine patch ordered, in case patient gets nausea or has excessive secretions - Discontinue all by mouth meds at this time, as patient is somnolent and high risk for aspiration. - All chronic medications to be discontinued I will continue to monitor the patient's clinical status overnight. 02:30 Patient was reassessed at the bedside. Daughter present at bedside with her. Daughter notes that she appears comfortable. No issues identified per nursing.
[2016-05-02 22:51] LABS: BUN/CREATININE RATIO 20.9 (10-20); CALCIUM 8.3 mg/dl (8.5-10.1); POTASSIUM 5.9 mmol/L (3.5-5.1)
[2016-05-02 23:45] VITALS: BP 126/83; PULSE 108; TEMP 36.7
[2016-05-03] MEDS: HYDROmorphone INJ 0.5 MG/0.5 ML SYR IV PRN ×9 (00:44→20:59)
[2016-05-03] MEDS ORDERED: LORAZEPAM INJ 0.5 MG in SYRINGE 0.75 ML IV PRN (00:45)
[2016-05-03] MEDS: ALBUT/IPRATROP 3MG/0.5MG NEB 3 ML VIAL INH SCH (00:55)
[2016-05-03 00:59] VITALS: PULSE 120; O2SAT 95
[2016-05-03] MEDS ORDERED: SCOPOLAMINE 1.5 MG TDSY TD PRN (01:15)
[2016-05-03] MEDS ORDERED: LEVOTHYROXINE 175 MCG TAB PO SCH (06:00)
[2016-05-03 06:34] LABS: ESTIMATED AVERAGE GLUCOSE 148 mg/dl; HA1C FLAG Normal (Normal)
[2016-05-03] MEDS ORDERED: LOSARTAN POTASSIUM 50 MG TAB PO SCH (08:00)
[2016-05-03] MEDS ORDERED: CITALOPRAM 20 MG TAB PO SCH (08:00)
[2016-05-03] MEDS ORDERED: SENNA 8.6 MG TAB PO SCH (08:00)
[2016-05-03] MEDS ORDERED: ASPIRIN 81 MG ECTAB PO SCH (09:00)
[2016-05-03] MEDS ORDERED: HYDROCHLOROTHIAZIDE 25 MG TAB PO SCH (09:00)
[2016-05-03] MEDS ORDERED: PANTOprazole SOD 40 MG TAB PO SCH (09:00)
[2016-05-03] MEDS ORDERED: INSULIN GLARGINE SOLOSTAR 100 UNITS/ML 3 ML PEN SC SCH (09:00)
[2016-05-03] MEDS ORDERED: FoLIC ACID TAB 400 MCG TAB PO SCH (09:00)
--- NOTE | 2016-05-03 09:51 | Progress Note ---
Internal Med Progress Note Date of Service: May 03, 2016. Provider Documentation: This in an 80-year-old female admitted yesterday for extreme shortness of breath secondary to CHF exacerbation. ProBNP was greater than 35, 000. Minimal response to IV furosemide. Overnight the patient had further decompensation. Patient refusing endotracheal intubation, CPAP, BiPAP. Patient changed to comfort care overnight after discussion with family with Dr. Watson. Patient is seen at bedside this morning. Daughter, friend, and [id number] are present. Patient is resting comfortably but mostly nonresponsive. No agonal breathing. Patient is tachycardic on examination. Family states the patient has appeared to be comfortable. SUBJECTIVE: Patient unable to give review of systems secondary to condition OBJECTIVE: Vital Signs-as noted below Exam: General-no acute distress Eyes-pupils are equal and constricted ENT-mucosa dry Neck-no evidence of stridor Lungs-clear to auscultation in the upper kim with no evidence of bronchospasm. Bibasal crackles Heart-tachycardic but regular. No appreciation of ectopy Abdomen-soft. Nondistended. Sounds present but quiet Extremities-positive bilateral lower extremity edema. Pedal pulses intact Neuro-patient nods affirmatively that she recognizes me but does not open eyes and does not follow simple commands Lab data as noted below. ASSESSMENT & PLAN: CHF EXACERBATION Minimal response to furosemide Patient changed to Comfort Care overnight per discussion with family Continue palliative measures Palliative medicine consult placed No apparent distress Nasal cannula in place DISPOSITION Patient changed to comfort care measures overnight Family present at bedside All labs discontinued Comfort cart ordered for family Discussed case with ARLENE Haider from palliative medicine. She will follow-up with family Thank you for including us in the care of this patient Please refer to Dr. Cunningham's addendum for further recommendations Vital Signs: Date Time Temp Pulse Resp B/P Pulse Ox O2 Delivery O2 Flow Rate FiO2 05/03/16 00:59 120 21 95 Nasal Cannula 4.0 05/02/16 23:45 36.7 108 20 4.0 05/02/16 20:34 117 26 95 BiPAP/CPAP 6.0 05/02/16 20:30 151 99 6.0 05/02/16 20:14 Nasal Cannula 4.0 05/02/16 20:14 36.4 130 30 163/101 90 Nasal Cannula 4.0 05/02/16 19:43 37.5 137 26 145/107 95 Nasal Cannula 4.0 05/02/16 18:29 128 26 136/116 98 Nasal Cannula 5.0 05/02/16 18:00 142 05/02/16 17:39 125 26 156/124 96 Nasal Cannula 3.0 05/02/16 16:40 116 96 05/02/16 16:35 122 95 05/02/16 16:30 121 96 05/02/16 16:28 148/104 05/02/16 16:25 121 96 05/02/16 16:20 117 96 05/02/16 16:15 120 96 05/02/16 16:10 129 96 05/02/16 16:05 131 96 05/02/16 16:00 121 96 05/02/16 15:58 162/129 05/02/16 15:55 122 97 05/02/16 15:50 130 94 05/02/16 15:45 127 94 05/02/16 15:40 111 95 05/02/16 15:36 151/101 05/02/16 15:35 121 95 05/02/16 15:30 124 94 05/02/16 15:28 144/98 05/02/16 15:25 144 148/115 96 05/02/16 15:20 134 163/110 96 05/02/16 15:15 137 94 05/02/16 15:10 141 96 05/02/16 15:05 143 97 05/02/16 15:00 145 97 05/02/16 14:56 114 28 94 Nasal Cannula 3.0 05/02/16 14:55 138 90 05/02/16 14:50 135 97 05/02/16 14:49 155/122 05/02/16 14:45 132 97 05/02/16 14:05 90 Nasal Cannula 3.0 05/02/16 14:05 90 Nasal Cannula 3.0 05/02/16 14:00 125 05/02/16 14:00 37.2 131 30 146/102 90 Nasal Cannula 3.0 Lab Results: Results Past 24 Hours Test 05/02/16 14:30 05/02/16 14:33 05/02/16 15:30 05/02/16 20:39 Range/Units White Blood Count 6.47 4.8-10.8 K/uL Red Blood Count 3.23 4.2-5.4 M/uL Hemoglobin 8.4 12.0-16.0 g/dL Hematocrit 27.7 37-47 % Mean Corpuscular Volume 85.8 80-100 fL Mean Corpuscular Hemoglobin 26.0 25-34 pg Mean Corpuscular Hemoglobin Concent 30.3 32-36 g/dl Platelet Count 192 130-400 K/uL Mean Platelet Volume 10.2 7.4-10.4 fL Neutrophils (%) (Auto) 79.7 % Lymphocytes (%) (Auto) 11.0 % Monocytes (%) (Auto) 7.9 % Eosinophils (%) (Auto) 0.9 % Basophils (%) (Auto) 0.3 % Neutrophils # (Auto) 5.16 1.4-6.5 K/uL Lymphocytes # (Auto) 0.71 1.2-3.4 K/uL Monocytes # (Auto) 0.51 0.11-0.59 K/uL Eosinophils # (Auto) 0.06 0-0.5 K/uL Basophils # (Auto) 0.02 0-0.2 K/uL RDW Standard Deviation 53.1 36.4-46.3 fL RDW Coefficient of Variation 16.6 11.5-14.5 % Immature Granulocyte % (Auto) 0.2 % Immature Granulocyte # (Auto) 0.01 0.00-0.02 K/uL Polychromasia 1+ Ovalocytes 1+ Erythrocyte Sedimentation Rate 64 0-21 mm/hr Prothrombin Time 15.1 9.0-12.0 SECONDS Prothromb Time International Ratio 1.4 0.9-1.1 Activated Partial Thromboplast Time 27.5 21.0-31.0 SECONDS Partial Thromboplastin Ratio 1.1 Venous Blood pH 7.36 7.36-7.41 Venous Blood Partial Pressure CO2 49 38.0-50.0 mmHg Venous Blood Partial Pressure O2 37 mmHg Venous Blood HCO3 27 mmol/L Venous Blood Oxygen Saturation 63.9 % Venous Blood Base Excess 0.9 mmol/L Sodium Level 135 136-145 mmol/L Potassium Level 5.5 3.5-5.1 mmol/L Chloride Level 99 98-107 mmol/L Carbon Dioxide Level 25 21-32 mmol/L Anion Gap 11.0 3-11 mmol/L Blood Urea Nitrogen 40 7-18 mg/dl Creatinine 1.80 0.60-1.20 mg/dl Est Creatinine Clear Calc Drug Dose 30.3 ml/min Estimated GFR () 30.3 Estimated GFR (Non- 26.1 BUN/Creatinine Ratio 22.0 10-20 Random Glucose 136 70-99 mg/dl Calcium Level 8.4 8.5-10.1 mg/dl Phosphorus Level 4.0 2.5-4.9 mg/dl Magnesium Level 2.2 1.8-2.4 mg/dl Total Bilirubin 1.1 0.2-1 mg/dl Aspartate Amino Transf (AST/SGOT) 24 15-37 U/L Alanine Aminotransferase (ALT/SGPT) 35 12-78 U/L Alkaline Phosphatase 78 45-117 U/L Total Creatine Kinase 29 26-192 U/L Creatine Kinase MB 1.1 0.5-3.6 ng/ml Creatine Kinase MB Ratio 3.8 0-3.0 Troponin I 2.680 0-0.045 ng/ml C-Reactive Protein 14.20 0-0.29 mg/dl Pro-B-Type Natriuretic Peptide > 67814 0-1800 pg/ml Total Protein 7.2 6.4-8.2 gm/dl Albumin 2.9 3.4-5.0 gm/dl Globulin 4.3 2.5-4.0 gm/dl Albumin/Globulin Ratio 0.7 0.9-2 Lipase 113 73-393 U/L Bedside Lactic Acid Venous 2.03 0.90-1.70 mmol/L Urine Color DK YELLOW Urine Appearance CLEAR CLEAR Urine pH 6.5 4.5-7.5 Urine Specific [place] 1.019 1.000-1.030 Urine Protein 3+ NEG Urine Glucose (UA) NEG NEG Urine Ketones NEG NEG Urine Occult Blood NEG NEG Urine Nitrite NEG NEG Urine Bilirubin NEG NEG Urine Urobilinogen NEG NEG Urine Leukocyte Esterase SMALL NEG Urine WBC (Auto) 10-30 0-5 /hpf Urine RBC (Auto) 0-4 0-4 /hpf Urine Hyaline Casts (Auto) 5-10 0-5 /lpf Urine Epithelial Cells (Auto) >30 0-5 /lpf Urine Bacteria (Auto) NEG NEG Urine Renal Epithelial Cells 5-10 0-5 /lpf Urine Pathogenic Casts 0-3 GRANULAR CASTS 0 /lpf Bedside Glucose 150 70-90 mg/dl Test 05/02/16 22:15 Range/Units Sodium Level 135 136-145 mmol/L Potassium Level 5.9 3.5-5.1 mmol/L Chloride Level 99 98-107 mmol/L Carbon Dioxide Level 23 21-32 mmol/L Anion Gap 13.0 3-11 mmol/L Blood Urea Nitrogen 42 7-18 mg/dl Creatinine 2.00 0.60-1.20 mg/dl Est Creatinine Clear Calc Drug Dose 28.0 ml/min Estimated GFR () 26.7 Estimated GFR (Non- 23.0 BUN/Creatinine Ratio 20.9 12-30 Random Glucose 137 70-99 mg/dl Estimated Average Glucose 148 mg/dl Hemoglobin A1c 6.8 4.5-5.6 % Lactic Acid Level 4.0 0.4-2.0 mmol/L Calcium Level 8.3 8.5-10.1 mg/dl Total Creatine Kinase 25 26-192 U/L Creatine Kinase MB 1.0 0.5-3.6 ng/ml Creatine Kinase MB Ratio 4.0 0-3.0 Troponin I 2.490 0-0.045 ng/ml Thyroid Stimulating Hormone (TSH) 18.900 0.300-4.500 uIu/ml Microbiology Results 05/02/16 Blood Culture, Received Pending 05/02/16 Blood Culture, Received Pending 05/02/16 Urine Culture, Received Pending
--- NOTE | 2016-05-03 14:06 | Palliative Care Consultation ---
Consultation Date of Consultation: May 03, 2016. Requesting Physician: John Paul Zendejas PA-C Attending Physician: Dr. Cunningham Reason for Consultation: Goals of care, symptom management History of Present Illness This 80 year old female patient presented to the ED last evening with complaints of shortness of breath which developed in the 2-3 days prior to admission. History obtained from record as the patient is lethargic at this time. This patient has a significant history for COPD and CHF exacerbations for which she has had 7 hospital visits in the last 12 months. Her BNP on admission was >35,000, troponin elevated at 2.68, BUN 40, creatinine 1.80. Portable CXR showed cardiomegaly and likely pulmonary vascular congestion. the patient was admitted for CHF exacerbation but was adamantly refusing Bipap. Apparently over night the patient was expressing her wishes to just be "let go," and did not want any aggressive treatment. With the support of her daughter/POA, Nicole Garcia, another daughter, Nicole Luz, and other family members, patient was made comfort measures only. Palliative care consulted to help manage care. I met with the patient and her family in the room. Nurses were in room caring for patient when I was in room, she did not wake at all but family reports that she occasionally does wake up and even speaks at time. Patient was in no distress. No facial grimacing or labored breathing while I observed. The family and I discussed patient's condition and goals of care. Both of patient daughters were present and confirmed that patient is comfort measures only and DNR/DNI. they feel that the patient is very comfortable and are happy with the care she is receiving. I did express that given the patient's current condition I would not be comfortable with a transfer to any other facility or home, they agreed and verbalized understanding. I presented the idea of GIP if needed and the family will give this some thought over the next 24 hours. Past Medical/Surgical History Medical History: CHF with frequent exacerbation BARBARA Atrial fibrillation CAD Cellulitis of left lower extremity CKD stage 3 COPD Depression DM type 2 GI bleed HTN Hypothyroidism NSTEMI Surgical History: Aortic valve replacement CABG History of vein harvesting of the left saphenous vein for CABG S/P tonsillectomy Social History Smoking Status: Former Smoker History of Alcohol Use: No Drug Use: none Marital Status: ( in 1984) Housing Status: lives with family (lives with daughter and daughter's home) Occupation Status: retired Review of Systems unable to obtain Allergies Coded Allergies: Morphine (Verified Adverse Reaction, Unknown, HALLUCINATIONS, 05/02/16) Medications Current Inpatient Medications Medications (Trade) Dose Ordered Sig/[place] Route Start Time Stop Time Status Last Admin Dose Admin Ondansetron HCl (Zofran Inj) 4 mg Q6H PRN IV 05/02/16 17:45 06/01/16 17:44 Nitroglycerin (Nitrostat Tab) 0.4 mg UD PRN SL 05/02/16 17:45 06/01/16 17:44 Lorazepam (Ativan Inj) 0.5 mg Q4H PRN IV 05/02/16 21:00 06/01/16 20:59 Hydromorphone HCl 0.5 mg 0.5 mg Q30M PRN IV 05/02/16 22:30 05/16/16 22:29 05/03/16 11:54 0.5 MG Lorazepam/Syringe (Ativan Inj/ Syringe) 1 ml @ 1 mls/min Q4H PRN IV 05/03/16 00:45 06/02/16 00:44 Scopolamine (Transderm-Scop Patch) 1.5 mg ONE PRN TD 05/03/16 01:15 06/02/16 01:14 05/03/16 03:39 1.5 MG Albuterol/ Ipratropium (Duoneb) 3 ml Q4R PRN INH 05/04/16 02:36 06/03/16 02:35 Physical Exam Date Time Temp Pulse Resp B/P Pulse Ox O2 Delivery O2 Flow Rate FiO2 05/03/16 08:22 Nasal Cannula 4.0 05/03/16 00:59 120 21 95 Nasal Cannula 4.0 05/02/16 23:45 36.7 108 20 4.0 05/02/16 20:34 117 26 95 BiPAP/CPAP 6.0 05/02/16 20:30 151 99 6.0 05/02/16 20:14 Nasal Cannula 4.0 05/02/16 20:14 36.4 130 30 163/101 90 Nasal Cannula 4.0 05/02/16 19:43 37.5 137 26 145/107 95 Nasal Cannula 4.0 05/02/16 18:29 128 26 136/116 98 Nasal Cannula 5.0 05/02/16 18:00 142 05/02/16 17:39 125 26 156/124 96 Nasal Cannula 3.0 05/02/16 16:40 116 96 05/02/16 16:35 122 95 05/02/16 16:30 121 96 05/02/16 16:28 148/104 05/02/16 16:25 121 96 05/02/16 16:20 117 96 05/02/16 16:15 120 96 05/02/16 16:10 129 96 05/02/16 16:05 131 96 05/02/16 16:00 121 96 05/02/16 15:58 162/129 05/02/16 15:55 122 97 05/02/16 15:50 130 94 05/02/16 15:45 127 94 05/02/16 15:40 111 95 05/02/16 15:36 151/101 05/02/16 15:35 121 95 05/02/16 15:30 124 94 05/02/16 15:28 144/98 05/02/16 15:25 144 148/115 96 05/02/16 15:20 134 163/110 96 05/02/16 15:15 137 94 05/02/16 15:10 141 96 05/02/16 15:05 143 97 05/02/16 15:00 145 97 05/02/16 14:56 114 28 94 Nasal Cannula 3.0 05/02/16 14:55 138 90 05/02/16 14:50 135 97 05/02/16 14:49 155/122 05/02/16 14:45 132 97 05/02/16 14:05 90 Nasal Cannula 3.0 05/02/16 14:05 90 Nasal Cannula 3.0 05/02/16 14:00 125 05/02/16 14:00 37.2 131 30 146/102 90 Nasal Cannula 3.0 physical assessment not done at this time as nurses were in room caring for patient. Laboratory Results Last 24 Hours Test 05/02/16 14:30 05/02/16 14:33 05/02/16 15:30 05/02/16 20:39 White Blood Count 6.47 K/uL Red Blood Count 3.23 M/uL Hemoglobin 8.4 g/dL Hematocrit 27.7 % Mean Corpuscular Volume 85.8 fL Mean Corpuscular Hemoglobin 26.0 pg Mean Corpuscular Hemoglobin Concent 30.3 g/dl Platelet Count 192 K/uL Mean Platelet Volume 10.2 fL Neutrophils (%) (Auto) 79.7 % Lymphocytes (%) (Auto) 11.0 % Monocytes (%) (Auto) 7.9 % Eosinophils (%) (Auto) 0.9 % Basophils (%) (Auto) 0.3 % Neutrophils # (Auto) 5.16 K/uL Lymphocytes # (Auto) 0.71 K/uL Monocytes # (Auto) 0.51 K/uL Eosinophils # (Auto) 0.06 K/uL Basophils # (Auto) 0.02 K/uL RDW Standard Deviation 53.1 fL RDW Coefficient of Variation 16.6 % Immature Granulocyte % (Auto) 0.2 % Immature Granulocyte # (Auto) 0.01 K/uL Polychromasia 1+ Ovalocytes 1+ Erythrocyte Sedimentation Rate 64 mm/hr Prothrombin Time 15.1 SECONDS Prothromb Time International Ratio 1.4 Activated Partial Thromboplast Time 27.5 SECONDS Partial Thromboplastin Ratio 1.1 Venous Blood pH 7.36 Venous Blood Partial Pressure CO2 49 mmHg Venous Blood Partial Pressure O2 37 mmHg Venous Blood HCO3 27 mmol/L Venous Blood Oxygen Saturation 63.9 % Venous Blood Base Excess 0.9 mmol/L Sodium Level 135 mmol/L Potassium Level 5.5 mmol/L Chloride Level 99 mmol/L Carbon Dioxide Level 25 mmol/L Anion Gap 11.0 mmol/L Blood Urea Nitrogen 40 mg/dl Creatinine 1.80 mg/dl Est Creatinine Clear Calc Drug Dose 30.3 ml/min Estimated GFR () 30.3 Estimated GFR (Non- 26.1 BUN/Creatinine Ratio 22.0 Random Glucose 136 mg/dl Calcium Level 8.4 mg/dl Phosphorus Level 4.0 mg/dl Magnesium Level 2.2 mg/dl Total Bilirubin 1.1 mg/dl Aspartate Amino Transf (AST/SGOT) 24 U/L Alanine Aminotransferase (ALT/SGPT) 35 U/L Alkaline Phosphatase 78 U/L Total Creatine Kinase 29 U/L Creatine Kinase MB 1.1 ng/ml Creatine Kinase MB Ratio 3.8 Troponin I 2.680 ng/ml C-Reactive Protein 14.20 mg/dl Pro-B-Type Natriuretic Peptide > 45239 pg/ml Total Protein 7.2 gm/dl Albumin 2.9 gm/dl Globulin 4.3 gm/dl Albumin/Globulin Ratio 0.7 Lipase 113 U/L Bedside Lactic Acid Venous 2.03 mmol/L Urine Color DK YELLOW Urine Appearance CLEAR Urine pH 6.5 Urine Specific [place] 1.019 Urine Protein 3+ Urine Glucose (UA) NEG Urine Ketones NEG Urine Occult Blood NEG Urine Nitrite NEG Urine Bilirubin NEG Urine Urobilinogen NEG Urine Leukocyte Esterase SMALL Urine WBC (Auto) 10-30 /hpf Urine RBC (Auto) 0-4 /hpf Urine Hyaline Casts (Auto) 5-10 /lpf Urine Epithelial Cells (Auto) >30 /lpf Urine Bacteria (Auto) NEG Urine Renal Epithelial Cells 5-10 /lpf Urine Pathogenic Casts 0-3 GRANULAR CASTS /lpf Bedside Glucose 150 mg/dl Test 05/02/16 22:15 Sodium Level 135 mmol/L Potassium Level 5.9 mmol/L Chloride Level 99 mmol/L Carbon Dioxide Level 23 mmol/L Anion Gap 13.0 mmol/L Blood Urea Nitrogen 42 mg/dl Creatinine 2.00 mg/dl Est Creatinine Clear Calc Drug Dose 28.0 ml/min Estimated GFR () 26.7 Estimated GFR (Non- 23.0 BUN/Creatinine Ratio 20.9 Random Glucose 137 mg/dl Estimated Average Glucose 148 mg/dl Hemoglobin A1c 6.8 % Lactic Acid Level 4.0 mmol/L Calcium Level 8.3 mg/dl Total Creatine Kinase 25 U/L Creatine Kinase MB 1.0 ng/ml Creatine Kinase MB Ratio 4.0 Troponin I 2.490 ng/ml Thyroid Stimulating Hormone (TSH) 18.900 uIu/ml Assessment & Plan Palliative Performance Scale: 10 % Problem list: Lethargy SOB- controlled with IV Dilaudid CHF exacerbation COPD Acute kidney injury on CKD Hyperkalemia Anemia Goals of care (Z51.5) Palliative care plan: -Comfort measures only -DNR/DNI as discussed last evening by providers, patient and patient's family -Not stable for discharge, requiring IV medications. Consider GIP hospice- family is thinking about it but would like to see how she does in the next 24 hours -Continue current order for Dilaudid 0.5mg Q30min PRN pain or SOB. Can certainly increase dose to 1mg if needed for comfort. If frequent PRN doses are needed and pain medication requirements increase, can start a continuous hydromorphone infusion. -Continue other orders for comfort such as PRN lorazepam, scopolamine patch, PRN nebulizer treatments, PRN Zofran. Thank you kindly for this consult. I will follow as needed.
[2016-05-03] MEDS: ATROPINE SULFATE 1% OP SOLN 2 ML BTL PO PRN (20:59)
[2016-05-04 00:22] VITALS: BP 153/104; PULSE 116; PULSE 97; TEMP 36.8; O2SAT 97
[2016-05-04] MEDS ORDERED: ALBUT/IPRATROP 3MG/0.5MG NEB 3 ML VIAL INH PRN (02:36)
[2016-05-04] MEDS: HYDROmorphone INJ 0.5 MG/0.5 ML SYR IV PRN ×2 (04:54→07:46)
[2016-05-04] MEDS ORDERED: MoRPHine SULFATE 4 MG/ML 1 ML CARP\\VIAL IV PRN (08:15)
[2016-05-04] MEDS ORDERED: PATIENT'S ALLERGY INFO NEEDS ENTERED SCH (10:00)
--- NOTE | 2016-05-04 11:12 | Progress Note ---
Internal Med Progress Note Date of Service: May 04, 2016. Provider Documentation: This in an 80-year-old female admitted for extreme shortness of breath secondary to CHF exacerbation. ProBNP was greater than 35,000. Minimal response to IV furosemide. The patient has continued to have further decompensation. Patient refused endotracheal intubation, CPAP, BiPAP. This decision was supported by the family. Patient continues to be comfort care. Patient is seen at bedside this morning. Daughter, son, grandson, and granddaughter present. Patient is resting comfortably but mostly nonresponsive. Periods of agitation overnight and this morning. Family states that she responded well to PRN morphine sulfate. SUBJECTIVE: Patient unable to give review of systems secondary to condition OBJECTIVE: Vital Signs-as noted below Exam: General-no acute distress Eyes-pupils are equal and constricted ENT-mucosa dry Lungs- bibasilar crackles Heart- No appreciation of ectopy Abdomen-soft. Nondistended. Sounds present but quiet Extremities-positive bilateral lower extremity edema. Pedal pulses intact Neuro-no response Lab data as noted below. ASSESSMENT & PLAN: CHF EXACERBATION Minimal response to furosemide Comfort Care. Discussion with family this morning Continue palliative measures Palliative medicine consult placed Start morphine gtt Nasal cannula in place DISPOSITION Comfort care measures only Family present at bedside All labs discontinued Comfort cart ordered for family Discussed case with ARLENE Haider from palliative medicine Morphine gtt started this morning Thank you for including us in the care of this patient Please refer to Dr. Cunningham's addendum for further recommendations Vital Signs: Date Time Temp Pulse Resp B/P Pulse Ox O2 Delivery O2 Flow Rate FiO2 05/04/16 08:10 Nasal Cannula 4.0 05/04/16 00:22 36.8 116 18 153/104 97 Nasal Cannula 4.0 97 05/04/16 00:00 Nasal Cannula 4.0 05/03/16 16:00 Nasal Cannula 4.0
[2016-05-04] MEDS: MoRPHine SULF/NSS 250MG/250ML 250 ML IV PRN ×2 (11:48→20:38)
--- NOTE | 2016-05-04 14:20 | Palliative Care Progress Note ---
Palliative Care Progress Note Date of Service May 04, 2016. Subjective Pt evaluation today including: conversation w/ patient, conversation w/ family , physical exam, chart review, review of inpatient medication list Pain: furrowed brow, seemed to guard during assesment PO Intake: none Voiding: glynn catheter in place (50ml urine output in 8 hour shift, dark urine ) -On continuous morphine gtt at 4mg/hr -Some signs of discomfort during assessment but otherwise is resting comfortably -Oliguric today, remains on comfort measures only -Spoke with family who denied any concerns at this time. They are pleased with patient's comfort level at this time Review of Systems unable to obtain Objective Vital Signs Date Time Temp Pulse Resp B/P Pulse Ox O2 Delivery O2 Flow Rate FiO2 05/04/16 08:10 Nasal Cannula 4.0 05/04/16 00:22 36.8 116 18 153/104 97 Nasal Cannula 4.0 97 05/04/16 00:00 Nasal Cannula 4.0 05/03/16 16:00 Nasal Cannula 4.0 Physical Exam General Appearance: no apparent distress Neck: no JVD Respiratory/Chest: + decreased breath sounds, + rhonchi (coarse throughout), + pertinent finding (minimal secretions heard in throat) Cardiovascular: + irregularly irregular, + pertinent finding (+2 pitting edema to bilateral ankles, +1 pitting edema to bilateral feet) Abdomen: normal bowel sounds, soft Neurologic/Psychiatric: + pertinent finding (obtunded) Assessment and Plan Problem list: Lethargy SOB- controlled with IV Dilaudid CHF exacerbation COPD Acute kidney injury on CKD Hyperkalemia Anemia Goals of care (Z51.5) Palliative care plan: -Continue morphine gtt as ordered. Nursing to titrate to patient comfort -Comfort measures only -PRN lorzepam if needed -Scopolamine patch on -Support given to family members -Declining GIP hospice at this time Palliative Performance Scale: 10 % Continued [facility] stay due to: multiple IV medications needed, home environment unsafe for pt
[2016-05-05] MEDS: ATROPINE SULFATE 1% OP SOLN 2 ML BTL PO PRN ×2 (00:38→06:07)
[2016-05-05] MEDS: MoRPHine SULF/NSS 250MG/250ML 250 ML IV PRN (02:28)
--- NOTE | 2016-05-05 11:05 | Progress Note ---
Subjective Date of Service: May 05, 2016. Subjective Pt evaluation today including: conversation w/ patient, conversation w/ family , physical exam, chart review, lab review, review of studies, review of inpatient medication list Comfortable, in deep sleeping, Problem List Medical Problems: (1) Atrial fibrillation with RVR Status: Acute (2) CHF (congestive heart failure) Status: Acute (3) COPD exacerbation Status: Acute (4) COPD exacerbation Status: Acute (5) Elevated troponin Status: Acute (6) Elevated troponin Status: Acute (7) Elevated troponin Status: Acute (8) Elevated troponin Status: Acute (9) Hypoxia Status: Acute (10) Hypoxia Status: Acute (11) NSTEMI (non-ST elevated myocardial infarction) Status: Acute (12) PNA (pneumonia) Status: Acute (13) Pulmonary edema Status: Acute (14) Respiratory failure Status: Acute (15) Respiratory failure Status: Acute (16) Shortness of breath Status: Acute (17) Shortness of breath Status: Acute Review of Systems Constitutional: + problem reported (not able to obtained) Objective Vital Signs Date Time Temp Pulse Resp B/P Pulse Ox O2 Delivery O2 Flow Rate FiO2 05/05/16 08:30 Nasal Cannula 4.0 05/05/16 00:00 Nasal Cannula 4.0 05/04/16 16:15 Nasal Cannula 4.0 Physical Exam General Appearance: + pertinent finding (pale,) ENT: + pertinent finding (dry mucous) Respiratory/Chest: + decreased breath sounds, + rales Cardiovascular: + pertinent finding (S1 and S2) Abdomen: soft Assessment and Plan 80-year-old white female admitted because of CHF EXACERBATION Has being minimal response to furosemide Patient changed to Comfort Care overnight per discussion with family Continue palliative measures DC labs, continue morphine drip to reach comfort goal talked to son and daughter Kerry in bedside about care plan, answered questions 13 min Continued [facility] stay due to: multiple IV medications needed, home environment unsafe for pt
--- NOTE | 2016-05-05 14:49 | Death Summary ---
Summary of Admission Date May 02, 2016 at 17:36 Date & Time of May 05, 2016. 14:13 Cause of CHF EXACERBATION Hospital Course 80-year-old white female admitted because of CHF EXACERBATION Has being minimal response to furosemide Patient changed to Comfort Care overnight per discussion with family Continue palliative measures DC labs, continue morphine drip to reach comfort goal talked to son and daughter Kerry in bedside about care plan, answered questions on 14:13 today, pt stop breathing, pupils fixed and dilated, no heart beat, i pronounced pt
== END 2016-05-05 15:00 | disposition expired | DRG 291 ==
LOC: ENRESERVDT → ENRESERVTM → EDBD 13:52 → C.ED 13:55 → C.2T 17:36 → C.4E 23:39
PROVIDERS: ADMIT Family Medicine; ATTEND Hospitalist
DX: I50.43 Acute on chronic combined systolic (congestive) and diastolic (congestive) heart failure (principal); J96.01 Acute respiratory failure with hypoxia; N17.9 Acute kidney failure, unspecified; I13.0 Hypertensive heart and chronic kidney disease with heart failure and stage 1 through stage 4 chronic kidney disease, or unspecified chronic kidney disease; I48.91 Unspecified atrial fibrillation; I25.10 Atherosclerotic heart disease of native coronary artery without angina pectoris; F32.9 Major depressive disorder, single episode, unspecified; N18.3 Chronic kidney disease, stage 3 (moderate); I25.2 Old myocardial infarction; E03.9 Hypothyroidism, unspecified; Z87.19 Personal history of other diseases of the digestive system; E11.22 Type 2 diabetes mellitus with diabetic chronic kidney disease; Z95.2 Presence of prosthetic heart valve; Z95.1 Presence of aortocoronary bypass graft; Z82.49 Family history of ischemic heart disease and other diseases of the circulatory system; Z82.3 Family history of stroke; Z87.891 Personal history of nicotine dependence; Z88.5 Allergy status to narcotic agent; Z79.82 Long term (current) use of aspirin; Z79.899 Other long term (current) drug therapy; E87.5 Hyperkalemia; Z87.11 Personal history of peptic ulcer disease; F41.9 Anxiety disorder, unspecified; Z66 Do not resuscitate; Z51.5 Encounter for palliative care; J44.9 Chronic obstructive pulmonary disease, unspecified